=== PATIENT | male | born 1970 | race Hispanic/Latino ===

== ENCOUNTER 2017-05-13 13:06 | Emergency (ER) | payer MEDICARE, OTHER ==
[~2017-05-13] VITALS: Ht 165.1 cm; Wt 68.9 kg
[~2017-05-13 13:06] MED LIST: CLONIDINE HCL0.1 MG PO; LASIX40 MG PO; MINOXIDIL2.5 MG PO; PREDNISONE10 MG PO; PROCARDIA XL30 MG PO; SODIUM BICARBO650 MG PO
--- OUTSIDE RECORDS SUMMARY | 2017-05-13 13:08 | XMS REPORT | Clinical Summary ---
Author Author [employer] [facility] [employer] Address Unknown Phone Unavailable Care Team Providers Care Associate Scientist Name Role Phone Kana Kat MD PCP Allergies Active Allergy Reactions Severity Noted Date Comments Codeine 06/30/2016 Heparin Hives, Itching 06/29/2016 Hydralazine GI Intolerance High 06/30/2016 Morphine Hives, Itching, GI 06/29/2016 Causes N/V Intolerance Current Medications Prescription Sig. Disp. Refills Start End Date Status Date clonIDINE HCl (CATAPRES) Take 0.2 mg by mouth 3 06/27/19 Active 0.2 MG tablet (three) times a day. 17 mycophenolate (CELLCEPT) Take 1,000 mg by mouth 2 06/14/19 Active 500 mg tablet (two) times a day. 17 tacrolimus (PROGRAF) 0.5 Take 5 capsules (2.5 mg 300 capsule 0 08/05/19 Active MG capsule total) by mouth 2 (two) 17 21 times a day. NIFEdipine XL (PROCARDIA Take 1 tablet (90 mg 30 tablet 5 07/06/19 Active XL) 90 MG 24 hr tablet total) by mouth daily. 17 minoxidil (LONITEN) 2.5 Take 2 tablets (5 mg 60 tablet 5 07/06/19 Active MG tablet total) by mouth daily. 17 predniSONE (DELTASONE) 10 Take 1 tablet (10 mg 30 tablet 0 07/06/19 08/05/19 Active mg tablet total) by mouth daily. 17 21 diltiazem CD (CardIZEM Take 240 mg by mouth Active CD) 240 MG 24 hr capsule every morning. PANTOPRAZOLE SODIUM Take 40 mg by mouth as Active (PANTOPRAZOLE ORAL) needed. diltiazem CD (CardIZEM Take 240 mg by mouth 06/27/19 07/06/19 Discontin CD) 240 MG 24 hr capsule daily. 17 17 ued predniSONE (DELTASONE) 10 Take 10 mg by mouth 3 06/27/19 07/06/19 Discontin mg tablet (three) times a day. 17 17 ued tacrolimus (PROGRAF) 1 MG Take 2 mg by mouth 2 06/25/19 07/06/19 Discontin capsule (two) times daily. 17 17 ued minoxidil (LONITEN) 2.5 Take 2 tablets (5 mg 60 tablet 5 07/06/19 Discontin MG tablet total) by mouth daily. 17 17 ued NIFEdipine XL (PROCARDIA Take 1 tablet (90 mg 30 tablet 07/06/19 07/06/19 Discontin XL) 90 MG 24 hr tablet total) by mouth daily. 17 17 ued doxazosin (CARDURA) 4 MG Take 1 tablet (4 mg 30 tablet 5 07/06/19 Discontin tablet total) by mouth daily. 17 17 ued doxazosin (CARDURA) 4 MG Take 1 tablet (4 mg 30 tablet 5 07/06/19 Discontin tablet total) by mouth daily. 17 17 ued NIFEdipine XL (PROCARDIA Take 1 tablet (90 mg 30 tablet 07/06/19 07/06/19 Discontin XL) 90 MG 24 hr tablet total) by mouth daily. 17 17 ued minoxidil (LONITEN) 2.5 Take 2 tablets (5 mg 60 tablet 5 07/06/19 Discontin MG tablet total) by mouth daily. 17 17 ued doxazosin (CARDURA) 4 MG Take 1 tablet (4 mg 30 tablet 5 07/06/19 Discontin tablet total) by mouth daily. 17 17 ued sodium bicarbonate 325 MG Take 4 tablets (1,300 mg 240 tablet 0 08/05/19 tablet total) by mouth 2 (two) 17 17 times a day for 30 days. traMADol (ULTRAM) 50 mg Take 1 tablet (50 mg 30 tablet 0 01/26/20 tablet total) by mouth every 6 17 17 (six) hours as needed for moderate pain for up to 10 days. Active Problems Problem Noted Date HTN (hypertension) 06/30/2016 Kidney transplant rejection 06/30/2016 Gastroesophageal reflux disease without esophagitis 06/30/2016 Anemia 06/30/2016 Encounters Date Type Specialty Care Team Description 01/25/2017 [facility] General Surgery Lawson Caldwell MD Pseudoaneurysm of Encounter brachial artery (Primary Dx) 01/25/2017 Procedure Pass General Surgery 01/25/2017 Surgery General Surgery Lawson Caldwell MD LEFT UPPER EXTREMITY PSEUDOANEURYSM REPAIR and AV Graft Revision 01/21/2017 Pre-Admit Pre-Admission Testing Lawson Caldwell MD Preop testing (Primary Testing Dx) Appointment 01/21/2017 Office Visit General Surgery Lawson Caldwell MD Pseudoaneurysm of brachial artery (Primary Dx) 01/21/2017 Anesthesia General Surgery Lenore Mansfield NP 01/09/2017 Documentation Transplant Silvestre Shen MD Kidney Follow- up (TIEDI GF form ) 09/19/2016 Telephone Transplant Patricia Baez LCSW 09/14/2016 Telephone Transplant Natasha White MA Speak to Financial 09/14/2016 Telephone Transplant Natasha White MA Speak to Coordiantor 09/13/2016 Telephone Transplant Yolis Baker MA Insurance Option 09/10/2016 Telephone Transplant Carleen Lewis Referral - Kidney Txp RN 06/29/2016 Hospital Transplant Magalys Kat Sr., Essential hypertension - Encounter MD (Primary Dx); 07/05/2016 Kidney transplant rejection; Gastroesophageal reflux disease without esophagitis; Iron deficiency anemia due to chronic blood loss 06/29/2016 Emergency Emergency Medicine after 05/12/2016 Family History Medical History Relation Name Comments Hypertension Paternal Grandmother Stroke Paternal Grandmother Relation Name Status Comments Paternal Grandmother Social History Tobacco Use Types Packs/Day Years Used Date Former Smoker Cigarettes 0.25 1 Quit: 1989 Smokeless Tobacco: Never Used Comments: One pack would last a month, only smoked for one year in early Alcohol Use Drinks/Week oz/Week Comments No Sex Assigned at Date Recorded Not on file Last Filed Vital Signs Vital Sign Reading Time Taken Blood Pressure 168/110 01/25/2017 3:54 PM [facility] Pulse 54 01/25/2017 3:54 PM [facility] Temperature 36.2 C (97.1 F) 01/25/2017 3:54 PM [facility] Respiratory Rate 16 01/25/2017 3:54 PM [facility] Oxygen Saturation 100% 01/25/2017 3:54 PM [facility] Inhaled Oxygen - - Concentration Weight 59.1 kg (130 lb 3 oz) 01/21/2017 11:23 AM [facility] Height 165.1 cm (5' 5") 01/25/2017 11:25 AM [facility] Body Mass Index 21.66 01/21/2017 11:23 AM [facility] Plan of Treatment Health Maintenance Due Date Last Done Comments INFLUENZA VACCINE 10/09/2016 Implants Implanted Type Area Photographer'S Model Device Expiration Model / Identifier Date Serial / Lot Particle Hmstc Absrbl Allison 5gm Surgical N/A: N/A MEDAFOR [id number] [facility] Mph - [id number] Implants; / Implanted: Qty: 1 on 01/25/2017 by Expanders; / Lawson Caldwell MD Extenders; Surgical Wires Graft Vasclr [place]-Alireza Stdwl 10cm Vascular N/A: N/A W L GORE 2021 [id number] / 6mm - [id number] - [id number] Graft [id number] / Implanted: Qty: 1 on 01/25/2017 by [id number] Lawson Caldwell MD Procedures Procedure Name Priority Date/Time Associated Diagnosis Comments RI AN ELECTIVE Routine 01/25/2017 SUPRAGLOTTIC AIRWAY 1:25 PM [facility] Procedure Note - Nell Alarcon MD - 01/25/2017 1:24 PM [facility] Airway Date/Time: 01/25/2017 1:17 PM Performed by: NELL ALARCON Authorized by: NELL ALARCON Location: OR Urgency: Elective Performed by: anesthesio logist Preoxygena yenifer with 100% O2: Yes Mask Ventilatio n: Easy mask Final Airway Type: Supraglott ic airway Final LMA: Classic LMA Size: 4 Number of Attempts at Approach: 1 LEFT UPPER EXTREMITY 01/25/2017 Pseudoaneurysm of femoral PSEUDOANEURYSM REPAIR and 11:25 AM [facility] artery AV Graft Revision Case Notes NAME ALERT Special Needs NAME ALERT after 05/12/2016 Results * Potassium, syringe (01/25/2017 11:10 AM) Component Value Ref Range Potassium, syringe 3.7 3.5 - 5.0 mEq/L Specimen Performing Laboratory Blood [facility] DEPARTMENT OF PATHOLOGY AND GENOMIC MEDICINE [address] [place] [phone] * Hemoglobin, syringe (01/25/2017 11:10 AM) Component Value Ref Range Hemoglobin, syringe 11.3 (L) 14.0 - 18.0 g/dL Specimen Performing Laboratory Blood [facility] DEPARTMENT OF PATHOLOGY AND GENOMIC MEDICINE [address] [place] [address] * Glucose level, syringe (01/25/2017 11:10 AM) Component Value Ref Range Glucose, syringe 96 65 - 99 mg/dL Specimen Performing Laboratory Blood [facility] DEPARTMENT OF PATHOLOGY AND GENOMIC MEDICINE [address] [place] [address] * ECG Pre/Post Op (01/21/2017 12:41 PM) Component Value Ref Range Ventricular rate 60 Atrial rate 60 RI interval 168 QRSD interval 96 QT interval 484 QTC interval 484 P axis 1 73 QRS axis 1 6 T wave axis 73 EKG impression Normal sinus rhythm-Possible Left atrial enlargement-Prolonged QT-Abnormal ECG- Specimen Performing Laboratory [facility] MUSE [address] [place] [address] * Estimated GFR (01/21/2017 11:37 AM) Only the most recent of 7 results within the time period is included. Component Value Ref Range GFR Non Af Amer 9 (A) mL/min/1.73 m2 GFR Af Amer 11 (A) mL/min/1.73 m2 Comment: Chronic kidney disease: <60 mL/min/1.73m2 Kidney failure: <15 mL/min/1.73m2 The estimated GFR is calculated from the IDMS-traceable Modification of Diet in Renal Disease Equation. The accuracy of the calculation is poor when the creatinine is normal. Calculated values >90 mL/min/1.73m2 are not reported. This equation has not been validated in children (<18 years), women, the elderly (>70 years), or ethnic groups other than Caucasians and Americans. Specimen Performing Laboratory Plasma specimen [facility] DEPARTMENT OF PATHOLOGY AND GENOMIC MEDICINE [address] [place] [address] * CBC with platelet and differential (01/21/2017 11:37 AM) Only the most recent of 7 results within the time period is included. Component Value Ref Range WBC 7.37 4.50 - 11.00 k/uL RBC 3.76 (L) 4.40 - 6.00 m/uL HGB 10.7 (L) 14.0 - 18.0 g/dL HCT 33.2 (L) 41.0 - 51.0 % MCV 88.3 82.0 - 100.0 fL MCH 28.5 27.0 - 34.0 pg MCHC 32.2 31.0 - 37.0 g/dL RDW - SD 44.4 37.0 - 55.0 fL MPV 10.5 8.8 - 13.2 fL Platelet count 164 150 - 400 k/uL Nucleated RBC 0.00 /100 WBC Neutrophils 80.7 (H) 39.0 - 69.0 % Lymphocytes 14.4 (L) 25.0 - 45.0 % Monocytes 3.3 0.0 - 10.0 % Eosinophils 0.4 0.0 - 5.0 % Basophils 0.7 0.0 - 1.0 % Immature granulocytes 0.5Comment: "Immature granulocytes" 0.0 - 1.0 % (promyelocytes, myelocytes, metamyelocytes) Specimen Performing Laboratory Blood [facility] DEPARTMENT OF PATHOLOGY AND GENOMIC MEDICINE [address] [place] [address] * Comprehensive metabolic panel (01/21/2017 11:37 AM) Component Value Ref Range Sodium 137 135 - 148 mEq/L Potassium 3.5 3.5 - 5.0 mEq/L Chloride 97 (L) 98 - 112 mEq/L CO2 26 24 - 31 mEq/L Anion gap 14 7 - 15 mEq/L Comment: Starting from June , anion gap calculation no longer incorporates potassium. Please note the change. BUN 58 (H) 6 - 20 mg/dL Creatinine 6.6 (H) 0.7 - 1.2 mg/dL Glucose 98 65 - 99 mg/dL Calcium 8.7 8.3 - 10.2 mg/dL Protein 6.8 6.3 - 8.3 g/dL Comment: 4.6-7.0 g/dL 1 week 4.4-7.6 g/dL 7 months-1year 5.1-7.3 g/dL 1-2 years 5.6-7.5 g/dL >3 years 6.0-8.0 g/dL 18-150 6.3-8.3 g/dL Albumin 3.1 (L) 3.5 - 5.0 g/dL A/G ratio 0.8 0.7 - 3.8 Alkaline phosphatase 89 40 - 129 U/L AST 16 10 - 50 U/L ALT 9 5 - 50 U/L Total bilirubin 0.3 0.0 - 1.2 mg/dL Specimen Performing Laboratory Plasma specimen [facility] DEPARTMENT [place] [address] * Cryo, globulin and fibrinogen (07/05/2016 4:53 PM) Component Value Ref Range Cryoglobulin Negative Negative Cryocrit globulin 0.0 Negative % Cryofibrinogen Negative Negative Cryocrit fibrinogen 0.0 Negative % Specimen Performing Laboratory Blood [facility] [place] [address] * Rheumatoid factor (07/05/2016 4:53 PM) Component Value Ref Range Rheumatoid factor <10 0 - 13 IU/mL Specimen Performing Laboratory Plasma specimen [facility] [place]MENT [place] [address] * C3 complement component (07/05/2016 4:53 PM) Only the most recent of 2 results within the time period is included. Component Value Ref Range C3 complement 92 90 - 180 mg/dL Specimen Performing Laboratory Plasma specimen [facility] DEPARTMENT OF PATHOLOGY AND [place] [id number] * C4 complement component (07/05/2016 4:53 PM) Only the most recent of 2 results within the time period is included. Component Value Ref Range C4 complement 25 10 - 40 mg/dL Specimen Performing Laboratory Plasma specimen [facility] [place] [address] * FK506 level (07/05/2016 5:40 AM) Only the most recent of 6 results within the time period is included. Component Value Ref Range FK506 level 3.5 ng/mL Comment: Therapeutic range 5-20 ng/mL for 12 hour trough. The range varies depending on the organ transplanted, time after transplantation and co-administered immunosuppressant therapies. Please use clinical judgment to interpret test result. Test performed using [employer] Switch Foreman chemiluminescent microparticle immunoassay for Tacrolimus on the [employer] i System. Specimen Performing Laboratory [facility] [place] [address] * Phosphorus level (07/05/2016 5:40 AM) Only the most recent of 3 results within the time period is included. Component Value Ref Range Phosphorus 2.6 2.4 - 4.5 mg/dL Specimen Performing Laboratory Plasma specimen [facility] [place] [address] * Magnesium level (07/05/2016 5:40 AM) Only the most recent of 4 results within the time period is included. Component Value Ref Range Magnesium 2.2 1.6 - 2.6 mg/dL Specimen Performing Laboratory Plasma specimen [facility] [place] [address] * Basic metabolic panel (07/05/2016 5:40 AM) Only the most recent of 6 results within the time period is included. Component Value Ref Range Sodium 140 135 - 148 mEq/L Potassium 4.2 3.5 - 5.0 mEq/L Chloride 106 98 - 112 mEq/L CO2 24 24 - 31 mEq/L Anion gap 10 7 - 15 mEq/L Comment: Starting from June , anion gap calculation no longer incorporates potassium. Please note the change. BUN 56 (H) 6 - 20 mg/dL Creatinine 2.5 (H) 0.7 - 1.2 mg/dL Glucose 97 65 - 99 mg/dL Calcium 9.2 8.3 - 10.2 mg/dL Specimen Performing Laboratory Plasma specimen [facility] [place] [address] * PV duplex venous upper extremity bilat (07/04/2016 1:50 PM) Specimen Performing Laboratory [facility] [address] [place] [address] Narrative Vascular Ultrasound Laboratory Upper Extremity Venous Report [address] [place] [address] Pat.Name:ROGERIO GILLIAM Pat.ID:[id number] .Date: 07/04/2016 Refer.MD:MAGALYS KAT MD Exam Time: 1:26:00 PMStudy Type:UE Venous Height:65inWeight:136lb BSA: 1.68 m2 DOBAge:1969,46Y Sex: MALESonogrphr: Yunier Sullivan RVT, [facility] Pat. Stat.:Inpatient Room:[address] TapeVol: CLARE, CPT - 4: 30955 Echo Event ID:[id number] Order ID:[id number] Reason for Study:RUE swelling. PMH of acute kidney transplant rejection, HTN, anemia, headache. Race:C SUMMARY: DUPLEX SCAN OBSERVATIONS Right Left IJNormal SubclavianChronic Normal AxillaryNormal BrachialNormal BasilicNormal CephalicObstructed RIGHT:The internal jugular vein is partiallycompressible with bright echogenic material noted within the lumen of the visualized vein. Colorflow and Doppler signals are present.Thecephalic vein is non-compressible, and dilated with echogenic material noted within the lumen of the visualized vein. Colorflow and Doppler signals are absent. LEFT: PRELIMINARY FINDINGS 1. 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 2. Total superficial thrombosis seen in the right cephalic vein. *Report given to MECHE Cummings @ 1400hrs on 07/04/16. PHYSICIAN INTERPRETATION Venous examination of the right upper extremity and neck demonstrated a chronic venous thrombosis of the right internal jugular vein and a superficial thrombosis seen in the right cephalic vein. Signed 07/04/2016 05:15 PM Primitivo Muniz MD, RPVI Procedure Note Interface, Radiology Results In - 07/04/2016 5:15 PM CDT Vascular Ultrasound Laboratory Upper Extremity Venous Report [id number]Name: ROGERIO GILLIAM Pat.ID: [id number] .Date: 07/04/2016 Refer.MD: MAGALYS KAT MD Exam Time: 1:26:00 PM Study Type:UE Venous Height: 65in Weight: 136lb BSA: 1.68 m2 Age: 12 1970,46Y Sex: MALE Sonogrphr: Yunier Sullivan RVT, [facility] Pat. Stat.:Inpatient Room: H6522-Y Tape Vol: MK, CPT - 4: 55937 Echo Event ID:[id number] Order ID: [id number] Reason for Study:RUE swelling. PMH of acute kidney transplant rejection, HTN, anemia, headache. Race: C SUMMARY: DUPLEX SCAN OBSERVATIONS Right Left IJ Normal Subclavian Chronic Normal Axillary Normal Brachial Normal Basilic Normal Cephalic Obstructed RIGHT:The internal jugular vein is partiallycompressible with bright echogenic material noted within the lumen of the visualized vein. Colorflow and Doppler signals are present. Thecephalic vein is non-compressible, and dilated with echogenic material noted within the lumen of the visualized vein. Colorflow and Doppler signals are absent. LEFT: PRELIMINARY FINDINGS 1. 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 2. Total superficial thrombosis seen in the right cephalic vein. *Report given to MECHE Cummings @ 1400hrs on 07/04/16. PHYSICIAN INTERPRETATION Venous examination of the right upper extremity and neck demonstrated a chronic venous thrombosis of the right internal jugular vein and a superficial thrombosis seen in the right cephalic vein. Signed 07/04/2016 05:15 PM Primitivo Muniz MD, RPVI * Hepatitis C virus quantitative by PCR (07/04/2016 12:00 PM) Component Value Ref Range Hepatitis C quantitative, Not-Detected Not-Detected IU/mL PCR Hepatitis C quantitative, See link below for PDF Lab ReportComment: Case PCR Number: [id number] Specimen Performing Laboratory Blood [facility] DEPARTMENT OF PATHOLOGY AND GENOMIC MEDICINE [address] [place] [address] * Anti-neutrophilic cytoplasmic Abs panel (07/04/2016 12:00 PM) Component Value Ref Range ANCA screen Negative Negative Specimen Performing Laboratory Blood [facility] DEPARTMENT OF PATHOLOGY AND GENOMIC MEDICINE [address] [place] [address] * Total iron binding capacity (07/04/2016 10:29 AM) Component Value Ref Range Iron level 147 59 - 158 ug/dL Iron binding capacity 248 200 - 400 ug/dL % Saturation 59.3 (H) 20.0 - 40.0 % Specimen Performing Laboratory Plasma specimen [facility] DEPARTMENT OF PATHOLOGY AND GENOMIC MEDICINE [address] [place] [address] * Ferritin level (07/04/2016 10:29 AM) Component Value Ref Range Ferritin level 591 (H) 30 - 400 ng/mL Specimen Performing Laboratory Plasma specimen [facility] DEPARTMENT PATHOLOGY AND [facility] MEDICINE [address] [place] [address] * HCV qualitative by PCR (07/04/2016 9:54 AM) Component Value Ref Range HCV PCR result Not-Detected Not-Detected HCV RNA qualitative See link below for PDF Lab ReportComment: Specimen Performing Laboratory [facility] [place] [address] * Hepatitis C antibody (07/04/2016 9:54 AM) Component Value Ref Range Hepatitis C Ab Reactive (A) Non-reactive Comment: HCV antibody testing initially Reactive. Confirmation by HCV RNA PCR will be performed and reported separately when completed. Repeat HCV RNA PCR will not be performed if done within 30 days. Specimen Performing Laboratory Blood [facility] [place] [address] * Potassium level (07/02/2016 5:36 PM) Component Value Ref Range Potassium 4.7 3.5 - 5.0 mEq/L Specimen Performing Laboratory Plasma specimen [facility] [place] [address] * Surgical pathology request (07/02/2016 1:09 PM) Component Value Ref Range Surgical pathology report See link below for PDF Lab Report Specimen Performing Laboratory [facility] [place] [address] * Image Guidance Biopsy (07/02/2016 12:12 PM) Specimen Performing Laboratory [facility] [address] [place] [address] Narrative EXAMINATION:US NEEDLE BIOPSY CLINICAL HISTORY: Renal transplant TECHNIQUE: The risks, benefits, and alternatives were discussed with the patient and written informed consent was obtained. Left lower quadrant renal transplant was localized with ultrasound. A site for needle entry was selected and the skin was prepped and draped in the usual sterile fashion. After local administration of 1% buffered lidocaine, with ultrasound guidance introducer needle was advanced to the margin of the renal transplant and subsequently 3 18-gauge core samples were obtained. The specimens were reviewed with pathology and were deemed adequate. The patient was discharged to the radiology recovery area for monitoring prior to discharge. Conscious sedation: Under physician supervision 1 mg of IV Versed and 50 mcg of IV fentanyl was administered for moderate sedation. Vitals were continuously monitored by the nurse. The Physician spent 21 minutes of [id number] sedation time with the patient. EBL: None. Complications: None. Assistants: None. IMPRESSION: Technically successful ultrasound-guided left renal transplant biopsy as detailed above. [facility]-[id number] Procedure Note [facility], Radiology Results Incoming - 07/02/2016 5:14 PM CDT EXAMINATION: US NEEDLE BIOPSY CLINICAL HISTORY: Renal transplant TECHNIQUE: The risks, benefits, and alternatives were discussed with the patient and written informed consent was obtained. Left lower quadrant renal transplant was localized with ultrasound. A site for needle entry was selected and the skin was prepped and draped in the usual sterile fashion. After local administration of 1% buffered lidocaine, with ultrasound guidance introducer needle was advanced to the margin of the renal transplant and subsequently 3 18-gauge core samples were obtained. The specimens were reviewed with pathology and were deemed adequate. The patient was discharged to the radiology recovery area for monitoring prior to discharge. Conscious sedation: Under physician supervision 1 mg of IV Versed and 50 mcg of IV fentanyl was administered for moderate sedation. Vitals were continuously monitored by the nurse. The Physician spent 21 minutes of [id number] sedation time with the patient. EBL: None. Complications: None. Assistants: None. IMPRESSION: Technically successful ultrasound-guided left renal transplant biopsy as detailed above. [facility]-[id number] * Partial thromboplastin time, activated (07/02/2016 8:42 AM) Component Value Ref Range PTT 27.0 23.0 - 36.0 sec Comment: PTT therapeutic range for unfractionated heparin is 61.0-112.0 seconds which corresponds to Anti-Xa 0.3-0.7 U/ml. Specimen Performing Laboratory Blood [facility] DEPARTMENT OF PATHOLOGY AND GENOMIC MEDICINE [address] [place] [address] * Prothrombin time with INR (07/02/2016 8:42 AM) Component Value Ref Range Prothrombin time 13.0 12.0 - 15.0 sec INR 1.0 Comment: The International Normalized Ratio (INR) is a therapeutic monitoring tool for patients who are stable on oral anticoagulant therapy. An INR of 2.0-3.0 is suggested for deep vein thrombosis/pulmonary embolism. Specimen Performing Laboratory Blood [facility] DEPARTMENT OF PATHOLOGY AND GENOMIC MEDICINE [address] [place] [address] * BK virus by PCR (07/02/2016 5:48 AM) Only the most recent of 2 results within the time period is included. Component Value Ref Range BK virus PCR Not-Detected Not-Detected copies/mL BK virus PCR See link below for PDF Lab ReportComment: Specimen Performing Laboratory [facility] DEPARTMENT OF PATHOLOGY AND GENOMIC MEDICINE [address] [place] [address] * Urinalysis screen and microscopy, with reflex to culture (06/30/2016 5:34 PM) Component Value Ref Range Specimen site Clean catch Color, UA Straw Appearance, UA Clear Specific gravity, UA 1.017 1.001 - 1.035 pH, UA 6.0 5.0 - 8.5 Protein, UA 3+ (A) Negative Glucose, UA 1+ (A) Negative Ketones, UA Negative Negative Bilirubin, UA Negative Negative Blood, UA Negative Negative Nitrite, UA Negative Negative Urobilinogen, UA <2.0 <2.0 Leukocyte esterase, UA Negative Negative WBC, UA 4 (H) 0 - 1 /HPF RBC, UA 6 (H) 0 - 1 /HPF Bacteria, UA Few None seen Yeast, UA None seen Yeast with pseudohyphae, None seen UA Hyaline casts, UA 4 /LPF Specimen Performing Laboratory Urine [facility] DEPARTMENT OF PATHOLOGY AND GENOMIC MEDICINE [address] [place] [address] * Urine culture (06/30/2016 5:34 PM) Component Value Ref Range Urine culture SEE COMMENTComment: Bacteriuria screen negative. Specimen Performing Laboratory Urine [facility] DEPARTMENT OF PATHOLOGY AND GENOMIC MEDICINE [address] [place] [address] * US Renal Transplant Doppler (06/30/2016 9:15 AM) Specimen Performing Laboratory [facility] [address] [place] [address] Narrative EXAMINATION:US RENAL TRANSPLANT DOPPLER CLINICAL HISTORY:Abnormal labs clinical exam TECHNIQUE: Sonographic images of the renal transplant were obtained as well as grayscale, color Doppler, and waveform analysis of the renal transplant vessels. COMPARISON:04/01/2015 renal ultrasound FINDINGS: The left iliac fossa renal transplant is normal in size and echogenicity. There is no evidence of renal mass, calculi, or hydronephrosis. There are no perinephric fluid collections. The transplant renal artery and vein are patent with normal flow direction and waveform. The urinary bladder is unremarkable. IMPRESSION: Normal renal ultrasound examination. [id number] Procedure Note Hm Interface, Radiology Results Incoming - 06/30/2016 10:08 AM CDT EXAMINATION: US RENAL TRANSPLANT DOPPLER CLINICAL HISTORY: Abnormal labs clinical exam TECHNIQUE: Sonographic images of the renal transplant were obtained as well as grayscale, color Doppler, and waveform analysis of the renal transplant vessels. COMPARISON: 04/01/2015 renal ultrasound FINDINGS: The left iliac fossa renal transplant is normal in size and echogenicity. There is no evidence of renal mass, calculi, or hydronephrosis. There are no perinephric fluid collections. The transplant renal artery and vein are patent with normal flow direction and waveform. The urinary bladder is unremarkable. IMPRESSION: Normal renal ultrasound examination. [id number] * Thyroid stimulating hormone (06/30/2016 4:40 AM) Component Value Ref Range TSH 2.87 0.27 - 4.20 uIU/mL Specimen Performing Laboratory Plasma specimen [facility] DEPARTMENT OF PATHOLOGY AND GENOMIC MEDICINE [address] [place] [id number] * T4, free (06/30/2016 4:40 AM) Component Value Ref Range T4, free 0.9 0.9 - 1.7 ng/dL Specimen Performing Laboratory Plasma specimen [facility] DEPARTMENT OF PATHOLOGY AND GENOMIC MEDICINE [address] [place] [id number] * Lipid panel (06/30/2016 4:40 AM) Component Value Ref Range Cholesterol 219 (H) <200 mg/dL Triglycerides 117 <150 mg/dL HDL cholesterol 93 >40 mg/dL LDL cholesterol 108 (H)Comment: Result obtained by direct LDL <100 mg/dL measurement Lipid panel SeeBelow interpretation Comment: Total Cholesterol (mg/dL) <200 Desirable 200-239 Borderline-high >=240 High Triglycerides (mg/dL) <150 Normal 150-199 Borderline-high 200-499 High >=500 Very high HDL Cholesterol (mg/dL) <40 Low (male) <40 Low (female) LDL Cholesterol (mg/dL) <100 Optimal 100-129 Near or above optimal 130-159 Borderline-high 160-189 High >=190 Very high Risk Catergories that modify LDL goals. Risk Catergories LDL goal (mg/dL) CHD and CHD risk equivalent <100 (10-year risk >20%) Multiple (2+) risk factors <130 (10-year risk=<20%) 0-1 risk factors <160 (<10-year risk) Defining levels of lipids in metabolic syndrome Triglycerides >=150 mg/dL HDL Cholesterol Men <40 mg/dL Women <40 mg/dL Non-HDL cholesterol is a second target for therapy in persons with high triglycerides (>=200 mg/dL) Specimen Performing Laboratory Plasma specimen [facility] DEPARTMENT OF PATHOLOGY AND GENOMIC MEDICINE [address] [place] [address] after 05/12/2016 Insurance Payer Benefit Subscriber ID Type Phone Address Plan / Group MEDICAID MEDICAID xxxxxxxxx Medicaid MEDICARE MEDICARE xxxxxxxxxx Medicare [place], [place] PART A AND B
--- OUTSIDE RECORDS SUMMARY | 2017-05-13 13:08 | XMS REPORT | Clinical Summary ---
Author Author [facility] Address Unknown Phone Unavailable Care Team Providers Care Oracle R12 Developer Name Role Phone PCP Unavailable Allergies Not on File Current Medications Not on file Active Problems Not on file Social History Tobacco Use Types Packs/Day Years Used Date Never Assessed Sex Assigned at Date Recorded Not on file Last Filed Vital Signs Not on file Plan of Treatment Not on file Results Not on fileafter 05/12/2016
[2017-05-13] MEDS ORDERED: ONDANSETRON HCL INJ 2 MG/ML VIAL IV STA (13:27)
[2017-05-13] MEDS ORDERED: HYDRALAZINE HCL 20 MG/ML VIAL IV STA (13:30)
[2017-05-13 14:12] LABS: BASOPHILS % 0.6 % (0.0-1.0); EOSINOPHILS # (AUTO) 0.4 (0.0-0.4); EOSINOPHILS % 5.2 % (0.0-6.0); HEMOGLOBIN 11.7 g/dL (14.0-18.0); LYMPHOCYTES # (AUTO) 1.9 (1.0-3.2); LYMPHOCYTES % 26.2 % (18.0-39.1); MEAN CORPUSCULAR HEMOGLOBIN 29.2 pg (28-32); MEAN CORPUSCULAR HGB CONC 33.4 g/dL (31-35); MEAN CORPUSCULAR VOLUME 87.3 fL (81-99); MONOCYTES # (AUTO) 0.7 (0.2-0.8); MONOCYTES % 9.8 % (4.4-11.3); NEUTROPHILS # (AUTO) 4.2 (2.1-6.9); NEUTROPHILS % 57.9 % (38.7-80.0); PLATELET COUNT 99 x10e3/uL (140-360); RED BLOOD COUNT 4.01 x10e6/uL (4.3-5.7); RED CELL DISTRIBUTION WIDTH 15.6 % (11.7-14.4)
[2017-05-13 14:13] LABS: BILIRUBIN,URINE NEGATIVE (NEGATIVE); CLARITY,URINE SL CLOUDY (CLEAR); COLOR,URINE YELLOW (YELLOW); KETONES,URINE NEGATIVE (NEGATIVE); LEUKOCYTE ESTERASE ,URINE NEGATIVE (NEGATIVE); NITRITE,URINE NEGATIVE (NEGATIVE); PROTEIN,URINE DIPSTICK 2+ (NEGATIVE); URINE UROBILINOGEN 0.2 mg/dL (0.2 - 1)
[2017-05-13 14:27] LABS: ALBUMIN/GLOBULIN RATIO 0.8 (0.8-2.0); ANION GAP 15.2 mmol/L (8-16); CALCIUM 7.9 mg/dL (8.4-10.2); CREATININE, SERUM 7.8 mg/dL (0.72-1.25); POTASSIUM 3.2 mmol/L (3.5-5.1)
[2017-05-13 14:30] LABS: BACTERIA,URINE FEW /HPF; RBC,URINE 21-50 /HPF (0-5); WBC,URINE (MAN) 0-5 /HPF (0-5)
[2017-05-13 15:10] LABS: BODY FLUID APPEARANCE CLEAR; BODY FLUID COLOR COLORLESS; BODY FLUID TYPE PERITONEAL
[2017-05-13] MEDS ORDERED: VANCOMYCIN 1GM/NS 250 ML 250 ML IV STA (15:13)
[2017-05-13 15:44] LABS: RBC,BODY FLUID 3 cells/uL; WBC,BODY FLUID 2 cells/uL
[2017-05-13] MEDS ORDERED: GENTAMICIN SULFATE 100 MG in SODIUM CHLORIDE 0.9% 100 ML 100 ML IV SCH (16:00)
== END 2017-05-13 19:49 | disposition home or self-care (01) ==
LOC: ER 13:06
DX: R10.84 Generalized abdominal pain (principal); R11.2 Nausea with vomiting, unspecified; I12.0 Hypertensive chronic kidney disease with stage 5 chronic kidney disease or end stage renal disease; N18.6 End stage renal disease; Z99.2 Dependence on renal dialysis; B19.20 Unspecified viral hepatitis C without hepatic coma; Z94.0 Kidney transplant status
CPT/HCPCS: 36415; 80053; 81001; 85025; 87040; 87070; 87205; 89051; 93005; 99284; J3370; J0360; J2405

== ENCOUNTER 2017-10-03 06:35 | Inpatient (IN) | payer MEDICARE, OTHER ==
[~2017-10-03] VITALS: Ht 165.1 cm; Wt 53.5 kg
[2017-10-03] MEDS ORDERED: ASPIRIN 81 MG CHEW TAB PO ONE ×2 (07:00→13:00)
[2017-10-03 07:13] LABS: BASOPHILS # (AUTO) 0.1 (0.0-0.1); BASOPHILS % 0.4 % (0.0-1.0); EOSINOPHILS # (AUTO) 0.1 (0.0-0.4); EOSINOPHILS % 0.3 % (0.0-6.0); HEMOGLOBIN 13.5 g/dL (14.0-18.0); LYMPHOCYTES # (AUTO) 1.8 (1.0-3.2); LYMPHOCYTES % 9.8 % (18.0-39.1); MEAN CORPUSCULAR HEMOGLOBIN 28.3 pg (28-32); MEAN CORPUSCULAR HGB CONC 34.6 g/dL (31-35); MEAN CORPUSCULAR VOLUME 81.8 fL (81-99); MONOCYTES # (AUTO) 1.9 (0.2-0.8); MONOCYTES % 10.7 % (4.4-11.3); NEUTROPHILS # (AUTO) 14.1 (2.1-6.9); NEUTROPHILS % 78.4 % (38.7-80.0); PLATELET COUNT 159 x10e3/uL (140-360); RED BLOOD COUNT 4.77 x10e6/uL (4.3-5.7); RED CELL DISTRIBUTION WIDTH 13.9 % (11.7-14.4)
[2017-10-03] MEDS ORDERED: ONDANSETRON HCL INJ 2 MG/ML VIAL IV STA (07:19)
[2017-10-03] MEDS ORDERED: DOXERCALCIFEROL PO (07:23)
[2017-10-03] MEDS ORDERED: SENSIPAR30 MG PO (07:23)
[2017-10-03] MEDS ORDERED: NIFEDIPINE ER30 M1 PO (07:23)
[2017-10-03] MEDS ORDERED: CLONIDINE HCL0.2 MG PO (07:23)
[2017-10-03] MEDS ORDERED: PREDNISONE5 MG PO (07:23)
[2017-10-03] MEDS ORDERED: MYCOPHENOLATE250 MG PO (07:23)
[2017-10-03] MEDS ORDERED: PANTOPRAZOLE SO40 MG PO (07:23)
[2017-10-03] MEDS ORDERED: DILTIAZEM 24HR180 MG PO (07:23)
[2017-10-03] MEDS ORDERED: TACROLIMUS1 MG PO (07:23)
[2017-10-03 07:30] LABS: ALBUMIN 3.9 g/dL (3.5-5.0); ALBUMIN/GLOBULIN RATIO 1.2 (0.8-2.0); ANION GAP 22.6 mmol/L (8-16); CALCIUM 8.5 mg/dL (8.4-10.2); CREATININE, SERUM 10.29 mg/dL (0.72-1.25)
[2017-10-03] MEDS ORDERED: DICYCLOMINE HCL 20 MG/2 ML VIAL IM ONE (07:30)
[2017-10-03] MEDS ORDERED: FENTANYL CITRATE/PF 100MCG/2 ML INJ IV ONE (07:30)
[2017-10-03] MEDS ORDERED: SODIUM CHLORIDE 0.9% 1000ML 1,000 ML IV ONE (07:30)
[2017-10-03] MEDS ORDERED: DIATRIZOATE MEGL/DIATRIZOA SOD 30 ML BTL PO ONE (07:31)
[2017-10-03 07:32] LABS: POTASSIUM 2.6 mmol/L (3.5-5.1)
[2017-10-03 07:39] LABS: CREATINE KINASE MB 2.4 ng/mL (0-5.0)
[2017-10-03] MEDS ORDERED: POTASSIUM CHLORIDE 20MEQ/100ML 100 ML IV ONE (07:45)
[2017-10-03] MEDS ORDERED: LABETALOL HCL 5 MG/ML 20ML VIAL IV STA (08:00)
[2017-10-03] MEDS ORDERED: FAMOTIDINE 20 MG/2 ML VIAL IV STA (08:19)
[2017-10-03] MEDS ORDERED: METOCLOPRAMIDE HCL 10 MG/2ML VIAL IV ONE (08:30)
--- NOTE | 2017-10-03 09:24 | Diagnostic Imaging Report ---
PROCEDURE: CT ABDOMEN AND PELVIS WITHOUT CONTRAST TECHNIQUE: The abdomen and pelvis were scanned utilizing a multidetector helical scanner from the diaphragm to the lesser trochanter. No oral or intravenous contrast was administered per referring physician request. Coronal and sagittal multiplanar reformations were obtained. COMPARISON: None. INDICATIONS: ABDOMINAL PAIN, NAUSEA, VOMITING FINDINGS: ABSENCE OF INTRAVENOUS CONTRAST DECREASES SENSITIVITY FOR DETECTION OF FOCAL LESIONS AND VASCULAR PATHOLOGY. LOWER THORAX: Normal. HEPATOBILIARY: No focal hepatic lesions. No biliary ductal dilatation. SPLEEN: No splenomegaly. PANCREAS: No focal masses or ductal dilatation. ADRENALS: No adrenal nodules. KIDNEYS/URETERS: Kidneys are atrophic with extensive atherosclerotic vascular as well as cortical-parenchymal calcifications. No gross mass lesion. Left lower quadrant pelvic transplant kidney is of normal morphology. No hydronephrosis. PELVIC ORGANS/BLADDER: The urinary bladder is incompletely distended but otherwise unremarkable. Coarse prostatic calcifications.. PERITONEUM / RETROPERITONEUM: Peritoneal dialysis catheter coiled along the right inferior liver margin. Small volume ascites average attenuation 5-10 Hounsfield units. No pneumoperitoneum. LYMPH NODES: No pelvic sidewall, retroperitoneal, or mesenteric lymphadenopathy. VESSELS: Extensive atherosclerotic calcification of the abdominal aorta and major branch vessels without aneurysmal dilatation. Evaluation is otherwise limited in the absence of intravenous contrast. GI TRACT: The large bowel shows no evidence of distention or wall thickening, though the majority of the colon is collapsed and poorly evaluated. Normal appendix. Concentric wall thickening of a jejunal loop in the left upper quadrant (series 2 image 37). BONES AND SOFT TISSUES: A scattered foci of intramuscular gas along the right gluteus chanel is likely related to subcutaneous medication administration. Otherwise no focal soft tissue abnormalities. No osseous destructive lesions. Bone island in the right sacral ala. Bilateral L5 spondylolyses without spondylolisthesis. IMPRESSION: Concentric wall thickening of a jejunal loop in the left upper quadrant is nonspecific but is suggestive of regional enteritis in the appropriate clinical context. No evidence of bowel obstruction. Atrophic [place] kidneys, with postsurgical changes of left lower quadrant renal transplant and peritoneal dialysis catheter placement, with associated small volume ascites. Dictated by: Binh Rucker M.D. on 10/03/2017 at 9:29 Electronically approved by: Binh Rucker M.D. on 10/03/2017 at 9:29
[2017-10-03] MEDS ORDERED: LABETALOL HCL 5 MG/ML 20ML VIAL IV PRN ×2 (10:30→11:15)
[2017-10-03] MEDS ORDERED: SODIUM CHLORIDE 0.9% 1000ML 1,000 ML IV SCH (11:05)
[2017-10-03] MEDS ORDERED: HYOSCYAMINE 0.125 MG TAB PO PRN (11:15)
[2017-10-03] MEDS ORDERED: ONDANSETRON HCL INJ 2 MG/ML VIAL IV PRN (11:15)
[2017-10-03] MEDS ORDERED: HYDRALAZINE HCL 20 MG/ML VIAL IV PRN (12:15)
[2017-10-03] MEDS ORDERED: CEFTRIAXONE SOD 1 GM VIAL IV SCH (12:15)
[2017-10-03] MEDS ORDERED: ACETAMINOPHEN 325 MG TAB PO PRN (12:15)
--- NOTE | 2017-10-03 13:23 | History and Physical ---
ADDENDUM: FINAL IMPRESSION: 1. Sepsis. 1. Hypertensive emergency with hypertensive nephropathy. 2. End-stage renal disease on dialysis. 3. Jejunitis. 4. Vomiting. 5. Anemia of chronic disease secondary to chronic renal failure. 6. Severe abdominal pain. 7. Atypical chest pain. We are going to also put her on aspirin 81 mg daily, metoprolol 50 mg p.o. twice a day. We are going to get a cardiology consult also with Dr. Gómez also because of the evaluation of chest pain, and we are going to do an echocardiogram and he is going to be on telemetry. Also we are going to do troponin q.8 hours x3. Job#: [id number] EV
[2017-10-03] MEDS: LABETALOL HCL 5 MG/ML 20ML VIAL IV PRN (13:34)
--- NOTE | 2017-10-03 13:42 | History and Physical ---
HISTORY OF PRESENT ILLNESS: A 47-year-old male, past medical history positive for end-stage renal disease status post renal transplant on peritoneal dialysis for a month already, history of hypertension also. Came to the hospital complaining of vomiting, abdominal pain. He was found to have extremely high blood pressure, leukocytosis. He has been admitted because of uncontrolled hypertension and possible sepsis. REVIEW OF SYSTEMS CARDIOVASCULAR: He had an episode of chest pain but it resolved. RESPIRATORY: No shortness of breath. No cough. GASTROINTESTINAL: He had nausea and vomiting, no diarrhea. He has severe abdominal pain. GENITOURINARY: No frequency, no dysuria. ALLERGIES: HEPARIN, CODEINE, HYDRALAZINE AND MORPHINE. PAST MEDICAL HISTORY: Positive for end stage renal disease on dialysis status post renal transplant, history of hypertension. PHYSICAL EXAMINATION VITAL SIGNS: Blood pressure is 150/110, temperature degrees, heart rate 85 per minute, respiratory rate is 18 per minute. Oxygen saturation 100%. HEART: Shows regular rhythm. Normal S1, S2 sounds. LUNGS: Clear bilaterally. ABDOMEN: Soft. Peritoneal dialysis in place. EXTREMITIES: Show no evidence of cyanosis, no trauma. Blood culture, UA, urine culture has been ordered. A chest x-ray is going to be ordered. Patient has been started on Zosyn 2.25 grams IV piggyback q.8 hours. Consults are ready for infectious diseases for the possibility of sepsis, Dr. Manolo Gaona for nephrology. We are going to continue with the rest of the medications which include--we are going to resume the home medications, he is going to be on labetalol 20 mg IV q.4 hours as needed for hypertension, Tylenol 325 mg q.4 hours as needed, hyoscyamine 0.1.25 mg q.6 hours as needed. We are going to discontinue hydralazine because the patient is allergic to that. Continue Zofran 4 mg IV q.4 hours as needed, Cardizem 240 mg total daily, prednisone 5 mg daily, Cinacalcet 60 mg daily, tacrolimus 2 mg p.o. twice a day, Protonix 40 mg p.o. twice a day, Actually, nifedipine is going to be continued at 90 mg twice a day. We are going to discontinue the Cardizem because of duplicate he was taking at home. He is on Pepcid 20 mg IV twice a day. He is on CellCept 1600 mg 3 times a day, clonidine 0.2 mg 3 times a day. Patient is going to be admitted to the [facility]. Diet is going to be a renal diet. Job#: [id number] GENE
[2017-10-03] MEDS: PIPERACILLIN/TAZO 2.25 GM 50 ML IV SCH ×2 (13:50→22:05)
[2017-10-03 14:00] LABS: BILIRUBIN,URINE NEGATIVE (NEGATIVE); CLARITY,URINE CLEAR (CLEAR); COLOR,URINE YELLOW (YELLOW); KETONES,URINE NEGATIVE (NEGATIVE); LEUKOCYTE ESTERASE ,URINE NEGATIVE (NEGATIVE); NITRITE,URINE NEGATIVE (NEGATIVE); PROTEIN,URINE DIPSTICK 3+ (NEGATIVE); URINE UROBILINOGEN 0.2 mg/dL (0.2 - 1)
[2017-10-03 14:16] LABS: BACTERIA,URINE MODERATE /HPF
[2017-10-03 14:17] LABS: EPITHELIAL CELLS,URINE RARE /LPF
[2017-10-03] MEDS ORDERED: CLONIDINE HCL 0.2 MG TAB PO SCH (15:00)
[2017-10-03] MEDS: NIFEDIPINE CR 30 MG TAB PO SCH (16:45)
[2017-10-03] MEDS: MYCOPHENOLATE MOFETIL 250 MG CAP PO SCH ×2 (16:45→22:05)
[2017-10-03] MEDS: TACROLIMUS 1 MG CAP PO SCH (16:45)
[2017-10-03] MEDS: PANTOPRAZOLE SOD 40 MG TABEC PO SCH (16:45)
[2017-10-03] MEDS: FAMOTIDINE 20 MG/2 ML VIAL IV SCH (16:48)
[2017-10-03] MEDS ORDERED: NIFEDIPINE CR 30 MG TAB PO SCH (17:00)
--- NOTE | 2017-10-03 17:58 | Consultation ---
DATE OF CONSULTATION: October 03, 2017 ATTENDING PHYSICIAN: Eric Alcala MD REASON FOR CONSULTATION: End stage renal disease on peritoneal dialysis. HISTORY OF PRESENT ILLNESS: Patient is a 47-year-old male with past medical history of hypertension, hepatitis C carrier, ESRD status post cadaveric kidney transplant in 2007 and then got started on peritoneal dialysis because of failure. Was admitted with abdominal pain, nausea, vomiting. Patient denies having any diarrhea or fever. It has been going on for two weeks but that got progressively worse. He vomited the whole night yesterday so he decided to come to the hospital. Patient and was not able to keep any of his medications down because of the vomiting and patient also has very resistant hypertension. Currently the patient is lying in bed. Denies having any cloudy peritoneal fluid. PAST MEDICAL HISTORY: As above. PAST SURGICAL HISTORY: Cadaveric kidney transplant, peritoneal dialysis catheter placement. ALLERGIES: HEPARIN, CODEINE, HYDRALAZINE, MORPHINE. REVIEW OF SYSTEMS: Pertinent positives as per HPI. MEDICATIONS: As per the MAR. PHYSICAL EXAMINATION VITAL SIGNS: Blood pressure 147/108, pulse of 89, respirations 18, temperature is 99.1. One hundred percent room air. GENERAL: Awake, alert, oriented times 3. Not in apparent distress. HEENT: PERRLA. Extraocular muscles are intact. NECK: No JVD. HEART: S1, S2. LUNGS: Clear to auscultation bilaterally. ABDOMEN: Soft, nontender, nondistended. No rebound, no guarding. Peritoneal dialysis catheter on the left lower quadrant. EXTREMITIES: No edema. NEUROLOGIC: There are no focal deficits. SKIN: No new rash. LAB: White count 18.01, hemoglobin 13.5, platelet count is 159. Sodium 139, potassium 2.6, chloride 100, CO2 19, BUN 71, creatinine 10.2, glucose is 141, calcium is 8.5. AST 12, ALT 11. CK is 318. Troponin times two negative. Amylase is 257, lipase is 52. UA 3+ protein, 2+ blood, 11 to 20 RBCs. No leukocyte esterase. Moderate bacteria. White cell count negative. Blood culture pending. Urine culture pending. CT of abdomen and pelvis showed concentric wall thickening of jejunal loop in the left upper quadrant, nonspecific but is suggestive of enteritis [place] kidney, postsurgical changes in the left lower quadrant. Renal transplant patient on dialysis catheter placement . ASSESSMENT AND PLAN 1. End stage renal disease. Continue with the peritoneal dialysis. 2. Hypertension. Restart home medication and adjust the medicine as needed. 3. Abdominal pain, nausea, vomiting. Possible enteritis with leukocytosis, low grade fever. Will check peritoneal fluid for gram stain, cell count and culture. ID has been consulted. 4. Anemia of chronic kidney disease hemoglobin is more then I would hold on any MELQUIADES. 5. Hypokalemia replaced with IV. Discussed with the at bedside. I want to thank Dr. Alcala for the consult. Job#: [id number] GENE
[2017-10-03 20:00] VITALS: BP 141/98
--- NOTE | 2017-10-03 20:19 | Consultation ---
DATE OF CONSULTATION: October 03, 2017 INFECTIOUS DISEASE CONSULTATION REASON FOR CONSULTATION: Elevated white count. HISTORY OF PRESENT ILLNESS: This is a patient who is a 47-year-old male with history of end-stage renal disease. The patient is on peritoneal dialysis. He was doing well until about 2 days ago started to have nausea, vomiting, not feeling well. The patient felt feverish. There is no diarrhea. He did have some diffuse abdominal discomfort. The patient came to the emergency room. He was evaluated. His white count was elevated; so, he is being admitted. He is started on Zosyn. The patient is currently lying in bed. He said he is feeling a little bit better since he came here. PAST MEDICAL HISTORY: End-stage renal disease on hemodialysis. History of renal transplant on peritoneal dialysis for a month. History of hypertension. Hepatitis C carrier. PAST SURGICAL HISTORY: Renal transplant 2007, cadaver kidney. He is also on peritoneal dialysis with peritoneal catheter. Of interest, the peritoneal fluid is clear. ALLERGIES: NKA. SOCIAL HISTORY: There is no smoking, drug abuse, alcohol abuse. FAMILY HISTORY: Hypertension. REVIEW OF SYSTEMS: HEENT: There is no headache, visual changes, hearing changes. GI: There is nausea. There is vomiting. There is no diarrhea at the present time. Has mid abdominal pain. JOINTS: There is no erythema or edema. ALL OTHER SYMPTOMS: Within normal limits otherwise. LABORATORY DATA: Reviewed. His white count is 18.01, hemoglobin 13. Sodium 139, potassium 2.6, and creatinine 10.9. Blood cultures, urine cultures still pending. DIAGNOSTICS: He had CT of the abdomen and pelvis which was concentric wall thickening in the left upper quadrant, nonspecific, may be enteritis. PHYSICAL EXAMINATION: GENERAL: He is currently alert, oriented, does not seem to be in acute distress. VITALS: Stable currently. Afebrile, temperature 99.1. HEENT: Normocephalic. NECK: Supple. CHEST: Clear. HEART: S1/S2. No S3, no S4. No murmur. ABDOMEN: Soft. Bowel sounds are present. Diffuse discomfort, apparently in the epigastric area. EXTREMITIES: No edema. SKIN: No rash. IMPRESSION: 1. Gastroenteritis. Agree with Zosyn for now. Will see how he is going to do over the next 24 to 48 hours depending on the cultures. If his cultures, are negative, leukocytosis resolved, can discontinue IV antibiotic. 2. End-stage renal disease. Will follow. Job#: [id number] EV
[2017-10-03 20:30] VITALS: BP 141/98
[2017-10-03 21:00] VITALS: BP 141/98
[2017-10-03 21:26] LABS: BODY FLUID APPEARANCE CLEAR; BODY FLUID COLOR YELLOW; BODY FLUID TYPE PERITONEAL
[2017-10-03 21:27] LABS: RBC,BODY FLUID 172 cells/uL; WBC,BODY FLUID 42 cells/uL
[2017-10-03 22:04] LABS: LYMPHOCYTES,BODY FLUID 37 %; MONO/MACROPHG,BODY FLUID 53 %; NEUTROPHILS,BODY FLUID 10 %
[2017-10-03] MEDS ORDERED: SODIUM CHLORIDE 0.9% 250ML 250 ML ONE (22:04)
[2017-10-03] MEDS: CLONIDINE HCL 0.2 MG TAB PO SCH (22:05)
[2017-10-04] VITALS: BP 125/87
--- NOTE | 2017-10-04 00:43 | Consultation ---
DATE OF CONSULTATION: October 03, 2017 CARDIAC CONSULTATION REASON FOR THE CONSULTATION: Chest pain. HISTORY: This is an unfortunate 47-year-old gentleman who is known with longstanding history of end-stage renal disease. In fact, patient had kidney transplant in 2007. He was doing extremely well. His other health problems include hypertension, hepatitis C carrier. He does have a history of severe hypertension. He came to this institution complaining of nausea, vomiting, or abdominal pain. His blood pressure was extremely high. He does have leukocytosis and is having fever. Admitted for further management. As I mentioned, patient is status post cadaveric kidney transplant in 2007. He had rejection and he started on peritoneal dialysis a few months back. He is still on antirejection medications; so, he is immunocompromised. In addition to his nausea and vomiting, he complained of easy fatigability, shortness of breath on exertion. He does have atypical left shoulder and pain over the left breast. It is not pleuritic. It is not pericarditic. It is not even anginal. It is very vague and it comes and goes. With the nausea and vomiting today, he had the chest pain. Cardiac consultation is obtained. His cardiac enzymes, the first set is normal. His BUN is at 71 and creatinine 10.3. He has got leukocytosis with white blood cell count of 18,000. REVIEW OF SYSTEMS CARDIAC: As per above. PULMONARY: No cough. No hemoptysis. GI: Nausea, vomiting, abdominal discomfort. No hematemesis. No melena. : He does not make any urine or very scant urine. No hematuria. MUSCULAR: Aches and pain all over with his acute febrile illness. HEMATOLOGICAL: No easy bruising or bleeding. OTHERS: No recent intervention or dental workup. His only intervention is him doing his peritoneal dialysis. SOCIAL HISTORY: He lives with his girlfriend. He is a nonsmoker. He is not an alcohol drinker. HOME MEDICATIONS: Include all the following 1. Clonidine 0.2 mg t.i.d. 2. Nifedipine 90 mg every 12 hours. 3. Protonix 40 mg a day. 4. Prednisone 5 mg a day. 5. Tacrolimus 2 mg twice a day. 6. Metoprolol 50 mg twice a day. 7. Mycophenolate Mofetil 1500 mg t.i.d. ALLERGIES: HEPARIN, HYDRALAZINE, MORPHINE, AND MORE PAIN CODEINE. PAST MEDICAL HISTORY 1. End-stage renal disease. 2. Cadaveric kidney transplant in 2007. 3. Rejection and resume of peritoneal dialysis. 4. Left arm AV fistula. 5. Recent insertion of peritoneal dialysis catheter. 6. Hypertension. 7. Hepatitis C carrier. PHYSICAL EXAMINATION VITALS: Height of 5 feet 5 inches; weight of 162 pounds; blood pressure 150/100, blood pressure was as high as 200/130; temperature of 99.1 Fahrenheit; respiratory rate of 20. HEENT: No stigmata of any conjunctival or any mucosal bleeding or petechia. NECK: No elevation of jugular venous pulsation. CHEST: Decreased air entry in bases with crackles. HEART: 5th left intercostal space. Normal 1st and 2nd heart sounds with ejection systolic murmur. ABDOMEN: PD catheter in place, mildly distended. 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 NEUROLOGIC: Awake, alert, and oriented. Neck supple. No motor or sensory deficits. LABORATORY DATA: Sodium 139, potassium 2.6, BUN of 71, and creatinine of 10.3. Glucose of 141. White blood cell count of 15,000, hemoglobin 13.5, hematocrit 39%, and platelet count of 159,000. First set of cardiac enzymes normal. Abdomen and pelvic CT scan showed PD in place, calcified arterial vessels. IMPRESSIONS 1. Fevers, chills, nausea, and vomiting in patient on peritoneal dialysis, will increase the probability of possible infection and possible peritonitis. 2. End-stage renal disease, on peritoneal dialysis. 3. Failure of cadaveric kidney transplant. Patient is immunocompromised, on immune therapy which will decrease his susceptibility to infection. 4. Severe malignant hypertension. 5. Atypical chest pain. 6. Electrolyte imbalance. 7. Probability of coronary artery disease is high in this patient. PLAN: Cardiac-lima, my recommendation is to treat the acute febrile illness and the acute presentation. I would concur with serial blood cultures. Will do serial cardiac enzymes. Will check an echocardiogram to evaluate left ventricular function and to rule out presence of any abnormality on his valves because he is febrile. Care discussed with the patient, explained. Will follow patient's progression with you. Job#: [id number]
[2017-10-04 04:00] VITALS: BP 137/93
[2017-10-04 04:58] LABS: BASOPHILS # (AUTO) 0.1 (0.0-0.1); BASOPHILS % 0.8 % (0.0-1.0); EOSINOPHILS # (AUTO) 0.2 (0.0-0.4); EOSINOPHILS % 2.7 % (0.0-6.0); HEMATOCRIT 36.4 % (38.2-49.6); HEMOGLOBIN 12.3 g/dL (14.0-18.0); LYMPHOCYTES # (AUTO) 2.6 (1.0-3.2); MEAN CORPUSCULAR HEMOGLOBIN 28.1 pg (28-32); MEAN CORPUSCULAR HGB CONC 33.8 g/dL (31-35); MEAN CORPUSCULAR VOLUME 83.1 fL (81-99); MONOCYTES # (AUTO) 0.8 (0.2-0.8); MONOCYTES % 10.3 % (4.4-11.3); NEUTROPHILS # (AUTO) 4.2 (2.1-6.9); NEUTROPHILS % 52.9 % (38.7-80.0); PLATELET COUNT 120 x10e3/uL (140-360); RED BLOOD COUNT 4.38 x10e6/uL (4.3-5.7); RED CELL DISTRIBUTION WIDTH 14.2 % (11.7-14.4)
[2017-10-04 05:23] LABS: ALBUMIN 3.3 g/dL (3.5-5.0); CALCIUM 8.1 mg/dL (8.4-10.2); CREATININE, SERUM 9.1 mg/dL (0.72-1.25); MAGNESIUM 2.9 MG/DL (1.3-2.1); PHOSPHORUS 6.3 MG/DL (2.3-4.7)
[2017-10-04] MEDS: CLONIDINE HCL 0.2 MG TAB PO SCH ×3 (05:50→21:34)
[2017-10-04] MEDS: PIPERACILLIN/TAZO 2.25 GM 50 ML IV SCH ×3 (06:05→21:34)
[2017-10-04 07:55] VITALS: BP 117/79
[2017-10-04] MEDS ORDERED: POTASSIUM CHLORIDE 20 MEQ TAB CR PO NR (08:00)
[2017-10-04] MEDS: NIFEDIPINE CR 30 MG TAB PO SCH ×2 (08:13→21:00)
[2017-10-04] MEDS ORDERED: DILTIAZEM HCL 120 MG CAP CD PO SCH (09:00)
[2017-10-04] MEDS ORDERED: DILTIAZEM HCL 180 MG CAP CD PO SCH (09:00)
[2017-10-04] MEDS: MYCOPHENOLATE MOFETIL 250 MG CAP PO SCH ×3 (09:09→20:59)
[2017-10-04] MEDS: PREDNISONE 5 MG TAB PO SCH (09:09)
[2017-10-04] MEDS: PANTOPRAZOLE SOD 40 MG TABEC PO SCH ×2 (09:09→17:23)
[2017-10-04] MEDS: TACROLIMUS 1 MG CAP PO SCH ×2 (09:09→17:23)
[2017-10-04] MEDS: CINACALCET 30 MG TAB PO SCH (09:09)
[2017-10-04] MEDS: FAMOTIDINE 20 MG/2 ML VIAL IV SCH ×2 (09:10→17:23)
[2017-10-04 12:00] VITALS: BP 132/84
[2017-10-04 16:00] VITALS: BP 159/97
[2017-10-04] MEDS: DOXERCALCIFEROL 1 MCG PO SCH ×2 (17:00→20:59)
[2017-10-04] MEDS ORDERED: POTASSIUM CHLORIDE 20 MEQ TAB CR PO ONE (17:00)
--- NOTE | 2017-10-04 17:31 | Progress Note ---
DATE: October 04, 2017 INTERNAL MEDICINE PROGRESS NOTE SUBJECTIVE: The patient is doing better now. PHYSICAL EXAM VITAL SIGNS: Blood pressure 132/84, temperature 97.5, heart rate 70 per minute, respiratory rate 19 per minute. Oxygen saturation 98%. HEART: Regular rhythm. Normal S1, S2 sounds. LUNGS: Clear bilateral. ABDOMEN: Soft. He had a peritoneal dialysis catheter in place. EXTREMITIES: Show no evidence of cyanosis, edema or trauma. BMP showed sodium 141, potassium 3.0, chloride 103, CO2 22, BUN 62, creatinine 9.10. On the CBC--white blood count 7.83, hemoglobin 12.3, hematocrit 36.4, platelet count 120,000, AST 13, ALT 9, total bilirubin 0.9, alkaline phosphatase of 83. FINAL IMPRESSION 1. Sepsis. 2. Uncontrolled hypertension with end-stage renal disease. 3. End-stage renal disease on peritoneal dialysis. 4. Jejunitis. 5. Vomiting. 6. Anemia of chronic disease secondary to chronic renal failure. 7. Atypical chest pain. 8. Abdominal pain. PLAN OF TREATMENT: Continue Zosyn 2.25 grams IV piggyback q.8 hours, Pepcid 20 mg twice a day, hyoscyamine 0.125 mg q.6 hours, Zofran 4 mg IV q.4 hours as needed, Protonix 40 mg twice a day, clonidine 0.2 mg q.8 hours, Tylenol 325 mg q.4 hours as needed, prednisone 5 mg daily, nifedipine 90 mg twice a day, Cinacalcet 60 mg daily, tacrolimus 2 mg twice a day, Myfortic 1500 mg 3 times a day for antirejection medication and labetalol 20 mg IV q.[address] Painter has been consulted for infectious disease point of view. Blood culture, urine culture has been sent. Dr. Manolo Gaona has been consulted from the neurology point of view, Dr. Gómez from the cardiology point of view. Diet is going to be of course renal diet. Dr. Reeves will be covering for me from today until Saturday at 7 p.m. Job#: [id number]
[2017-10-04 19:04] LABS: MAGNESIUM 2.7 MG/DL (1.3-2.1); POTASSIUM 3.9 mmol/L (3.5-5.1)
[2017-10-04] MEDS: LABETALOL HCL 5 MG/ML 20ML VIAL IV PRN (19:33)
[2017-10-04 20:40] VITALS: BP 191/123
[2017-10-05 00:39] VITALS: BP 173/114
[2017-10-05] MEDS: DOXERCALCIFEROL 1 MCG PO SCH ×4 (04:52→16:20)
[2017-10-05 05:08] LABS: ANION GAP 17.3 mmol/L (8-16); CALCIUM 7.5 mg/dL (8.4-10.2); CREATININE, SERUM 8.9 mg/dL (0.72-1.25); POTASSIUM 3.3 mmol/L (3.5-5.1)
[2017-10-05 05:53] VITALS: BP 144/93
[2017-10-05] MEDS: PIPERACILLIN/TAZO 2.25 GM 50 ML IV SCH ×2 (06:20→14:00)
[2017-10-05] MEDS: CLONIDINE HCL 0.2 MG TAB PO SCH ×2 (06:21→14:00)
[2017-10-05 08:00] VITALS: BP 144/93
[2017-10-05 09:00] VITALS: BP 139/90
[2017-10-05] MEDS: NIFEDIPINE CR 30 MG TAB PO SCH (09:00)
[2017-10-05] MEDS: CINACALCET 30 MG TAB PO SCH (09:00)
[2017-10-05] MEDS: MYCOPHENOLATE MOFETIL 250 MG CAP PO SCH ×2 (09:00→15:00)
[2017-10-05] MEDS: PREDNISONE 5 MG TAB PO SCH (09:00)
[2017-10-05] MEDS: PANTOPRAZOLE SOD 40 MG TABEC PO SCH ×2 (09:00→16:20)
[2017-10-05] MEDS: TACROLIMUS 1 MG CAP PO SCH ×2 (09:00→16:20)
[2017-10-05] MEDS: FAMOTIDINE 20 MG/2 ML VIAL IV SCH ×2 (09:00→16:20)
[2017-10-05] MEDS ORDERED: POTASSIUM CHLORIDE 20 MEQ TAB CR PO NR (09:35)
[2017-10-05] MEDS ORDERED: POTASSIUM CHLORIDE 20 MEQ TAB CR PO ONE (11:45)
[2017-10-05 12:00] VITALS: BP 143/98
[2017-10-05] MEDS ORDERED: CIPRO500 MG PO (16:00)
--- NOTE | 2017-10-05 16:58 | Discharge Summary ---
ADMIT DIAGNOSES 1. Enteritis. 2. End-stage renal disease. 3. Sepsis secondary to enteritis. 4. Possible peritonitis. 5. Hypertensive heart disease. 6. History of renal transplantation. DISCHARGE DIAGNOSES 1. Sepsis secondary to enteritis, resolved. 2. Enteritis, resolving. 3. Peritonitis, ruled out. 4. End-stage renal disease. 5. Hypertensive heart disease. HOSPITAL COURSE: This is a 47-year-old man who has known history of end-stage renal disease. This gentleman undergoes peritoneal dialysis every evening. The patient was admitted with diagnosis of sepsis secondary to gastroenteritis. An issue was felt that the patient perhaps had sepsis secondary to peritonitis since he does undergo peritoneal dialysis. During this hospitalization, the patient had peritoneal fluid checked, and the gram stain and the subsequent culture did not reveal any evidence of peritonitis. The patient improved clinically with intravenous antibiotics, namely Zosyn. The patient's hospitalization was unremarkable. The patient did undergo a CT of the abdomen and pelvis on admission that revealed concentric wall thickening of a jejunal loop in the left upper quadrant suggestive of regional enteritis. The patient's condition on discharge was stable. DISCHARGE MEDICATIONS: 1. Ciprofloxacin 250 mg b.i.d. for 3 more days. 2. Clonidine 0.2 mg t.i.d. 3. Nifedipine 90 mg b.i.d. 4. Prograf 1 mg mg b.i.d. 5. Prednisone 5 mg daily. 6. Pantoprazole 40 mg daily. 7. CellCept 1500 mg daily. 8. Sensipar 60 mg daily. 9. Hycosamine 0.25 mg p.o. q.i.d. p.r.n. abdominal cramping. FOLLOWUP INSTRUCTIONS: The patient is instructed to follow up with Dr. Sexton, his new primary care physician, within the next 10-14 days. MONICA CHAVEZ MD Job#: [id number] cc: MAVERICK IRIZARRY MD cc: LYNNETTE SEXTON MD [facility]
== END 2017-10-05 16:29 | disposition home or self-care (01) | DRG 871 ==
LOC: ER 06:35 → ERHOLD 11:05 → MED/SURG2 19:56
PROVIDERS: ADMIT Internal Medicine; ATTEND Internal Medicine
PROC: 3E1M39Z Irrigation of Peritoneal Cavity using Dialysate, Percutaneous Approach (ICD-10-PCS; principal; 2017-10-03)
PROC: 3E1M39Z Irrigation of Peritoneal Cavity using Dialysate, Percutaneous Approach (ICD-10-PCS; 2017-10-04)
DX: A41.9 Sepsis, unspecified organism (principal); N18.6 End stage renal disease; A08.39 Other viral enteritis; I12.0 Hypertensive chronic kidney disease with stage 5 chronic kidney disease or end stage renal disease; Z94.0 Kidney transplant status; T86.12 Kidney transplant failure; R65.20 Severe sepsis without septic shock; E87.6 Hypokalemia; Z99.2 Dependence on renal dialysis; E87.8 Other disorders of electrolyte and fluid balance, not elsewhere classified; E86.0 Dehydration; Z79.899 Other long term (current) drug therapy
CPT/HCPCS: 36415; 74176; 80048; 80053; 80061; 81001; 82150; 82550; 82553; 83690; 83735; 84100; 84132; 84484; 85025; 85651; 86140; 86256; 86671; 86704; 86706; 87040; 87070; 87086; 87205; 87340; 89051; 93005; 93306; 99284; J0500; J2405; J2543; J2765; J3480; J7030; J7050; J7507; J7512

== ENCOUNTER 2018-01-25 06:55 | Inpatient (IN) | payer MEDICARE, OTHER ==
[2018-01-25] VITALS (7 sets, daily range): BP systolic 122–191; BP diastolic 84–130
[~2018-01-25] VITALS: Ht 165.1 cm; Wt 63.7 kg
[~2018-01-25 06:55] MED LIST changes: +CIPRO500 MG PO; +CLONIDINE HCL0.2 MG PO; +DILTIAZEM 24HR180 MG PO; +DOXERCALCIFEROL PO; +MYCOPHENOLATE250 MG PO; +NIFEDIPINE ER30 M1 PO; +PANTOPRAZOLE SO40 MG PO; +PREDNISONE5 MG PO; +SENSIPAR30 MG PO; +TACROLIMUS1 MG PO
--- OUTSIDE RECORDS SUMMARY | 2018-01-25 06:58 | XMS REPORT | Clinical Summary ---
Author Author [facility] Organization [facility] Address Unknown Phone Unavailable Care Team Providers Care Rotor Pilot Name Role Phone Sourav Harmon MD PCP Allergies Comments Active Allergy Reactions Severity Noted Date Codeine Itching 06/30/2016 Heparin Hives, 06/29/2016 Itching Hydralazine GI High 06/30/2016 Intolerance Causes N/V Morphine Hives, 06/29/2016 Itching, GI Intolerance Medications End Date Status Medication Sig Dispensed Refills Start Date Active clonIDINE HCl (CATAPRES) Take 0.2 mg 0 0.2 MG tablet by mouth 3 7 (three) times a day. Active mycophenolate (CELLCEPT) Take 500 mg 0 500 mg tablet by mouth 7 daily. 08/04/2020 Active tacrolimus (PROGRAF) 0.5 Take 5 300 capsule 0 MG capsule capsules (2.5 7 mg total) by mouth 2 (two) times a day. Active NIFEdipine XL (PROCARDIA Take 1 tablet 30 tablet 5 XL) 90 MG 24 hr tablet (90 mg total) 7 by mouth daily. Active minoxidil (LONITEN) 2.5 Take 2 60 tablet 5 MG tablet tablets (5 mg 7 total) by mouth daily. 08/04/2020 Active predniSONE (DELTASONE) 10 Take 1 tablet 30 tablet 0 mg tablet (10 mg total) 7 by mouth daily. Active diltiazem CD (CardIZEM Take 240 mg 0 CD) 240 MG 24 hr capsule by mouth every morning. Active PANTOPRAZOLE SODIUM Take 40 mg by 0 (PANTOPRAZOLE ORAL) mouth as needed. 01/25/2017 Discontinued doxazosin (CARDURA) 4 MG Take 1 tablet 30 tablet 5 tablet (4 mg total) 7 by mouth daily. 02/04/2017 traMADol (ULTRAM) 50 mg Take 1 tablet 30 tablet 0 tablet (50 mg total) 7 by mouth every 6 (six) hours as needed for moderate pain for up to 10 days. Active Problems Problem Noted Date HTN (hypertension) 06/30/2016 Kidney transplant rejection 06/30/2016 Gastroesophageal reflux disease without esophagitis 06/30/2016 Anemia 06/30/2016 Encounters Care Team Description Date Type Specialty Guy Man MD No Show 10/30/2017 Hospital Transplant Encounter Hu Craven MD No Show 10/30/2017 Hospital Transplant Encounter Guy Man MD No Show 10/30/2017 Hospital Transplant Encounter Hu Craven MD Guerrero, Alex No Show 10/30/2017 Hospital Transplant Encounter Guy Man MD ESRD (end stage renal disease) 09/25/2017 Hospital Transplant Encounter Asked, No Pcp Guy Man MD ESRD (end stage renal disease) (Primary Dx) 09/25/2017 Hospital Transplant Encounter Asked, No Pcp Guy Man MD 09/25/2017 Hospital Transplant Encounter Miroslava Padilla Consent Forms (Scanned Consent For Kidney Transplant Evaluation, Pre Txp Education & BEVERLEY forms in Media. 09-25-2017) 09/25/2017 Documentation Transplant Martine Townsend Pre-kidney full eval day 1 09/25/2017 Telephone Transplant Asked, No Pcp Guy Man MD Canceled (Patient) 08/21/2017 Hospital Transplant Encounter Abraham Solano MA Reschedule Appointment (RS 1) 08/19/2017 Telephone Transplant Ben Hernandez TXP - [facility] ABD & [facility] COMM PLAN [place] - RENAL EVAL APPRVL 08/16/2017 Documentation Transplant Natasha White MA Referral - Kidney Txp 07/22/2017 Telephone Transplant Lenore Mansfield NP 01/25/2017 Anesthesia General Surgery Event Lawson Caldwell MD LEFT UPPER EXTREMITY PSEUDOANEURYSM REPAIR and AV Graft Revision 01/25/2017 Surgery General Surgery Lawson Caldwell MD Pseudoaneurysm of brachial artery (Primary Dx) 01/25/2017 Hospital General Surgery Encounter after 01/24/2017 Family History Medical History Relation Name Comments Hypertension Paternal Grandmother Stroke Paternal Grandmother Relation Name Status Comments Paternal Grandmother Social History Date Tobacco Use Types Packs/Day Years Used Quit: 1989 Former Smoker Cigarettes 0.25 1 Smokeless Tobacco: Never Used Comments: One pack would last a month, only smoked for one year in early Alcohol Use Drinks/Week oz/Week Comments No Sex Assigned at Date Recorded Not on file Industry Job Start Date Occupation Not on file Not on file Not on file Travel End Travel History Travel Start No recent travel history available. Last Filed Vital Signs Time Taken Vital Sign Reading 09/25/2017 7:33 AM CDT Blood Pressure 179/110 09/25/2017 7:33 AM CDT Pulse 49 09/25/2017 7:32 AM CDT Temperature 35.7 C (96.3 F) 09/25/2017 7:33 AM CDT Respiratory Rate 16 09/25/2017 7:33 AM CDT Oxygen Saturation 99% - Inhaled Oxygen - Concentration 09/25/2017 7:32 AM CDT Weight 58.8 kg (129 lb 9.6 oz) 09/25/2017 7:32 AM CDT Height 165.1 cm (5' 5") 09/25/2017 7:32 AM CDT Body Mass Index 21.57 Plan of Treatment Health Maintenance Due Date Last Done Comments MMR VACCINES (1 of - 1971 Standard series) VARICELLA VACCINES (1 of 1983 2 - 2-dose adolescent series) INFLUENZA VACCINE 10/09/2017 HEPATITIS B VACCINES Aged Out No longer eligible based on patient's age to complete this topic IPV VACCINES Aged Out No longer eligible based on patient's age to complete this topic MENINGOCOCCAL VACCINE Aged Out No longer eligible based on patient's age to complete this topic Implants Device Identifier Shelf Expiration Date Model / Serial / Lot Implanted Type Area Manufactur er [id number] [place] / / Particle Hmstc Absrbl Allison 5gm Surgical N/A: N/A MEDAFOR Mph - [id number] Implants; Implanted: Qty: 1 on 01/25/2017 by Expanders; Lawson Caldwell MD Extenders; Surgical Wires 09/25/2021 [id number] / [id number] / [id number] Graft Vasclr [place]-Alireza Stdwl 10cm Vascular N/A: N/A W L GORE 6mm - [id number] - [id number] Graft Implanted: Qty: 1 on 01/25/2017 by Lawson Caldwell MD Procedures Comments Procedure Name Priority Date/Time Associated Diagnosis MO AN ELECTIVE Routine 01/25/2017 SUPRAGLOTTIC AIRWAY 1:25 PM CHIP WASHER Procedure Note - Nell Brannon MD - 01/25/2017 1:24 PM CHIP WASHER Airway Date/Time: 01/25/2017 1:17 PM Performed by: NELL BRANNON Authorized by: NELL BRANNON Location: OR Urgency: Elective Performed by: anesthesio logist Preoxygena yenifer with 100% O2: Yes Mask Ventilatio n: Easy mask Final Airway Type: Supraglott ic airway Final LMA: Classic LMA Size: 4 Number of Attempts at Approach: 1 REVISION, ARTERIOVENOUS 01/25/2017 Pseudoaneurysm of femoral GRAFT, WITH ANGIOGRAPHY 11:25 AM CHIP WASHER artery Case Notes NAME ALERT Special Needs NAME ALERT HEMOGLOBIN, SYRINGE STAT 01/25/2017 11:10 AM CHIP WASHER GLUCOSE LEVEL, SYRINGE STAT 01/25/2017 11:10 AM CHIP WASHER POTASSIUM, SYRINGE STAT 01/25/2017 11:10 AM CHIP WASHER after 01/24/2017 Results * Potassium, syringe (01/25/2017 11:10 AM CHIP WASHER) Potassium, syringe 3.5 - 5.0 mEq/L [facility] DEPARTMENT OF PATHOLOGY AND GENOMIC MEDICINE Specimen Blood Performing Organization Address [facility] [place] [address] PATHOLOGY AND [employer] MEDICINE * Hemoglobin, syringe (01/25/2017 11:10 AM CHIP WASHER) Hemoglobin, syringe (L) 14.0 - 18.0 g/dL [facility] DEPARTMENT OF PATHOLOGY AND GENOMIC MEDICINE Specimen Blood Performing Organization Address [facility] [place] [address] PATHOLOGY AND [employer] MEDICINE * Glucose level, syringe (01/25/2017 11:10 AM CHIP WASHER) Glucose, syringe 65 - 99 mg/dL [facility] DEPARTMENT OF PATHOLOGY AND GENOMIC MEDICINE Specimen Blood Performing Organization Address [facility] Phone Number [facility] DEPARTMENT OF [address] [place] [address] PATHOLOGY AND GENOMIC MEDICINE after 01/24/2017 Insurance Payer Benefit Subscriber ID Type Phone Address Plan / Group MEDICARE MEDICARE xxxxxxxxxx Medicare [place], [place] PART A AND B [facility] MEDICAID [facility] xxxxxxxxx HMO COMM STAR+ ARLEEN Advance Directives Patient has advance care planning documents, and code status on file. For more i nformation, please contact: Gary Harrison [address] [place] [address] Date Inactivated Comments Code Status Date Activated 07/05/2016 8:47 PM Full Code 06/30/2016 7:16 AM Code Status decision reached by: Patient
--- OUTSIDE RECORDS SUMMARY | 2018-01-25 06:58 | XMS REPORT | Clinical Summary ---
Author Author AL [facility] Organization [facility] Address Unknown Phone Unavailable Care Team Providers Care Central Office Worker Name Role Phone PCP Unavailable Allergies Not on File Medications Not on file Active Problems Not on file Social History Date Tobacco Use Types Packs/Day Years Used Never Assessed Sex Assigned at Date Recorded Not on file Industry Job Start Date Occupation Not on file Not on file Not on file Travel End Travel History Travel Start No recent travel history available. Last Filed Vital Signs Not on file Plan of Treatment Not on file Results Not on fileafter 01/24/2017 Insurance Payer Benefit Subscriber ID Type Phone Address Plan / Group [employer] xxxxxxxxxx [employer] EXCHANGE
[2018-01-25] MEDS ORDERED: PANTOPRAZOLE 40 MG 10ML VIAL IV STA (07:29)
[2018-01-25] MEDS ORDERED: HYDROMORPHONE 1MG/1ML INJ IV STA (07:29)
[2018-01-25] MEDS ORDERED: ONDANSETRON HCL INJ 2 MG/ML VIAL IV STA (07:29)
[2018-01-25 07:57] LABS: BASOPHILS # (AUTO) 0.1 (0.0-0.1); BASOPHILS % 0.7 % (0.0-1.0); EOSINOPHILS % 0.5 % (0.0-6.0); HEMATOCRIT 35.3 % (38.2-49.6); HEMOGLOBIN 11.7 g/dL (14.0-18.0); LYMPHOCYTES # (AUTO) 1.2 (1.0-3.2); LYMPHOCYTES % 13.9 % (18.0-39.1); MEAN CORPUSCULAR HEMOGLOBIN 29.3 pg (28-32); MEAN CORPUSCULAR HGB CONC 33.1 g/dL (31-35); MEAN CORPUSCULAR VOLUME 88.3 fL (81-99); MONOCYTES # (AUTO) 0.5 (0.2-0.8); MONOCYTES % 5.7 % (4.4-11.3); NEUTROPHILS # (AUTO) 6.9 (2.1-6.9); NEUTROPHILS % 78.5 % (38.7-80.0); PLATELET COUNT 186 x10e3/uL (140-360); RED CELL DISTRIBUTION WIDTH 13.6 % (11.7-14.4)
[2018-01-25] MEDS ORDERED: HYDROMORPHONE 2MG/ML 2 MG/ML ML IV ONE (08:00)
[2018-01-25 08:10] LABS: INR 0.87; PROTHROMBIN TIME 12.7 seconds (11.9-14.5)
[2018-01-25] MEDS ORDERED: NIFEDIPINE 10 MG CAP PO NR (08:14)
[2018-01-25] MEDS ORDERED: GENTAMICIN 120MG/NS 100ML 100 ML IV ONE (08:15)
[2018-01-25] MEDS ORDERED: VANCOMYCIN 1GM/NS 250 ML 250 ML IV ONE (08:15)
[2018-01-25 08:21] LABS: ALBUMIN 3.1 g/dL (3.5-5.0); ALBUMIN/GLOBULIN RATIO 0.8 (0.8-2.0); ANION GAP 26.6 mmol/L (8-16); CALCIUM 7.7 mg/dL (8.4-10.2); CREATININE, SERUM 16.35 mg/dL (0.72-1.25); MAGNESIUM 2.8 MG/DL (1.3-2.1); POTASSIUM 3.6 mmol/L (3.5-5.1)
[2018-01-25 08:27] LABS: CREATINE KINASE MB 2.1 ng/mL (0-5.0)
--- NOTE | 2018-01-25 08:31 | Diagnostic Imaging Report ---
Examination: Single AP view of the chest. COMPARISON: None. INDICATION: Nausea and vomiting DISCUSSION: Lines/tubes: None. Lungs: The lungs are well inflated and clear. Central pulmonary venous congestion. No edema or pneumonia. Pleura: No pleural effusion or pneumothorax. Heart and mediastinum: Enlarged heart. Bones and soft tissues: No acute bony abnormalities. IMPRESSION: Central pulmonary venous congestion Signed by: Dr. Janes Schmitt M.D. on 01/25/2018 8:28 AM
[2018-01-25] MEDS ORDERED: ULTRAM50 MG PO (08:58)
[2018-01-25] MEDS ORDERED: PROMETHAZINE HC25 M1 PO (08:58)
[2018-01-25 09:00] LABS: AMYLASE 339 U/L (25-125); LIPASE 50 U/L (8-78)
[2018-01-25] MEDS ORDERED: MINOXIDIL2.5 MG PO (09:00)
--- NOTE | 2018-01-25 09:24 | Diagnostic Imaging Report ---
EXAMINATION: CT of the abdomen and pelvis with contrast. TECHNIQUE: Helical CT images of the abdomen and pelvis were performed from the lung bases to the lesser trochanters after the intravenous administration of 100 cc of Isovue 300 and the oral administration of none. Coronal and sagittal reformatted images were obtained. Dose modulation, iterative reconstruction, and/or weight based adjustment of the mA/kV was utilized to reduce the radiation dose to as low as reasonably achievable. COMPARISON: None. CLINICAL HISTORY:abdominal pain DISCUSSION: ABDOMEN/PELVIS: LOWER THORAX:Unremarkable. HEPATOBILIARY: No focal hepatic lesions. No intra-or extrahepatic biliary ductal dilation. The gallbladder is normal. SPLEEN: No splenomegaly. PANCREAS: No focal masses or ductal dilatation. ADRENALS: No adrenal nodules. KIDNEYS/URETERS: Atrophic [place] kidneys. Left lower quadrant renal transplant. PELVIC ORGANS/BLADDER: The bladder is normal. PERITONEUM/RETROPERITONEUM: Pelvic ascites. Peritoneal dialysis catheter. LYMPH NODES: No intra-abdominal, retroperitoneal, pelvic or inguinal lymphadenopathy. VESSELS: Vascular calcifications. GI TRACT: No distention or wall thickening. Appendix normal. BONES AND SOFT TISSUE: No bony destructive lesions. No soft tissue abnormalities. IMPRESSION: No acute CT finding. Abdominal ascites with peritoneal dialysis catheter. Signed by: Dr. Janes Schmitt M.D. on 01/25/2018 9:21 AM
[2018-01-25] MEDS ORDERED: NICARDIPINE 20MG/200ML PREMIX 200 ML IV PRN (09:30)
[2018-01-25] MEDS ORDERED: SODIUM CHLORIDE 0.9% 1000ML 1,000 ML IV ONE (09:45)
[2018-01-25] MEDS ORDERED: HYDROMORPHONE 1MG/1ML INJ IV PRN (09:45)
--- OUTSIDE RECORDS SUMMARY | 2018-01-25 09:48 | XMS REPORT | Clinical Summary ---
Author Author AL [facility] Organization [facility] Address Unknown Phone Unavailable Care Team Providers Care Electric Meter Technician Name Role Phone PCP Unavailable Allergies Not [...] ID Type Phone Address Plan / Group Repair Report xxxxxxxxxx [email or web address] EXCHANGE
--- OUTSIDE RECORDS SUMMARY | 2018-01-25 09:48 | XMS REPORT | Clinical Summary ---
Author Author [facility] Organization [facility] Address Unknown Phone Unavailable Care Team Providers Care Casino Cage Supervisor Name Role Phone Sourav Harmon MD PCP [...] 08/19/2017 Telephone Transplant Ben Hernandez TXP - [facility] ABD & [facility] COMM PLAN [place] - RENAL EVAL [...] / Lot Implanted Type Area Manufactur er [id number] [place] / / Particle Hmstc Absrbl Allison 5gm Surgical N/A: N/A MEDAFOR Mph - [id number] Implants; Implanted: Qty: 1 on 01/25/2017 by [employer]; Lawson Caldwell MD Extenders; Surgical Wires 09/25/2021 [id number] / [id number] / [id number] Graft Vasclr [place]-Alireza Stdwl 10cm Vascular N/A: N/A W L GORE 6mm - [id number] - [id number] Graft Implanted: Qty: 1 on 01/25/2017 by Lawson Caldwell MD Procedures Comments Procedure Name Priority Date/Time Associated Diagnosis ID AN ELECTIVE Routine 01/25/2017 SUPRAGLOTTIC AIRWAY 1:25 PM CONTRACT TECHNICAL WRITER Procedure Note - Nell Brannon MD - 01/25/2017 1:24 PM CONTRACT TECHNICAL WRITER Airway Date/Time: 01/25/2017 1:17 PM Performed by: NELL BRANNON Authorized by: NELL BRANNON Location: OR Urgency: Elective Performed by: anesthesio logist Preoxygena yenifer with 100% O2: Yes Mask Ventilatio n: Easy mask Final Airway Type: Supraglott ic airway Final LMA: Classic LMA Size: 4 Number of Attempts at Approach: 1 REVISION, ARTERIOVENOUS 01/25/2017 Pseudoaneurysm of femoral GRAFT, WITH ANGIOGRAPHY 11:25 AM CONTRACT TECHNICAL WRITER artery Case Notes NAME ALERT Special Needs NAME ALERT HEMOGLOBIN, SYRINGE STAT 01/25/2017 11:10 AM CONTRACT TECHNICAL WRITER GLUCOSE LEVEL, SYRINGE STAT 01/25/2017 11:10 AM CONTRACT TECHNICAL WRITER POTASSIUM, SYRINGE STAT 01/25/2017 11:10 AM CONTRACT TECHNICAL WRITER after 01/24/2017 Results * Potassium, syringe (01/25/2017 11:10 AM CONTRACT TECHNICAL WRITER) Potassium, syringe 3.5 - 5.0 mEq/L [facility] DEPARTMENT OF PATHOLOGY AND GENOMIC MEDICINE Specimen Blood Performing Organization Address [facility] [place] [address] PATHOLOGY AND [employer] MEDICINE * Hemoglobin, syringe (01/25/2017 11:10 AM CONTRACT TECHNICAL WRITER) Hemoglobin, syringe (L) 14.0 - 18.0 g/dL [facility] DEPARTMENT OF PATHOLOGY AND GENOMIC MEDICINE Specimen Blood Performing Organization Address [facility] [place] [address] PATHOLOGY AND [employer] MEDICINE * Glucose level, syringe (01/25/2017 11:10 AM CONTRACT TECHNICAL WRITER) Glucose, syringe 65 - 99 mg/dL [facility] DEPARTMENT OF PATHOLOGY AND GENOMIC MEDICINE Specimen Blood Performing Organization Address [facility] Phone Number [facility] DEPARTMENT OF [address] [place] [address] PATHOLOGY AND GENOMIC MEDICINE after 01/24/2017 Insurance Payer Benefit Subscriber ID Type Phone Address Plan / Group MEDICARE MEDICARE xxxxxxxxxx Medicare [place], [place] PART A AND B [facility] MEDICAID [facility] xxxxxxxxx HMO COMM STAR+ ARLEEN Advance Directives Patient has advance care planning documents, and code status on file. For more i nformation, please contact: Gary Harrison [address] [place] [address] Date Inactivated Comments Code Status Date Activated 07/05/2016 8:47 PM Full Code 06/30/2016 7:16 AM Code Status decision reached by: Patient
[2018-01-25] MEDS ORDERED: NIFEDIPINE 10 MG CAP PO PRN (10:30)
[2018-01-25] MEDS ORDERED: MINOXIDIL 2.5 MG TAB PO ONE (10:30)
[2018-01-25] MEDS: ONDANSETRON HCL INJ 2 MG/ML VIAL IV PRN (11:18)
[2018-01-25] MEDS ORDERED: SODIUM CHLORIDE 0.9% 50ML 50 ML ONE ×2 (11:47→14:14)
[2018-01-25] MEDS: PROMETHAZINE HCL (IM) 25 MG/ML VIAL IV PRN ×2 (11:50→13:17)
[2018-01-25 12:16] LABS: BODY FLUID APPEARANCE CLEAR; BODY FLUID COLOR YELLOW; BODY FLUID TYPE PERITONEAL
[2018-01-25 12:28] LABS: RBC,BODY FLUID 185 cells/uL; WBC,BODY FLUID 58 cells/uL
[2018-01-25] MEDS: HYDROMORPHONE 2MG/ML 2 MG/ML ML IV PRN (13:18)
[2018-01-25] MEDS ORDERED: IOPAMIDOL 370 MG/ML 200 ML INFUS..BTL INJ ONE (14:14)
[2018-01-25] MEDS ORDERED: CEFTRIAXONE SOD 1 GM VIAL IV SCH (15:00)
[2018-01-25] MEDS: CLONIDINE HCL 0.2 MG TAB PO SCH ×2 (15:08→21:00)
[2018-01-25 15:23] LABS: EOSINOPHILS,BODY FLUID 1 %; LYMPHOCYTES,BODY FLUID 31 %; MONO/MACROPHG,BODY FLUID 60 %; OTHER CELLS,BODY FLUID 8 %
[2018-01-25] MEDS ORDERED: RENVELA0.8 GM PO (15:37)
[2018-01-25] MEDS: MINOXIDIL 2.5 MG TAB PO SCH (16:40)
[2018-01-25] MEDS: PANTOPRAZOLE 40 MG 10ML VIAL IV SCH (16:40)
[2018-01-25] MEDS: NIFEDIPINE CR 30 MG TAB PO SCH (16:40)
[2018-01-25 16:49] LABS: CREATINE KINASE MB 1.9 ng/mL (0-5.0)
[2018-01-25] MEDS: LOSARTAN POTASSIUM 100 MG TAB PO SCH (16:55)
[2018-01-25] MEDS: LABETALOL HCL 5 MG/ML 20ML VIAL IV PRN (16:55)
--- NOTE | 2018-01-25 17:56 | Consultation ---
DATE OF CONSULTATION: HISTORY OF PRESENT ILLNESS: This patient is known to me from before. He is a very pleasant 47-year-old male with history of end-stage renal disease, on hemodialysis. The patient comes in to the emergency room with abdominal pain for the last few days. This patient for the last year or so has been on peritoneal dialysis. He was here recently, I think, with peritonitis, was discharged home. He was doing well until a couple of days ago when have abdominal pain. He said the pain is diffuse, feeling feverish. There is no actual fever that he documented. The patient has history of end-stage renal disease, on hemodialysis, kidney transplant in 2010, one peritoneal dialysis in November 25. Fluid according to him was clean, looked clear. There was no pus. Patient came in to the emergency room where he was evaluated and admitted. He was here in September with chest pain. SOCIAL HISTORY: There is no smoking, drug abuse, or alcohol use. FAMILY HISTORY: Hypertension. REVIEW OF SYSTEMS: At present time; HEENT: Negative. PULMONARY: Negative. CARDIAC: Negative. : Negative. GI: Negative. SKIN: There is no other rash. JOINTS: No new complaints. MEDICATION AT HOME: He is on clonidine, nifedipine, Protonix, prednisone, tacrolimus, metoprolol, and mycophenolate. PAST MEDICAL HISTORY: End-stage renal disease, cadaver kidney transplant in 2007, rejection, allergy, one peritoneal dialysis, left arm fistula, recent insertion of peritoneal dialysis catheter, history of hepatitis C carrier, hypertension. His cultures are still pending. He is telling me there was sputum culture sent as well as urine cultures sent and blood culture. In January 25, he had a peritoneal fluid gram-stain showed no organism. LABS: White count 8.87, hemoglobin 11.7. Sodium 142, potassium 3.6, creatinine 16.35, lactic acid 21.4. Cultures still pending. PHYSICAL EXAMINATION GENERAL: He is currently alert, oriented, does not seem to be in acute distress. VITALS: Afebrile. HEENT: Normocephalic, not appear icteric. NECK: Supple. No JVD. No carotid bruit. No thyromegaly. CHEST: Clear bilateral. HEART: S1, S2. No S3, S4, murmur. ABDOMEN: Soft. Bowel sounds present. No tenderness. EXTREMITIES: No edema. SKIN: There is no rash. Had a CAT scan of the abdomen and pelvis done showed there is no acute abnormality. site as noted. IMPRESSION: Abdominal pain, elevated lactic acid, concerned about peritonitis. We will give him Rocephin 1 gram a day while waiting for the cultures. Will give 1 gram of vancomycin. He received 1 dose of gentamicin. He received one dose of vancomycin. Await fluid cultures. We will check peritoneal fluid for cell count and diff, protein, glucose, and we will follow with you. Job#: [id number] ELIUD
--- NOTE | 2018-01-25 18:55 | History and Physical ---
HISTORY OF PRESENT ILLNESS: Patient is a 47-year-old male with past medical history positive for end-stage renal disease, on peritoneal dialysis, history of renal transplant, hypertension with renal insufficiency, came to the hospital complaining of abdominal pain. Blood pressure was extremely high. He was started on antihypertensive regimen. Patient was also started on IV antibiotic empirically until we get the fluid culture and dialysis for cultures. REVIEW OF SYSTEMS CARDIOVASCULAR: No chest pain. No palpitation. RESPIRATORY: No shortness of breath. No cough. GASTROINTESTINAL: He had nausea, abdominal pain, vomiting, and diarrhea. GENITOURINARY: No frequency or dysuria. ALLERGIES: ALLERGIC TO HEPARIN, HYDRALAZINE, AND MORPHINE. SOCIAL HISTORY: He does not smoke. He does not drink. PHYSICAL EXAMINATION VITAL SIGNS: Blood pressure 169/111, temperature 97.2, heart rate 76 per minute, respiratory rate 14 per minute, oxygen saturation 96%. LABORATORY DATA: On the blood work; BMP showed sodium 142, potassium 3.6, chloride 98, CO2 of 21, BUN 79, creatinine 16.35, glucose 112. On the CBC; white blood count 8.73, hemoglobin 11.7, hematocrit 35.3, platelet count 196,000. PT 12.7, INR 0.87, PTT 38.0. AST 16, ALT 17, total bilirubin 0.4, alkaline phosphatase 79. On the CT of the abdomen showed no acute CT finding, abdominal ascites with peritoneal dialysis catheter. We have also a chest x-ray done, which showed central pulmonary venous congestion. We have blood cultures which is pending. Fluid culture from ascites still pending. Patient will continue with Zofran 4 mg IV q.4 hour as needed, Protonix 40 mg twice a day. He is taking nifedipine 90 mg twice a day. He is taking promethazine 25 mg IV q.4 hours as needed, clonidine 0.2 mg 3 times a day, Dilaudid 1 mg IV q.3 hours, minoxidil 2.5 mg twice a day. We can put him on losartan 100 mg daily and we can give labetalol 20 mg IV every 4 hours as needed for severe pain. Job#: [id number] NADEGE
[2018-01-26] VITALS (8 sets, daily range): BP systolic 116–150; BP diastolic 76–106
[2018-01-26] MEDS: CEFTRIAXONE SOD 1 GM VIAL IV SCH ×2 (02:56→14:25)
--- NOTE | 2018-01-26 04:15 | Consultation ---
DATE OF CONSULTATION: January 25, 2018 REASON FOR CONSULT: ESRD, on peritoneal dialysis. HISTORY OF PRESENT ILLNESS: This is a 47-year-old male who was admitted with abdominal pain, nausea, vomiting, and diarrhea for the last 2 days. PAST MEDICAL HISTORY 1. ESRD. 2. Hypertension. 3. Hepatitis C carrier. 4. Status post cadaveric kidney transplant in 2007 and then kidney transplant failure. The patient was placed on peritoneal dialysis afterwards. PAST SURGICAL HISTORY 1. Cadaveric kidney transplant. 2. AV fistula. 3. PD catheter placement. ALLERGIES: HEPARIN, CODEINE, HYDRALAZINE, AND MORPHINE. REVIEW OF SYSTEMS: Positive for nausea and positive for vomiting. Positive for abdominal pain. . No sensory loss, no motor loss. No blood in stool, no blood in the urine. . Basically otherwise negative. PHYSICAL EXAMINATION GENERAL: Alert, following commands. HEENT: Pupils equal, reactive to light and accommodation. NECK: No JVD, no bruit. LUNGS: No rhonchi, no rales. HEART: Regular rate and rhythm. No S3, no S4. ABDOMEN: Nontender and nondistended. No hepatomegaly, no splenomegaly. EXTREMITIES: No clubbing, no cyanosis, no edema. VITAL SIGNS: Blood pressure currently started improving with a blood pressure of 142/90. Upon admission, it was 180/118. LABS: White count 8.7, hemoglobin 11.7, and hematocrit 35. Sodium 142, potassium 3.6, chloride 98, creatinine 1.6. Troponin I 0.026, albumin 3.1. ASSESSMENT AND PLAN 1. End-stage renal disease, on peritoneal dialysis. We will schedule the patient for peritoneal dialysis today. 2. Anemia of chronic disease, currently stable. 3. Hypertension: We will restart all his medications and currently improved after all was restarted. 4. Abdominal pain, nausea, and vomiting, mostly likely gastritis, currently improving. Job#: [id number] VAS
[2018-01-26 04:52] LABS: BASOPHILS # (AUTO) 0.1 (0.0-0.1); BASOPHILS % 0.9 % (0.0-1.0); EOSINOPHILS # (AUTO) 0.4 (0.0-0.4); EOSINOPHILS % 5.8 % (0.0-6.0); HEMATOCRIT 34.6 % (38.2-49.6); HEMOGLOBIN 11.5 g/dL (14.0-18.0); LYMPHOCYTES # (AUTO) 1.8 (1.0-3.2); LYMPHOCYTES % 23.5 % (18.0-39.1); MEAN CORPUSCULAR HGB CONC 33.2 g/dL (31-35); MEAN CORPUSCULAR VOLUME 87.4 fL (81-99); MONOCYTES # (AUTO) 0.7 (0.2-0.8); MONOCYTES % 9.4 % (4.4-11.3); NEUTROPHILS # (AUTO) 4.5 (2.1-6.9); NEUTROPHILS % 59.9 % (38.7-80.0); PLATELET COUNT 165 x10e3/uL (140-360); RED BLOOD COUNT 3.96 x10e6/uL (4.3-5.7); RED CELL DISTRIBUTION WIDTH 13.8 % (11.7-14.4)
[2018-01-26 05:12] LABS: ALBUMIN 2.6 g/dL (3.5-5.0); ALBUMIN/GLOBULIN RATIO 0.6 (0.8-2.0); ANION GAP 21.1 mmol/L (8-16); CALCIUM 7.3 mg/dL (8.4-10.2); CREATININE, SERUM 15.74 mg/dL (0.72-1.25); POTASSIUM 3.1 mmol/L (3.5-5.1)
[2018-01-26 06:28] LABS: CREATINE KINASE MB 1.2 ng/mL (0-5.0)
[2018-01-26] MEDS: ACETAMINOPHEN 325 MG TAB PO PRN (07:55)
[2018-01-26] MEDS: PANTOPRAZOLE 40 MG 10ML VIAL IV SCH ×2 (08:08→16:45)
[2018-01-26] MEDS: CLONIDINE HCL 0.2 MG TAB PO SCH ×3 (08:08→21:09)
[2018-01-26] MEDS: LOSARTAN POTASSIUM 100 MG TAB PO SCH (08:08)
[2018-01-26] MEDS: MINOXIDIL 2.5 MG TAB PO SCH ×2 (08:09→16:45)
[2018-01-26] MEDS: NIFEDIPINE CR 30 MG TAB PO SCH ×2 (08:09→16:45)
[2018-01-26] MEDS ORDERED: POTASSIUM CHLORIDE 20 MEQ TAB CR PO NR (13:23)
--- NOTE | 2018-01-26 14:11 | Progress Note ---
DATE: INTERNAL MEDICINE PROGRESS NOTE SUBJECTIVE: The patient came yesterday with abdominal pain, very uncontrolled hypertension. He is a patient is on peritoneal dialysis. PHYSICAL EXAM VITAL SIGNS: Blood pressure 150/106, temperature 98.2, heart rate 78 per minute, respiratory rate is 20 per minute, and ox saturation 97%. HEART: Regular rhythm. Normal S1, S2 sounds. LUNGS: Clear bilaterally. ABDOMEN: Soft. No tension, retention, or visceromegaly. He had a peritoneal dialysis tube in place. EXTREMITIES: Show no evidence of cyanosis, edema or trauma. LABORATORY DATA: On the BMP, sodium 142, potassium 3.1, chloride 100, CO2 24, BUN 66, creatinine 15.74, and glucose 108. On the CBC, white blood count 7.54, hemoglobin 11.5, hematocrit 34.6, and platelet count of 165,000. PT 12.7, PTT 38.0, INR 0.87, AST 12, ALT 13, total bilirubin 0.3, and alkaline phosphatase 67. FINAL IMPRESSION 1. Abdominal pain rule out spontaneous bacterial peritonitis. 2. Hypertension with end-stage renal disease. 3. End-stage renal disease, on dialysis. 4. Anemia of chronic disease secondary to end-stage renal disease. PLAN OF TREATMENT: Currently continue Zofran 4 mg IV q.4 hours as needed. Protonix 40 mg twice a day. Promethazine 12.5 mg q.6 hours as needed. Nifedipine 90 mg twice a day. Tylenol 325 mg q.4 hours as needed for pain and fever. He is taking clonidine 0.2 mg 3 times a day. Dilaudid 1 mg IV q.3 hours as needed. Ceftriaxone 1 gram IV twice a day empiric until we have a report on the peritoneal dialysis culture. Continue also minoxidil 2.5 mg twice a day. Labetalol 20 mg IV q.4 hours as needed for hypertension and losartan 100 mg daily. Blood pressure is a little better. Patient is feeling better so far. White blood count is normal and temperature is fine. Job#: [id number] RYDER
[2018-01-26] MEDS ORDERED: HYDRALAZINE HCL 25 MG TAB PO SCH (15:00)
[2018-01-26] MEDS ORDERED: POTASSIUM CHLORIDE 20 MEQ TAB CR PO STA (23:02)
[2018-01-27] VITALS (8 sets, daily range): BP systolic 103–162; BP diastolic 74–103
[2018-01-27] MEDS: CEFTRIAXONE SOD 1 GM VIAL IV SCH ×2 (03:36→14:48)
[2018-01-27] MEDS: HYDROMORPHONE 2MG/ML 2 MG/ML ML IV PRN ×2 (03:47→12:23)
[2018-01-27] MEDS: ONDANSETRON HCL INJ 2 MG/ML VIAL IV PRN (03:50)
[2018-01-27 04:59] LABS: ANION GAP 21.1 mmol/L (8-16); CALCIUM 7.8 mg/dL (8.4-10.2); CREATININE, SERUM 15.16 mg/dL (0.72-1.25); POTASSIUM 3.1 mmol/L (3.5-5.1)
[2018-01-27] MEDS: ACETAMINOPHEN 325 MG TAB PO PRN (09:44)
[2018-01-27] MEDS: PANTOPRAZOLE 40 MG 10ML VIAL IV SCH ×2 (09:44→17:00)
[2018-01-27] MEDS: CLONIDINE HCL 0.2 MG TAB PO SCH (09:46)
[2018-01-27] MEDS: LOSARTAN POTASSIUM 100 MG TAB PO SCH (09:47)
[2018-01-27] MEDS: NIFEDIPINE CR 30 MG TAB PO SCH ×2 (09:47→17:00)
[2018-01-27] MEDS: MINOXIDIL 2.5 MG TAB PO SCH ×2 (09:47→17:00)
[2018-01-27] MEDS: LABETALOL HCL 5 MG/ML 20ML VIAL IV PRN (12:23)
[2018-01-27] MEDS ORDERED: HYDROCODONE/APAP 5MG-325MG TAB PO PRN (14:30)
--- NOTE | 2018-01-27 14:44 | Progress Note ---
DATE: January 27, 2018 Mr. Benoit is a 47-year-old man with history of end-stage renal disease on peritoneal dialysis, history of renal transplant, hypertension, anemia. He came to the emergency room because his blood pressure was very high, and he was having abdominal pain. He was empirically started on IV antibiotics. Infectious disease and nephrology are following the patient with us. PHYSICAL EXAMINATION GENERAL: Today, he is awake and alert. He is complaining of headache. VITALS: Temperature is 96.5, blood pressure 162/101. HEART: Regular rate. LUNGS: Clear to auscultation. ABDOMEN: Distended and soft. LABS: On the blood work, white count is 7.54, hemoglobin 11.5. Potassium 3.1, creatinine 15.16. Peritoneal fluid shows 58 white blood cells. Cultures are pending. Chest x-ray shows central pulmonary venous congestion. Abdominal and pelvic CT: No acute CT findings. ASSESSMENT AND PLAN: 1. Abdominal pain, rule out spontaneous bacterial peritonitis. 2. Uncontrolled hypertension and end-stage renal disease. 3. End-stage renal disease on peritoneal dialysis. 4. Anemia secondary to chronic kidney disease. 5. Hypertension, probably secondary to high blood pressure. The plan at the present time is to continue IV antibiotics. Monitor cultures. [place] 5 mg for pain. Promethazine for nausea and vomiting. Labetalol IV p.r.n. for elevated blood pressure. All this was discussed with the patient, and all questions were answered to satisfaction. Job#: [id number]
[2018-01-27] MEDS: CLONIDINE HCL 0.3 MG TAB PO SCH ×2 (14:49→21:00)
[2018-01-27 14:50] LABS: OCCULT BLOOD STOOL POSITIVE (NEGATIVE)
[2018-01-28 00:59] VITALS: BP 140/8
[2018-01-28] MEDS: CEFTRIAXONE SOD 1 GM VIAL IV SCH ×2 (03:15→17:10)
[2018-01-28] MEDS: ACETAMINOPHEN 325 MG TAB PO PRN (05:48)
[2018-01-28 06:31] VITALS: BP 106/87
[2018-01-28 08:41] VITALS: BP 127/94
[2018-01-28] MEDS: PANTOPRAZOLE 40 MG 10ML VIAL IV SCH ×2 (09:00→17:10)
[2018-01-28] MEDS: NIFEDIPINE CR 30 MG TAB PO SCH ×2 (09:00→17:12)
[2018-01-28] MEDS: CLONIDINE HCL 0.3 MG TAB PO SCH ×2 (09:00→17:11)
[2018-01-28] MEDS ORDERED: LOSARTAN POTASSIUM 100 MG TAB PO SCH (09:00)
[2018-01-28] MEDS: MINOXIDIL 2.5 MG TAB PO SCH ×2 (09:00→17:11)
--- NOTE | 2018-01-28 12:05 | Discharge Summary ---
Mr. Benoit is a 47-year-old man with end-stage renal disease on peritoneal dialysis, history of renal transport, hypertension, anemia, came to the emergency room with elevated blood pressure and abdominal pain. He was started on IV antibiotics. Infectious disease and nephrology were consulted. Cultures had been negative. Patient is on p.o. Levaquin. PHYSICAL EXAM GENERAL: He is awake and alert. VITAL SIGNS: Temperature is 97.3, blood pressure 127/94. HEART: Regular rate. LUNGS: Clear to auscultation. ABDOMEN: Soft. BLOOD WORK: Potassium 3.1, creatinine 15.16, glucose 106. White count 7.54, hemoglobin 11.5, hematocrit 34.6. Hemoccult came back positive. DISCHARGE DIAGNOSES 1. Abdominal pain, resolved. 2. Uncontrolled hypertension. 3. End-stage renal disease, on peritoneal dialysis. 4. Anemia secondary to chronic kidney disease. 5. Hypokalemia. The plan at present time is to discharge the patient home on p.o. Levaquin for 2 more weeks. If its okay with Dr. Shen have him follow up with his PCP in 1 week as an outpatient. He is also going to need a GI consult since the stool guaiac came back positive, but patient hemoglobin has been unstable, so he is going to need an outpatient GI consult for further workup of the positive Hemoccult. Ender see home medication reconciliation list. All this was discussed with patient and questions were answered to satisfaction. Job#: [id number] SUSANA
[2018-01-28 13:37] VITALS: BP 136/98
[2018-01-28 14:16] LABS: C DIFFICILE TOXIN A&B AMP PROB NEGATIVE (NEGATIVE)
[2018-01-28 16:43] VITALS: BP 102/83
[2018-01-28] MEDS ORDERED: LOSARTAN POTAS100 MG PO (17:16)
[2018-01-28] MEDS ORDERED: CLONIDINE HCL0.3 MG PO (17:17)
== END 2018-01-28 18:00 | disposition home or self-care (01) | DRG 391 ==
LOC: ER 06:55 → ERHOLD 09:45 → MED/SURG2 11:02
PROVIDERS: ADMIT Internal Medicine; ATTEND Internal Medicine
PROC: 3E1M39Z Irrigation of Peritoneal Cavity using Dialysate, Percutaneous Approach (ICD-10-PCS; principal; 2018-01-27)
DX: R10.9 Unspecified abdominal pain (principal); N18.6 End stage renal disease; I16.9 Hypertensive crisis, unspecified; I12.0 Hypertensive chronic kidney disease with stage 5 chronic kidney disease or end stage renal disease; T86.11 Kidney transplant rejection; R18.8 Other ascites; Z99.2 Dependence on renal dialysis; D63.1 Anemia in chronic kidney disease; E87.6 Hypokalemia; B18.2 Chronic viral hepatitis C; K21.9 Gastro-esophageal reflux disease without esophagitis; R53.81 Other malaise; Z79.899 Other long term (current) drug therapy; Z88.5 Allergy status to narcotic agent; Z88.8 Allergy status to other drugs, medicaments and biological substances
CPT/HCPCS: 36415; 71045; 74177; 80048; 80053; 82150; 82270; 82550; 82553; 83605; 83690; 83735; 84484; 85025; 85610; 85730; 86704; 86706; 87040; 87070; 87205; 87340; 87493; 89051; 90945; 93005; 96361; 99284; J0696; J1580; J2405; J2550; J3370; J7030; Q9967

== ENCOUNTER 2018-02-12 10:04 | Emergency (ER) | payer MEDICARE, OTHER ==
[~2018-02-12] VITALS: Ht 165.1 cm; Wt 63.5 kg
[~2018-02-12 10:04] MED LIST changes: +CLONIDINE HCL0.3 MG PO; +LOSARTAN POTAS100 MG PO; +PROMETHAZINE HC25 M1 PO; +RENVELA0.8 GM PO; +ULTRAM50 MG PO
--- OUTSIDE RECORDS SUMMARY | 2018-02-12 10:07 | XMS REPORT | Clinical Summary ---
Author Author [facility] Organization [facility] Address Unknown Phone Unavailable Care Team Providers Care Auto Painter Name Role Phone Sourav Harmon MD PCP [...] by 0 (PANTOPRAZOLE ORAL) mouth as needed. Active Problems Problem Noted Date HTN (hypertension) [...] forms in Media. 09-25-2017) 09/25/2017 Documentation Transplant Kristian Martine Pre-kidney full eval day 1 09/25/2017 Telephone Transplant Asked, No Pcp Guy Man MD Canceled (Patient) 08/21/2017 Hospital Transplant Encounter Abraham Solano MA Reschedule Appointment (RS 1) 08/19/2017 Telephone Transplant Ben Hernandez TXP - [facility] COMM PLAN [place] - RENAL EVAL APPRVL 08/16/2017 Documentation Transplant Natasha White MA Referral - Kidney Txp 07/22/2017 Telephone Transplant after 02/11/2017 Family History Medical History Relation Name Comments [...] Due Date Last Done Comments INFLUENZA VACCINE 10/09/2017 HEPATITIS B VACCINES Aged [...] / Lot Implanted Type Area Manufactur er [id number] / / Particle Hmstc Absrbl Allison 5gm Surgical N/A: N/A [employer] [facility] - [id number] Implants; Implanted: Qty: 1 on 01/25/2017 by [employer]; Lawson Caldwell MD Extenders; Surgical Wires 09/25/2021 [id number] / [id number] / [id number] Graft Vasclr [place] Stdwl 10cm Vascular N/A: N/A W L GORE 6mm - [id number] - [id number] Graft Implanted: Qty: 1 on 01/25/2017 by Lawson Caldwell MD Results Not on fileafter 02/11/2017 Insurance Payer Benefit Subscriber ID Type Phone Address Plan / Group MEDICARE MEDICARE xxxxxxxxxx Medicare [place], [place] PART A AND B [facility] MEDICAID [facility] xxxxxxxxx HMO COMM STAR+ ARLEEN Rogerio Benoit III Transplant Self [address] ([address]) [id number] [facility] [place] [address] Advance Directives Patient has advance care planning documents, and code status on file. For more i nformation, please contact: Gary Harrison [address] [place] [address] Date Inactivated Comments Code Status Date Activated 07/05/2016 8:47 PM Full Code 06/30/2016 7:16 AM Code Status decision reached by: Patient
--- OUTSIDE RECORDS SUMMARY | 2018-02-12 10:07 | XMS REPORT | Clinical Summary ---
Author Author [place] [facility] Organization [facility] Address Unknown Phone Unavailable Care Team Providers Care Doughnut Icer Name Role Phone PCP Unavailable Allergies Not [...] Not on file Results Not on fileafter 02/11/2017 Insurance Payer Benefit Subscriber ID Type Phone Address Plan / Group dotSyntax xxxxxxxxxx [employer] EXCHANGE
[2018-02-12] MEDS ORDERED: ONDANSETRON HCL INJ 2 MG/ML VIAL IV STA (10:29)
[2018-02-12] MEDS ORDERED: SODIUM CHLORIDE 0.9% 1000ML 1,000 ML IV STA (10:29)
[2018-02-12] MEDS ORDERED: CEFTRIAXONE SOD 1 GM VIAL IV SCH (10:30)
[2018-02-12] MEDS ORDERED: HYDRALAZINE HCL 20 MG/ML VIAL IV STA (10:33)
[2018-02-12] MEDS ORDERED: MORPHINE SULFATE 2 MG/ML SYR IV STA (11:03)
[2018-02-12] MEDS ORDERED: MORPHINE SULFATE INJ 4 MG/ML INJ IV STA (11:03)
[2018-02-12 11:08] LABS: BASOPHILS # (AUTO) 0.1 (0.0-0.1); EOSINOPHILS # (AUTO) 0.3 (0.0-0.4); HEMATOCRIT 38.4 % (38.2-49.6); HEMOGLOBIN 12.4 g/dL (14.0-18.0); LYMPHOCYTES # (AUTO) 2.2 (1.0-3.2); MEAN CORPUSCULAR HEMOGLOBIN 28.4 pg (28-32); MEAN CORPUSCULAR HGB CONC 32.3 g/dL (31-35); MEAN CORPUSCULAR VOLUME 88.1 fL (81-99); MONOCYTES # (AUTO) 0.8 (0.2-0.8); MONOCYTES % 7.7 % (4.4-11.3); NEUTROPHILS # (AUTO) 6.5 (2.1-6.9); NEUTROPHILS % 65.8 % (38.7-80.0); PLATELET COUNT 172 x10e3/uL (140-360); RED BLOOD COUNT 4.36 x10e6/uL (4.3-5.7); RED CELL DISTRIBUTION WIDTH 13.4 % (11.7-14.4)
[2018-02-12] MEDS ORDERED: FENTANYL CITRATE/PF 100MCG/2 ML INJ ONE (11:11)
[2018-02-12] MEDS ORDERED: FENTANYL CITRATE/PF 100MCG/2 ML INJ IV ONE ×2 (11:15→12:15)
[2018-02-12] MEDS ORDERED: MORPHINE SULFATE INJ 4 MG/ML INJ IV ONE (11:15)
[2018-02-12 11:25] LABS: ALBUMIN 2.9 g/dL (3.5-5.0); ALBUMIN/GLOBULIN RATIO 0.6 (0.8-2.0); ANION GAP 30.4 mmol/L (8-16); CALCIUM 9.2 mg/dL (8.4-10.2); CREATININE, SERUM 21.47 mg/dL (0.72-1.25); POTASSIUM 4.4 mmol/L (3.5-5.1)
[2018-02-12] MEDS ORDERED: METOPROLOL TARTRATE INJ 1 MG/ML VIAL IV ONE (13:30)
--- NOTE | 2018-02-12 13:31 | Diagnostic Imaging Report ---
EXAM: CT Abdomen and Pelvis WITH contrast INDICATION: Nausea vomiting COMPARISON: 01/25/2018, no report available TECHNIQUE: Abdomen and Pelvis was scanned utilizing a multidetector helical scanner after administration of IV contrast. Coronal and sagittal reformations were obtained. IV CONTRAST: 100 mL Isovue-370 COMPLICATIONS: None RADIATION DOSE: Total DLP:485 mGy*cm Estimated effective dose: (DLP x 0.015 x size factor) mSv CTDIvol has been reviewed. It is below the limits set by the Radiation Protocol Committee (RPC). Appropriate CT dose reduction techniques were utilized. FINDINGS: Abdomen: Lung Bases: No acute findings. Solid Organs: Atrophic kidneys with numerous bilateral cysts. Liver, adrenals, spleen, and pancreas unremarkable. Upper GI Tract: Small to moderate hiatal hernia. Decompressed stomach limits adequate evaluation. Wall thickening of small bowel statistically due to free fluid. Vascularity: Mild to moderate aortic vascular calcifications with no aneurysm. Lymph Nodes: Limited evaluation due to mesenteric edema/free fluid. Other: Moderate to large amount of abdominal free fluid presumed due to peritoneal dialysis. Pelvis: Bladder: Unremarkable. Other: Transplant kidney left pelvis with questionable related enhancement and perinephric stranding. Colon: Limited evaluation. Appendix not dilated. Bones: No acute findings. IMPRESSION: 1. Questionable delayed enhancement and perinephric stranding of transplant kidney left pelvis. Clinical/laboratory correlation for infection. Doppler evaluation could be obtained if indicated. 2. Moderate to large amount of free fluid presumed secondary to peritoneal dialysis. Superimposed peritonitis would be difficult to exclude. 3. Thickening of bowel presumed secondary to free fluid. Signed by: Dr. Umberto Mejía MD on 02/12/2018 1:28 PM
[2018-02-12] MEDS ORDERED: HYDROMORPHONE 2MG/ML 2 MG/ML ML IV ONE (13:55)
[2018-02-12] MEDS ORDERED: IOPAMIDOL 370 MG/ML 200 ML INFUS..BTL INJ ONE (18:42)
[2018-02-12] MEDS ORDERED: SODIUM CHLORIDE 0.9% 50ML 50 ML ONE (18:42)
== END 2018-02-12 15:46 | disposition other institution (70) ==
LOC: ER 10:04
DX: R11.2 Nausea with vomiting, unspecified (principal); K65.0 Generalized (acute) peritonitis; I12.0 Hypertensive chronic kidney disease with stage 5 chronic kidney disease or end stage renal disease; N18.6 End stage renal disease; Z99.2 Dependence on renal dialysis; Z94.0 Kidney transplant status
CPT/HCPCS: 36415; 74177; 80053; 80162; 83605; 85025; 93005; 99284; J0360; J0696; J1170; J2405; J7030; Q9967

== ENCOUNTER 2018-05-04 16:20 | Observation (INO) | payer MEDICARE, OTHER ==
[~2018-05-04] VITALS: Ht 165.1 cm; Wt 56.4 kg
--- OUTSIDE RECORDS SUMMARY | 2018-05-04 16:23 | XMS REPORT | Clinical Summary ---
Author Author [facility] Organization [facility] Address Unknown Phone Unavailable Care Team Providers Care Slag Worker Name Role Phone Sourav Harmon MD PCP [...] 08/19/2017 Telephone Transplant Ben Hernandez TXP - [facility] COMM PLAN [place] - RENAL EVAL APPRVL 08/16/2017 Documentation Transplant Natasha White MA Referral - Kidney Txp 07/22/2017 Telephone Transplant after 05/03/2017 Family History Medical History Relation Name Comments [...] Date Last Done Comments INFLUENZA VACCINE 10/09/2017 Implants Device Identifier Shelf Expiration Date Model / Serial / Lot Implanted Type Area Manufactur er [id number] / / Particle Hm[employer]c Absrbl Allison 5gm Surgical N/A: N/A [employer] [facility] - [id number] Implants; Implanted: Qty: 1 on 01/25/2017 by [employer]; Lawson Caldwell MD Extenders; Surgical Wires 09/25/2021 [id number] / [id number] / [id number] Graft Vasclr [place]-Alireza Stdwl 10cm Vascular N/A: N/A W L GORE 6mm - [id number] - [id number] Graft Implanted: Qty: 1 on 01/25/2017 by Lawson Caldwell MD Results Not on fileafter 05/03/2017 Insurance Payer Benefit Subscriber ID Type Phone Address Plan / Group MEDICARE MEDICARE xxxxxxxxxx Medicare [place], [place] PART A AND B [facility] MEDICAID [facility] xxxxxxxxx HMO COMM STAR+ ARLEEN Advance Directives Patient has advance care planning documents, and code status on file. For more i nformation, please contact: Gary Harrison [address] [place] [address] Date Inactivated Comments Code Status Date Activated 07/05/2016 8:47 PM Full Code 06/30/2016 7:16 AM Code Status decision reached by: Patient
--- OUTSIDE RECORDS SUMMARY | 2018-05-04 16:23 | XMS REPORT | Clinical Summary ---
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 Active pantoprazole (PROTONIX) Take 40 mg by 0 40 MG tablet mouth daily. Active cinacalcet (SENSIPAR) 60 Take 60 mg by 0 MG tablet mouth daily. Active promethazine (PHENERGAN) Take 25 mg by 0 25 MG tablet mouth every 6 (six) hours as needed for Nausea. Active sevelamer (RENVELA) 800 Take 800 mg 0 mg tablet by mouth 3 (three) times daily with meals. Active losartan (COZAAR) 100 MG Take 100 mg 0 tablet by mouth daily. Active dilTIAZem (CARDIZEM CD) Take 240 mg 0 240 MG 24 hr capsule by mouth daily. Active MINOXIDIL ORAL Take 1 tablet 0 by mouth 2 (two) times daily. Active aspirin 81 MG EC tablet Take 81 mg by 0 mouth daily. 03/28/2019 Active traMADol (ULTRAM) 50 mg Take 1 tablet 20 tablet 0 tablet (50 mg total) 9 by mouth every 6 (six) hours as needed for Pain. Max Daily Amount: 200 mg 02/20/2018 Discontinued cloNIDine HCl (CATAPRES) Take 0.2 mg 0 0.2 MG tablet by mouth 2 (two) times daily. 02/20/2018 Discontinued diltiazem (TIAZAC) 240 MG Take 240 mg 0 24 hr capsule by mouth daily. 02/20/2018 Discontinued minoxidil (LONITEN) 2.5 Take 2.5 mg 0 MG tablet by mouth 2 (two) times daily. 04/23/2018 cloNIDine (CATAPRES-TTS) Place 1 patch 4 patch 1 0.2 mg/24 hr patch onto the skin 8 once a week for 56 days. 02/26/2018 cephalexin (KEFLEX) 250 Take 1 5 capsule 0 MG capsule capsule (250 8 mg total) by mouth daily for 5 days. 04/22/2018 cholecalciferol 2,000 Take 2.5 75 tablet 1 unit Tab tablets 8 (5,000 Units total) by mouth daily for 60 days. 03/02/2018 HYDROcodone-acetaminophen Take 1 tablet 20 tablet 0 (NORCO 5-325) 5-325 mg by mouth 8 per tablet every 6 (six) hours as needed for Pain for up to 10 days. Max Daily Amount: 4 tablets Active Problems Problem Noted Date S/p nephrectomy 03/17/2018 Last Assessment & Plan: He is s/p nephrectomy on 02/14/2018. He is doing well and has no evidence of recurrent disease. Dre were removed in clinic today. HTN (hypertension) 03/17/2018 Last Assessment & Plan: Blood pressure management per nephrology. Hypertensive crisis 02/17/2018 Anemia of chronic disease 02/17/2018 Last Assessment & Plan: Continue follow up with nephrology for anemia treatment. Peritonitis 02/12/2018 ESRD (end stage renal disease) 02/12/2018 Last Assessment & Plan: Kidney disease secondary to HTN. Continue dialysis schedule on /Sat. ESRD on hemodialysis Overview: New AV Fistula: right upper extremity brachiobasilic AV F, with vein transposition, performed today. Resolved Problems Problem Noted Date Resolved Date ESRD (end stage renal disease) on dialysis 03/28/2018 03/28/2018 Encounters Care Team Description Date Type Specialty Orestes Muhammad MD CREATION,A-V FISTULA 03/28/2018 Surgery Lucy Pelaez MD 03/28/2018 Anesthesia Event Orestes Muhammad MD ESRD (end stage renal disease) on dialysis (HCC) (Primary Dx) 03/28/2018 Hospital Encounter Radha Pérez, RN 03/27/2018 Orders Only Cardiology Resource, Oqmt Preadmit Phone 03/20/2018 Hospital Pre-Admission Testing Encounter Ayaan Phillips MD Lands, Sarah Elizabeth, NP ESRD (end stage renal disease) ([facility]); S/p nephrectomy; Anemia of chronic disease 03/17/2018 Follow-Up Transplant Hepatology Radha Pérez, MECHE 03/06/2018 Orders Only Cardiology Joanne Alvarez Y Appointment 03/06/2018 Telephone Transplant Haresh Rai MD Clotted vascular catheter, initial encounter ([facility]) (Primary Dx); ESRD (end stage renal disease) ([facility]); Essential hypertension; Anemia due to chronic kidney disease, on chronic dialysis (HCC) 03/01/2018 Emergency Emergency Medicine Melinda Quiros MD Dialysis catheter not working 03/01/2018 Telephone Internal Medicine Radha Pérez, MECHE 02/26/2018 Orders Only Cardiology Joanne Alvarez Y Appointment 02/20/2018 Telephone Transplant Rell Solorzano MD 02/14/2018 Anesthesia Event [facility] Farrah Meza MD NEPHRECTOMY 02/14/2018 Surgery Jarrod Blackman III, MD Athreya, Khannan K., MD Agrawal, Neeraj, MD ESRD (end stage renal disease) ([facility]) (Primary Dx); Peritoneal dialysis status ([facility]); Hypertensive crisis; Failed kidney transplant; Uremia syndrome; Peritonitis (HCC); Anemia of chronic disease; Encounter regarding vascular access for dialysis for end-stage renal disease ([facility]) 02/12/2018 [facility] General Internal Medicine - Encounter 02/20/2018 02/12/2018 Travel after 05/03/2017 Social History Date Tobacco Use Types Packs/Day Years Used Never Smoker Smokeless Tobacco: Never Used Alcohol Use Drinks/Week oz/Week Comments No Alcohol Habits Answer Date Recorded How often do you have a drink containing alcohol? Never 02/12/2018 How many drinks containing alcohol do you have on Not asked a typical day when you are drinking? How often do you have six or more drinks on one Not asked occasion? Sex Assigned at Date Recorded Not on file Industry Job Start Date Occupation Not on file Not on file Not on file Travel End Travel History Travel Start No recent travel history available. Last Filed Vital Signs Time Taken Vital Sign Reading 03/28/2018 6:30 PM ASSISTANT MANAGER TRAINEE Blood Pressure 155/87 03/28/2018 6:30 PM ASSISTANT MANAGER TRAINEE Pulse 82 03/28/2018 6:30 PM ASSISTANT MANAGER TRAINEE Temperature 36.3 C (97.4 F) 03/28/2018 6:30 PM ASSISTANT MANAGER TRAINEE Respiratory Rate 13 03/28/2018 6:30 PM ASSISTANT MANAGER TRAINEE Oxygen Saturation 99% - Inhaled Oxygen - Concentration 03/20/2018 5:25 PM ASSISTANT MANAGER TRAINEE Weight 59 kg (130 lb) 03/20/2018 5:25 PM ASSISTANT MANAGER TRAINEE Height 165.1 cm (5' 5") 03/20/2018 5:25 PM ASSISTANT MANAGER TRAINEE Body Mass Index 21.63 Plan of Treatment Not on file Goals Goal Patient Associated Recent Progress Patient-Stat Author Goal Type Problems ed? Contact counselor available General ESRD on Yes Moises Tatum through your work hemodialysis MD Vlad Note: Depression intervention and follow up Implants Device Identifier Shelf Expiration Date Model / Serial / Lot Implanted Type Area Manufactur er 06/08/2020 [id number] / N/A / [id number] Cath Kt Hd Dl Str [id number] Catheter Left: Neck ANGIODYNAM [id number] - Sn/A Dialysis ICS Implanted: Qty: 1 on 02/14/2018 by Care Home Micki Jayeron Meza MD Procedures Comments Procedure Name Priority Date/Time Associated Diagnosis RHYTHM STRIP - SCAN 04/15/2018 8:30 AM ASSISTANT MANAGER TRAINEE TRANSFUSION SERVICE 03/29/2018 REPORT - SCAN 5:53 PM ASSISTANT MANAGER TRAINEE CREATION,A-V FISTULA 03/28/2018 End stage renal disease 3:15 PM ASSISTANT MANAGER TRAINEE (HCC) TYPE AND SCREEN, Routine 03/28/2018 AUTOMATED 11:57 AM ASSISTANT MANAGER TRAINEE PROTHROMBIN TIME/INR STAT 03/28/2018 11:57 AM ASSISTANT MANAGER TRAINEE HGB/HCT (H&H) - STAT LAB Routine 03/28/2018 11:57 AM ASSISTANT MANAGER TRAINEE GLUCOSE-STAT LAB STAT 03/28/2018 11:57 AM ASSISTANT MANAGER TRAINEE POTASSIUM-STAT LAB STAT 03/28/2018 11:57 AM ASSISTANT MANAGER TRAINEE CBC W/PLT COUNT & AUTO STAT 03/01/2018 DIFFERENTIAL 6:03 PM ASSISTANT MANAGER TRAINEE PT/APTT STAT 03/01/2018 6:03 PM ASSISTANT MANAGER TRAINEE BASIC METABOLIC PANEL (7) STAT 03/01/2018 6:03 PM ASSISTANT MANAGER TRAINEE CBC W/PLT COUNT & AUTO STAT 03/01/2018 DIFFERENTIAL 6:03 PM ASSISTANT MANAGER TRAINEE RHYTHM STRIP - SCAN 02/27/2018 8:40 AM ASSISTANT MANAGER TRAINEE CBC W/PLT COUNT & AUTO STAT 02/20/2018 DIFFERENTIAL 12:26 PM ASSISTANT MANAGER TRAINEE CBC W/PLT COUNT & AUTO STAT 02/20/2018 DIFFERENTIAL 12:26 PM ASSISTANT MANAGER TRAINEE BASIC METABOLIC PANEL (7) STAT 02/20/2018 12:26 PM ASSISTANT MANAGER TRAINEE IR VENOGRAM - EXTREMITY Routine 02/20/2018 BILATERAL 8:45 AM ASSISTANT MANAGER TRAINEE PREALBUMIN Routine 02/20/2018 4:57 AM ASSISTANT MANAGER TRAINEE HEMODIALYSIS INPATIENT Routine 02/19/2018 12:57 PM ASSISTANT MANAGER TRAINEE CBC W/PLT COUNT & AUTO STAT 02/19/2018 DIFFERENTIAL 8:08 AM ASSISTANT MANAGER TRAINEE BASIC METABOLIC PANEL (7) STAT 02/19/2018 8:08 AM ASSISTANT MANAGER TRAINEE CBC W/PLT COUNT & AUTO STAT 02/19/2018 DIFFERENTIAL 8:08 AM ASSISTANT MANAGER TRAINEE VANCOMYCIN LEVEL, RANDOM Routine 02/19/2018 4:10 AM ASSISTANT MANAGER TRAINEE VANCOMYCIN LEVEL, RANDOM Routine 02/18/2018 4:11 AM ASSISTANT MANAGER TRAINEE PHOSPHORUS Routine 02/18/2018 4:11 AM ASSISTANT MANAGER TRAINEE CBC (HEMOGRAM ONLY) Routine 02/18/2018 4:11 AM ASSISTANT MANAGER TRAINEE BASIC METABOLIC PANEL (7) Routine 02/18/2018 4:11 AM ASSISTANT MANAGER TRAINEE HEMODIALYSIS INPATIENT Routine 02/17/2018 7:36 [address] [address] ABDOMEN/PELVIS WITH IV Routine 02/17/2018 CONTRAST 3:53 PM ASSISTANT MANAGER TRAINEE PREALBUMIN Routine 02/17/2018 4:17 AM ASSISTANT MANAGER TRAINEE VANCOMYCIN LEVEL, TROUGH Timed 02/17/2018 4:17 AM ASSISTANT MANAGER TRAINEE PHOSPHORUS Routine 02/17/2018 4:17 AM ASSISTANT MANAGER TRAINEE CBC (HEMOGRAM ONLY) Routine 02/17/2018 4:17 AM ASSISTANT MANAGER TRAINEE BASIC METABOLIC PANEL (7) Routine 02/17/2018 4:17 AM ASSISTANT MANAGER TRAINEE XR ABDOMEN 1 VIEW Routine 02/16/2018 6:46 PM ASSISTANT MANAGER TRAINEE PHOSPHORUS Routine 02/16/2018 5:32 AM ASSISTANT MANAGER TRAINEE CBC (HEMOGRAM ONLY) Routine 02/16/2018 5:32 AM ASSISTANT MANAGER TRAINEE BASIC METABOLIC PANEL (7) Routine 02/16/2018 5:32 AM ASSISTANT MANAGER TRAINEE TRANSFUSION SERVICE 02/15/2018 REPORT - SCAN 6:00 PM ASSISTANT MANAGER TRAINEE PHOSPHORUS Routine 02/15/2018 6:11 AM ASSISTANT MANAGER TRAINEE CBC (HEMOGRAM ONLY) Routine 02/15/2018 6:11 AM ASSISTANT MANAGER TRAINEE BASIC METABOLIC PANEL (7) Routine 02/15/2018 6:11 AM ASSISTANT MANAGER TRAINEE WOUND CULTURE + GRAM Routine 02/14/2018 STAIN 10:00 PM ASSISTANT MANAGER TRAINEE HEPATITIS C ANTIBODY Routine 02/14/2018 6:34 PM ASSISTANT MANAGER TRAINEE HEPATITIS B CORE Routine 02/14/2018 ANTIBODY, TOTAL 6:34 PM ASSISTANT MANAGER TRAINEE HEPATITIS B CORE Routine 02/14/2018 ANTIBODY, IGM 6:34 PM ASSISTANT MANAGER TRAINEE HEPATITIS B SURFACE Routine 02/14/2018 ANTIGEN 6:34 PM ASSISTANT MANAGER TRAINEE VANCOMYCIN LEVEL, RANDOM Routine 02/14/2018 6:34 PM ASSISTANT MANAGER TRAINEE HEMODIALYSIS INPATIENT Routine 02/14/2018 6:24 PM ASSISTANT MANAGER TRAINEE TRANSFUSION SERVICE 02/14/2018 REPORT - SCAN 6:01 PM ASSISTANT MANAGER TRAINEE PREPARE RBC Routine 02/14/2018 5:10 PM ASSISTANT MANAGER TRAINEE FL PRODUCTION LINE IN OR 30 Routine 02/14/2018 MINUTE INCREMENTS 4:35 PM ASSISTANT MANAGER TRAINEE SURGICALLY OBTAINED GUILLERMINA 02/14/2018 CULTURE + GRAM STAIN 4:19 PM ASSISTANT MANAGER TRAINEE FUNGUS CULTURE + SMEAR GUILLERMINA 02/14/2018 4:19 PM ASSISTANT MANAGER TRAINEE ANAEROBIC CULTURE GUILLERMINA 02/14/2018 4:19 PM ASSISTANT MANAGER TRAINEE AFB CULTURE + SMEAR GUILLERMINA 02/14/2018 4:19 PM ASSISTANT MANAGER TRAINEE FUNGUS CULTURE + SMEAR GUILLERMINA 02/14/2018 3:57 PM ASSISTANT MANAGER TRAINEE ANAEROBIC CULTURE GUILLERMINA 02/14/2018 3:57 PM ASSISTANT MANAGER TRAINEE AFB CULTURE + SMEAR GUILLERMINA 02/14/2018 3:57 PM ASSISTANT MANAGER TRAINEE SPIN/CONCENTRATION CHARGE Routine 02/14/2018 3:57 PM ASSISTANT MANAGER TRAINEE TISSUE EXAM AP Routine 02/14/2018 3:37 PM ASSISTANT MANAGER TRAINEE HGB/HCT (H&H) - STAT LAB STAT 02/14/2018 3:19 PM ASSISTANT MANAGER TRAINEE GLUCOSE-STAT LAB STAT 02/14/2018 3:19 PM ASSISTANT MANAGER TRAINEE POTASSIUM-STAT LAB STAT 02/14/2018 3:19 PM ASSISTANT MANAGER TRAINEE SODIUM NA-STAT LAB STAT 02/14/2018 3:19 PM ASSISTANT MANAGER TRAINEE BLOOD GAS, ARTERIAL STAT 02/14/2018 3:19 PM ASSISTANT MANAGER TRAINEE CALCIUM, IONIZED STAT 02/14/2018 3:19 PM ASSISTANT MANAGER TRAINEE RRL CRITICAL LABS STAT 02/14/2018 (ABG,NA,K,H&H,GLUCOSE) 3:19 PM ASSISTANT MANAGER TRAINEE INSERTION,DIALYSIS 02/14/2018 Renal infection CATHETER PERITONEAL 11:22 AM ASSISTANT MANAGER TRAINEE REMOVAL,CATHETER 02/14/2018 Renal infection PERITONEAL 11:22 AM ASSISTANT MANAGER TRAINEE NEPHRECTOMY 02/14/2018 Renal infection 11:22 AM ASSISTANT MANAGER TRAINEE ECG 12-LEAD STAT 02/14/2018 8:55 AM ASSISTANT MANAGER TRAINEE PHOSPHORUS Routine 02/14/2018 6:32 AM ASSISTANT MANAGER TRAINEE CBC (HEMOGRAM ONLY) Routine 02/14/2018 6:32 AM ASSISTANT MANAGER TRAINEE BASIC METABOLIC PANEL (7) Routine 02/14/2018 6:32 AM ASSISTANT MANAGER TRAINEE LACTIC ACID, VENOUS, Routine 02/14/2018 WHOLE BLOOD 6:32 AM ASSISTANT MANAGER TRAINEE TYPE AND SCREEN, Routine 02/13/2018 AUTOMATED 8:41 PM ASSISTANT MANAGER TRAINEE BASIC METABOLIC PANEL (7) Routine 02/13/2018 12:10 PM ASSISTANT MANAGER TRAINEE LACTIC ACID, VENOUS, Routine 02/13/2018 WHOLE BLOOD 5:05 AM ASSISTANT MANAGER TRAINEE BODY FLUID CELL COUNT Routine 02/13/2018 WITH DIFFERENTIAL 12:00 AM ASSISTANT MANAGER TRAINEE BODY FLUID CULTURE + GRAM Routine 02/12/2018 STAIN 11:38 PM ASSISTANT MANAGER TRAINEE APTT Routine 02/12/2018 8:54 PM ASSISTANT MANAGER TRAINEE PROTHROMBIN TIME/INR Routine 02/12/2018 8:54 PM ASSISTANT MANAGER TRAINEE LIPASE Routine 02/12/2018 8:54 PM ASSISTANT MANAGER TRAINEE HEPATIC FUNCTION PANEL Routine 02/12/2018 8:54 PM ASSISTANT MANAGER TRAINEE LACTIC ACID, VENOUS, STAT 02/12/2018 WHOLE BLOOD 8:54 PM ASSISTANT MANAGER TRAINEE XR CHEST 1 VIEW Routine 02/12/2018 PORTABLE/BEDSIDE 8:31 PM ASSISTANT MANAGER TRAINEE CBC W/PLT COUNT & AUTO Routine 02/12/2018 DIFFERENTIAL 6:40 PM ASSISTANT MANAGER TRAINEE CBC W/PLT COUNT & AUTO Routine 02/12/2018 DIFFERENTIAL 6:40 PM ASSISTANT MANAGER TRAINEE PROCALCITONIN STAT 02/12/2018 6:35 PM ASSISTANT MANAGER TRAINEE BASIC METABOLIC PANEL (7) Routine 02/12/2018 6:35 PM ASSISTANT MANAGER TRAINEE BLOOD CULTURE STAT 02/12/2018 6:33 PM ASSISTANT MANAGER TRAINEE BLOOD CULTURE STAT 02/12/2018 6:32 PM ASSISTANT MANAGER TRAINEE POCT-LACTIC ACID, VENOUS Routine 02/12/2018 6:18 PM ASSISTANT MANAGER TRAINEE after 05/03/2017 Results * RHYTHM STRIP - SCAN (04/15/2018 8:30 AM ASSISTANT MANAGER TRAINEE) Only the most recent of 2 results within the time period is included. Narrative Performed At * TRANSFUSION SERVICE REPORT - SCAN (03/29/2018 5:53 PM ASSISTANT MANAGER TRAINEE) Only the most recent of 3 results within the time period is included. Narrative Performed At * Potassium-Stat Lab (03/28/2018 11:57 AM ASSISTANT MANAGER TRAINEE) Only the most recent of 2 results within the time period is included. Potassium 4.7 3.6 - 5.5 meq/L [facility] Specimen Blood, Arterial Performing Organization Address City/[facility]/[place] [address] [phone] [address] * Glucose-Stat Lab (03/28/2018 11:57 AM ASSISTANT MANAGER TRAINEE) Only the most recent of 2 results within the time period is included. Glucose 74 70 - 110 mg/dL [facility] Specimen Blood, Arterial Performing Organization Address City/[facility]/[place] [address] [phone] [address] * Type and screen, automated (03/28/2018 11:57 AM ASSISTANT MANAGER TRAINEE) Only the most recent of 2 results within the time period is included. ABO/RH AUTOMATED (BEAKER) O POSITIVE [facility] Ab Scrn NEGATIVE [facility] Specimen Blood Performing Organization Address [facility] Phone Number [address] [address] [facility] * HGB/HCT (H&H)-Stat Lab (03/28/2018 11:57 AM ASSISTANT MANAGER TRAINEE) Only the most recent of 2 results within the time period is included. Hemoglobin 10.3 (L) 13.0 - 16.8 g/dL [facility] Hematocrit 30.0 (L) 40.0 - 50.0 % [facility] Specimen Blood, Arterial Performing Organization Address [facility] Phone Number [address] [address] [facility] * Prothrombin time/INR (03/28/2018 11:57 AM ASSISTANT MANAGER TRAINEE) Only the most recent of 2 results within the time period is included. Protime 14.0 11.7 - 14.7 seconds [facility] INR 1.1 <=5.9 [facility] Specimen Blood Narrative Performed At RECOMMENDED COUMADIN/WARFARIN INR THERAPY RANGES [facility] STANDARD DOSE: 2.0 - 3.0 Includes: PROPHYLAXIS for venous thrombosis, [facility] systemic embolization; TREATMENT for venous thrombosis and/or pulmonary embolus. HIGH RISK: Target INR is 2.5-3.5 for patients with mechanical heart valves. Performing Organization Address [facility] Phone Number [address] [address] [facility] * PT/aPTT (03/01/2018 6:03 PM ASSISTANT MANAGER TRAINEE) Protime 14.0 11.7 - 14.7 seconds [facility] INR 1.1 <=5.9 [facility] PTT 36.2 (H) 22.5 - 36.0 seconds [facility] Specimen Blood Narrative Performed At RECOMMENDED COUMADIN/WARFARIN INR THERAPY RANGES [facility] STANDARD DOSE: 2.0 - 3.0 Includes: PROPHYLAXIS for venous thrombosis, [facility] systemic embolization; TREATMENT for venous thrombosis and/or pulmonary embolus. HIGH RISK: Target INR is 2.5-3.5 for patients with mechanical heart valves. Performing Organization Address City/State/Zipcode Phone Number [facility] [address] [place] [address] [facility] * CBC with platelet count + automated diff (03/01/2018 6:03 PM ASSISTANT MANAGER TRAINEE) Only the most recent of 4 results within the time period is included. WBC 8.2 3.5 - 10.5 K/L [facility] RBC 3.31 (L) 4.63 - 6.08 M/L [facility] Hemoglobin 9.3 (L) 13.7 - 17.5 GM/DL [facility] Hematocrit 30.6 (L) 40.1 - 51.0 % [facility] MCV 92.4 (H) 79.0 - 92.2 fL [facility] MCH 28.1 25.7 - 32.2 pg [facility] MCHC 30.4 (L) 32.3 - 36.5 GM/DL [facility] RDW 14.4 11.6 - 14.4 % [facility] Platelets 221 150 - 450 K/CU MM [facility] MPV 10.1 9.4 - 12.4 fL [facility] nRBC 0 0 - 0 /100 WBC [facility] % Neutros 60 % [facility] % Lymphs 18 % [facility] % Monos 12 % [facility] % Eos 8 % [facility] % Baso 1 % [facility] # Neutros 4.90 1.78 - 5.38 K/L [facility] # Lymphs 1.48 1.32 - 3.57 K/L [facility] # Monos 0.96 (H) 0.30 - 0.82 K/L [facility] # Eos 0.69 (H) 0.04 - 0.54 K/L [facility] # Baso 0.10 (H) 0.01 - 0.08 K/L [facility] Immature 1 0 - 1 % [facility] Granulocytes-Relative [facility] Specimen Blood Performing Organization Address City/State/Zipcode Phone Number [address] [address] [facility] * Basic Metabolic Panel (03/01/2018 6:03 PM ASSISTANT MANAGER TRAINEE) Only the most recent of 10 results within the time period is included. Sodium 142 136 - 145 meq/L [facility] Potassium 3.5 3.5 - 5.1 meq/L [facility] Chloride 98 98 - 107 meq/L [facility] CO2 30 (H) 22 - 29 meq/L [facility] BUN 34 (H) 7 - 21 mg/dL [facility] Creatinine 14.79 (H) 0.57 - 1.25 mg/dL [facility] Glucose 121 (H) 70 - 105 mg/dL [facility] Calcium 8.8 8.4 - 10.2 mg/dL [facility] EGFR Comment: INSUFFICIENT CLINICAL mL/min/1.73 sq m [facility] DATA TO CALCULATE ESTIMATED [facility] GFR. Specimen Blood Performing Organization Address City/[facility]/Zipcode Phone Number [facility] [address] [place] [address] [facility] * IR Venogram - Extremity Bilateral (02/20/2018 8:45 AM ASSISTANT MANAGER TRAINEE) Narrative Performed At FINAL REPORT [facility] Bilateral upper extremity venogram, 02/20/2018. History: Renal failure, evaluation for AV shunt. Modality: Fluoroscopy. Specimen: None. Fluoroscopy Time: 1.1 min.Dose (Ka,r): 87.8 mGy. Technique:Contrast was injected via bilateral upper extremity IVs. Sequential digital images of the bilateral upper extremity were obtained from the wrist through the shoulder. DSA run of the central vasculature was performed. The patient tolerated the procedure well and left the department in the same condition. FINDINGS: Right: Injection was performed at the elbow, therefore the radial and ulnar veins were not evaluated. Antecubital vein is not visualized. A stent is present within the upper arm. Single patent vein is present within the medial aspect of the upper arm, possibly the basilic vein. Cephalic vein is not visualized. The right axillary, subclavian, and brachiocephalic veins are patent. The SVC is patent. Left: Calcified fistula and graft are noted within the forearm. The radial vein is not visualized. The ulnar and interosseous veins are small and tortuous. The antecubital vein is patent. Dilated partially calcified shunt is noted in the upper arm. 2 patent veins are present within the medial aspect of the upper arm, presumably representing a brachial and basilic vein. The left axillary vein, subclavian vein, and left brachiocephalic vein are patent. A left IJ tunneled dialysis catheter is present terminating in the proximal SVC. Impression: Bilateral upper extremity venogram performed without complication. Signed: Stu Carpenter MD Report Verified Date/Time:02/20/2018 16:41:39 Reading Location: [facility] [id number] Angio Body Reading Room Procedure Note Interface, External Ris In - 02/20/2018 4:43 PM ASSISTANT MANAGER TRAINEE FINAL REPORT Bilateral upper extremity venogram, 02/20/2018. History: Renal failure, evaluation for AV shunt. Modality: Fluoroscopy. Specimen: None. Fluoroscopy Time: 1.1 min. Dose (Ka,r): 87.8 mGy. Technique: Contrast was injected via bilateral upper extremity IVs. Sequential digital images of the bilateral upper extremity were obtained from the wrist through the shoulder. DSA run of the central vasculature was performed. The patient tolerated the procedure well and left the department in the same condition. FINDINGS: Right: Injection was performed at the elbow, therefore the radial and ulnar veins were not evaluated. Antecubital vein is not visualized. A stent is present within the upper arm. Single patent vein is present within the medial aspect of the upper arm, possibly the basilic vein. Cephalic vein is not visualized. The right axillary, subclavian, and brachiocephalic veins are patent. The SVC is patent. Left: Calcified fistula and graft are noted within the forearm. The radial vein is not visualized. The ulnar and interosseous veins are small and tortuous. The antecubital vein is patent. Dilated partially calcified shunt is noted in the upper arm. 2 patent veins are present within the medial aspect of the upper arm, presumably representing a brachial and basilic vein. The left axillary vein, subclavian vein, and left brachiocephalic vein are patent. A left IJ tunneled dialysis catheter is present terminating in the proximal SVC. Impression: Bilateral upper extremity venogram performed without complication. Signed: Stu Carpenter MD Report Verified Date/Time: 02/20/2018 16:41:39 Reading Location: [place] [address] Angio Body Reading Room Performing Organization Address [facility] Phone Number [facility] * Prealbumin (02/20/2018 4:57 AM ASSISTANT MANAGER TRAINEE) Only the most recent of 2 results within the time period is included. Prealbumin 23 14 - 45 mg/dL [facility] Specimen Blood - Arm, Right Performing Organization Address City/State/Zipcode Phone Number [facility] [address] [place] [address] MED[facility]ENTER * HEMODIALYSIS INPATIENT (02/19/2018 12:57 PM ASSISTANT MANAGER TRAINEE) Narrative Performed At Guillermina Abraham RN 02/19/2018 12:57 PM HDX4 hours completed,UF-2L, patient tolerated well. * Vancomycin level, random (02/19/2018 4:10 AM ASSISTANT MANAGER TRAINEE) Only the most recent of 3 results within the time period is included. Vancomycin Rm 16.2 ug/mL [facility] Specimen Blood Narrative Performed At Reference Range: No Normals [facility] Performing Organization Address City/[facility]/Zipcode Phone Number [facility] [address] [place] [address] [facility] * CBC (Hemogram only) (02/18/2018 4:11 AM ASSISTANT MANAGER TRAINEE) Only the most recent of 5 results within the time period is included. WBC 11.0 (H) 3.5 - 10.5 K/L [facility] RBC 3.27 (L) 4.63 - 6.08 M/L [facility] Hemoglobin 9.1 (L) 13.7 - 17.5 GM/DL [facility] Hematocrit 29.7 (L) 40.1 - 51.0 % [facility] MCV 90.8 79.0 - 92.2 fL [facility] MCH 27.8 25.7 - 32.2 pg [facility] MCHC 30.6 (L) 32.3 - 36.5 GM/DL [facility] RDW 13.6 11.6 - 14.4 % [facility] Platelets 149 (L) 150 - 450 K/CU MM [facility] MPV 9.8 9.4 - 12.4 fL [facility] nRBC 0 0 - 0 /100 WBC [facility] Specimen Blood Performing Organization Address City/[facility]/Zipcode Phone Number [facility] [address] [place] [address] [facility] * Phosphorus (02/18/2018 4:11 AM ASSISTANT MANAGER TRAINEE) Only the most recent of 5 results within the time period is included. Phosphorus 5.1 (H) 2.3 - 4.7 mg/dL [facility] Specimen Blood Performing Organization Address City/State/Zipcode Phone Number [facility] [address] [place] [address] MEDICAL CENTER * HEMODIALYSIS INPATIENT (02/17/2018 7:36 PM ASSISTANT MANAGER TRAINEE) Narrative Performed At Chandler Staley RN 02/17/20187:38 PM Received pt on NPO post ct scan. Pt awake alert. Explained hd tx plan today pt agreed verbalized understanding. Lab Results Component Value Date WBC 9.7 02/17/2018 HGB 9.9 (L) 02/17/2018 HCT 31.5 (L) 02/17/2018 MCV 91.0 02/17/2018 PLT 146 (L) 02/17/2018 Chemistry Component Value Date/Time NA 134 (L) 02/17/2018 0417 K 4.3 02/17/2018 0417 CL 99 02/17/20187 CO2 20 (L) 02/17/2018 0417 BUN 44 (H) 02/17/2018 0417 CREATININE 15.26 (H) 02/17/2018 0417 Component Value Date/Time CALCIUM 7.1 (L) 02/17/2018 0417 ALKPHOS 66 02/12/20182053 AST 18 02/12/20182053 ALT 13 02/12/20182053 BILITOT 0.3 02/12/20182053 Results for ROGERIO GILLIAM ( ) as of 02/17/2018 19:37 Ref. Range 02/14/2018 18:34 Hepatitis B Surface Ag Latest Ref Range: NonreactiveNonreactive To monitor pt. * CT abdomen/pelvis with IV contrast (02/17/2018 3:53 PM ASSISTANT MANAGER TRAINEE) Narrative Performed At FINAL REPORT [place] INDICATION: 47-year-old male with abdominal pain. Evaluate for bowel obstruction. COMPARISON: Abdomen radiograph February 16, 2018 76 over the abdomen and pelvis CT February 12, 2018 TECHNIQUE: CT of the Abdomen and Pelvis WITH intravenous contrast. Enteric contrast was used. The exam was performed according to our department dose-optimization protocol, which includes automated exposure control, adjustments of mA and kV according to patient size. Iterative reconstructions are also sometimes employed. FINDINGS: Since outside facility CT February 12 there has been left lower quadrant incision and the renal transplant artery has been ligated. Renal transplant is now nonperfused and atrophied. The left epigastric artery also appears ligated and a left rectus hematoma is noted. Peritoneal dialysis catheter also removed. There is no bowel obstruction. Small amount of low-density peritoneal fluid is present in the pelvis and around the liver and spleen. Liver, pancreas, spleen, adrenal glands are unremarkable. Gallbladder is distended with transverse diameter of 5.0 cm. There is vicarious excretion of contrast in the gallbladder. No biliary ductal dilatation. Atrophic [place] kidneys are noted. There is scattered moderate calcified plaque of the abdominal aorta and visceral arteries. Osseous structures unremarkable. IMPRESSION: Interval ligation of renal transplant artery and left epigastric artery with small left rectus hematoma. No bowel obstruction. Signed: Narciso Mccauley MD Report Verified Date/Time:02/17/2018 17:50:40 Reading Location: [facility] C013W Consult Reading Room Procedure Note Interface, External Ris In - 02/17/2018 5:52 PM ASSISTANT MANAGER TRAINEE FINAL REPORT INDICATION: 47-year-old male with abdominal pain. Evaluate for bowel obstruction. COMPARISON: Abdomen radiograph February 16, 2018 76 over the abdomen and pelvis CT February 12, 2018 TECHNIQUE: CT of the Abdomen and Pelvis WITH intravenous contrast. Enteric contrast was used. The exam was performed according to our department dose-optimization protocol, which includes automated exposure control, adjustments of mA and kV according to patient size. Iterative reconstructions are also sometimes employed. FINDINGS: Since outside facility CT February 12 there has been left lower quadrant incision and the renal transplant artery has been ligated. Renal transplant is now nonperfused and atrophied. The left epigastric artery also appears ligated and a left rectus hematoma is noted. Peritoneal dialysis catheter also removed. There is no bowel obstruction. Small amount of low-density peritoneal fluid is present in the pelvis and around the liver and spleen. Liver, pancreas, spleen, adrenal glands are unremarkable. Gallbladder is distended with transverse diameter of 5.0 cm. There is vicarious excretion of contrast in the gallbladder. No biliary ductal dilatation. Atrophic [place] kidneys are noted. There is scattered moderate calcified plaque of the abdominal aorta and visceral arteries. Osseous structures unremarkable. IMPRESSION: Interval ligation of renal transplant artery and left epigastric artery with small left rectus hematoma. No bowel obstruction. Signed: Narciso Mccauley MD Report Verified Date/Time: 02/17/2018 17:50:40 Reading Location: [facility] C013W Consult Reading Room Performing Organization Address City/State/Zipcode Phone Number RIS * Vancomycin level, trough (02/17/2018 4:17 AM ASSISTANT MANAGER TRAINEE) Vancomycin Tr 25.3 (H) 10.0 - 20.0 ug/mL [facility] Specimen Blood - Arm, Right Performing Organization Address City/[facility]/Zipcode Phone Number [facility] [address] [place] [address] [facility] * XR abdomen / KUB 1 view (02/16/2018 6:46 PM ASSISTANT MANAGER TRAINEE) Narrative Performed At FINAL REPORT [facility] RAD, ABDOMEN/KUB, 1 VIEW AP CLINICAL INDICATION:post op distention COMPARISON: None TECHNIQUE: Single, frontal radiograph of the abdomen. FINDINGS: The bowel gas pattern nonspecific with multiple air filled loops. No fluid fluid levels are noted, however, this is not an upright view. Surgical dre are noted across the pelvis and midline abdomen. Atherosclerotic calcification of the iliac and femoral vasculature. No abnormal mass or ascites is detected. No significant calcifications are present. The regional skeleton is intact. IMPRESSION: Multiple air-filled mildly distended small bowel loops throughout the abdomen, nonspecific. No air-fluid levels are noted, however, this is not an upright radiograph. Signed: Mayra España MD Report Verified Date/Time:02/16/2018 19:13:54 Reading Location: [facility] C013T Transitional Reading Room Procedure Note Interface, External Ris In - 02/16/2018 7:16 PM ASSISTANT MANAGER TRAINEE FINAL REPORT RAD, ABDOMEN/KUB, 1 VIEW AP CLINICAL INDICATION: post op distention COMPARISON: None TECHNIQUE: Single, frontal radiograph of the abdomen. FINDINGS: The bowel gas pattern nonspecific with multiple air filled loops. No fluid fluid levels are noted, however, this is not an upright view. Surgical dre are noted across the pelvis and midline abdomen. Atherosclerotic calcification of the iliac and femoral vasculature. No abnormal mass or ascites is detected. No significant calcifications are present. The regional skeleton is intact. IMPRESSION: Multiple air-filled mildly distended small bowel loops throughout the abdomen, nonspecific. No air-fluid levels are noted, however, this is not an upright radiograph. Signed: Mayra España MD Report Verified Date/Time: 02/16/2018 19:13:54 Reading Location: [address] Transitional Reading Room Performing Organization Address [facility] Phone Number [facility] * Wound culture + gram stain (02/14/2018 10:00 PM ASSISTANT MANAGER TRAINEE) Result No growth [facility] Specimen Wound - Abdomen Performing Organization Address [facility] Phone Number [address] * Hepatitis C antibody (02/14/2018 6:34 PM ASSISTANT MANAGER TRAINEE) Hepatitis C Ab NON-REACTIVE Nonreactive [facility] Specimen Blood Performing Organization Address [facility] Phone Number [address] * Hepatitis B core antibody, IgM (02/14/2018 6:34 PM ASSISTANT MANAGER TRAINEE) Hep B C IgM NON-REACTIVE [facility]active [facility] Specimen Blood Performing Organization Address [facility] Phone Number [address] * Hepatitis B core antibody, total (02/14/2018 6:34 PM ASSISTANT MANAGER TRAINEE) Hep B Core Total Ab NON-REACTIVE Nonreactive [facility] Specimen Blood Performing Organization Address [facility] Phone Number [address] * Hepatitis B surface antigen (02/14/2018 6:34 PM ASSISTANT MANAGER TRAINEE) hepatitis B Surface Ag NON-REACTIVE Nonreactive [facility] Specimen Blood Performing Organization Address [facility] Phone Number [facility] [address] [place] [address] [facility] * Prepare RBC (02/14/2018 5:10 PM ASSISTANT MANAGER TRAINEE) CROSSMATCH COMPATIBLE SAFETRACE TX Unit ABO O Pos SAFETRACE TX UNIT NUMBER [id number] SAFETRACE TX Status RETURNED FROM ISSUE SAFETRACE TX Blood Bank Product RED BLOOD CELLS SAFETRACE TX PRODUCT CODE [id number] SAFETRACE TX CROSSMATCH COMPATIBLE SAFETRACE TX Unit ABO O Pos SAFETRACE TX UNIT NUMBER [id number] SAFETRACE TX Status RETURNED FROM ISSUE SAFETRACE TX Blood Bank Product RED BLOOD CELLS SAFETRACE TX PRODUCT CODE [id number] SAFETRACE TX CROSSMATCH COMPATIBLE SAFETRACE TX Unit ABO O Pos SAFETRACE TX UNIT NUMBER [id number] SAFETRACE TX Status READY SAFETRACE TX Blood Bank Product RED BLOOD CELLS SAFETRACE TX PRODUCT CODE [id number] SAFETRACE TX CROSSMATCH COMPATIBLE SAFETRACE TX Unit ABO O Pos SAFETRACE TX UNIT NUMBER [id number] SAFETRACE TX Status READY SAFETRACE TX Blood Bank Product RED BLOOD CELLS SAFETRACE TX PRODUCT CODE [id number] SAFETRACE TX Performing Organization Address [facility] Phone Number SAFETRACE TX * [place] radio talk show host in or 30 minute increments (02/14/2018 4:35 PM ASSISTANT MANAGER TRAINEE) Narrative Performed At FINAL REPORT [facility] Fluoroscopy one view intraoperative 02/14/2018 5:31 PM CLINICAL HISTORY: Instrument localization COMPARISON: None available IMPRESSION: Please correlate imaging report findings with the procedure note prepared by Dr. Meza, as an intra-procedure imaging consultation was not requested. Reported cumulative dose: 0.260 mGy. Signed: Jarad Olivares MD Report Verified Date/Time:02/17/2018 10:51:13 Reading Location: [facility] Radiology Reading Room Procedure Note Interface, External Ris In - 02/17/2018 10:53 AM ASSISTANT MANAGER TRAINEE FINAL REPORT Fluoroscopy one view intraoperative 02/14/2018 5:31 PM CLINICAL HISTORY: Instrument localization COMPARISON: None available IMPRESSION: Please correlate imaging report findings with the procedure note prepared by Dr. Meza, as an intra-procedure imaging consultation was not requested. Reported cumulative dose: 0.260 mGy. Signed: Jarad Olivares MD Report Verified Date/Time: 02/17/2018 10:51:13 Reading Location: [facility] Radiology Reading Room Performing Organization Address [facility] Phone Number GE R[facility] * AFB culture + smear (02/14/2018 4:19 PM ASSISTANT MANAGER TRAINEE) Only the most recent of 2 results within the time period is included. Result No acid-fast bacilli isolated [facility] in 42 days [facility] AFB Smear No acid fast bacilli seen [facility] Specimen Tissue - Kidney Performing Organization Address [facility] Phone Number [address] [address] [facility] * Anaerobic culture (02/14/2018 4:19 PM ASSISTANT MANAGER TRAINEE) Only the most recent of 2 results within the time period is included. Result No anaerobes isolated [facility] Specimen Tissue - Kidney Performing Organization Address [facility] Phone Number [address] [address] [facility] * Surgically obtained culture + gram stain (02/14/2018 4:19 PM ASSISTANT MANAGER TRAINEE) Result No growth [facility] Gram Stain Result <1+ White blood cells seen [facility] Gram Stain Result No organisms seen [facility] Specimen Tissue - Kidney Performing Organization Address [facility] Phone Number [address] [address] [facility] * Fungus culture + smear (02/14/2018 4:19 PM ASSISTANT MANAGER TRAINEE) Only the most recent of 2 results within the time period is included. Result No fungus isolated in 28 days [facility] Fungus Smear No fungi seen [facility] Specimen Tissue - Kidney Performing Organization Address City/State/Zipcode Phone Number [facility] [address] [place] [id number] [facility] * SPIN/CONCENTRATION CHARGE (02/14/2018 3:57 PM ASSISTANT MANAGER TRAINEE) Concentration charged Done [facility] Specimen Other - Abdomen Performing Organization Address City/[facility]/Zipcode Phone Number [address] [address] [facility] * Tissue Exam (02/14/2018 3:37 PM ASSISTANT MANAGER TRAINEE) Case Report Surgical Pathology [facility] Report [facility] Case: [id number] Authorizing Provider:Jaye Sweet, Collected: 02/14/2018 Irma PABON Ordering Location: [facility] Received: 02/17/2018 0838 PERIOPERATIVE SERVICES Pathologist: Williams Taveras MD Specimen:Kidney, Transplanted Kidney DIAGNOSIS KIDNEY, ALLOGRAFT, TRANSPLANT [facility] NEPHRECTOMY [facility] - BOTH ANTIBODY- AND CELL-MEDIATED REJECTION, SEVERE, ACUTE AND CHRONIC Signing Pathologist Direct Phone Line: [phone] CPT Code(s) 78199, 69433 x3, 51371, [address]36 [facility] x5, [address] [facility] CLINICAL HISTORY Renal infection [facility] SPECIMEN SOURCE Transplanted kidney [facility] GROSS DESCRIPTION The specimen is received in a [facility] formalin-filled container [facility] labeled with the patient's information and labeled "transplanted kidney" and consists of a fragmented transplanted nephrectomy weighing 165 gm collectively and measuring approximately 9.5 x 5 x 5 cm. 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 Grossly no masses are identified. Junior Business Analyst sections are submitted in [id number]. CG/ew MICROSCOPIC DESCRIPTION LIGHT MICROSCOPY [facility] Sections from the cortex of [facility] the transplant nephrectomy show diffuse global glomerulosclerosis. The viable glomeruli show focal glomerulitis, and diffuse and global double contours of the glomerular basement membranes (Gusman and PAS stain). The tubular are predominantly atrophied. There is moderate to severe tubulitis involving atrophied tubules. There is diffuse chronic interstitial inflammation with predominantly T- lymphocytes (CD3 positive) admixed with few B lymphocytes(CD20 positive). The interstitium shows occasional lymphoid aggregates of B lymphocytes (CD20 positive). Marked peritubular capillaritis is present. Small to medium sized vessels show transmural arteritis and fibrocellular intimal expansion composed of foam cell and fibroblasts. No thrombosis is seen. Urothelium shows marked intraepithelial lymphocytosis, apoptosis and reactive changes. There is interstitial hemorrhage and chronic inflammation with tubulitis and peritubular capillaritis involving the medulla. There is also chronic inflammation around the pelvicalyceal system. Special stains: trichrome, Gusman and PAS Immunostain were performed on block A1 with appropriate controls. The results are as follows: C4d immunostain shows diffuse staining along the glomerular and along the peritubular capillaries. CD3 immunostain shows infiltration of T lymphocytes (CD3 positive) in all renal compartments. CD4 and CD8 immunostains show infiltration of both CD4 positive and CD8 positive lymphocytes in all renal compartments. CD20 immunostain shows few scattered interstitial clusters of B-lymphocytes and few scattered singly lying B-lymphocytes in the interstitium. CD68 immunostain shows foamy histiocytes in the vessels. Many CD68 cells are seen in the glomerular capillaries. Diagnostic Electron Microscopy: (performed on paraffin embedded section) Ultrastructure: Examination of the glomerular ultrastructure reveals that the glomerular basement membrane shows wrinkling and diffuse global double contours with mesangial interpositioning and subendothelial rarefaction. There is loss of endothelial cell fenestrations. Focal glomerulitis is present. There is multilayering of the glomerular basement membranes. The mesangial matrix is not expanded. No mesangial/paramesangial, subendothelial or subepithelial immune complex type electron dense deposits are seen. Podocyte foot processes are segmentally effaced. The peritubular capillaries show increased lamellations. SPECIAL STUDIES The interpretation of this [facility] case included the use of [facility] immunohistochemistry or special stains. Immunohistochemistry technical testing was performed at [facility], Pathology Laboratory where it was developed and its performance characteristics were determined. It has not been cleared or approved by the U.S. Food and Drug Administration. The FDA has determined that such clearance or approval is not necessary. The test is used for clinical purposes. It should not be regarded as investigational or for research. This laboratory is certified under the Clinical Laboratory Improvement Amendments of 1988 (CLIA-88) as qualified to perform high complexity clinical laboratory testing. Specimen Tissue - Kidney Performing Organization Address City/[facility]/Zipcode Phone Number [address] * Sodium Na-Stat Lab (02/14/2018 3:19 PM ASSISTANT MANAGER TRAINEE) Sodium 134 (L) 135 - 148 meq/L [facility] Specimen Blood, Arterial Performing Organization Address [facility] Phone Number [address] * Calcium, Ionized (02/14/2018 3:19 PM ASSISTANT MANAGER TRAINEE) Calcium, Ion 0.89 (L) 1.12 - 1.27 mmol/L [facility] pH, Blood 7.43 [facility] Specimen Blood Performing Organization Address [facility] Phone Number [address] * Blood gas, arterial (02/14/2018 3:19 PM ASSISTANT MANAGER TRAINEE) pH, Arterial 7.43 7.35 - 7.45 [facility] pCO2, Arterial 36 35 - 45 mmHg [facility] pO2, Arterial 121 (H) 80 - 90 mmHg [facility] O2 Sat, Arterial 98.6 (H) 96.0 - 97.0 % [facility] HCO3, Arterial 23 21 - 29 mmol/L [facility] Base Excess, Arterial -1.0 -2.0 - 3.0 mmol/L [facility] Patient Temperature 35.4 C [facility] FIO2 56.0 % [facility] Specimen Blood, Arterial Performing Organization Address [facility] Phone Number [facility] [address] [place] [address] [facility] * ECG 12 lead (02/14/2018 8:55 AM ASSISTANT MANAGER TRAINEE) Narrative Performed At Ventricular Rate 59 BPM GE MUSE Atrial Rate 59 BPM P-R Interval 162 ms QRS Duration 106 ms Q-T Interval 546 ms QTC Calculation(Bazett) 540 ms P [place] 46 degrees R [place] -5 degrees T [place] 44 degrees Sinus bradycardia Prolonged QT Abnormal ECG When compared with ECG of 17-JAN-1998 10:27, Vent. rate has decreased BY36 BPM Nonspecific T wave abnormality no longer evident in Inferior leads T wave inversion now evident in Anterior leads QT has lengthened Confirmed by MD TAMMY, IHAB ([id number]) on 02/14/2018 12:35:09 PM Procedure Note Interface, External Ris In - 02/14/2018 12:35 PM ASSISTANT MANAGER TRAINEE Ventricular Rate 59 BPM Atrial Rate 59 BPM P-R Interval 162 ms QRS Duration 106 ms Q-T Interval 546 ms QTC Calculation(Bazett) 540 ms P [place] 46 degrees R [place] -5 degrees T [place] 44 degrees Sinus bradycardia Prolonged QT Abnormal ECG When compared with ECG of 17-JAN-1998 10:27, Vent. rate has decreased BY 36 BPM Nonspecific T wave abnormality no longer evident in Inferior leads T wave inversion now evident in Anterior leads QT has lengthened Confirmed by MD TAMMY, IHAB ([id number]) on 02/14/2018 12:35:09 PM Performing Organization Address [facility] Phone Number [email or web address] MUSE * Lactic acid, venous, whole blood Daily (02/14/2018 6:32 AM ASSISTANT MANAGER TRAINEE) Only the most recent of 3 results within the time period is included. Lactate, Venous 0.5 0.5 - 2.2 mmol/L [facility] Specimen Blood - Arm, Right Performing Organization Address [facility] Phone Number [facility] [address] [place] [address] [facility] * Body fluid cell count with differential (02/13/2018 12:00 AM ASSISTANT MANAGER TRAINEE) Appearance Clear Clear [facility] Color Colorless Colorless, Straw [facility] RBCs 570 (H) <=1 /cu mm [facility] Adjusted WBC Count 163 (H) <=5 /cu mm [facility] Lining Cells 0 <=1 /cu mm [facility] % Segs 3 % [facility] % Lymphs 41 % [facility] % Monos 55 % [facility] % Eos 1 % [facility] % Baso 0 % [facility] Container Body Fluid EDTA Tube [facility] Specimen Body Fluid - Ascites Performing Organization Address [facility] Phone Number [address] * Body fluid culture + gram stain (02/12/2018 11:38 PM ASSISTANT MANAGER TRAINEE) Result No growth [facility] Gram Stain Result <1+ White blood cells seen [facility] Gram Stain Result No organisms seen [facility] Specimen Body Fluid - Peritoneal Dialysis Fluid Performing Organization Address [facility] Phone Number [address] * aPTT (02/12/2018 8:54 PM ASSISTANT MANAGER TRAINEE) PTT 39.4 (H) 22.5 - 36.0 seconds [facility] Specimen Blood - Arm, Right Performing Organization Address City/[facility]/Zipcode Phone Number [address] * Lipase (02/12/2018 8:54 PM ASSISTANT MANAGER TRAINEE) Lipase 20 8 - 78 U/L [facility] Specimen Blood - Arm, Right Performing Organization Address [facility]/Zipcode Phone Number [facility] [id number] [place] [address] * Hepatic function panel (02/12/2018 8:54 PM ASSISTANT MANAGER TRAINEE) Protein, Total 6.8Comment: Specimen slightly 6.0 - 8.3 gm/dL [facility] Albumin 3.1 (L)Comment: Specimen 3.5 - 5.0 g/dL [facility] Total Bilirubin 0.3Comment: Specimen slightly 0.2 - 1.2 mg/dL [facility] Bilirubin, Direct 0.2Comment: Specimen slightly 0.1 - 0.5 mg/dL [facility] Alkaline Phosphatase 66 40 - 150 U/L [facility] AST 18Comment: Specimen slightly 5 - 34 U/L [facility] ALT 13Comment: Specimen slightly 6 - 55 U/L [facility] Specimen Blood - Arm, Right Performing Organization Address City/State/Zipcode Phone Number [address] * XR chest 1 view portable / bedside (02/12/2018 8:31 PM ASSISTANT MANAGER TRAINEE) Narrative Performed At FINAL REPORT RIS Exam: Chest radiograph Clinical History: Leukocytosis, vomiting Findings: The cardiomediastinal silhouette and lungs are normal. The regional skeleton and soft tissue are unremarkable.There is no evidence of pleural effusion or pneumothorax. Impression: No radiographic evidence of acute cardiopulmonary disease. Signed: Masoud Zuluaga MD Report Verified Date/Time:02/12/2018 23:46:46 Reading Location: [address] Consult Reading Room Procedure Note Interface, External Ris In - 02/12/2018 11:49 PM ASSISTANT MANAGER TRAINEE FINAL REPORT Exam: Chest radiograph Clinical History: Leukocytosis, vomiting Findings: The cardiomediastinal silhouette and lungs are normal. The regional skeleton and soft tissue are unremarkable. There is no evidence of pleural effusion or pneumothorax. Impression: No radiographic evidence of acute cardiopulmonary disease. Signed: Masoud Zuluaga MD Report Verified Date/Time: 02/12/2018 23:46:46 Reading Location: [id number] Consult Reading Room Performing Organization Address [facility] Phone Number GE RIS * Procalcitonin (02/12/2018 6:35 PM ASSISTANT MANAGER TRAINEE) Procalcitonin 0.75 (H) <0.05 ng/mL [facility] Specimen Blood - Line, Arterial Narrative Performed At SEPSIS RISK (ng/mL) [facility] Low:0.05-0.50 [facility] Intermediate: 0.51-2.00 High: >=2.01 Performing Organization Address [facility] Phone Number [address] [address] [phone] * Blood culture #2 (02/12/2018 6:33 PM ASSISTANT MANAGER TRAINEE) Only the most recent of 2 results within the time period is included. Result No growth in 5 days [facility] Specimen Blood - Arm, Right Performing Organization Address [facility] Phone Number [address] [address] [facility] * POC-Lactic Acid, Venous (02/12/2018 6:18 PM ASSISTANT MANAGER TRAINEE) POC-Lactic Acid, Venous 2.1 (H)Comment: TESTED AT 0.9 - 1.7 mmol/L [address] [address] Specimen Blood Performing Organization Address [facility] Phone Number [address] [address] [facility] after 05/03/2017 Insurance Payer Benefit Subscriber ID Type Phone Address Plan / Group MEDICARE MEDICARE A xxxxxxxxxxx Medicare B [facility] xxxxxxxxx MEDICARE MGD CARE MEDICARE HMO MEDICAID - MEDICAID MGD ARLEEN xxxxxxxxx Medicaid CARE COMM STAR Contracted PLAN Advance Directives For more information, please contact: [address] [address] Date Inactivated Comments Code Status Date Activated Full Code 03/28/2018 11:36 AM This code status was determined by: Patient 03/01/2018 5:12 PM Full Code 02/12/2018 6:00 PM This code status was determined by: Patient
[2018-05-04] MEDS ORDERED: HYDRALAZINE HCL 20 MG/ML VIAL IV STA (16:59)
[2018-05-04] MEDS ORDERED: NIFEDIPINE 10 MG CAP PO NR (17:30)
--- NOTE | 2018-05-04 17:32 | Diagnostic Imaging Report ---
Examination: Single AP view of the chest. COMPARISON: Chest radiograph 01/25/2018. INDICATION: Shortness of breath. DISCUSSION: Lines/tubes: Interval placement of a left-sided tunneled central venous catheter with terminates in the upper SVC. Lungs: The lungs are well inflated and clear. No evidence of pneumonia or pulmonary edema. Pleura: No pleural effusion or pneumothorax. Heart and mediastinum: Unremarkable cardiomediastinal silhouette. Bones and soft tissues: No acute osseous abnormality. Partially seen vascular calcifications involving the bilateral arms. Surgical clips project over the right upper arm. IMPRESSION: No acute radiographic abnormality. Signed by: Dr. Ashish Johnson MD on 05/04/2018 5:29 PM
[2018-05-04 18:47] LABS: BASOPHILS # (AUTO) 0.1 (0.0-0.1); BASOPHILS % 1.3 % (0.0-1.0); EOSINOPHILS # (AUTO) 0.6 (0.0-0.4); EOSINOPHILS % 8.1 % (0.0-6.0); HEMATOCRIT 35.1 % (38.2-49.6); LYMPHOCYTES # (AUTO) 2.4 (1.0-3.2); LYMPHOCYTES % 31.7 % (18.0-39.1); MEAN CORPUSCULAR HEMOGLOBIN 28.9 pg (28-32); MEAN CORPUSCULAR HGB CONC 31.3 g/dL (31-35); MEAN CORPUSCULAR VOLUME 92.4 fL (81-99); MONOCYTES # (AUTO) 0.9 (0.2-0.8); MONOCYTES % 12.2 % (4.4-11.3); NEUTROPHILS # (AUTO) 3.5 (2.1-6.9); NEUTROPHILS % 46.4 % (38.7-80.0); PLATELET COUNT 122 x10e3/uL (140-360); RED CELL DISTRIBUTION WIDTH 17.6 % (11.7-14.4)
--- NOTE | 2018-05-04 18:50 | NUR ---
VERBAL REPORT GIVEN TO MICHELLE SOSA.
[2018-05-04 19:00] LABS: INR 0.95; PROTHROMBIN TIME 13.6 seconds (11.9-14.5)
[2018-05-04] MEDS ORDERED: HYDRALAZINE HCL 20 MG/ML VIAL IV ONE (19:00)
[2018-05-04 19:01] LABS: PARTIAL THROMBOPLASTIN TIME 41.5 seconds (23.8-35.5)
[2018-05-04 19:07] LABS: ALBUMIN 4.1 g/dL (3.5-5.0); ALBUMIN/GLOBULIN RATIO 1.1 (0.8-2.0); CALCIUM 10.3 mg/dL (8.4-10.2); CREATININE, SERUM 10.25 mg/dL (0.72-1.25)
[2018-05-04 19:21] LABS: CREATINE KINASE MB 0.7 ng/mL (0-5.0); THYROID STIMULATING HORMONE 0.357 uIU/mL (0.350-4.940)
[2018-05-04] MEDS ORDERED: ONDANSETRON HCL INJ 2MG/ML 2ML 2 MG/ML VIAL IV PRN (21:00)
--- OUTSIDE RECORDS SUMMARY | 2018-05-04 21:31 | XMS REPORT | Clinical Summary ---
Author Author [facility] Address Unknown Phone Unavailable Care Team Providers Care Medical Parasitologist Name Role Phone Sourav Harmon MD PCP [...] 08/19/2017 Telephone Transplant Ben Hernandez [place]P - [facility] COMM PLAN [place] - RENAL EVAL [...] / Lot Implanted Type Area Manufactur er [id number] / / Particle [facility] Absrbl Allison 5gm Surgical N/A: N/A [employer] [facility] - [id number] Implants; Implanted: Qty: 1 on 01/25/2017 by [employer]; Lawson Caldwell MD Extenders; Surgical Wires 09/25/2021 [id number] / [id number] / [id number] Graft Vasclr Fackler-Alireza Stdwl 10cm Vascular N/A: N/A W L GORE 6mm - [id number] - [id number] Graft Implanted: Qty: 1 on 01/25/2017 by Lawson Caldwell MD Results Not on fileafter 05/03/2017 Insurance Payer Benefit Subscriber ID Type Phone Address Plan / Group MEDICARE MEDICARE xxxxxxxxxx Medicare [place] PART A AND B [facility] MEDICAID [facility] xxxxxxxxx HMO COMM STAR+ ARLEEN Advance Directives Patient has advance care planning documents, and code status on file. For more i nformation, please contact: Gary Harrison [address] [place] [address] Date Inactivated Comments Code Status Date Activated 07/05/2016 8:47 PM Full Code 06/30/2016 7:16 AM Code Status decision reached by: Patient
--- OUTSIDE RECORDS SUMMARY | 2018-05-04 21:31 | XMS REPORT | Clinical Summary ---
Author Author [facility] Organization [facility] Address Unknown Phone Unavailable Care Team Providers Care Steel Finisher Name Role Phone Eric Alcala PCP Allergies [...] Elizabeth, NP ESRD (end stage renal disease) ([facility]); S/p nephrectomy; Anemia of chronic disease 03/17/2018 Follow-Up Transplant Hepatology Radha Pérez, MECHE 03/06/2018 Orders Only Cardiology Joanne Alvarez Y Appointment 03/06/2018 Telephone Transplant Haresh Rai MD Clotted vascular catheter, initial encounter ([facility]) (Primary Dx); ESRD (end stage renal disease) ([facility]); Essential hypertension; Anemia due to chronic kidney disease, on chronic dialysis (HCC) 03/01/2018 Emergency Emergency Medicine Melinda Quiros MD Dialysis catheter not working 03/01/2018 Telephone Internal Medicine Radha Pérez, MECHE 02/26/2018 Orders Only Cardiology Joanne Alvarez Y Appointment 02/20/2018 Telephone Transplant Rell Solorzano MD 02/14/2018 Anesthesia Event [facility] Farrah Meza MD NEPHRECTOMY 02/14/2018 Surgery Jarrod Blackman III, MD Athreya, Khannan K., MD Agrawal, Neeraj, MD ESRD (end stage renal disease) ([facility]) (Primary Dx); Peritoneal dialysis status ([facility]); Hypertensive crisis; Failed kidney transplant; Uremia syndrome; Peritonitis (HCC); Anemia of chronic disease; Encounter regarding vascular access for dialysis for end-stage renal disease ([facility]) 02/12/2018 [facility] General Internal Medicine - Encounter 02/20/2018 02/12/2018 [...] Taken Vital Sign Reading 03/28/2018 6:30 PM AREA PLANT MANAGER Blood Pressure 155/87 03/28/2018 6:30 PM AREA PLANT MANAGER Pulse 82 03/28/2018 6:30 PM AREA PLANT MANAGER Temperature 36.3 C (97.4 F) 03/28/2018 6:30 PM AREA PLANT MANAGER Respiratory Rate 13 03/28/2018 6:30 PM AREA PLANT MANAGER Oxygen Saturation 99% - Inhaled Oxygen - Concentration 03/20/2018 5:25 PM AREA PLANT MANAGER Weight 59 kg (130 lb) 03/20/2018 5:25 PM AREA PLANT MANAGER Height 165.1 cm (5' 5") 03/20/2018 5:25 PM AREA PLANT MANAGER Body Mass Index 21.63 Plan of Treatment Not on file Goals Goal Patient Associated Recent Progress Patient-Stat Author Goal Type Problems ed? Contact counselor available General ESRD on Yes Moises Tatum through your work hemodialysis MD Vlad Note: Depression intervention and follow up Implants Device Identifier Shelf Expiration Date Model / Serial / Lot Implanted Type Area Manufactur er 06/08/2020 [id number] / N/A / [id number] Cath Kt Hd Dl Str [id number] Catheter Left: Neck ANGIODYNAM [id number] - Sn/A Dialysis ICS Implanted: Qty: 1 on 02/14/2018 by Assisted Micki Jayeron Meza MD Procedures Comments Procedure Name Priority Date/Time Associated Diagnosis RHYTHM STRIP - SCAN 04/15/2018 8:30 AM AREA PLANT MANAGER TRANSFUSION SERVICE 03/29/2018 REPORT - SCAN 5:53 PM AREA PLANT MANAGER CREATION,A-V FISTULA 03/28/2018 End stage renal disease 3:15 PM AREA PLANT MANAGER (HCC) TYPE AND SCREEN, Routine 03/28/2018 AUTOMATED 11:57 AM AREA PLANT MANAGER PROTHROMBIN TIME/INR STAT 03/28/2018 11:57 AM AREA PLANT MANAGER HGB/HCT (H&H) - STAT LAB Routine 03/28/2018 11:57 AM AREA PLANT MANAGER GLUCOSE-STAT LAB STAT 03/28/2018 11:57 AM AREA PLANT MANAGER POTASSIUM-STAT LAB STAT 03/28/2018 11:57 AM AREA PLANT MANAGER CBC W/PLT COUNT & AUTO STAT 03/01/2018 DIFFERENTIAL 6:03 PM AREA PLANT MANAGER PT/APTT STAT 03/01/2018 6:03 PM AREA PLANT MANAGER BASIC METABOLIC PANEL (7) STAT 03/01/2018 6:03 PM AREA PLANT MANAGER CBC W/PLT COUNT & AUTO STAT 03/01/2018 DIFFERENTIAL 6:03 PM AREA PLANT MANAGER RHYTHM STRIP - SCAN 02/27/2018 8:40 AM AREA PLANT MANAGER CBC W/PLT COUNT & AUTO STAT 02/20/2018 DIFFERENTIAL 12:26 PM AREA PLANT MANAGER CBC W/PLT COUNT & AUTO STAT 02/20/2018 DIFFERENTIAL 12:26 PM AREA PLANT MANAGER BASIC METABOLIC PANEL (7) STAT 02/20/2018 12:26 PM AREA PLANT MANAGER IR VENOGRAM - EXTREMITY Routine 02/20/2018 BILATERAL 8:45 AM AREA PLANT MANAGER PREALBUMIN Routine 02/20/2018 4:57 AM AREA PLANT MANAGER HEMODIALYSIS INPATIENT Routine 02/19/2018 12:57 PM AREA PLANT MANAGER CBC W/PLT COUNT & AUTO STAT 02/19/2018 DIFFERENTIAL 8:08 AM AREA PLANT MANAGER BASIC METABOLIC PANEL (7) STAT 02/19/2018 8:08 AM AREA PLANT MANAGER CBC W/PLT COUNT & AUTO STAT 02/19/2018 DIFFERENTIAL 8:08 AM AREA PLANT MANAGER VANCOMYCIN LEVEL, RANDOM Routine 02/19/2018 4:10 AM AREA PLANT MANAGER VANCOMYCIN LEVEL, RANDOM Routine 02/18/2018 4:11 AM AREA PLANT MANAGER PHOSPHORUS Routine 02/18/2018 4:11 AM AREA PLANT MANAGER CBC (HEMOGRAM ONLY) Routine 02/18/2018 4:11 AM AREA PLANT MANAGER BASIC METABOLIC PANEL (7) Routine 02/18/2018 4:11 AM AREA PLANT MANAGER HEMODIALYSIS INPATIENT Routine 02/17/2018 7:[address] ABDOMEN/PELVIS WITH IV Routine 02/17/2018 CONTRAST 3:53 PM AREA PLANT MANAGER PREALBUMIN Routine 02/17/2018 4:17 AM AREA PLANT MANAGER VANCOMYCIN LEVEL, TROUGH Timed 02/17/2018 4:17 AM AREA PLANT MANAGER PHOSPHORUS Routine 02/17/2018 4:17 AM AREA PLANT MANAGER CBC (HEMOGRAM ONLY) Routine 02/17/2018 4:17 AM AREA PLANT MANAGER BASIC METABOLIC PANEL (7) Routine 02/17/2018 4:17 AM AREA PLANT MANAGER XR ABDOMEN 1 VIEW Routine 02/16/2018 6:46 PM AREA PLANT MANAGER PHOSPHORUS Routine 02/16/2018 5:32 AM AREA PLANT MANAGER CBC (HEMOGRAM ONLY) Routine 02/16/2018 5:32 AM AREA PLANT MANAGER BASIC METABOLIC PANEL (7) Routine 02/16/2018 5:32 AM AREA PLANT MANAGER TRANSFUSION SERVICE 02/15/2018 REPORT - SCAN 6:00 PM AREA PLANT MANAGER PHOSPHORUS Routine 02/15/2018 6:11 AM AREA PLANT MANAGER CBC (HEMOGRAM ONLY) Routine 02/15/2018 6:11 AM AREA PLANT MANAGER BASIC METABOLIC PANEL (7) Routine 02/15/2018 6:11 AM AREA PLANT MANAGER WOUND CULTURE + GRAM Routine 02/14/2018 STAIN 10:00 PM AREA PLANT MANAGER HEPATITIS C ANTIBODY Routine 02/14/2018 6:34 PM AREA PLANT MANAGER HEPATITIS B CORE Routine 02/14/2018 ANTIBODY, TOTAL 6:34 PM AREA PLANT MANAGER HEPATITIS B CORE Routine 02/14/2018 ANTIBODY, IGM 6:34 PM AREA PLANT MANAGER HEPATITIS B SURFACE Routine 02/14/2018 ANTIGEN 6:34 PM AREA PLANT MANAGER VANCOMYCIN LEVEL, RANDOM Routine 02/14/2018 6:34 PM AREA PLANT MANAGER HEMODIALYSIS INPATIENT Routine 02/14/2018 6:24 PM AREA PLANT MANAGER TRANSFUSION SERVICE 02/14/2018 REPORT - SCAN 6:01 PM AREA PLANT MANAGER PREPARE RBC Routine 02/14/2018 5:10 PM AREA PLANT MANAGER FL WET MACHINE OPERATOR IN OR 30 Routine 02/14/2018 MINUTE INCREMENTS 4:35 PM AREA PLANT MANAGER SURGICALLY OBTAINED GUILLERMINA 02/14/2018 CULTURE + GRAM STAIN 4:19 PM AREA PLANT MANAGER FUNGUS CULTURE + SMEAR GUILLERMINA 02/14/2018 4:19 PM AREA PLANT MANAGER ANAEROBIC CULTURE GUILLERMINA 02/14/2018 4:19 PM AREA PLANT MANAGER AFB CULTURE + SMEAR GUILLERMINA 02/14/2018 4:19 PM AREA PLANT MANAGER FUNGUS CULTURE + SMEAR GUILLERMINA 02/14/2018 3:57 PM AREA PLANT MANAGER ANAEROBIC CULTURE GUILLERMINA 02/14/2018 3:57 PM AREA PLANT MANAGER AFB CULTURE + SMEAR GUILLERMINA 02/14/2018 3:57 PM AREA PLANT MANAGER SPIN/CONCENTRATION CHARGE Routine 02/14/2018 3:57 PM AREA PLANT MANAGER TISSUE EXAM AP Routine 02/14/2018 3:37 PM AREA PLANT MANAGER HGB/HCT (H&H) - STAT LAB STAT 02/14/2018 3:19 PM AREA PLANT MANAGER GLUCOSE-STAT LAB STAT 02/14/2018 3:19 PM AREA PLANT MANAGER POTASSIUM-STAT LAB STAT 02/14/2018 3:19 PM AREA PLANT MANAGER SODIUM NA-STAT LAB STAT 02/14/2018 3:19 PM AREA PLANT MANAGER BLOOD GAS, ARTERIAL STAT 02/14/2018 3:19 PM AREA PLANT MANAGER CALCIUM, IONIZED STAT 02/14/2018 3:19 PM AREA PLANT MANAGER RRL CRITICAL LABS STAT 02/14/2018 (ABG,NA,K,H&H,GLUCOSE) 3:19 PM AREA PLANT MANAGER INSERTION,DIALYSIS 02/14/2018 Renal infection CATHETER PERITONEAL 11:22 AM AREA PLANT MANAGER REMOVAL,CATHETER 02/14/2018 Renal infection PERITONEAL 11:22 AM AREA PLANT MANAGER NEPHRECTOMY 02/14/2018 Renal infection 11:22 AM AREA PLANT MANAGER ECG 12-LEAD STAT 02/14/2018 8:55 AM AREA PLANT MANAGER PHOSPHORUS Routine 02/14/2018 6:32 AM AREA PLANT MANAGER CBC (HEMOGRAM ONLY) Routine 02/14/2018 6:32 AM AREA PLANT MANAGER BASIC METABOLIC PANEL (7) Routine 02/14/2018 6:32 AM AREA PLANT MANAGER LACTIC ACID, VENOUS, Routine 02/14/2018 WHOLE BLOOD 6:32 AM AREA PLANT MANAGER TYPE AND SCREEN, Routine 02/13/2018 AUTOMATED 8:41 PM AREA PLANT MANAGER BASIC METABOLIC PANEL (7) Routine 02/13/2018 12:10 PM AREA PLANT MANAGER LACTIC ACID, VENOUS, Routine 02/13/2018 WHOLE BLOOD 5:05 AM AREA PLANT MANAGER BODY FLUID CELL COUNT Routine 02/13/2018 WITH DIFFERENTIAL 12:00 AM AREA PLANT MANAGER BODY FLUID CULTURE + GRAM Routine 02/12/2018 STAIN 11:38 PM AREA PLANT MANAGER APTT Routine 02/12/2018 8:54 PM AREA PLANT MANAGER PROTHROMBIN TIME/INR Routine 02/12/2018 8:54 PM AREA PLANT MANAGER LIPASE Routine 02/12/2018 8:54 PM AREA PLANT MANAGER HEPATIC FUNCTION PANEL Routine 02/12/2018 8:54 PM AREA PLANT MANAGER LACTIC ACID, VENOUS, STAT 02/12/2018 WHOLE BLOOD 8:54 PM AREA PLANT MANAGER XR CHEST 1 VIEW Routine 02/12/2018 PORTABLE/BEDSIDE 8:31 PM AREA PLANT MANAGER CBC W/PLT COUNT & AUTO Routine 02/12/2018 DIFFERENTIAL 6:40 PM AREA PLANT MANAGER CBC W/PLT COUNT & AUTO Routine 02/12/2018 DIFFERENTIAL 6:40 PM AREA PLANT MANAGER PROCALCITONIN STAT 02/12/2018 6:35 PM AREA PLANT MANAGER BASIC METABOLIC PANEL (7) Routine 02/12/2018 6:35 PM AREA PLANT MANAGER BLOOD CULTURE STAT 02/12/2018 6:33 PM AREA PLANT MANAGER BLOOD CULTURE STAT 02/12/2018 6:32 PM AREA PLANT MANAGER POCT-LACTIC ACID, VENOUS Routine 02/12/2018 6:18 PM AREA PLANT MANAGER after 05/03/2017 Results * RHYTHM STRIP - SCAN (04/15/2018 8:30 AM AREA PLANT MANAGER) Only the most recent of 2 results within the time period is included. Narrative Performed At * TRANSFUSION SERVICE REPORT - SCAN (03/29/2018 5:53 PM AREA PLANT MANAGER) Only the most recent of 3 results within the time period is included. Narrative Performed At * Potassium-Stat Lab (03/28/2018 11:57 AM AREA PLANT MANAGER) Only the most recent of 2 results within the time period is included. Potassium 4.7 3.6 - 5.5 meq/L [facility] Specimen Blood, Arterial Performing Organization Address City/[facility]/[place] [address] [phone] * Glucose-Stat Lab (03/28/2018 11:57 AM AREA PLANT MANAGER) Only the most recent of 2 results within the time period is included. Glucose 74 70 - 110 mg/dL [facility] Specimen Blood, Arterial Performing Organization Address City/[facility]/[place] [address] [phone] [address] * Type and screen, automated (03/28/2018 11:57 AM AREA PLANT MANAGER) Only the most recent of 2 results within the time period is included. ABO/RH AUTOMATED (BEAKER) O POSITIVE [facility] Ab Scrn NEGATIVE [facility] Specimen Blood Performing Organization Address City/[facility] Phone Number [address] [address] [facility] * HGB/HCT (H&H)-Stat Lab (03/28/2018 11:57 AM AREA PLANT MANAGER) Only the most recent of 2 results within the time period is included. Hemoglobin 10.3 (L) 13.0 - 16.8 g/dL [facility] Hematocrit 30.0 (L) 40.0 - 50.0 % [facility] Specimen Blood, Arterial Performing Organization Address [facility] Phone Number [address] [address] [facility] * Prothrombin time/INR (03/28/2018 11:57 AM AREA PLANT MANAGER) Only the most recent of 2 results within the time period is included. Protime 14.0 11.7 - 14.[address] [facility] INR 1.1 <=5.9 [facility] Specimen Blood Narrative Performed At RECOMMENDED COUMADIN/WARFARIN INR THERAPY RANGES [facility] STANDARD DOSE: 2.0 - 3.0 Includes: PROPHYLAXIS for venous thrombosis, [facility] systemic embolization; TREATMENT for venous thrombosis and/or pulmonary embolus. HIGH RISK: Target INR is 2.5-3.5 for patients with mechanical heart valves. Performing Organization Address City/[facility] [place] [facility] Cent[facility]ode Phone Number [address] [address] [facility] * PT/aPTT (03/01/2018 6:03 PM AREA PLANT MANAGER) Protime 14.0 11.7 - 14.[address] [facility] INR 1.1 <=5.9 [facility] PTT 36.2 (H) 22.5 - 36.[address] [facility] Specimen Blood Narrative Performed At RECOMMENDED COUMADIN/WARFARIN INR THERAPY RANGES [facility] STANDARD DOSE: 2.0 - 3.0 Includes: PROPHYLAXIS for venous thrombosis, [facility] systemic embolization; TREATMENT for venous thrombosis and/or pulmonary embolus. HIGH RISK: Target INR is 2.5-3.5 for patients with mechanical heart valves. Performing Organization Address City/State/Zipcode Phone Number [facility] [address] [place] [address] [facility] * CBC with platelet count + automated diff (03/01/2018 6:03 PM AREA PLANT MANAGER) Only the most recent of 4 results within the time period is included. WBC 8.2 3.5 - 10.5 K/L [facility] RBC 3.31 (L) 4.63 - 6.08 M/L [facility] Hemoglobin 9.3 (L) 13.7 - 17.5 GM/DL [facility] Hematocrit 30.6 (L) 40.1 - 51.0 % [facility] MCV 92.4 (H) 79.0 - 92.[address] [facility] MCH 28.1 25.7 - 32.[address] [facility] MCHC 30.4 (L) 32.3 - 36.5 GM/DL [facility] RDW 14.4 11.6 - 14.4 % [facility] Platelets 221 150 - 450 K/CU MM [facility] MPV 10.1 9.4 - 12.[address] [facility] nRBC 0 0 - 0 /[address] [facility] % Neutros 60 % [facility] % Lymphs 18 % [facility] % Monos 12 % [facility] % Eos 8 % [facility] % Baso 1 % [facility] # Neutros 4.90 1.78 - 5.38 K/L [facility] # Lymphs 1.48 1.32 - 3.57 K/L [facility] # Monos 0.96 (H) 0.30 - 0.82 K/L [facility] # Eos 0.69 (H) 0.04 - 0.54 K/L [facility] # Baso 0.10 (H) 0.01 - 0.08 K/L [facility] Immature 1 0 - 1 % [facility] Granulocytes-Relative [facility] Specimen Blood Performing Organization Address City/State/Zipcode Phone Number [address] [address] [facility] * Basic Metabolic Panel (03/01/2018 6:03 PM AREA PLANT MANAGER) Only the most recent of 10 results within the time period is included. Sodium 142 136 - 145 meq/L [facility] Potassium 3.5 3.5 - 5.1 meq/L [facility] Chloride 98 98 - 107 meq/L [facility] CO2 30 (H) 22 - 29 meq/L [facility] BUN 34 (H) 7 - 21 mg/dL [facility] Creatinine 14.79 (H) 0.57 - 1.25 mg/dL [facility] Glucose 121 (H) 70 - 105 mg/dL [facility] Calcium 8.8 8.4 - 10.2 mg/dL [facility] EGFR Comment: INSUFFICIENT CLINICAL mL/min/1.73 sq m [facility] DATA TO CALCULATE ESTIMATED [facility] GFR. Specimen Blood Performing Organization Address City/[facility]/Zipcode Phone Number [facility] [address] [place] [address] [facility] * IR Venogram - Extremity Bilateral (02/20/2018 8:45 AM AREA PLANT MANAGER) Narrative Performed At FINAL REPORT [facility] Bilateral upper extremity venogram, 02/20/2018. History: Renal [...] MD Report Verified Date/Time:02/20/2018 16:41:39 Reading Location: [facility] [id number] Angio Body Reading Room Procedure Note Interface, External Ris In - 02/20/2018 4:43 PM AREA PLANT MANAGER FINAL REPORT Bilateral upper extremity venogram, 02/20/2018. [...] Report Verified Date/Time: 02/20/2018 16:41:39 Reading Location: [place] [address] Angio Body Reading Room Performing Organization Address City/[facility]/[place] [facility] Cent[facility]ode Phone Number GE [facility]IS * Prealbumin (02/20/2018 4:57 AM AREA PLANT MANAGER) Only the most recent of 2 results within the time period is included. Prealbumin 23 14 - 45 mg/dL [facility] Specimen Blood - Arm, Right Performing Organization Address City/State/Zipcode Phone Number [facility] [address] [place] [address] [facility] * HEMODIALYSIS INPATIENT (02/19/2018 12:57 PM AREA PLANT MANAGER) Narrative Performed At Guillermina Abraham RN 02/19/2018 12:57 PM HDX4 hours completed,UF-2L, patient tolerated well. * Vancomycin level, random (02/19/2018 4:10 AM AREA PLANT MANAGER) Only the most recent of 3 results within the time period is included. Vancomycin Rm 16.2 ug/mL [facility] Specimen Blood Narrative Performed At Reference Range: No Normals [facility] Performing Organization Address City/[facility]/Zipcode Phone Number [facility] [address] [place] [address] [facility] * CBC (Hemogram only) (02/18/2018 4:11 AM AREA PLANT MANAGER) Only the most recent of 5 results within the time period is included. WBC 11.0 (H) 3.5 - 10.5 K/L [facility] RBC 3.27 (L) 4.63 - 6.08 M/L [facility] Hemoglobin 9.1 (L) 13.7 - 17.5 GM/DL [facility] Hematocrit 29.7 (L) 40.1 - 51.0 % [facility] MCV 90.8 79.0 - 92.[address] [facility] MCH 27.8 25.7 - 32.[address] [facility] MCHC 30.6 (L) 32.3 - 36.5 GM/DL [facility] RDW 13.6 11.6 - 14.4 % [facility] Platelets 149 (L) 150 - 450 K/CU MM [facility] MPV 9.8 9.4 - 12.[address] [facility] nRBC 0 0 - 0 /[address] [facility] Specimen Blood Performing Organization Address City/[facility]/Zipcode Phone Number [facility] [address] [place] [address] [facility] * Phosphorus (02/18/2018 4:11 AM AREA PLANT MANAGER) Only the most recent of 5 results within the time period is included. Phosphorus 5.1 (H) 2.3 - 4.7 mg/dL [facility] Specimen Blood Performing Organization Address City/State/Zipcode Phone Number [facility] [address] [place] [address] [facility] * HEMODIALYSIS INPATIENT (02/17/2018 7:36 PM AREA PLANT MANAGER) Narrative Performed At Chandler Staley RN 02/17/20187:38 [...] abdomen/pelvis with IV contrast (02/17/2018 3:53 PM AREA PLANT MANAGER) Narrative Performed At FINAL REPORT CamStent INDICATION: 47-year-old male with abdominal pain. Evaluate [...] the gallbladder. No biliary ductal dilatation. Atrophic [place] kidneys are noted. There is scattered moderate calcified plaque of the abdominal aorta and visceral arteries. Osseous structures unremarkable. IMPRESSION: Interval ligation of renal transplant artery and left epigastric artery with small left rectus hematoma. No bowel obstruction. Signed: Narciso Mccauley MD Report Verified Date/Time:02/17/2018 17:50:40 Reading Location: [facility] [id number] Consult Reading Room Procedure Note Interface, External Ris In - 02/17/2018 5:52 PM AREA PLANT MANAGER FINAL REPORT INDICATION: 47-year-old male with abdominal [...] the gallbladder. No biliary ductal dilatation. Atrophic [place] kidneys are noted. There is scattered moderate calcified plaque of the abdominal aorta and visceral arteries. Osseous structures unremarkable. IMPRESSION: Interval ligation of renal transplant artery and left epigastric artery with small left rectus hematoma. No bowel obstruction. Signed: Narciso Mccauley MD Report Verified Date/Time: 02/17/2018 17:50:40 Reading Location: [facility] [id number] Consult Reading Room Performing Organization Address City/State/Zipcode Phone Number RIS * Vancomycin level, trough (02/17/2018 4:17 AM AREA PLANT MANAGER) Vancomycin Tr 25.3 (H) 10.0 - 20.0 ug/mL [facility] Specimen Blood - Arm, Right Performing Organization Address City/[facility]/Zipcode Phone Number [facility] [address] [place] [address] [facility] * XR abdomen / KUB 1 view (02/16/2018 6:46 PM AREA PLANT MANAGER) Narrative Performed At FINAL REPORT GE RIS [...] MD Report Verified Date/Time:02/16/2018 19:13:54 Reading Location: [facility] [id number] Transitional Reading Room Procedure Note Interface, External Ris In - 02/16/2018 7:16 PM AREA PLANT MANAGER FINAL REPORT RAD, ABDOMEN/KUB, 1 VIEW AP [...] Report Verified Date/Time: 02/16/2018 19:13:54 Reading Location: [address] Transitional Reading Room Performing Organization Address City/[facility]/[place] [facility] Cent[facility]ode Phone Number [facility] * Wound culture + gram stain (02/14/2018 10:00 PM AREA PLANT MANAGER) Result No growth [facility] Specimen Wound - Abdomen Performing Organization Address [facility] Phone Number [address] * Hepatitis C antibody (02/14/2018 6:34 PM AREA PLANT MANAGER) Hepatitis C Ab NON-REACTIVE Nonreactive [facility] Specimen Blood Performing Organization Address [facility] Phone Number [address] * Hepatitis B core antibody, IgM (02/14/2018 6:34 PM AREA PLANT MANAGER) Hep B C IgM NON-REACTIVE [facility] Specimen Blood Performing Organization Address [facility]/[place] [facility] Cent[facility]ode Phone Number [address] * Hepatitis B core antibody, total (02/14/2018 6:34 PM AREA PLANT MANAGER) Hep B Core Total Ab NON-REACTIVE Nonreactive [facility] Specimen Blood Performing Organization Address [facility] Phone Number [address] * Hepatitis B surface antigen (02/14/2018 6:34 PM AREA [employer]) hepatitis B Surface Ag NON-REACTIVE Nonreactive [facility] Specimen Blood Performing Organization Address [facility] Cent[facility]ode Phone Number [facility] [address] [place] [address] [facility] * Prepare RBC (02/14/2018 5:10 PM [employer]) CROSSMATCH COMPATIBLE SAFETRACE TX Unit ABO O Pos SAFETRACE TX UNIT NUMBER [id number] SAFETRACE [place] Status RETURNED FROM ISSUE SAFETRACE TX Blood Bank Product RED BLOOD CELLS SAFETRACE TX PRODUCT CODE [id number] SAFETRACE TX CROSSMATCH COMPATIBLE SAFETRACE TX Unit ABO O Pos SAFETRACE TX UNIT NUMBER [id number] SAFETRACE TX Status RETURNED FROM ISSUE SAFETRACE TX Blood Bank Product RED BLOOD CELLS SAFETRACE TX PRODUCT CODE [id number] SAFETRACE TX CROSSMATCH COMPATIBLE SAFETRACE TX Unit ABO O Pos SAFETRACE TX UNIT NUMBER [id number] SAFETRACE TX Status READY SAFETRACE TX Blood Bank Product RED BLOOD CELLS SAFETRACE TX PRODUCT CODE [id number] SAFETRACE TX CROSSMATCH COMPATIBLE SAFETRACE TX Unit ABO O Pos SAFETRACE TX UNIT NUMBER [id number] SAFETRACE TX Status READY SAFETRACE TX Blood Bank Product RED BLOOD CELLS SAFETRACE TX PRODUCT CODE [id number] SAFETRACE TX Performing Organization Address [facility] [place] Phone Number SAFETRACE TX * FL paradichlorobenzene machine operator in or 30 minute increments (02/14/2018 4:35 PM AREA PLANT MANAGER) Narrative Performed At FINAL REPORT GE RIS Fluoroscopy one view intraoperative 02/14/2018 5:31 PM CLINICAL HISTORY: Instrument localization COMPARISON: None available IMPRESSION: Please correlate imaging report findings with the procedure note prepared by Dr. Meza, as an intra-procedure imaging consultation was not requested. Reported cumulative dose: 0.260 mGy. Signed: Jarad Olivares MD Report Verified Date/Time:02/17/2018 10:51:13 Reading Location: [facility] [address] Radiology Reading Room Procedure Note Interface, External Ris In - 02/17/2018 10:53 AM AREA PLANT MANAGER FINAL REPORT Fluoroscopy one view intraoperative 02/14/2018 5:31 PM CLINICAL HISTORY: Instrument localization COMPARISON: None available IMPRESSION: Please correlate imaging report findings with the procedure note prepared by Dr. Meza, as an intra-procedure imaging consultation was not requested. Reported cumulative dose: 0.260 mGy. Signed: Jarad Olivares MD Report Verified Date/Time: 02/17/2018 10:51:13 Reading Location: [facility] [address] Radiology Reading Room Performing Organization Address [facility] [place] Phone Number GE RIS * AFB culture + smear (02/14/2018 4:19 PM AREA PLANT MANAGER) Only the most recent of 2 results within the time period is included. Result No acid-fast bacilli isolated [facility] in 42 days [facility] AFB Smear No acid fast bacilli seen [facility] Specimen Tissue - Kidney Performing Organization Address [facility] [place] Phone Number [address] [address] [facility] * Anaerobic culture (02/14/2018 4:19 PM AREA PLANT MANAGER) Only the most recent of 2 results within the time period is included. Result No anaerobes isolated [facility] Specimen Tissue - Kidney Performing Organization Address [facility] [place] Phone Number [address] [address] [facility] * Surgically obtained culture + gram stain (02/14/2018 4:19 PM AREA PLANT MANAGER) Result No growth [facility] Gram Stain Result <1+ White blood cells seen [facility] Gram Stain Result No organisms seen [facility] Specimen Tissue - Kidney Performing Organization Address [facility] [place] Phone Number [address] [address] [facility] * Fungus culture + smear (02/14/2018 4:19 PM AREA PLANT MANAGER) Only the most recent of 2 results within the time period is included. Result No fungus isolated in [address] [facility] Fungus Smear No fungi seen [facility] Specimen Tissue - Kidney Performing Organization Address City/State/Zipcode Phone Number [facility] [address] [place] [address] [id number] [facility] * SPIN/CONCENTRATION CHARGE (02/14/2018 3:57 PM AREA PLANT MANAGER) Concentration charged Done [facility] Specimen Other - Abdomen Performing Organization Address City/[facility]/Zipcode Phone Number [address] [address] [facility] * Tissue Exam (02/14/2018 3:37 PM AREA PLANT MANAGER) Case Report Surgical Pathology [facility] Report [facility] Case: [id number] Authorizing Provider:Jaye Sweet, Collected: 02/14/2018 Irma PABON Ordering Location: [facility] Received: 02/17/2018 0838 PERIOPERATIVE SERVICES Pathologist: Williams Taveras MD Specimen:Kidney, Transplanted Kidney DIAGNOSIS KIDNEY, ALLOGRAFT, TRANSPLANT [facility] NEPHRECTOMY [facility] - BOTH ANTIBODY- AND CELL-MEDIATED REJECTION, SEVERE, ACUTE AND CHRONIC Signing Pathologist Direct Phone Line: [phone] CPT Code(s) 58392, 10520 x3, 11666, 56251 [facility] x5, 40305 [facility] CLINICAL HISTORY Renal infection [facility] SPECIMEN SOURCE Transplanted kidney [facility] GROSS DESCRIPTION The specimen is received in a [facility] formalin-filled container [facility] labeled with the patient's information and labeled "transplanted kidney" and consists of a fragmented transplanted nephrectomy weighing 165 gm collectively and measuring approximately 9.5 x 5 x 5 cm. 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 Grossly no masses are identified. Centrifuge Separator Tender sections are submitted in A1-A6. 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 [...] lamellations. SPECIAL STUDIES The interpretation of this [facility] case included the use of [facility] immunohistochemistry or special stains. Immunohistochemistry technical testing was performed at [facility], Pathology Laboratory where it was developed [...] Specimen Tissue - Kidney Performing Organization Address City/[facility]/Zipcode Phone Number [address] * Sodium Na-Stat Lab (02/14/2018 3:19 PM AREA PLANT MANAGER) Sodium 134 (L) 135 - 148 meq/L [facility] Specimen Blood, Arterial Performing Organization Address [facility] Phone Number [address] * Calcium, Ionized (02/14/2018 3:19 PM AREA PLANT MANAGER) Calcium, Ion 0.89 (L) 1.12 - 1.27 mmol/L [facility] pH, Blood 7.43 [facility] Specimen Blood Performing Organization Address [facility] Phone Number [address] * Blood gas, arterial (02/14/2018 3:19 PM AREA PLANT MANAGER) pH, Arterial 7.43 7.35 - 7.45 [facility] pCO2, Arterial 36 35 - [address] [facility] pO2, Arterial 121 (H) 80 - [address] [facility] O2 Sat, Arterial 98.6 (H) 96.0 - 97.0 % [facility] HCO3, Arterial 23 21 - 29 mmol/L [facility] Base Excess, Arterial -1.0 -2.0 - 3.0 mmol/L [facility] Patient Temperature 35.[address] [facility] FIO2 56.0 % [facility] Specimen Blood, Arterial Performing Organization Address [facility] Phone Number [facility] [address] [place] [address] [facility] * ECG 12 lead (02/14/2018 8:55 AM AREA PLANT MANAGER) Narrative Performed At Ventricular Rate 59 BPM GE MUSE Atrial Rate 59 BPM P-R Interval 162 ms QRS Duration 106 ms Q-T Interval 546 ms QTC Calculation(Bazett) 540 ms P Kelly[place] 46 degrees R [place] -5 degrees T [place] 44 degrees Sinus bradycardia Prolonged QT Abnormal ECG When compared with ECG of 17-JAN-1998 10:27, Vent. rate has decreased BY36 BPM Nonspecific T wave abnormality no longer evident in Inferior leads T wave inversion now evident in Anterior leads QT has lengthened Confirmed by MD TAMMY, IHAB ([id number]) on 02/14/2018 12:35:09 PM Procedure Note Interface, External Ris In - 02/14/2018 12:35 PM AREA PLANT MANAGER Ventricular Rate 59 BPM Atrial Rate 59 BPM P-R Interval 162 ms QRS Duration 106 ms Q-T Interval 546 ms QTC Calculation(Bazett) 540 ms P [place] 46 degrees R [place] -5 degrees T [place] 44 degrees Sinus bradycardia Prolonged QT Abnormal ECG When compared with ECG of 17-JAN-1998 10:27, Vent. rate has decreased BY 36 BPM Nonspecific T wave abnormality no longer evident in Inferior leads T wave inversion now evident in Anterior leads QT has lengthened Confirmed by MD TAMMY, IHAB ([id number]) on 02/14/2018 12:35:09 PM Performing Organization Address [facility] Phone Number [facility] * Lactic acid, venous, whole blood Daily (02/14/2018 6:32 AM AREA PLANT MANAGER) Only the most recent of 3 results within the time period is included. Lactate, Venous 0.5 0.5 - 2.2 mmol/L [facility] Specimen Blood - Arm, Right Performing Organization Address [facility] Phone Number [facility] [address] [place] [address] [facility] * Body fluid cell count with differential (02/13/2018 12:00 AM AREA PLANT MANAGER) Appearance Clear Clear [facility] Color Colorless Colorless, Straw [facility] RBCs 570 (H) <=1 /cu mm [facility] Adjusted WBC Count 163 (H) <=5 /cu mm [facility] Lining Cells 0 <=1 /cu mm [facility] % Segs 3 % [facility] % Lymphs 41 % [facility] % Monos 55 % [facility] % Eos 1 % [facility] % Baso 0 % [facility] Container Body Fluid EDTA Tube [facility] Specimen Body Fluid - Ascites Performing Organization Address City/[facility] Phone Number [address] * Body fluid culture + gram stain (02/12/2018 11:38 PM AREA PLANT MANAGER) Result No growth [facility] Gram Stain Result <1+ White blood cells seen [facility] Gram Stain Result No organisms seen [facility] Specimen Body Fluid - Peritoneal Dialysis Fluid Performing Organization Address City/[facility] Phone Number [address] * aPTT (02/12/2018 8:54 PM AREA PLANT MANAGER) PTT 39.4 (H) 22.5 - 36.[address] [facility] Specimen Blood - Arm, Right Performing Organization Address City/[facility]/Zipcode Phone Number [address] * Lipase (02/12/2018 8:54 PM AREA PLANT MANAGER) Lipase 20 8 - 78 U/L [facility] Specimen Blood - Arm, Right Performing Organization Address City/[facility]/Zipcode Phone Number [id number] [place] [address] * Hepatic function panel (02/12/2018 8:54 PM AREA PLANT MANAGER) Protein, Total 6.8Comment: Specimen slightly 6.0 - 8.3 gm/dL [facility] Albumin 3.1 (L)Comment: Specimen 3.5 - 5.0 g/dL [facility] Total Bilirubin 0.3Comment: Specimen slightly 0.2 - 1.2 mg/dL [facility] Bilirubin, Direct 0.2Comment: Specimen slightly 0.1 - 0.5 mg/dL [facility] Alkaline Phosphatase 66 40 - 150 U/L [facility] AST 18Comment: Specimen slightly 5 - 34 U/L [facility] ALT 13Comment: Specimen slightly 6 - 55 U/L [facility] Specimen Blood - Arm, Right Performing Organization Address City/State/Zipcode Phone Number [address] * XR chest 1 view portable / bedside (02/12/2018 8:31 PM AREA PLANT MANAGER) Narrative Performed At FINAL REPORT RIS Exam: Chest radiograph Clinical History: Leukocytosis, vomiting Findings: The cardiomediastinal silhouette and lungs are normal. The regional skeleton and soft tissue are unremarkable.There is no evidence of pleural effusion or pneumothorax. Impression: No radiographic evidence of acute cardiopulmonary disease. Signed: Masoud Zuluaga MD Report Verified Date/Time:02/12/2018 23:46:46 Reading Location: [address] Consult Reading Room Procedure Note Interface, External Ris In - 02/12/2018 11:49 PM AREA PLANT MANAGER FINAL REPORT Exam: Chest radiograph Clinical History: Leukocytosis, vomiting Findings: The cardiomediastinal silhouette and lungs are normal. The regional skeleton and soft tissue are unremarkable. There is no evidence of pleural effusion or pneumothorax. Impression: No radiographic evidence of acute cardiopulmonary disease. Signed: Masoud Zuluaga MD Report Verified Date/Time: 02/12/2018 23:46:46 Reading Location: [id number] Consult Reading Room Performing Organization Address City/[facility] Phone Number GE RIS * Procalcitonin (02/12/2018 6:35 PM AREA PLANT MANAGER) Procalcitonin 0.75 (H) <0.05 ng/mL [facility] Specimen Blood - Line, Arterial Narrative Performed At SEPSIS RISK (ng/mL) [facility] Low:0.05-0.50 [facility] Intermediate: 0.51-2.00 High: >=2.01 Performing Organization Address [facility] Phone Number [address] [address] [phone] * Blood culture #2 (02/12/2018 6:33 PM AREA PLANT MANAGER) Only the most recent of 2 results within the time period is included. Result No growth in [address] [facility] Specimen Blood - Arm, Right Performing Organization Address [facility] Phone Number [address] [address] [facility] * POC-Lactic Acid, Venous (02/12/2018 6:18 PM AREA PLANT MANAGER) POC-Lactic Acid, Venous 2.1 (H)Comment: TESTED AT 0.9 - 1.7 mmol/L [address] [address] Specimen Blood Performing Organization Address [facility] Phone Number [address] [address] [facility] after 05/03/2017 Insurance Payer Benefit Subscriber ID Type Phone Address Plan / Group MEDICARE MEDICARE A xxxxxxxxxxx Medicare B [facility] xxxxxxxxx MEDICARE MGD CARE MEDICARE HMO MEDICAID - MEDICAID MGD ARLEEN xxxxxxxxx Medicaid CARE COMM STAR Contracted PLAN Advance Directives For more information, please contact: [address] [address] Date Inactivated Comments Code Status Date Activated Full Code 03/28/2018 11:36 AM This code status was determined by: Patient 03/01/2018 5:12 PM Full Code 02/12/2018 6:00 PM This code status was determined by: Patient
--- NOTE | 2018-05-04 21:58 | NUR ---
PT PLACED ON TELE BOX #2
[2018-05-04 22:00] VITALS: BP 184/93
[2018-05-04 23:01] VITALS: BP 158/99
[2018-05-04 23:03] VITALS: BP 158/99
[2018-05-05] VITALS (7 sets, daily range): BP systolic 147–231; BP diastolic 80–110
--- NOTE | 2018-05-05 02:00 | NUR ---
Call placed Dr. Alcala answering service for callback concerning patient's elevated blood pressure. Waiting for response.
[2018-05-05 03:26] LABS: CREATINE KINASE MB 0.8 ng/mL (0-5.0)
[2018-05-05] MEDS ORDERED: LABETALOL HCL 5 MG/ML 20ML VIAL IV STA (04:22)
[2018-05-05] MEDS ORDERED: LABETALOL HCL 5 MG/ML 20ML VIAL IV PRN (04:30)
[2018-05-05] MEDS ORDERED: LABETALOL HCL 20 ML ONE (04:40)
[2018-05-05 05:58] LABS: BASOPHILS # (AUTO) 0.1 (0.0-0.1); BASOPHILS % 1.5 % (0.0-1.0); EOSINOPHILS # (AUTO) 0.7 (0.0-0.4); HEMATOCRIT 35.9 % (38.2-49.6); HEMOGLOBIN 11.5 g/dL (14.0-18.0); LYMPHOCYTES # (AUTO) 2.5 (1.0-3.2); MEAN CORPUSCULAR HEMOGLOBIN 29.6 pg (28-32); MEAN CORPUSCULAR VOLUME 92.3 fL (81-99); MONOCYTES # (AUTO) 0.9 (0.2-0.8); MONOCYTES % 12.8 % (4.4-11.3); NEUTROPHILS # (AUTO) 2.9 (2.1-6.9); NEUTROPHILS % 40.6 % (38.7-80.0); PLATELET COUNT 114 x10e3/uL (140-360); RED BLOOD COUNT 3.89 x10e6/uL (4.3-5.7); RED CELL DISTRIBUTION WIDTH 17.2 % (11.7-14.4)
[2018-05-05 06:29] LABS: CREATINE KINASE MB 0.8 ng/mL (0-5.0)
[2018-05-05 06:53] LABS: ALBUMIN 3.8 g/dL (3.5-5.0); ALBUMIN/GLOBULIN RATIO 1.1 (0.8-2.0); ANION GAP 19.6 mmol/L (8-16); CALCIUM 9.9 mg/dL (8.4-10.2); CREATININE, SERUM 11.33 mg/dL (0.72-1.25); POTASSIUM 4.6 mmol/L (3.5-5.1)
[2018-05-05] MEDS: ASPIRIN 81 MG ENTERIC COATED PO SCH (10:14)
--- NOTE | 2018-05-05 10:45 | NUR ---
SOCIAL WORK INITIAL ASSESSMENT Manager Of Organizational Development to bedside to discuss plan of care with patient/family. CM/SW role and care transitions discussed. Anticipated discharge plan discussed along with duration of care. CM/SW discussed patients right to make decisions in care. CM/SW work hours given. Patient lives: IN UPSTAIRS APARTMENT WITH SON Admit/Transfer: VIA ED POA/Emergency contact: DANNY GOODMAN [phone] Current/Previous Home Health: NONE PCP/Follow-up Care: DARHSAN Current/Previous DME: NONE Other Services: LEFT AV FISTULA Employment Status: DISABLED Areas of Concerns: NONE Referral Needs: NONE Education Needs: NONE IMM/GUSTAFSON given and signed (if applicable): UPON ADMISSION Goal for discharge: RETURN HOME CM/SW left business card at the bedside with contact information. Name and number was also written on the patients whiteboard. Patient verbalized understanding of discussion. CM will follow-up with ongoing discharge and transition of care needs.
[2018-05-05] MEDS ORDERED: DILTIAZEM HCL 180 MG CAP ER PO STA (11:55)
[2018-05-05] MEDS ORDERED: HYDRALAZINE HCL 20 MG/ML VIAL IV STA (11:55)
[2018-05-05] MEDS ORDERED: NIFEDIPINE CR 30 MG TAB PO STA (11:55)
[2018-05-05] MEDS ORDERED: MINOXIDIL 2.5 MG TAB PO STA (11:55)
[2018-05-05] MEDS ORDERED: LOSARTAN POTASSIUM 100 MG TAB PO STA (11:55)
[2018-05-05] MEDS ORDERED: CLONIDINE HCL 0.2 MG TAB PO STA (11:55)
[2018-05-05] MEDS ORDERED: CLONIDINE HCL 0.2 MG TAB PO SCH (12:14)
[2018-05-05] MEDS ORDERED: MINOXIDIL 2.5 MG TAB PO SCH (12:16)
[2018-05-05] MEDS: NIFEDIPINE CR 30 MG TAB PO SCH ×2 (12:29→18:12)
[2018-05-05] MEDS: DILTIAZEM HCL ER 120 MG CAPCR PO SCH (12:32)
[2018-05-05] MEDS: LOSARTAN POTASSIUM 100 MG TAB PO SCH (12:44)
[2018-05-05 14:08] LABS: CREATINE KINASE MB 0.9 ng/mL (0-5.0)
--- NOTE | 2018-05-05 15:19 | History and Physical ---
HISTORY: A 48 years old male with past medical history positive for end-stage renal disease, on dialysis; hypertension, came here with shortness of breath. He was found to have congestive heart failure and admitted to the hospital. REVIEW OF SYSTEMS: CARDIOVASCULAR: No chest pain or palpitation. RESPIRATORY: Shortness of breath not anymore. No cough. GASTROINTESTINAL: No nausea. No vomiting. No diarrhea. GENITOURINARY: No urinary frequency or hematuria. ALLERGIES: HE IS ALLERGIC TO HEPARIN, HYDRALAZINE AND MORPHINE. SOCIAL HISTORY: He does not smoke. He does not drink. PAST MEDICAL HISTORY: End-stage renal disease on dialysis and hypertension. PHYSICAL EXAMINATION: HEART: Showed regular rhythm. No murmur or added sound. LUNGS: Clear bilaterally. ABDOMEN: Soft. EXTREMITIES: Show no evidence of cyanosis or hematoma. LABORATORY DATA: On the BMP, sodium 146, potassium 4.6, chloride 90, CO2 23, BUN 55, creatinine 11.33, glucose 80. On CBC, white count 7.18, hemoglobin 11.5, hematocrit 35.9, platelet count of 114,000. PT 13.6, INR 0.95, PTT 41.5, AST 16, ALT 6, today bilirubin 0.6, alkaline phosphatase 76. Chest x-ray shows bilateral pulmonary edema. FINAL IMPRESSION: 1. Pjytu-[id number] diastolic congestive heart failure. 2. End-stage renal disease, on dialysis. 3. Uncontrolled hypertension with end-stage renal disease and hypertensive emergency due to history of high blood pressure. 4. coronary artery disease secondary to coronary heart failure. PLAN OF TREATMENT: 1. Continue nifedipine 90 mg twice a day. 2. Minoxidil 2.5 mg twice a day. 3. Losartan 100 mg daily. 4. Cardizem 240 mg daily. 5. Clonidine 0.2 mg three times a day as needed. 6. Continue dialysis. We are going to start him on labetalol 10 mg IV push every 4 hours as needed for hypertension. having consulted from Nephrology point of view. We are concerned about possible noncompliance with home medications due to extremely high blood pressure. 7. I am going to order an echocardiogram also to evaluate his ejection fraction. Fabien Cari, MD LAS/ARNIE /[id number]
[2018-05-05] MEDS: CLONIDINE HCL 0.2 MG TAB PO SCH (18:10)
[2018-05-05] MEDS: MINOXIDIL 2.5 MG TAB PO SCH (18:11)
--- NOTE | 2018-05-05 19:00 | NUR ---
Report received and rounds completed. In bed resting, no complaints or concerns at this time.
--- NOTE | 2018-05-05 19:42 | NUR ---
Dr Varela on unit: order for HD in am and to call to schedule with [facility].
--- NOTE | 2018-05-05 19:52 | NUR ---
Spoke with Ilda at [facility] to schedule HD for AM
--- NOTE | 2018-05-05 22:00 | NUR ---
Resting in bed eyes closed, resp even and unlabored. No distress or discomfort noted. Call light within reach. Will continue to monitor.
[2018-05-06] VITALS (7 sets, daily range): BP systolic 122–158; BP diastolic 72–97
--- NOTE | 2018-05-06 00:02 | NUR ---
patient complaining of pain 10/[address] Alcala: No medication for pain and requesting tylenol for pain. New order for Tylenol 650 mg po Q 4 hrs PRN pain
[2018-05-06] MEDS: ACETAMINOPHEN 325 MG TAB PO PRN ×2 (00:27→09:35)
--- NOTE | 2018-05-06 02:00 | NUR ---
Resting in bed, eyes closed, resp even and unlabored. Call light within reach. Will continue to monitor.
[2018-05-06] MEDS ORDERED: SODIUM CHLORIDE 0.9% 1000ML 2,000 ML ONE (05:43)
--- NOTE | 2018-05-06 05:52 | Consultation ---
DATE OF CONSULTATION: 05/05/2018 Renal Consultation REASON FOR CONSULTATION: End-stage renal disease. HISTORY OF PRESENT ILLNESS: A 48-year-old male with end-stage renal disease, on hemodialysis Saturday, , and Saturday, presented to [facility] with shortness of breath. The patient denies having any chest pain. He was admitted. Cardiology and Nephrology consultations were called. The patient at this time is chest pain free and without shortness of breath. REVIEW OF SYSTEMS: As above. All other systems negative. PAST MEDICAL HISTORY: 1. End-stage renal disease, on hemodialysis, Saturday, , and Saturday. 2. Hypertension. 3. History of bleeding ulcer. 4. Anemia, secondary to chronic kidney disease. 5. Secondary hyperparathyroidism. PAST SURGICAL HISTORY: 1. Multiple AV fistulas. 2. Kidney transplant in 2007. 3. Tunneled dialysis catheter. SOCIAL HISTORY: No tobacco. No alcohol. No IV drugs. FAMILY HISTORY: No family history of kidney disease. ALLERGIES: HEPARIN, HYDRALAZINE, AND MORPHINE. CURRENT MEDICATIONS: See list. PHYSICAL EXAMINATION: VITAL SIGNS: Blood pressure 200/92, pulse 66, respiratory rate 20, and temperature 96.4. GENERAL: In no apparent distress. HEENT: Oropharynx clear. No scleral icterus. No peripheral edema. NECK: Supple. Elevated jugular venous pressure. CHEST: Clear to auscultation anteriorly bilaterally. CARDIOVASCULAR: Regular rhythm. ABDOMEN: Soft. Positive bowel sounds. No tenderness. No rebound. EXTREMITIES: No edema. LABORATORY DATA: White count 7.1, hemoglobin 11.5, hematocrit 35.9, and platelets 114. Sodium 136, potassium 4.6, chloride 98, CO2 of 23, BUN 55, and creatinine 11.33. Chest x-ray is clear. ASSESSMENT AND PLAN: 1. End-stage renal disease. We will plan for hemodialysis in the morning. 2. Anemia, secondary to chronic kidney disease. We will resume Epogen if hemoglobin drops below 11 and the patient remains in the hospital. 3. Hypertension. Resume home meds. 4. Shortness of breath, resolved. We will follow after hemodialysis tomorrow. MD LYLE Root/ARNIE /[id number]
--- NOTE | 2018-05-06 06:13 | NUR ---
Resting in bed watching TV. HD nurse at bedside. Call light within reach. Will continue to monitor.
[2018-05-06] MEDS ORDERED: HEPARIN SOD (PORCINE) 1000 UNIT/ML SDV IV PRN (09:30)
[2018-05-06] MEDS: ASPIRIN 81 MG ENTERIC COATED PO SCH (11:30)
[2018-05-06] MEDS: DILTIAZEM HCL ER 120 MG CAPCR PO SCH (11:31)
[2018-05-06] MEDS: CLONIDINE HCL 0.2 MG TAB PO SCH ×2 (11:32→17:12)
[2018-05-06] MEDS: LOSARTAN POTASSIUM 100 MG TAB PO SCH (11:32)
[2018-05-06] MEDS: NIFEDIPINE CR 30 MG TAB PO SCH ×2 (11:33→17:12)
[2018-05-06] MEDS: MINOXIDIL 2.5 MG TAB PO SCH ×2 (11:37→17:12)
--- NOTE | 2018-05-06 15:53 | NUR ---
PATIENT COMPLAINING OF SHORTNESS OF BREATH, 1600 VITAL SIGNS:T:98.8, P:60, BP:150/88, R21, SPO2:100%, DISCUSSED PATIENT'S LIVING SITUATION AND TRYING HAVE A POSITIVE VIEW POINT, ASKED PATIENT IF HE WOULD LIKE TO SPEAK TO THE OWNER ORAL SURGEON, PATIENT REPLIED, "YES, I WOULD."
[2018-05-06] MEDS ORDERED: ALBUTEROL SULF 0.083% NEB SOLN 3 ML NEB NEB PRN (16:00)
--- NOTE | 2018-05-06 19:00 | NUR ---
Report and rounds completed. Patient siting on side of bed looking at phone. Requesting for something to help rest tonight. Reports when lying in bed, feels sob and anxious. Will call MD to request medication. 02 sat 98% RA. Call light within reach.Will continue to monitor.
--- NOTE | 2018-05-06 19:51 | NUR ---
Spoke with Dr Alcala via phone: patient complaining of SOB and anxiety. Klonopin 1 mg po Q 8 hrs PRN anxiety. Notified of preliminary report from VQ scan : low probability of PE, obstructive lung disease.
--- NOTE | 2018-05-06 19:59 | Progress Note ---
DATE: Internal Medicine Progress Note SUBJECTIVE: The patient complains of shortness of breath. He is to have dialysis today. PHYSICAL EXAMINATION: VITAL SIGNS: Blood pressure is 150/88, temperature 98.3, heart rate 80 per minute, respiratory rate 21 per minute, oxygen saturation 100%. HEART: Showed regular rhythm. No murmur or added sound. LUNGS: Completely clear bilaterally. There is no rhonchi, no wheezing, and no other adventitious sounds. EXTREMITIES: Show no evidence of cyanosis or hematoma. LABORATORY DATA: Chest x-ray showed no evidence of any infiltrates or effusion or fluid. On the BMP, sodium 136, potassium 4.6, chloride 98, CO2 of 23, BUN 55, creatinine 11.33, glucose 80. On the CBC, white blood count 7.18, hemoglobin 8.5, hematocrit 35.9, platelet count 114,000. PT 13.6, INR 0.95, PTT 41.5. AST 15, ALT 6, total bilirubin 0.6, alkaline phosphatase 76. IMPRESSION: 1. Acute on chronic systolic and diastolic congestive heart failure. 2. Uncontrolled hypertension, renal insufficiency with hypertensive emergency. 3. End-stage renal disease, on dialysis. 4. Anemia of chronic disease secondary to end-stage renal disease. 5. Episode of shortness of breath. PLAN OF TREATMENT: We are going to order CT of the chest. We contacted and it was okay with cone chocolate dipper. As I said, the oxygen saturation is 100%. The patient's last chest x-ray was negative. We are going to rule out PE, so we are going to do a CT of the chest with contrast. The patient is a dialysis patient, he is permanently on dialysis, so we will do the CT of the chest to rule out any pulmonary embolism. MD NUBIA Mena/ARNIE /[id number]
[2018-05-06] MEDS ORDERED: CLONAZEPAM 1 MG TAB PO PRN (20:00)
--- NOTE | 2018-05-06 20:57 | Diagnostic Imaging Report ---
Ventilation/perfusion lung scan Clinical Information: 48 M with ESRD, dyspnea and SOB Comparison: Chest radiograph 05/04/2018 Discussion: Xenon-133 gas 10.5 mCi was administered via inhalation. Dynamic images of the lungs in the posterior projection were obtained through single breath, equilibrium, and washout phases. Distribution of tracer activity is minimally irregular throughout the lungs. There are no segmental ventilatory defects. Washout of tracer is diffusely delayed with no air trapping. Perfusion images of the lungs were obtained in multiple projections following intravenous administration of approximately 5.5 mCi of Tc-99m MAA. Distribution of tracer is mildly irregular throughout the lungs. The contours of the lungs are well demarcated. There are no segmental perfusion defects of any size. The cardiomediastinal silhouette is unremarkable. Impression: Scan findings represent a VERY LOW probability for acute pulmonary embolic disease based on the PIOPED II criteria. Scan evidence of obstructive lung disease. Signed by: Dr. Elena Ugarte M.D. on 05/06/2018 8:54 PM
--- NOTE | 2018-05-06 22:00 | NUR ---
Ambulating in [place]. Reports feeling better and less anxious. Instructed to call for assistance if needed. Verbalized understanding. Will continue to monitor.
--- NOTE | 2018-05-06 23:45 | Consultation ---
DATE OF CONSULTATION: 05/06/2018 Cardiology Consult Note. REASON FOR CONSULTATION: Hypertension, shortness of breath. CHIEF COMPLAINT: Shortness of breath, see HPI. HISTORY OF PRESENT ILLNESS: The patient is a 48-year-old man with history of end-stage renal disease, on dialysis, who presents with several days of worsening shortness of breath. Denies any chest pain or heart failure symptoms. No lower extremity edema. The patient has a history of prior failed renal transplant. No prior cardiovascular problems. REVIEW OF SYSTEMS: As above, otherwise, negative PAST MEDICAL HISTORY: 1. End-stage renal disease, on hemodialysis. 2. Hypertension. 3. History of bleeding ulcer. 4. Anemia. 5. Hyperparathyroidism. PAST SURGICAL HISTORY: 1. Multiple AV fistulas. 2. Renal transplant in 2007. 3. Tunneled dialysis catheters. SOCIAL HISTORY: Does not smoke, drink, or abuse drugs. FAMILY HISTORY: No family history of early CAD or sudden cardiac . OUTPATIENT MEDICATIONS: Reviewed. ALLERGIES: ALLERGIC TO HEPARIN, HYDRALAZINE, AND MORPHINE. OBJECTIVE: VITAL SIGNS: Temperature 98.3, pulse 80, respiratory rate 21, blood pressure 150/88, saturating 100% on room air. GENERAL: Well-developed, well-nourished, in no acute distress. CARDIOVASCULAR: Regular rate and rhythm. No murmur or S3 gallop. Palpable radial pulses, palpable carotid pulses. LUNGS: Clear to auscultation. ABDOMEN: Soft, nontender, nondistended. NEURO AND PSYCH: Alert and oriented to person, place, and time. Normal affect. INPATIENT MEDICATIONS: Reviewed. LABORATORY DATA: Reviewed. IMAGING DATA: Reviewed. ASSESSMENT: 1. Uncontrolled hypertension. 2. Shortness of breath. 3. End-stage renal disease. 4. Anemia. PLAN: Blood pressure is improved since starting home cardiovascular medications. Continue current anti-hypertensive regimen. Feeling better after getting dialyzed. We will continue to monitor. Thank your for this consult. MD ALEXSANDRA Weiner/JOVANL /[id number]
[2018-05-07] VITALS: BP 139/70
--- NOTE | 2018-05-07 02:00 | NUR ---
Resting in bed, eyes closed, resp even and unlabored. Call light within reach. Will continue to monitor.
[2018-05-07 04:00] VITALS: BP 111/56
[2018-05-07 08:20] LABS: BASOPHILS # (AUTO) 0.1 (0.0-0.1); BASOPHILS % 1.6 % (0.0-1.0); EOSINOPHILS # (AUTO) 0.8 (0.0-0.4); EOSINOPHILS % 9.3 % (0.0-6.0); HEMATOCRIT 41.5 % (38.2-49.6); HEMOGLOBIN 13.3 g/dL (14.0-18.0); MEAN CORPUSCULAR HEMOGLOBIN 29.1 pg (28-32); MEAN CORPUSCULAR VOLUME 90.8 fL (81-99); MONOCYTES # (AUTO) 1.1 (0.2-0.8); MONOCYTES % 13.8 % (4.4-11.3); NEUTROPHILS # (AUTO) 3.1 (2.1-6.9); NEUTROPHILS % 38.1 % (38.7-80.0); PLATELET COUNT 140 x10e3/uL (140-360); RED BLOOD COUNT 4.57 x10e6/uL (4.3-5.7); RED CELL DISTRIBUTION WIDTH 17.7 % (11.7-14.4)
[2018-05-07 08:25] VITALS: BP 125/72
[2018-05-07 09:09] LABS: ANION GAP 21.3 mmol/L (8-16); CALCIUM 10.6 mg/dL (8.4-10.2); CREATININE, SERUM 9.76 mg/dL (0.72-1.25); MAGNESIUM 3.1 MG/DL (1.3-2.1); PHOSPHORUS 6.5 MG/DL (2.3-4.7); POTASSIUM 4.3 mmol/L (3.5-5.1)
[2018-05-07] MEDS: ASPIRIN 81 MG ENTERIC COATED PO SCH (09:40)
[2018-05-07] MEDS: DILTIAZEM HCL ER 120 MG CAPCR PO SCH (09:40)
[2018-05-07] MEDS: NIFEDIPINE CR 30 MG TAB PO SCH (09:41)
[2018-05-07] MEDS: MINOXIDIL 2.5 MG TAB PO SCH (09:41)
[2018-05-07] MEDS: CLONIDINE HCL 0.2 MG TAB PO SCH (09:41)
[2018-05-07] MEDS: LOSARTAN POTASSIUM 100 MG TAB PO SCH (09:41)
--- NOTE | 2018-05-07 09:42 | NUR ---
discussed with patient the large amount of BP meds that he takes and he stated that he takes the large amount at home also and BP will elevated if he doesnt take them all. gave all scheduled BP meds as ordered due to patients insistence
--- NOTE | 2018-05-07 09:45 | NUR ---
ASSESSMENT: Spiritual Distress [employer] visit requested by pt. Pt is afraid of dying. Pt states his 18y/o son (Anderson) is graduating high school and enlisting in the . Pt states "he's all I've got" and has anxiety about being alone. Pt states he is worried about his health and only sleeps 2 hours a night. Pt states he wants to return to orthodoxy after release from hospital. Intervention: Provided calming pastoral presence and unhurried empathic listening. Facilitated identification of emotions. Provided prayer. Informed pt of availability of automatic data processing planner and encouraged visit to chapel for quiet prayer/reflection. Outcome: Pt expressed appreciation for support. Will follow as able. JOSEPH VASQUES [employer] Spiritual Care Department O: [phone] Pager: [phone] ([phone] number calling from)
[2018-05-07 09:55] VITALS: BP 125/72
[2018-05-07] MEDS ORDERED: LABETALOL HCL 200 MG TAB PO SCH (17:00)
--- NOTE | 2018-05-08 08:01 | Discharge Summary ---
ADDENDUM TO DISCHARGE SUMMARY: We are going to discontinue the Cardizem because the patient is already on nifedipine and instead I want to use labetalol 200 mg twice a day. MD NUBIA Mena/ARNIE /[id number]
--- NOTE | 2018-05-08 08:16 | Discharge Summary ---
HOSPITAL COURSE: This is a 48-year-old male, who has a past medical history positive for end-stage renal disease, on dialysis; hypertension, came here with shortness of breath. He was found to have congestive heart failure and admitted to the hospital. He thought the dialysis symptoms went away. He was having a lot of anxiety. He was given lorazepam. He had a V/Q scan, which showed low probability for pulmonary embolism. Symptoms have resolved. His blood pressure was extremely high when he came here with a systolic of 210. We optimized the antihypertensive regimen. We are suspecting that people who will not take any blood pressure medications the blood pressure medication regimen , his blood pressure improved. Troponins were negative. Cardiology, Dr. Marte was consulted on the case. The echocardiogram showed ejection fraction of 55% to 60%. EKG showed normal sinus rhythm, left atrial enlargement, . No evidence of any ST-segment elevation or depression. The patient is going home today. PHYSICAL EXAMINATION: VITAL SIGNS: Blood pressure 125/72, temperature , heart rate 79 per minute, respiratory rate 16 per minute, oxygen saturations 100%. HEART: Showed regular rate. Normal heart sounds. LUNGS: Clear bilaterally. LABORATORY WORKUP: On the blood work, we have BMP; sodium 138, potassium 4.3, chloride 99, CO2 of 32, BUN 38, creatinine 9.76, glucose 93. CBC: White blood count 8.10, hemoglobin 13.3, hematocrit 41.5, platelet count 140,000. PT 13.6, INR 0.95, PTT 41.5, AST 16, ALT 6, total bilirubin 0.6, alkaline phosphatase 76. FINAL IMPRESSION: 1. Hypertensive emergency with end-stage renal disease. 2. End-stage renal disease, on dialysis. 3. Anxiety. 4. Episode of shortness of breath. 5. Mild congestive heart failure secondary to uncontrolled hypertension. The patient is going to be discharged home on the following medications. Continue aspirin 81 mg daily, minoxidil 5 mg twice a day, continue nifedipine 90 mg twice a day, clonidine 0.2 mg twice a day, losartan 100 mg daily, Cardizem will be discontinued because he is taking nifedipine. The patient by the international travel consultant, which included . Follow with the primary care physician. MD NUBIA Mena/ARNIE /[id number]
== END 2018-05-07 11:42 | disposition home or self-care (01) ==
LOC: ER 16:20 → ERHOLD 21:28 → IMCU 22:00
PROVIDERS: ADMIT Internal Medicine; ATTEND Internal Medicine
DX: I13.2 Hypertensive heart and chronic kidney disease with heart failure and with stage 5 chronic kidney disease, or end stage renal disease (principal); I50.43 Acute on chronic combined systolic (congestive) and diastolic (congestive) heart failure; N18.6 End stage renal disease; Z99.2 Dependence on renal dialysis; Z94.0 Kidney transplant status; I16.1 Hypertensive emergency; I25.10 Atherosclerotic heart disease of native coronary artery without angina pectoris; E21.3 Hyperparathyroidism, unspecified; D63.1 Anemia in chronic kidney disease; F41.9 Anxiety disorder, unspecified
CPT/HCPCS: 36415 ×2; 71046; 78582; 80048; 80053 ×2; 82550 ×2; 82553 ×2; 83735; 83880; 84100; 84443; 84484 ×2; 85025 ×3; 85610; 85730; 86704; 86706; 87340; 90935; 93005; 93306; 94640; 96376; 99284; A9540; A9558; G0378 ×4; J0360; J1644; J3490; J7030; 96374

== ENCOUNTER 2018-05-20 06:47 | Inpatient (IN) | payer MEDICARE, OTHER ==
[2018-05-20] VITALS (8 sets, daily range): BP systolic 146–182; BP diastolic 67–114
[~2018-05-20] VITALS: Ht 165.1 cm; Wt 57.3 kg
--- OUTSIDE RECORDS SUMMARY | 2018-05-20 06:50 | XMS REPORT | Clinical Summary ---
Author Author AL [facility] Organization [facility] Address Unknown Phone Unavailable Care Team Providers Care Resume Specialist Name Role Phone Eric Alcala PCP Allergies [...] Elizabeth, NP ESRD (end stage renal disease) (FORMERLY [facility]); S/p nephrectomy; Anemia of chronic disease 03/17/2018 Follow-Up Transplant Hepatology Radha Pérez, MECHE 03/06/2018 Orders Only Cardiology Joanne Alvarez Y Appointment 03/06/2018 Telephone Transplant Haresh Rai MD Clotted vascular catheter, initial encounter (FORMERLY [facility]) (Primary Dx); ESRD (end stage renal disease) (FORMERLY [facility]); Essential hypertension; Anemia due to chronic kidney disease, on chronic dialysis (HCC) 03/01/2018 Emergency Emergency Medicine Melinda Quiros MD Dialysis catheter not working 03/01/2018 Telephone Internal Medicine Radha Pérez, MECHE 02/26/2018 Orders Only Cardiology Joanne Alvarez Y Appointment 02/20/2018 Telephone Transplant Rell Solorzano MD 02/14/2018 Anesthesia Event [facility] Farrah Meza MD NEPHRECTOMY 02/14/2018 Surgery Jarrod Blackman III, MD Athreya, Khannan K., MD Agrawal, Neeraj, MD ESRD (end stage renal disease) (FORMERLY [facility]) (Primary Dx); Peritoneal dialysis status (FORMERLY [facility]); Hypertensive crisis; Failed kidney transplant; Uremia syndrome; Peritonitis (HCC); Anemia of chronic disease; Encounter regarding vascular access for dialysis for end-stage renal disease (FORMERLY [facility]) 02/12/2018 [facility] General Internal Medicine - Encounter 02/20/2018 02/12/2018 Travel after 05/19/2017 Social History Date Tobacco Use Types Packs/Day [...] Taken Vital Sign Reading 03/28/2018 6:30 PM [facility] Blood Pressure 155/87 03/28/2018 6:30 PM [facility] Pulse 82 03/28/2018 6:30 PM [facility] Temperature 36.3 C (97.4 F) 03/28/2018 6:30 PM [facility] Respiratory Rate 13 03/28/2018 6:30 PM [facility] Oxygen Saturation 99% - Inhaled Oxygen - Concentration 03/20/2018 5:25 PM [facility] Weight 59 kg (130 lb) 03/20/2018 5:25 PM [facility] Height 165.1 cm (5' 5") 03/20/2018 5:25 PM [facility] Body Mass Index 21.63 Plan of Treatment Not on file Goals Goal Patient Associated Recent Progress Patient-Stat Author Goal Type Problems ed? Contact counselor available General ESRD on Yes Moises Tatum through your work hemodialysis MD Vlad Note: Depression intervention and follow up Implants Device Identifier Shelf Expiration Date Model / Serial / Lot Implanted Type Area Manufactur er 06/08/2020 [id number] / N/A / [id number] Cath Kt Hd Dl Str [id number] Catheter Left: Neck ANGIODYNAM [id number] - Sn/A Dialysis ICS Implanted: Qty: 1 on 02/14/2018 by [facility] Micki Jayeron Meza MD Procedures Comments Procedure Name Priority Date/Time Associated Diagnosis RHYTHM STRIP - SCAN 04/15/2018 8:30 AM [facility] TRANSFUSION SERVICE 03/29/2018 REPORT - SCAN 5:53 PM [facility] CREATION,A-V FISTULA 03/28/2018 End stage renal disease 3:15 PM [facility] (HCC) TYPE AND SCREEN, Routine 03/28/2018 AUTOMATED 11:57 AM [facility] PROTHROMBIN TIME/INR STAT 03/28/2018 11:57 AM [facility] HGB/HCT (H&H) - STAT LAB Routine 03/28/2018 11:57 AM [facility] GLUCOSE-STAT LAB STAT 03/28/2018 11:57 AM [facility] POTASSIUM-STAT LAB STAT 03/28/2018 11:57 AM [facility] CBC W/PLT COUNT & AUTO STAT 03/01/2018 DIFFERENTIAL 6:03 PM [facility] PT/APTT STAT 03/01/2018 6:03 PM [facility] BASIC METABOLIC PANEL (7) STAT 03/01/2018 6:03 PM [facility] CBC W/PLT COUNT & AUTO STAT 03/01/2018 DIFFERENTIAL 6:03 PM [facility] RHYTHM STRIP - SCAN 02/27/2018 8:40 AM [facility] CBC W/PLT COUNT & AUTO STAT 02/20/2018 DIFFERENTIAL 12:26 PM [facility] CBC W/PLT COUNT & AUTO STAT 02/20/2018 DIFFERENTIAL 12:26 PM [facility] BASIC METABOLIC PANEL (7) STAT 02/20/2018 12:26 PM [facility] IR VENOGRAM - EXTREMITY Routine 02/20/2018 BILATERAL 8:45 AM [facility] PREALBUMIN Routine 02/20/2018 4:57 AM [facility] HEMODIALYSIS INPATIENT Routine 02/19/2018 12:57 PM [facility] CBC W/PLT COUNT & AUTO STAT 02/19/2018 DIFFERENTIAL 8:08 AM [facility] BASIC METABOLIC PANEL (7) STAT 02/19/2018 8:08 AM [facility] CBC W/PLT COUNT & AUTO STAT 02/19/2018 DIFFERENTIAL 8:08 AM [facility] VANCOMYCIN LEVEL, RANDOM Routine 02/19/2018 4:10 AM [facility] VANCOMYCIN LEVEL, RANDOM Routine 02/18/2018 4:11 AM [facility] PHOSPHORUS Routine 02/18/2018 4:11 AM [facility] CBC (HEMOGRAM ONLY) Routine 02/18/2018 4:11 AM [facility] BASIC METABOLIC PANEL (7) Routine 02/18/2018 4:11 AM [facility] HEMODIALYSIS INPATIENT Routine 02/17/2018 7:[address] ABDOMEN/PELVIS WITH IV Routine 02/17/2018 CONTRAST 3:53 PM [facility] PREALBUMIN Routine 02/17/2018 4:17 AM [facility] VANCOMYCIN LEVEL, TROUGH Timed 02/17/2018 4:17 AM [facility] PHOSPHORUS Routine 02/17/2018 4:17 AM [facility] CBC (HEMOGRAM ONLY) Routine 02/17/2018 4:17 AM [facility] BASIC METABOLIC PANEL (7) Routine 02/17/2018 4:17 AM [facility] XR ABDOMEN 1 VIEW Routine 02/16/2018 6:46 PM [facility] PHOSPHORUS Routine 02/16/2018 5:32 AM [facility] CBC (HEMOGRAM ONLY) Routine 02/16/2018 5:32 AM [facility] BASIC METABOLIC PANEL (7) Routine 02/16/2018 5:32 AM [facility] TRANSFUSION SERVICE 02/15/2018 REPORT - SCAN 6:00 PM [facility] PHOSPHORUS Routine 02/15/2018 6:11 AM [facility] CBC (HEMOGRAM ONLY) Routine 02/15/2018 6:11 AM [facility] BASIC METABOLIC PANEL (7) Routine 02/15/2018 6:11 AM [facility] WOUND CULTURE + GRAM Routine 02/14/2018 STAIN 10:00 PM [facility] HEPATITIS C ANTIBODY Routine 02/14/2018 6:34 PM [facility] HEPATITIS B CORE Routine 02/14/2018 ANTIBODY, TOTAL 6:34 PM [facility] HEPATITIS B CORE Routine 02/14/2018 ANTIBODY, IGM 6:34 PM [facility] HEPATITIS B SURFACE Routine 02/14/2018 ANTIGEN 6:34 PM [facility] VANCOMYCIN LEVEL, RANDOM Routine 02/14/2018 6:34 PM [facility] HEMODIALYSIS INPATIENT Routine 02/14/2018 6:24 PM [facility] TRANSFUSION SERVICE 02/14/2018 REPORT - SCAN 6:01 PM [facility] PREPARE RBC Routine 02/14/2018 5:10 PM [facility] FL INTEGRATION LEAD IN OR 30 Routine 02/14/2018 MINUTE INCREMENTS 4:35 PM [facility] SURGICALLY OBTAINED GUILLERMINA 02/14/2018 CULTURE + GRAM STAIN 4:19 PM [facility] FUNGUS CULTURE + SMEAR GUILLERMINA 02/14/2018 4:19 PM [facility] ANAEROBIC CULTURE GUILLERMINA 02/14/2018 4:19 PM [facility] AFB CULTURE + SMEAR GUILLERMINA 02/14/2018 4:19 PM [facility] FUNGUS CULTURE + SMEAR GUILLERMINA 02/14/2018 3:57 PM [facility] ANAEROBIC CULTURE GUILLERMINA 02/14/2018 3:57 PM [facility] AFB CULTURE + SMEAR GUILLERMINA 02/14/2018 3:57 PM [facility] SPIN/CONCENTRATION CHARGE Routine 02/14/2018 3:57 PM [facility] TISSUE EXAM AP Routine 02/14/2018 3:37 PM [facility] HGB/HCT (H&H) - STAT LAB STAT 02/14/2018 3:19 PM [facility] GLUCOSE-STAT LAB STAT 02/14/2018 3:19 PM [facility] POTASSIUM-STAT LAB STAT 02/14/2018 3:19 PM [facility] SODIUM NA-STAT LAB STAT 02/14/2018 3:19 PM [facility] BLOOD GAS, ARTERIAL STAT 02/14/2018 3:19 PM [facility] CALCIUM, IONIZED STAT 02/14/2018 3:19 PM [facility] RRL CRITICAL LABS STAT 02/14/2018 (ABG,NA,K,H&H,GLUCOSE) 3:19 PM [facility] INSERTION,DIALYSIS 02/14/2018 Renal infection CATHETER PERITONEAL 11:22 AM [facility] REMOVAL,CATHETER 02/14/2018 Renal infection PERITONEAL 11:22 AM [facility] NEPHRECTOMY 02/14/2018 Renal infection 11:22 AM [facility] ECG 12-LEAD STAT 02/14/2018 8:55 AM [facility] PHOSPHORUS Routine 02/14/2018 6:32 AM [facility] CBC (HEMOGRAM ONLY) Routine 02/14/2018 6:32 AM [facility] BASIC METABOLIC PANEL (7) Routine 02/14/2018 6:32 AM [facility] LACTIC ACID, VENOUS Routine 02/14/2018 6:32 AM [facility] TYPE AND SCREEN, Routine 02/13/2018 AUTOMATED 8:41 PM [facility] BASIC METABOLIC PANEL (7) Routine 02/13/2018 12:10 PM [facility] LACTIC ACID, VENOUS Routine 02/13/2018 5:05 AM [facility] BODY FLUID CELL COUNT Routine 02/13/2018 WITH DIFFERENTIAL 12:00 AM [facility] BODY FLUID CULTURE + GRAM Routine 02/12/2018 STAIN 11:38 PM [facility] APTT Routine 02/12/2018 8:54 PM [facility] PROTHROMBIN TIME/INR Routine 02/12/2018 8:54 PM [facility] LIPASE Routine 02/12/2018 8:54 PM [facility] HEPATIC FUNCTION PANEL Routine 02/12/2018 8:54 PM [facility] LACTIC ACID, VENOUS STAT 02/12/2018 8:54 PM [facility] XR CHEST 1 VIEW Routine 02/12/2018 PORTABLE/BEDSIDE 8:31 PM [facility] CBC W/PLT COUNT & AUTO Routine 02/12/2018 DIFFERENTIAL 6:40 PM [facility] CBC W/PLT COUNT & AUTO Routine 02/12/2018 DIFFERENTIAL 6:40 PM [facility] PROCALCITONIN STAT 02/12/2018 6:35 PM [facility] BASIC METABOLIC PANEL (7) Routine 02/12/2018 6:35 PM [facility] BLOOD CULTURE STAT 02/12/2018 6:33 PM [facility] BLOOD CULTURE STAT 02/12/2018 6:32 PM [facility] POCT-LACTIC ACID, VENOUS Routine 02/12/2018 6:18 PM [facility] after 05/19/2017 Results * RHYTHM STRIP - SCAN (04/15/2018 8:30 AM [facility]) Only the most recent of 2 results within the time period is included. Narrative Performed At * TRANSFUSION SERVICE REPORT - SCAN (03/29/2018 5:53 PM [facility]) Only the most recent of 3 results within the time period is included. Narrative Performed At * Potassium-Stat Lab (03/28/2018 11:57 AM [facility]) Only the most recent of 2 results within the time period is included. Potassium 4.7 3.6 - 5.5 meq/L [facility] Specimen Blood, Arterial Performing Organization Address City/[facility]/[place] [address] [phone] * Glucose-Stat Lab (03/28/2018 11:57 AM [facility]) Only the most recent of 2 results within the time period is included. Glucose 74 70 - 110 mg/dL [facility] Specimen Blood, Arterial Performing Organization Address City/[facility]/[place] [address] [phone] [address] * Type and screen, automated (03/28/2018 11:57 AM [facility]) Only the most recent of 2 results within the time period is included. ABO/RH AUTOMATED (BEAKER) O POSITIVE [facility] Ab Scrn NEGATIVE [facility] Specimen Blood Performing Organization Address City/[facility] Phone Number [address] [address] [facility] * HGB/HCT (H&H)-Stat Lab (03/28/2018 11:57 AM [facility]) Only the most recent of 2 results within the time period is included. Hemoglobin 10.3 (L) 13.0 - 16.8 g/dL [facility] Hematocrit 30.0 (L) 40.0 - 50.0 % [facility] Specimen Blood, Arterial Performing Organization Address [facility] Phone Number [address] [address] [facility] * Prothrombin time/INR (03/28/2018 11:57 AM [facility]) Only the most recent of 2 results within the time period is included. Protime 14.0 11.7 - 14.7 seconds [facility] INR 1.1 <=5.9 [facility] Specimen Blood Narrative Performed At RECOMMENDED COUMADIN/WARFARIN INR THERAPY RANGES [facility] STANDARD DOSE: 2.0 - 3.0 Includes: PROPHYLAXIS for venous thrombosis, [facility] systemic embolization; TREATMENT for venous thrombosis and/or pulmonary embolus. HIGH RISK: Target INR is 2.5-3.5 for patients with mechanical heart valves. Performing Organization Address City/[facility] Phone Number [address] [address] [facility] * PT/aPTT (03/01/2018 6:03 PM [facility]) Protime 14.0 11.7 - 14.7 seconds [facility] INR 1.1 <=5.9 [facility] PTT 36.2 (H) 22.5 - 36.0 seconds [facility] Specimen Blood Narrative Performed At RECOMMENDED COUMADIN/WARFARIN INR THERAPY RANGES [facility] STANDARD DOSE: 2.0 - 3.0 Includes: PROPHYLAXIS for venous thrombosis, [facility] systemic embolization; TREATMENT for venous thrombosis and/or pulmonary embolus. HIGH RISK: Target INR is 2.5-3.5 for patients with mechanical heart valves. Performing Organization Address City/State/Zipcode Phone Number [facility] [address] [place] [address] [facility] * CBC with platelet count + automated diff (03/01/2018 6:03 PM [facility]) Only the most recent of 4 results within the time period is included. WBC 8.2 3.5 - 10.5 K/L [facility] RBC 3.31 (L) 4.63 - 6.08 M/L [facility] Hemoglobin 9.3 (L) 13.7 - 17.5 GM/DL [facility] Hematocrit 30.6 (L) 40.1 - 51.0 % [facility] MCV 92.4 (H) 79.0 - 92.2 fL [facility] MCH 28.1 25.7 - 32.2 pg [facility] MCHC 30.4 (L) 32.3 - 36.5 GM/DL [facility] RDW 14.4 11.6 - 14.4 % [facility] Platelets 221 150 - 450 K/CU MM [facility] MPV 10.1 9.4 - 12.4 fL [facility] nRBC 0 0 - 0 /100 WBC [facility] % Neutros 60 % [facility] % Lymphs 18 % [facility] % Monos 12 % [facility] % Eos 8 % [facility] % Baso 1 % [facility] # Neutros 4.90 1.78 - 5.38 K/L [facility] # Lymphs 1.48 1.32 - 3.57 K/L [facility] # Monos 0.96 (H) 0.30 - 0.82 K/L [facility] # Eos 0.69 (H) 0.04 - 0.54 K/L [facility] # Baso 0.10 (H) 0.01 - 0.08 K/L [facility] Immature 1 0 - 1 % [facility] Granulocytes-Relative [facility] Specimen Blood Performing Organization Address City/State/Zipcode Phone Number [address] [address] [facility] * Basic Metabolic Panel (03/01/2018 6:03 PM [facility]) Only the most recent of 10 results within the time period is included. Sodium 142 136 - 145 meq/L [facility] Potassium 3.5 3.5 - 5.1 meq/L [facility] Chloride 98 98 - 107 meq/L [facility] CO2 30 (H) 22 - 29 meq/L [facility] BUN 34 (H) 7 - 21 mg/dL [facility] Creatinine 14.79 (H) 0.57 - 1.25 mg/dL [facility] Glucose 121 (H) 70 - 105 mg/dL [facility] Calcium 8.8 8.4 - 10.2 mg/dL [facility] EGFR Comment: INSUFFICIENT CLINICAL mL/min/1.73 sq m [facility] DATA TO CALCULATE ESTIMATED [facility] GFR. Specimen Blood Performing Organization Address City/State/Zipcode Phone Number [facility] [address] [place] [address] [facility] * IR Venogram - Extremity Bilateral (02/20/2018 8:45 AM [facility]) Narrative Performed At FINAL REPORT [facility] Bilateral upper extremity venogram, 02/20/2018. History: Renal [...] MD Report Verified Date/Time:02/20/2018 16:41:39 Reading Location: [place] [address] Angio Body Reading Room Procedure Note Interface, External Ris In - 02/20/2018 4:43 PM [facility] FINAL REPORT Bilateral upper extremity venogram, 02/20/2018. [...] Report Verified Date/Time: 02/20/2018 16:41:39 Reading Location: [place] [address] Angio Body Reading Room Performing Organization Address City/State/Zipcode Phone Number [facility] * Prealbumin (02/20/2018 4:57 AM [facility]) Only the most recent of 2 results within the time period is included. Prealbumin 23 14 - 45 mg/dL [facility] Specimen Blood - Arm, Right Performing Organization Address City/State/Zipcode Phone Number [facility] [address] [place] [address] [facility] * HEMODIALYSIS INPATIENT (02/19/2018 12:57 PM [facility]) Narrative Performed At Guillermina Abraham RN 02/19/2018 12:57 PM HDX4 hours completed,UF-2L, patient tolerated well. * Vancomycin level, random (02/19/2018 4:10 AM [facility]) Only the most recent of 3 results within the time period is included. Vancomycin Rm 16.2 ug/mL [facility] Specimen Blood Narrative Performed At Reference Range: No Normals [facility] Performing Organization Address City/[facility]/Zipcode Phone Number [facility] [address] [place] [address] [facility] * CBC (Hemogram only) (02/18/2018 4:11 AM [facility]) Only the most recent of 5 results within the time period is included. WBC 11.0 (H) 3.5 - 10.5 K/L [facility] RBC 3.27 (L) 4.63 - 6.08 M/L [facility] Hemoglobin 9.1 (L) 13.7 - 17.5 GM/DL [facility] Hematocrit 29.7 (L) 40.1 - 51.0 % [facility] MCV 90.8 79.0 - 92.2 fL [facility] MCH 27.8 25.7 - 32.2 pg [facility] MCHC 30.6 (L) 32.3 - 36.5 GM/DL [facility] RDW 13.6 11.6 - 14.4 % [facility] Platelets 149 (L) 150 - 450 K/CU MM [facility] MPV 9.8 9.4 - 12.4 fL [facility] nRBC 0 0 - 0 /100 WBC [facility] Specimen Blood Performing Organization Address City/[facility]/Zipcode Phone Number [facility] [address] [place] [address] [facility] * Phosphorus (02/18/2018 4:11 AM [facility]) Only the most recent of 5 results within the time period is included. Phosphorus 5.1 (H) 2.3 - 4.7 mg/dL [facility] Specimen Blood Performing Organization Address City/State/Zipcode Phone Number [facility] [address] [place] [address] [facility] * HEMODIALYSIS INPATIENT (02/17/2018 7:36 PM [facility]) Narrative Performed At Chandler Staley RN 02/17/20187:38 PM Received pt on NPO post ct scan. Pt awake alert. Explained hd tx plan today pt agreed verbalized understanding. Lab Results Component Value Date WBC 9.7 02/17/2018 HGB 9.9 (L) 02/17/2018 HCT 31.5 (L) 02/17/2018 MCV 91.0 02/17/2018 PLT 146 (L) 02/17/2018 Chemistry Component Value Date/Time NA 134 (L) 02/17/2018 0417 K 4.3 02/17/2018416 CL 99 02/17/2018416 CO2 20 (L) 02/17/2018 041 BUN 44 (H) 02/17/2018416 CREATININE 15.26 (H) 02/17/2018 0417 Component Value Date/Time CALCIUM 7.1 (L) 02/17/2018 0417 ALKPHOS 66 02/12/20182053 AST 18 02/12/20182053 ALT 13 02/12/20182053 BILITOT 0.3 02/12/20182053 Results for ROGERIO GILLIAM ( ) as of 02/17/2018 19:37 Ref. Range 02/14/2018 18:34 Hepatitis B Surface Ag Latest Ref Range: NonreactiveNonreactive To monitor pt. * CT abdomen/pelvis with IV contrast (02/17/2018 3:53 PM [facility]) Narrative Performed At FINAL REPORT [facility] INDICATION: 47-year-old male with abdominal pain. Evaluate [...] the gallbladder. No biliary ductal dilatation. Atrophic paimiut kidneys are noted. There is scattered moderate calcified plaque of the abdominal aorta and visceral arteries. Osseous structures unremarkable. IMPRESSION: Interval ligation of renal transplant artery and left epigastric artery with small left rectus hematoma. No bowel obstruction. Signed: Narciso Mccauley MD Report Verified Date/Time:02/17/2018 17:50:40 Reading Location: [address] Consult Reading Room Procedure Note Interface, External Ris In - 02/17/2018 5:52 PM [facility] FINAL REPORT INDICATION: 47-year-old male with abdominal [...] the gallbladder. No biliary ductal dilatation. Atrophic paimiut kidneys are noted. There is scattered moderate calcified plaque of the abdominal aorta and visceral arteries. Osseous structures unremarkable. IMPRESSION: Interval ligation of renal transplant artery and left epigastric artery with small left rectus hematoma. No bowel obstruction. Signed: Narciso Mccauley MD Report Verified Date/Time: 02/17/2018 17:50:40 Reading Location: [facility] B1 [id number] Consult Reading Room Performing Organization Address City/State/Zipcode Phone Number RIS * Vancomycin level, trough (02/17/2018 4:17 AM [facility]) Vancomycin Tr 25.3 (H) 10.0 - 20.0 ug/mL [facility] Specimen Blood - Arm, Right Performing Organization Address City/[facility]/Zipcode Phone Number [facility] [address] [place] [address] [facility] * XR abdomen / KUB 1 view (02/16/2018 6:46 PM [facility]) Narrative Performed At FINAL REPORT [facility] [...] MD Report Verified Date/Time:02/16/2018 19:13:54 Reading Location: [facility] [id number] Transitional Reading Room Procedure Note Interface, External Ris In - 02/16/2018 7:16 PM [facility] FINAL REPORT RAD, ABDOMEN/KUB, 1 VIEW AP [...] Report Verified Date/Time: 02/16/2018 19:13:54 Reading Location: [address] Transitional Reading Room Performing Organization Address [facility] Phone Number [facility] * Wound culture + gram stain (02/14/2018 10:00 PM [facility]) Result No growth [facility] Specimen Wound - Abdomen Performing Organization Address [facility] Phone Number [address] * Hepatitis C antibody (02/14/2018 6:34 PM [facility]) Hepatitis C Ab NON-REACTIVE Nonreactive [facility] Specimen Blood Performing Organization Address [facility] Phone Number [address] * Hepatitis B core antibody, IgM (02/14/2018 6:34 PM [facility]) Hep B C IgM NON-REACTIVE Nonreactive [facility] Specimen Blood Performing Organization Address [facility] Phone Number [address] * Hepatitis B core antibody, total (02/14/2018 6:34 PM [facility]) Hep B Core Total Ab NON-REACTIVE Nonreactive [facility] Specimen Blood Performing Organization Address [facility] Phone Number [address] * Hepatitis B surface antigen (02/14/2018 6:34 PM [facility]) hepatitis B Surface Ag NON-REACTIVE Nonreactive [facility] Specimen Blood Performing Organization Address City/[facility]/Zipcode Phone Number [facility] [address] [place] [address] [facility] * Prepare RBC (02/14/2018 5:10 PM [facility]) CROSSMATCH COMPATIBLE SAFETRACE TX Unit ABO O Pos SAFETRACE TX UNIT NUMBER [id number] SAFETRACE TX Status RETURNED FROM ISSUE SAFETRACE TX Blood Bank Product RED BLOOD CELLS SAFETRACE TX PRODUCT CODE [id number] SAFETRACE TX CROSSMATCH COMPATIBLE SAFETRACE TX Unit ABO O Pos SAFETRACE TX UNIT NUMBER [id number] SAFETRACE TX Status RETURNED FROM ISSUE SAFETRACE TX Blood Bank Product RED BLOOD CELLS SAFETRACE TX PRODUCT CODE [id number] SAFETRACE TX CROSSMATCH COMPATIBLE SAFETRACE TX Unit ABO O Pos SAFETRACE TX UNIT NUMBER [id number] SAFETRACE TX Status READY SAFETRACE TX Blood Bank Product RED BLOOD CELLS SAFETRACE TX PRODUCT CODE [id number] SAFETRACE TX CROSSMATCH COMPATIBLE SAFETRACE TX Unit ABO O Pos SAFETRACE TX UNIT NUMBER [id number] SAFETRACE TX Status READY SAFETRACE TX Blood Bank Product RED BLOOD CELLS SAFETRACE TX PRODUCT CODE [id number] SAFETRACE TX Performing Organization Address [facility] Phone Number SAFETRACE [place] * [place] radio division lieutenant in or 30 minute increments (02/14/2018 4:35 PM [facility]) Narrative Performed At FINAL REPORT [facility] Fluoroscopy one view intraoperative 02/14/2018 5:31 PM CLINICAL HISTORY: Instrument localization COMPARISON: None available IMPRESSION: Please correlate imaging report findings with the procedure note prepared by Dr. Meza, as an intra-procedure imaging consultation was not requested. Reported cumulative dose: 0.260 mGy. Signed: Jarad Olivares MD Report Verified Date/Time:02/17/2018 10:51:13 Reading Location: [facility] Radiology Reading Room Procedure Note Interface, External Ris In - 02/17/2018 10:53 AM [facility] FINAL REPORT Fluoroscopy one view intraoperative 02/14/2018 5:31 PM CLINICAL HISTORY: Instrument localization COMPARISON: None available IMPRESSION: Please correlate imaging report findings with the procedure note prepared by Dr. Meza, as an intra-procedure imaging consultation was not requested. Reported cumulative dose: 0.260 mGy. Signed: Jarad Olivares MD Report Verified Date/Time: 02/17/2018 10:51:13 Reading Location: [facility] Radiology Reading Room Performing Organization Address City/[facility] Phone Number GE RIS * AFB culture + smear (02/14/2018 4:19 PM [facility]) Only the most recent of 2 results within the time period is included. Result No acid-fast bacilli isolated [facility] in 42 days [facility] AFB Smear No acid fast bacilli seen [facility] Specimen Tissue - Kidney Performing Organization Address [facility] [place] [address] [phone] [place] [address] * Anaerobic culture (02/14/2018 4:19 PM [facility]) Only the most recent of 2 results within the time period is included. Result No anaerobes isolated [facility] Specimen Tissue - Kidney Performing Organization Address [facility] Phone Number [address] [address] [facility] * Surgically obtained culture + gram stain (02/14/2018 4:19 PM [facility]) Result No growth [facility] Gram Stain Result <1+ White blood cells seen [facility] Gram Stain Result No organisms seen [facility] Specimen Tissue - Kidney Performing Organization Address [facility] Phone Number [address] [address] [facility] * Fungus culture + smear (02/14/2018 4:19 PM [facility]) Only the most recent of 2 results within the time period is included. Result No fungus isolated in 28 days [facility] Fungus Smear No fungi seen [facility] Specimen Tissue - Kidney Performing Organization Address City/[facility]/Zipcode Phone Number [facility] [address] [place] [address] [facility] * SPIN/CONCENTRATION CHARGE (02/14/2018 3:57 PM [facility]) Concentration charged Done [facility] Specimen Other - Abdomen Performing Organization Address City/[facility]/Zipcode Phone Number [facility] [address] [place] [address] [facility] * Tissue Exam (02/14/2018 3:37 PM [facility]) Case Report Surgical Pathology [facility] Report [facility] Case: [id number] Authorizing Provider:Jaye Sweet, Collected: 02/14/2018 Rosa7 Ordering Location: [facility] Received: 02/17/2018 0838 PERIOPERATIVE SERVICES Pathologist: Williams Taveras MD Specimen:Kidney, Transplanted Kidney DIAGNOSIS KIDNEY, ALLOGRAFT, TRANSPLANT [facility] NEPHRECTOMY [facility] - BOTH ANTIBODY- AND CELL-MEDIATED REJECTION, SEVERE, ACUTE AND CHRONIC Signing Pathologist Direct Phone Line: [phone] CPT Code(s) 84162, 43976 x3, 36263, [address]40 [facility] x5, [address] [facility] CLINICAL HISTORY Renal infection [facility] SPECIMEN SOURCE Transplanted kidney [facility] GROSS DESCRIPTION The specimen is received in a [facility] formalin-filled container [facility] labeled with the patient's information and labeled "transplanted kidney" and consists of a fragmented transplanted nephrectomy weighing 165 gm collectively and measuring approximately 9.5 x 5 x 5 cm. 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 Grossly no masses are identified. Jet Mechanic sections are submitted in A1-A6. 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 [...] lamellations. SPECIAL STUDIES The interpretation of this [facility] case included the use of [facility] immunohistochemistry or special stains. Immunohistochemistry technical testing was performed at [facility], Pathology Laboratory where it was developed [...] Kidney Performing Organization Address City/State/Zipcode Phone Number [phone] [place] [address] * Sodium Na-Stat Lab (02/14/2018 3:19 PM [facility]) Sodium 134 (L) 135 - 148 meq/L [facility] Specimen Blood, Arterial Performing Organization Address City/State/Zipcode Phone Number [address] * Calcium, Ionized (02/14/2018 3:19 PM [facility]) Calcium, Ion 0.89 (L) 1.12 - 1.27 mmol/L [facility] pH, Blood 7.43 [facility] Specimen Blood Performing Organization Address City/[facility]/Zipcode Phone Number [address] * Blood gas, arterial (02/14/2018 3:19 PM [facility]) pH, Arterial 7.43 7.35 - 7.45 [facility] pCO2, Arterial 36 35 - 45 mmHg [facility] pO2, Arterial 121 (H) 80 - 90 mmHg [facility] O2 Sat, Arterial 98.6 (H) 96.0 - 97.0 % [facility] HCO3, Arterial 23 21 - 29 mmol/L [facility] Base Excess, Arterial -1.0 -2.0 - 3.0 mmol/L [facility] Patient Temperature 35.4 C [facility] FIO2 56.0 % [facility] Specimen Blood, Arterial Performing Organization Address [facility] Phone Number [facility] [address] [place] [address] [facility] * ECG 12 lead (02/14/2018 8:55 AM [facility]) Narrative Performed At Ventricular Rate 59 BPM GE MUSE Atrial Rate 59 BPM P-R Interval 162 ms QRS Duration 106 ms Q-T Interval 546 ms QTC Calculation(Bazett) 540 ms P [place] 46 degrees R [place] -5 degrees T [place] 44 degrees Sinus bradycardia Prolonged QT Abnormal ECG When compared with ECG of 17-JAN-1998 10:27, Vent. rate has decreased BY36 BPM Nonspecific T wave abnormality no longer evident in Inferior leads T wave inversion now evident in Anterior leads QT has lengthened Confirmed by MD TAMMY, IHAB ([id number]) on 02/14/2018 12:35:09 PM Procedure Note Interface, External Ris In - 02/14/2018 12:35 PM [facility] Ventricular Rate 59 BPM Atrial Rate 59 BPM P-R Interval 162 ms QRS Duration 106 ms Q-T Interval 546 ms QTC Calculation(Bazett) 540 ms P [place] 46 degrees R [place] -5 degrees T [place] 44 degrees Sinus bradycardia Prolonged QT Abnormal ECG When compared with ECG of 17-JAN-1998 10:27, Vent. rate has decreased BY 36 BPM Nonspecific T wave abnormality no longer evident in Inferior leads T wave inversion now evident in Anterior leads QT has lengthened Confirmed by MD TAMMY, IHAB ([id number]) on 02/14/2018 12:35:09 PM Performing Organization Address [facility] Phone Number GE MUSE * Lactic acid, venous, whole blood Daily (02/14/2018 6:32 AM [facility]) Only the most recent of 3 results within the time period is included. Lactate, Venous 0.5 0.5 - 2.2 mmol/L [facility] Specimen Blood - Arm, Right Performing Organization Address [facility]/Zipcode Phone Number [facility] [address] [place] [address] [facility] * Body fluid cell count with differential (02/13/2018 12:00 AM [facility]) Appearance Clear Clear [facility] Color Colorless Colorless, Straw [facility] RBCs 570 (H) <=1 /cu mm [facility] Adjusted WBC Count 163 (H) <=5 /cu mm [facility] Lining Cells 0 <=1 /cu mm [facility] % Segs 3 % [facility] % Lymphs 41 % [facility] % Monos 55 % [facility] % Eos 1 % [facility] % Baso 0 % [facility] Container Body Fluid EDTA Tube [facility] Specimen Body Fluid - Ascites Performing Organization Address City/[facility] Phone Number [address] * Body fluid culture + gram stain (02/12/2018 11:38 PM [facility]) Result No growth [facility] Gram Stain Result <1+ White blood cells seen [facility] Gram Stain Result No organisms seen [facility] Specimen Body Fluid - Peritoneal Dialysis Fluid Performing Organization Address City/[facility] Phone Number [place] [phone] * aPTT (02/12/2018 8:54 PM [facility]) PTT 39.4 (H) 22.5 - 36.0 seconds [facility] Specimen Blood - Arm, Right Performing Organization Address City/[facility]/Zipcode Phone Number [address] * Lipase (02/12/2018 8:54 PM [facility]) Lipase 20 8 - 78 U/L [facility] Specimen Blood - Arm, Right Performing Organization Address City/[facility]/Zipcode Phone Number [facility] [address] [place] [phone] [place] [address] * Hepatic function panel (02/12/2018 8:54 PM [facility]) Protein, Total 6.8Comment: Specimen slightly 6.0 - 8.3 gm/dL [facility] Albumin 3.1 (L)Comment: Specimen 3.5 - 5.0 g/dL [facility] Total Bilirubin 0.3Comment: Specimen slightly 0.2 - 1.2 mg/dL [facility] Bilirubin, Direct 0.2Comment: Specimen slightly 0.1 - 0.5 mg/dL [facility] Alkaline Phosphatase 66 40 - 150 U/L [facility] AST 18Comment: Specimen slightly 5 - 34 U/L [facility] ALT 13Comment: Specimen slightly 6 - 55 U/L [facility] Specimen Blood - Arm, Right Performing Organization Address City/State/Zipcode Phone Number [facility] [address] [place], [place] [phone] [place] [address] * XR chest 1 view portable / bedside (02/12/2018 8:31 PM [facility]) Narrative Performed At FINAL REPORT RIS Exam: Chest radiograph Clinical History: Leukocytosis, vomiting Findings: The cardiomediastinal silhouette and lungs are normal. The regional skeleton and soft tissue are unremarkable.There is no evidence of pleural effusion or pneumothorax. Impression: No radiographic evidence of acute cardiopulmonary disease. Signed: Masoud Zuluaga MD Report Verified Date/Time:02/12/2018 23:46:46 Reading Location: [address] Consult Reading Room Procedure Note Interface, External Ris In - 02/12/2018 11:49 PM [facility] FINAL REPORT Exam: Chest radiograph Clinical History: Leukocytosis, vomiting Findings: The cardiomediastinal silhouette and lungs are normal. The regional skeleton and soft tissue are unremarkable. There is no evidence of pleural effusion or pneumothorax. Impression: No radiographic evidence of acute cardiopulmonary disease. Signed: Masoud Zuluaga MD Report Verified Date/Time: 02/12/2018 23:46:46 Reading Location: [facility] [id number] Consult Reading Room Performing Organization Address City/[facility] Phone Number GE RIS * Procalcitonin (02/12/2018 6:35 PM [facility]) Procalcitonin 0.75 (H) <0.05 ng/mL [facility] Specimen Blood - Line, Arterial Narrative Performed At SEPSIS RISK (ng/mL) [facility] Low:0.05-0.50 [facility] Intermediate: 0.51-2.00 High: >=2.01 Performing Organization Address [facility] Phone Number [address] * Blood culture #2 (02/12/2018 6:33 PM [facility]) Only the most recent of 2 results within the time period is included. Result No growth in 5 days [facility] Specimen Blood - Arm, Right Performing Organization Address [facility] Phone Number [phone] [place] [address] * POC-Lactic Acid, Venous (02/12/2018 6:18 PM [facility]) POC-Lactic Acid, Venous 2.1 (H)Comment: TESTED AT 0.9 - 1.7 mmol/L [address] [address] Specimen Blood Performing Organization Address [facility] [place] [place] [address] [phone] after 05/19/2017 Insurance Payer Benefit Subscriber ID Type Phone Address Plan / Group MEDICARE MEDICARE A xxxxxxxxxxx Medicare B [facility] xxxxxxxxx MEDICARE MGD CARE MEDICARE HMO MEDICAID - MEDICAID MGD ARLEEN xxxxxxxxx Medicaid CARE COMM STAR Contracted PLAN Advance Directives For more information, please contact: [address] [address] Date Inactivated Comments Code Status Date Activated Full Code 03/28/2018 11:36 AM This code status was determined by: Patient 03/01/2018 5:12 PM Full Code 02/12/2018 6:00 PM This code status was determined by: Patient
--- OUTSIDE RECORDS SUMMARY | 2018-05-20 06:50 | XMS REPORT | Clinical Summary ---
Author Author [facility] Organization [facility] Address Unknown Phone Unavailable Care Team Providers Care Alteration Tailor Name Role Phone Sourav Harmon MD PCP [...] 08/19/2017 Telephone Transplant Ben Hernandez TXP - [facility] COMM PLAN [place] - RENAL EVAL APPRVL 08/16/2017 Documentation Transplant Natasha White MA Referral - Kidney Txp 07/22/2017 Telephone Transplant after 05/19/2017 Family History Medical History Relation Name Comments [...] / Lot Implanted Type Area Manufactur er [id number] / / Particle Hmstc Absrbl Allison 5gm Surgical N/A: N/A MEDAFOR [facility] - [id number] Implants; Implanted: Qty: 1 on 01/25/2017 by [employer]; Lawson Caldwell MD Extenders; Surgical Wires 09/25/2021 [id number] / [id number] / [id number] Graft Vasclr [place] 10cm Vascular N/A: N/A W L GORE 6mm - [id number] - [id number] Graft Implanted: Qty: 1 on 01/25/2017 by Lawson Caldwell MD Results Not on fileafter 05/19/2017 Insurance Payer Benefit Subscriber ID Type Phone Address Plan / Group MEDICARE MEDICARE xxxxxxxxxx Medicare [place], [place] PART A AND B [facility] MEDICAID [facility] xxxxxxxxx HMO COMM STAR+ ARLEEN Advance Directives Patient has advance care planning documents, and code status on file. For more i nformation, please contact: Gary Harrison [address] [place] [address] Date Inactivated Comments Code Status Date Activated 07/05/2016 8:47 PM Full Code 06/30/2016 7:16 AM Code Status decision reached by: Patient
--- NOTE | 2018-05-20 07:28 | NUR ---
DR. SIMEON IN TO KRISTIEAL PT.
[2018-05-20] MEDS ORDERED: LABETALOL HCL200 MG PO (07:31)
[2018-05-20] MEDS ORDERED: BUSPIRONE HCL5 MG PO (07:31)
[2018-05-20] MEDS ORDERED: CLONIDINE1 EAC1 (07:33)
[2018-05-20] MEDS ORDERED: PROMETHAZINE HCL 25 MG SUPP ONE (07:43)
[2018-05-20] MEDS ORDERED: HYDRALAZINE HCL 20 MG/ML VIAL ONE (08:00)
[2018-05-20] MEDS ORDERED: PROMETHAZINE HCL 25 MG SUPP PR ONE (08:00)
[2018-05-20] MEDS ORDERED: ASPIRIN 81 MG CHEW TAB PO ONE (08:00)
[2018-05-20] MEDS ORDERED: SODIUM BICARBONATE 8.4% SYRING 50 ML ONE (08:01)
[2018-05-20] MEDS ORDERED: ONDANSETRON HCL INJ 2MG/ML 2ML 2 MG/ML VIAL IV ONE (08:15)
[2018-05-20] MEDS ORDERED: SODIUM CHLORIDE 0.9% 1000ML 1,000 ML IV STA (08:19)
[2018-05-20] MEDS ORDERED: SODIUM BICARBONATE 8.4% INJ 50 ML SYR IV ONE (08:30)
[2018-05-20] MEDS ORDERED: LABETALOL HCL 20 MG/4 ML SYRINGE IV ONE ×2 (08:30→10:00)
[2018-05-20] MEDS ORDERED: HYDROMORPHONE 2MG/ML 2 MG/ML ML IV ONE ×3 (08:30→11:15)
[2018-05-20 08:40] LABS: BASOPHILS # (AUTO) 0.1 (0.0-0.1); BASOPHILS % 0.9 % (0.0-1.0); EOSINOPHILS # (AUTO) 0.4 (0.0-0.4); EOSINOPHILS % 4.5 % (0.0-6.0); HEMATOCRIT 35.7 % (38.2-49.6); HEMOGLOBIN 11.3 g/dL (14.0-18.0); LYMPHOCYTES # (AUTO) 1.9 (1.0-3.2); LYMPHOCYTES % 19.6 % (18.0-39.1); MEAN CORPUSCULAR HEMOGLOBIN 29.3 pg (28-32); MEAN CORPUSCULAR HGB CONC 31.7 g/dL (31-35); MEAN CORPUSCULAR VOLUME 92.5 fL (81-99); MONOCYTES # (AUTO) 0.9 (0.2-0.8); MONOCYTES % 9.2 % (4.4-11.3); NEUTROPHILS # (AUTO) 6.3 (2.1-6.9); NEUTROPHILS % 65.5 % (38.7-80.0); RED BLOOD COUNT 3.86 x10e6/uL (4.3-5.7); RED CELL DISTRIBUTION WIDTH 16.3 % (11.7-14.4)
[2018-05-20 08:41] LABS: PLATELET COUNT 107 x10e3/uL (140-360)
[2018-05-20 08:49] LABS: ALBUMIN 4.3 g/dL (3.5-5.0); ALBUMIN/GLOBULIN RATIO 1.2 (0.8-2.0); ANION GAP 23.2 mmol/L (8-16); CALCIUM 9.6 mg/dL (8.4-10.2); CREATININE, SERUM 15.32 mg/dL (0.72-1.25)
[2018-05-20 08:54] LABS: POTASSIUM 5.2 mmol/L (3.5-5.1)
[2018-05-20 08:55] LABS: CREATINE KINASE MB 1.1 ng/mL (0-5.0)
--- NOTE | 2018-05-20 08:59 | Diagnostic Imaging Report ---
Examination: Single AP view of the chest. COMPARISON: Chest radiograph 05/04/2018 INDICATION: Cough. DISCUSSION: Lines/tubes: A left-sided tunneled central venous catheter which terminates in the upper SVC. Lungs: Moderate inflation of the lungs. There is central vascular congestion. There are mild interstitial opacities. No evidence of lobar consolidation. Pleura: No pleural effusion or pneumothorax. Heart and mediastinum: Mildly enlarged cardiomediastinal silhouette. Bones and soft tissues: No acute osseous abnormality. Partially seen vascular calcifications involving the bilateral arms. Surgical clips project over the right upper arm. IMPRESSION: Mild cardiomegaly with mild interstitial edema. No evidence of lobar pneumonia. Signed by: Dr. Ashish Johnson MD on 05/20/2018 8:56 AM
--- NOTE | 2018-05-20 09:31 | Diagnostic Imaging Report ---
EXAM: CTA Abdomen and Pelvis with contrast INDICATION: Diffuse abdominal pain, uncontrolled hypertension. COMPARISON: CT abdomen/pelvis 02/12/2018. TECHNIQUE: Abdomen and pelvis were scanned utilizing a multidetector helical scanner from the lung base to the pubic symphysis before and after administration of IV contrast. Coronal and sagittal reformations were obtained. CT Angiogram protocol was performed. Scan was performed when during arterial phase. 3D reformats were performed and reviewed. IV CONTRAST: 100 cc of Isovue 370. ORAL CONTRAST: Water COMPLICATIONS: None RADIATION DOSE: Total DLP: 451.2 mGy*cm Dose modulation, iterative reconstruction, and/or weight based adjustment of the mA/kV was utilized to reduce the radiation dose to as low as reasonably achievable. FINDINGS: VASCULAR FINDINGS: Abdominal aorta and proximal branches: No evidence of abdominal aortic aneurysm or dissection. The abdominal aorta at the diaphragmatic hiatus measures up to 2.8 cm, at the renal arteries measures up to 2.5 cm, infrarenally measures 2.1 cm, and at the aortic bifurcation 1.8 cm. There are moderate atherosclerotic changes within the abdominal aorta and mesenteric vessels. The celiac artery and SMA appear widely patent. The MAXIM demonstrates calcified aspect changes and is widely patent. The SMA and celiac artery and their branches appear diffusely ectatic. There are single bilateral renal arteries with extensive atherosclerotic changes with likely multifocal moderate severe stenoses on the left. The previously noted left transplant renal artery is visualized at the origin but has likely been resected in the interval beyond this point. Bilateral common, internal, and external iliac arteries appear widely patent. Extensive calcified atherosclerotic changes within the common femoral arteries and proximal superficial and deep femoral arteries bilaterally which appear patent. NON-VASCULAR: Somewhat limited evaluation secondary to motion in the mid abdomen. LINES and TUBES: None. LOWER THORAX: Unremarkable HEPATOBILIARY: Limited evaluation secondary to phase of contrast. No definite mass lesion or biliary ductal dilatation. SPLEEN: No splenomegaly. PANCREAS: No evidence of focal mass. ADRENALS: No adrenal nodules KIDNEYS/URETERS: The kidneys are atrophic bilaterally with numerous hypodensities, likely cysts. GI TRACT: The mid evaluation of the bowel secondary to lack of oral contrast and motion. The colon appears decompressed with mild thick butler in the descending colon, sigmoid colon, and rectum, for example on series 4, image 103. No evidence of bowel obstruction. PELVIC ORGANS/BLADDER: Limited evaluation secondary to motion and streak artifact, however previously noted transplant left pelvic kidney is not visualized, and may have been removed in the interval. LYMPH NODES: No lymphadenopathy. PERITONEUM / RETROPERITONEUM: Interval near resolution of previously seen moderate free fluid. Trace free fluid in the pelvis. No free air. BONES AND SOFT TISSUES: No acute osseous abdomen. No suspicious lytic or blastic regions. CONCLUSION: No evidence of aortic aneurysm or dissection. Patent mesenteric vasculature. Diffusely ectatic iliac artery, SMA, and branch vessels. This may reflect long-standing hypertension, and is similar to prior studies. Limited evaluation of visceral structures secondary to motion artifact and lack of oral contrast. Decompressed colonic loops which appear mildly thick-walled. Suggest clinical correlation for potential colitis. While limited evaluation secondary to motion and streak artifact, the previous left pelvic kidney is no longer visualized, and has likely been removed in the interval. Interval near resolution of previously seen moderate free fluid in this patient who was on peritoneal dialysis in the past. Trace free fluid in the pelvis. Signed by: Dr. Ashish Johnson MD on 05/20/2018 9:27 AM
[2018-05-20 10:28] LABS: OCCULT BLOOD STOOL POSITIVE (NEGATIVE)
[2018-05-20] MEDS ORDERED: NICARDIPINE 20MG/200ML PREMIX 200 ML IV ONE (10:30)
[2018-05-20 10:58] LABS: C DIFFICILE TOXIN A&B AMP PROB NEGATIVE (NEGATIVE)
[2018-05-20] MEDS ORDERED: DIPHENHYDRAMINE HCL INJ 50 MG/ML VIAL IV ONE (11:15)
[2018-05-20] MEDS ORDERED: METOCLOPRAMIDE HCL 10 MG/2ML VIAL IV ONE (11:15)
[2018-05-20] MEDS ORDERED: IOPAMIDOL 370 MG/ML 200 ML INFUS..BTL INJ ONE (11:17)
--- NOTE | 2018-05-20 12:37 | Diagnostic Imaging Report ---
Examination: CT BRAIN WITH CONTRAST History:Confusion Comparison studies:None Technique: Axial images were obtained from the skull base to the vertex. Coronal and sagittal images reconstructed from the axial data. Dose modulation, iterative reconstruction, and/or weight based adjustment of the mA/kV was utilized to reduce the radiation dose to as low as reasonably achievable. Intravenous contrast: 100mL Isovue Findings: Scalp: No abnormalities. Bones: No fractures, blastic or lytic lesions. Brain sulci: Appropriate for age. Ventricles: Normal in size and configuration. No hydrocephalus. Extra-axial space: No abnormalities. Parenchyma: No masses, hemorrhage, or acute or chronic cortical based vascular insults. Enhancement: No abnormal enhancement. Sellar/suprasellar region: No abnormalities. Craniocervical junction: Patent foramen magnum. No Chiari one malformation. Incidental findings: Atherosclerotic calcification of the cavernous and supraclinoid internal carotid arteries. Impression: No intracranial abnormalities. Signed by: Dr. Mary Beth Orozco M.D. on 05/20/2018 12:34 PM
--- NOTE | 2018-05-20 13:30 | NUR ---
CARGOMAN AT BEDSIDE FOR GALLBLADDER ULTRASOUND AT THIS TIME.
[2018-05-20] MEDS ORDERED: SODIUM CHLORIDE FLUSH 10 ML SYR INJ PRN (14:30)
--- NOTE | 2018-05-20 14:37 | Diagnostic Imaging Report ---
EXAM: Right upper quadrant abdominal ultrasound INDICATION: Right upper quadrant pain COMPARISON: CTA abdomen/pelvis 05/20/2018. TECHNIQUE: Transverse and longitudinal images of the right upper quadrant abdomen were obtained FINDINGS: Liver: Size: 16.7 cm in the right midclavicular line Appearance: Normal echogenicity, smooth contour Mass: No focal masses Gallbladder: No distention, pericholecystic fluid, wall thickening, stone, or reported sonographic Rojo's sign. Gallbladder wall measures 0.2 cm. Spleen: 10.5 cm. Unremarkable in appearance. Bile Ducts: Intrahepatic Ducts: No dilatation Extrahepatic Ducts: Common bile duct measures 0.7 cm, no dilatation Pancreas: Visualized portions of the pancreatic head, neck and proximal body are normal. Kidney: The right kidney is atrophic and measures 6.2 cm without evidence of hydronephrosis or stone. There is increased right renal echogenicity. Multiple small right renal cysts. Left kidney is not visualized due to overlying bowel gas. Vessels: Aorta: Visualized portions are normal Inferior Vena Cava: Visualized portions are normal Main Portal Vein: 1.5 cm, normal size with hepatopetal flow. Free Fluid: No evidence of ascites. IMPRESSION: No sonographic evidence of cholelithiasis or cholecystitis. Pancreas is unremarkable in appearance. Hepatomegaly. Atrophic right kidney with increased echogenicity and multiple small cysts, suggestive of chronic kidney disease. Left kidney not visualized due to overlying bowel gas. Signed by: Dr. Ashish Johnson MD on 05/20/2018 2:33 PM
--- OUTSIDE RECORDS SUMMARY | 2018-05-20 14:46 | XMS REPORT | Clinical Summary ---
Author Author [facility] Organization [facility] Address Unknown Phone Unavailable Care Team Providers Care Convention Worker Name Role Phone Sourav Harmon MD [...] 08/19/2017 Telephone Transplant Ben Hernandez TXP - [facility] COMM PLAN [place] - RENAL [...] / Lot Implanted Type Area Manufactur er [id number] / / Particle [facility] Absrbl Allison 5gm Surgical N/A: N/A [employer] [facility] - [id number] Implants; Implanted: Qty: 1 on 01/25/2017 by [employer]; Lawson Caldwell MD Extenders; Surgical Wires 09/25/2021 [id number] / [id number] / [id number] Graft Vasclr [place] 10cm Vascular N/A: N/A W L GORE 6mm - [id number] - [id number] Graft Implanted: Qty: 1 on 01/25/2017 by Lawson Caldwell MD Results Not on fileafter 05/19/2017 Insurance Payer Benefit Subscriber ID Type Phone Address Plan / Group MEDICARE MEDICARE xxxxxxxxxx Medicare [place] PART A AND B [facility] MEDICAID [facility] xxxxxxxxx HMO COMM STAR+ ARLEEN Advance Directives Patient has advance care planning documents, and code status on file. For more i nformation, please contact: Gary Harrison [address] [place] [address] Date Inactivated Comments Code Status Date Activated 07/05/2016 8:47 PM Full Code 06/30/2016 7:16 AM Code Status decision reached by: Patient
--- OUTSIDE RECORDS SUMMARY | 2018-05-20 14:46 | XMS REPORT | Clinical Summary ---
Author Author [facility] Organization [facility] Address Unknown Phone Unavailable Care Team Providers Care Prints And Drawings Curator Name Role Phone Eric Alcala PCP Allergies [...] Elizabeth, NP ESRD (end stage renal disease) ([facility]); S/p nephrectomy; Anemia of chronic disease 03/17/2018 Follow-Up Transplant Hepatology Radha Pérez, MECHE 03/06/2018 Orders Only Cardiology Joanne Alvarez Y Appointment 03/06/2018 Telephone Transplant Haresh Rai MD Clotted vascular catheter, initial encounter ([facility]) (Primary Dx); ESRD (end stage renal disease) ([facility]); Essential hypertension; Anemia due to chronic kidney disease, on chronic dialysis (HCC) 03/01/2018 Emergency Emergency Medicine Melinda Quiros MD Dialysis catheter not working 03/01/2018 Telephone Internal Medicine Radha Pérez, MECHE 02/26/2018 Orders Only Cardiology Joanne Alvarez Y Appointment 02/20/2018 Telephone Transplant Rell Solorzano MD 02/14/2018 Anesthesia Event [facility] Farrah Meza MD NEPHRECTOMY 02/14/2018 Surgery Jarrod Blackman III, MD Athreya, Khannan K., MD Agrawal, Neeraj, MD ESRD (end stage renal disease) ([facility]) (Primary Dx); Peritoneal dialysis status ([facility]); Hypertensive crisis; Failed kidney transplant; Uremia syndrome; Peritonitis (HCC); Anemia of chronic disease; Encounter regarding vascular access for dialysis for end-stage renal disease ([facility]) 02/12/2018 [facility] General [...] Taken Vital Sign Reading 03/28/2018 6:30 PM HOSPITAL ATTENDANT Blood Pressure 155/87 03/28/2018 6:30 PM HOSPITAL ATTENDANT Pulse 82 03/28/2018 6:30 PM HOSPITAL ATTENDANT Temperature 36.3 C (97.4 F) 03/28/2018 6:30 PM HOSPITAL ATTENDANT Respiratory Rate 13 03/28/2018 6:30 PM HOSPITAL ATTENDANT Oxygen Saturation 99% - Inhaled Oxygen - Concentration 03/20/2018 5:25 PM HOSPITAL ATTENDANT Weight 59 kg (130 lb) 03/20/2018 5:25 PM HOSPITAL ATTENDANT Height 165.1 cm (5' 5") 03/20/2018 5:25 PM HOSPITAL ATTENDANT Body Mass Index 21.63 Plan of Treatment Not on file Goals Goal Patient Associated Recent Progress Patient-Stat Author Goal Type Problems ed? Contact counselor available General ESRD on Yes Moises Tatum through your work hemodialysis MD Vlad Note: Depression intervention and follow up Implants Device Identifier Shelf Expiration Date Model / Serial / Lot Implanted Type Area Manufactur er 06/08/2020 [id number] / N/A / [id number] Cath Kt Hd Dl Str [id number] Catheter Left: Neck ANGIODYNAM [id number] - Sn/A Dialysis ICS Implanted: Qty: 1 on 02/14/2018 by [facility] Micki Jayeron Meza MD Procedures Comments Procedure Name Priority Date/Time Associated Diagnosis RHYTHM STRIP - SCAN 04/15/2018 8:30 AM HOSPITAL ATTENDANT TRANSFUSION SERVICE 03/29/2018 REPORT - SCAN 5:53 PM HOSPITAL ATTENDANT CREATION,A-V FISTULA 03/28/2018 End stage renal disease 3:15 PM HOSPITAL ATTENDANT (HCC) TYPE AND SCREEN, Routine 03/28/2018 AUTOMATED 11:57 AM HOSPITAL ATTENDANT PROTHROMBIN TIME/INR STAT 03/28/2018 11:57 AM HOSPITAL ATTENDANT HGB/HCT (H&H) - STAT LAB Routine 03/28/2018 11:57 AM HOSPITAL ATTENDANT GLUCOSE-STAT LAB STAT 03/28/2018 11:57 AM HOSPITAL ATTENDANT POTASSIUM-STAT LAB STAT 03/28/2018 11:57 AM HOSPITAL ATTENDANT CBC W/PLT COUNT & AUTO STAT 03/01/2018 DIFFERENTIAL 6:03 PM HOSPITAL ATTENDANT PT/APTT STAT 03/01/2018 6:03 PM HOSPITAL ATTENDANT BASIC METABOLIC PANEL (7) STAT 03/01/2018 6:03 PM HOSPITAL ATTENDANT CBC W/PLT COUNT & AUTO STAT 03/01/2018 DIFFERENTIAL 6:03 PM HOSPITAL ATTENDANT RHYTHM STRIP - SCAN 02/27/2018 8:40 AM HOSPITAL ATTENDANT CBC W/PLT COUNT & AUTO STAT 02/20/2018 DIFFERENTIAL 12:26 PM HOSPITAL ATTENDANT CBC W/PLT COUNT & AUTO STAT 02/20/2018 DIFFERENTIAL 12:26 PM HOSPITAL ATTENDANT BASIC METABOLIC PANEL (7) STAT 02/20/2018 12:26 PM HOSPITAL ATTENDANT IR VENOGRAM - EXTREMITY Routine 02/20/2018 BILATERAL 8:45 AM HOSPITAL ATTENDANT PREALBUMIN Routine 02/20/2018 4:57 AM HOSPITAL ATTENDANT HEMODIALYSIS INPATIENT Routine 02/19/2018 12:57 PM HOSPITAL ATTENDANT CBC W/PLT COUNT & AUTO STAT 02/19/2018 DIFFERENTIAL 8:08 AM HOSPITAL ATTENDANT BASIC METABOLIC PANEL (7) STAT 02/19/2018 8:08 AM HOSPITAL ATTENDANT CBC W/PLT COUNT & AUTO STAT 02/19/2018 DIFFERENTIAL 8:08 AM HOSPITAL ATTENDANT VANCOMYCIN LEVEL, RANDOM Routine 02/19/2018 4:10 AM HOSPITAL ATTENDANT VANCOMYCIN LEVEL, RANDOM Routine 02/18/2018 4:11 AM HOSPITAL ATTENDANT PHOSPHORUS Routine 02/18/2018 4:11 AM HOSPITAL ATTENDANT CBC (HEMOGRAM ONLY) Routine 02/18/2018 4:11 AM HOSPITAL ATTENDANT BASIC METABOLIC PANEL (7) Routine 02/18/2018 4:11 AM HOSPITAL ATTENDANT HEMODIALYSIS INPATIENT Routine 02/17/2018 7:[address] ABDOMEN/PELVIS WITH IV Routine 02/17/2018 CONTRAST 3:53 PM HOSPITAL ATTENDANT PREALBUMIN Routine 02/17/2018 4:17 AM HOSPITAL ATTENDANT VANCOMYCIN LEVEL, TROUGH Timed 02/17/2018 4:17 AM HOSPITAL ATTENDANT PHOSPHORUS Routine 02/17/2018 4:17 AM HOSPITAL ATTENDANT CBC (HEMOGRAM ONLY) Routine 02/17/2018 4:17 AM HOSPITAL ATTENDANT BASIC METABOLIC PANEL (7) Routine 02/17/2018 4:17 AM HOSPITAL ATTENDANT XR ABDOMEN 1 VIEW Routine 02/16/2018 6:46 PM HOSPITAL ATTENDANT PHOSPHORUS Routine 02/16/2018 5:32 AM HOSPITAL ATTENDANT CBC (HEMOGRAM ONLY) Routine 02/16/2018 5:32 AM HOSPITAL ATTENDANT BASIC METABOLIC PANEL (7) Routine 02/16/2018 5:32 AM HOSPITAL ATTENDANT TRANSFUSION SERVICE 02/15/2018 REPORT - SCAN 6:00 PM HOSPITAL ATTENDANT PHOSPHORUS Routine 02/15/2018 6:11 AM HOSPITAL ATTENDANT CBC (HEMOGRAM ONLY) Routine 02/15/2018 6:11 AM HOSPITAL ATTENDANT BASIC METABOLIC PANEL (7) Routine 02/15/2018 6:11 AM HOSPITAL ATTENDANT WOUND CULTURE + GRAM Routine 02/14/2018 STAIN 10:00 PM HOSPITAL ATTENDANT HEPATITIS C ANTIBODY Routine 02/14/2018 6:34 PM HOSPITAL ATTENDANT HEPATITIS B CORE Routine 02/14/2018 ANTIBODY, TOTAL 6:34 PM HOSPITAL ATTENDANT HEPATITIS B CORE Routine 02/14/2018 ANTIBODY, IGM 6:34 PM HOSPITAL ATTENDANT HEPATITIS B SURFACE Routine 02/14/2018 ANTIGEN 6:34 PM HOSPITAL ATTENDANT VANCOMYCIN LEVEL, RANDOM Routine 02/14/2018 6:34 PM HOSPITAL ATTENDANT HEMODIALYSIS INPATIENT Routine 02/14/2018 6:24 PM HOSPITAL ATTENDANT TRANSFUSION SERVICE 02/14/2018 REPORT - SCAN 6:01 PM HOSPITAL ATTENDANT PREPARE RBC Routine 02/14/2018 5:10 PM HOSPITAL ATTENDANT FL SALES ASSISTANT IN OR 30 Routine 02/14/2018 MINUTE INCREMENTS 4:35 PM HOSPITAL ATTENDANT SURGICALLY OBTAINED GUILLERMINA 02/14/2018 CULTURE + GRAM STAIN 4:19 PM HOSPITAL ATTENDANT FUNGUS CULTURE + SMEAR GUILLERMINA 02/14/2018 4:19 PM HOSPITAL ATTENDANT ANAEROBIC CULTURE GUILLERMINA 02/14/2018 4:19 PM HOSPITAL ATTENDANT AFB CULTURE + SMEAR GUILLERMINA 02/14/2018 4:19 PM HOSPITAL ATTENDANT FUNGUS CULTURE + SMEAR GUILLERMINA 02/14/2018 3:57 PM HOSPITAL ATTENDANT ANAEROBIC CULTURE GUILLERMINA 02/14/2018 3:57 PM HOSPITAL ATTENDANT AFB CULTURE + SMEAR GUILLERMINA 02/14/2018 3:57 PM HOSPITAL ATTENDANT SPIN/CONCENTRATION CHARGE Routine 02/14/2018 3:57 PM HOSPITAL ATTENDANT TISSUE EXAM AP Routine 02/14/2018 3:37 PM HOSPITAL ATTENDANT HGB/HCT (H&H) - STAT LAB STAT 02/14/2018 3:19 PM HOSPITAL ATTENDANT GLUCOSE-STAT LAB STAT 02/14/2018 3:19 PM HOSPITAL ATTENDANT POTASSIUM-STAT LAB STAT 02/14/2018 3:19 PM HOSPITAL ATTENDANT SODIUM NA-STAT LAB STAT 02/14/2018 3:19 PM HOSPITAL ATTENDANT BLOOD GAS, ARTERIAL STAT 02/14/2018 3:19 PM HOSPITAL ATTENDANT CALCIUM, IONIZED STAT 02/14/2018 3:19 PM HOSPITAL ATTENDANT RRL CRITICAL LABS STAT 02/14/2018 (ABG,NA,K,H&H,GLUCOSE) 3:19 PM HOSPITAL ATTENDANT INSERTION,DIALYSIS 02/14/2018 Renal infection CATHETER PERITONEAL 11:22 AM HOSPITAL ATTENDANT REMOVAL,CATHETER 02/14/2018 Renal infection PERITONEAL 11:22 AM HOSPITAL ATTENDANT NEPHRECTOMY 02/14/2018 Renal infection 11:22 AM HOSPITAL ATTENDANT ECG 12-LEAD STAT 02/14/2018 8:55 AM HOSPITAL ATTENDANT PHOSPHORUS Routine 02/14/2018 6:32 AM HOSPITAL ATTENDANT CBC (HEMOGRAM ONLY) Routine 02/14/2018 6:32 AM HOSPITAL ATTENDANT BASIC METABOLIC PANEL (7) Routine 02/14/2018 6:32 AM HOSPITAL ATTENDANT LACTIC ACID, VENOUS Routine 02/14/2018 6:32 AM HOSPITAL ATTENDANT TYPE AND SCREEN, Routine 02/13/2018 AUTOMATED 8:41 PM HOSPITAL ATTENDANT BASIC METABOLIC PANEL (7) Routine 02/13/2018 12:10 PM HOSPITAL ATTENDANT LACTIC ACID, VENOUS Routine 02/13/2018 5:05 AM HOSPITAL ATTENDANT BODY FLUID CELL COUNT Routine 02/13/2018 WITH DIFFERENTIAL 12:00 AM HOSPITAL ATTENDANT BODY FLUID CULTURE + GRAM Routine 02/12/2018 STAIN 11:38 PM HOSPITAL ATTENDANT APTT Routine 02/12/2018 8:54 PM HOSPITAL ATTENDANT PROTHROMBIN TIME/INR Routine 02/12/2018 8:54 PM HOSPITAL ATTENDANT LIPASE Routine 02/12/2018 8:54 PM HOSPITAL ATTENDANT HEPATIC FUNCTION PANEL Routine 02/12/2018 8:54 PM HOSPITAL ATTENDANT LACTIC ACID, VENOUS STAT 02/12/2018 8:54 PM HOSPITAL ATTENDANT XR CHEST 1 VIEW Routine 02/12/2018 PORTABLE/BEDSIDE 8:31 PM HOSPITAL ATTENDANT CBC W/PLT COUNT & AUTO Routine 02/12/2018 DIFFERENTIAL 6:40 PM HOSPITAL ATTENDANT CBC W/PLT COUNT & AUTO Routine 02/12/2018 DIFFERENTIAL 6:40 PM HOSPITAL ATTENDANT PROCALCITONIN STAT 02/12/2018 6:35 PM HOSPITAL ATTENDANT BASIC METABOLIC PANEL (7) Routine 02/12/2018 6:35 PM HOSPITAL ATTENDANT BLOOD CULTURE STAT 02/12/2018 6:33 PM HOSPITAL ATTENDANT BLOOD CULTURE STAT 02/12/2018 6:32 PM HOSPITAL ATTENDANT POCT-LACTIC ACID, VENOUS Routine 02/12/2018 6:18 PM HOSPITAL ATTENDANT after 05/19/2017 Results * RHYTHM STRIP - SCAN (04/15/2018 8:30 AM HOSPITAL ATTENDANT) Only the most recent of 2 results within the time period is included. Narrative Performed At * TRANSFUSION SERVICE REPORT - SCAN (03/29/2018 5:53 PM HOSPITAL ATTENDANT) Only the most recent of 3 results within the time period is included. Narrative Performed At * Potassium-Stat Lab (03/28/2018 11:57 AM HOSPITAL ATTENDANT) Only the most recent of 2 results within the time period is included. Potassium 4.7 3.6 - 5.5 meq/L [facility] Specimen Blood, Arterial Performing Organization Address City/[facility]/[place] [address] [phone] * Glucose-Stat Lab (03/28/2018 11:57 AM HOSPITAL ATTENDANT) Only the most recent of 2 results within the time period is included. Glucose 74 70 - 110 mg/dL [facility] Specimen Blood, Arterial Performing Organization Address City/[facility]/[place] [phone] * Type and screen, automated (03/28/2018 11:57 AM HOSPITAL ATTENDANT) Only the most recent of 2 results within the time period is included. ABO/RH AUTOMATED (BEAKER) O POSITIVE [facility] Ab Scrn NEGATIVE [facility] Specimen Blood Performing Organization Address City/[facility] Phone Number [address] [address] [facility] * HGB/HCT (H&H)-Stat Lab (03/28/2018 11:57 AM HOSPITAL ATTENDANT) Only the most recent of 2 results within the time period is included. Hemoglobin 10.3 (L) 13.0 - 16.8 g/dL [facility] Hematocrit 30.0 (L) 40.0 - 50.0 % [facility] Specimen Blood, Arterial Performing Organization Address [facility] Phone Number [address] [address] [facility] * Prothrombin time/INR (03/28/2018 11:57 AM HOSPITAL ATTENDANT) Only the most recent of 2 results within the time period is included. Protime 14.0 11.7 - 14.7 seconds [facility] INR 1.1 <=5.9 [facility] Specimen Blood Narrative Performed At RECOMMENDED COUMADIN/WARFARIN INR THERAPY RANGES [facility] STANDARD DOSE: 2.0 - 3.0 Includes: PROPHYLAXIS for venous thrombosis, [facility] systemic embolization; TREATMENT for venous thrombosis and/or pulmonary embolus. HIGH RISK: Target INR is 2.5-3.5 for patients with mechanical heart valves. Performing Organization Address City/[facility] Hospital[facility] Phone Number [address] [address] [facility] * PT/aPTT (03/01/2018 6:03 PM HOSPITAL ATTENDANT) Protime 14.0 11.7 - 14.7 seconds [facility] INR 1.1 <=5.9 [facility] PTT 36.2 (H) 22.5 - 36.0 seconds [facility] Specimen Blood Narrative Performed At RECOMMENDED COUMADIN/WARFARIN INR THERAPY RANGES [facility] STANDARD DOSE: 2.0 - 3.0 Includes: PROPHYLAXIS for venous thrombosis, [facility] systemic embolization; TREATMENT for venous thrombosis and/or pulmonary embolus. HIGH RISK: Target INR is 2.5-3.5 for patients with mechanical heart valves. Performing Organization Address City/State/Zipcode Phone Number [facility] [address] [place] [address] MEDICAL [facility]ENTER * CBC with platelet count + automated diff (03/01/2018 6:03 PM HOSPITAL ATTENDANT) Only the most recent of 4 results within the time period is included. WBC 8.2 3.5 - 10.5 K/L [facility] RBC 3.31 (L) 4.63 - 6.08 M/L [facility] Hemoglobin 9.3 (L) 13.7 - 17.5 GM/DL [facility] Hematocrit 30.6 (L) 40.1 - 51.0 % [facility] MCV 92.4 (H) 79.0 - 92.2 fL [facility] MCH 28.1 25.7 - 32.2 pg [facility] MCHC 30.4 (L) 32.3 - 36.5 GM/DL [facility] RDW 14.4 11.6 - 14.4 % [facility] Platelets 221 150 - 450 K/CU MM [facility] MPV 10.1 9.4 - 12.4 fL [facility] nRBC 0 0 - 0 /100 WBC [facility] % Neutros 60 % [facility] % Lymphs 18 % [facility] % Monos 12 % [facility] % Eos 8 % [facility] % Baso 1 % [facility] # Neutros 4.90 1.78 - 5.38 K/L [facility] # Lymphs 1.48 1.32 - 3.57 K/L [facility] # Monos 0.96 (H) 0.30 - 0.82 K/L [facility] # Eos 0.69 (H) 0.04 - 0.54 K/L [facility] # Baso 0.10 (H) 0.01 - 0.08 K/L [facility] Immature 1 0 - 1 % [facility] Granulocytes-Relative [facility] Specimen Blood Performing Organization Address City/State/Zipcode Phone Number [address] [address] [facility] * Basic Metabolic Panel (03/01/2018 6:03 PM HOSPITAL ATTENDANT) Only the most recent of 10 results within the time period is included. Sodium 142 136 - 145 meq/L [facility] Potassium 3.5 3.5 - 5.1 meq/L [facility] Chloride 98 98 - 107 meq/L [facility] CO2 30 (H) 22 - 29 meq/L [facility] BUN 34 (H) 7 - 21 mg/dL [facility] Creatinine 14.79 (H) 0.57 - 1.25 mg/dL [facility] Glucose 121 (H) 70 - 105 mg/dL [facility] Calcium 8.8 8.4 - 10.2 mg/dL [facility] EGFR Comment: INSUFFICIENT CLINICAL mL/min/1.73 sq m [facility] DATA TO CALCULATE ESTIMATED [facility] GFR. Specimen Blood Performing Organization Address City/State/Zipcode Phone Number [facility] [address] [place] [address] [facility] * IR Venogram - Extremity Bilateral (02/20/2018 8:45 AM HOSPITAL ATTENDANT) Narrative Performed At FINAL REPORT [facility] Bilateral upper extremity venogram, 02/20/2018. History: Renal [...] MD Report Verified Date/Time:02/20/2018 16:41:39 Reading Location: [place] [address] Angio Body Reading Room Procedure Note Interface, External Ris In - 02/20/2018 4:43 PM HOSPITAL ATTENDANT FINAL REPORT Bilateral upper extremity venogram, 02/20/2018. [...] Report Verified Date/Time: 02/20/2018 16:41:39 Reading Location: [place] [address] Angio Body Reading Room Performing Organization Address City/State/Zipcode Phone Number [facility] * Prealbumin (02/20/2018 4:57 AM HOSPITAL ATTENDANT) Only the most recent of 2 results within the time period is included. Prealbumin 23 14 - 45 mg/dL [facility] Specimen Blood - Arm, Right Performing Organization Address City/State/Zipcode Phone Number [facility] [address] [place] [address] MEDICAL CENTER * HEMODIALYSIS INPATIENT (02/19/2018 12:57 PM HOSPITAL ATTENDANT) Narrative Performed At Guillermina Abraham RN 02/19/2018 12:57 PM HDX4 hours completed,UF-2L, patient tolerated well. * Vancomycin level, random (02/19/2018 4:10 AM HOSPITAL ATTENDANT) Only the most recent of 3 results within the time period is included. Vancomycin Rm 16.2 ug/mL [facility] Specimen Blood Narrative Performed At Reference Range: No Normals [facility] Performing Organization Address City/[facility]/Zipcode Phone Number [facility] [address] [place] [address] [facility] * CBC (Hemogram only) (02/18/2018 4:11 AM HOSPITAL ATTENDANT) Only the most recent of 5 results within the time period is included. WBC 11.0 (H) 3.5 - 10.5 K/L [facility] RBC 3.27 (L) 4.63 - 6.08 M/L [facility] Hemoglobin 9.1 (L) 13.7 - 17.5 GM/DL [facility] Hematocrit 29.7 (L) 40.1 - 51.0 % [facility] MCV 90.8 79.0 - 92.2 fL [facility] MCH 27.8 25.7 - 32.2 pg [facility] MCHC 30.6 (L) 32.3 - 36.5 GM/DL [facility] RDW 13.6 11.6 - 14.4 % [facility] Platelets 149 (L) 150 - 450 K/CU MM [facility] MPV 9.8 9.4 - 12.4 fL [facility] nRBC 0 0 - 0 /100 WBC [facility] Specimen Blood Performing Organization Address City/[facility]/Zipcode Phone Number [facility] [address] [place] [address] [facility] * Phosphorus (02/18/2018 4:11 AM HOSPITAL ATTENDANT) Only the most recent of 5 results within the time period is included. Phosphorus 5.1 (H) 2.3 - 4.7 mg/dL [facility] Specimen Blood Performing Organization Address City/State/Zipcode Phone Number [facility] [address] [place] [address] [facility] * HEMODIALYSIS INPATIENT (02/17/2018 7:36 PM HOSPITAL ATTENDANT) Narrative Performed At Chandler Staley RN 02/17/20187:38 [...] abdomen/pelvis with IV contrast (02/17/2018 3:53 PM HOSPITAL ATTENDANT) Narrative Performed At FINAL REPORT [employer] INDICATION: 47-year-old male with abdominal pain. Evaluate [...] the gallbladder. No biliary ductal dilatation. Atrophic [place] kidneys are noted. There is scattered moderate calcified plaque of the abdominal aorta and visceral arteries. Osseous structures unremarkable. IMPRESSION: Interval ligation of renal transplant artery and left epigastric artery with small left rectus hematoma. No bowel obstruction. Signed: Narciso Mccauley MD Report Verified Date/Time:02/17/2018 17:50:40 Reading Location: [address] Consult Reading Room Procedure Note Interface, External Ris In - 02/17/2018 5:52 PM HOSPITAL ATTENDANT FINAL REPORT INDICATION: 47-year-old male with abdominal [...] the gallbladder. No biliary ductal dilatation. Atrophic [place] kidneys are noted. There is scattered moderate calcified plaque of the abdominal aorta and visceral arteries. Osseous structures unremarkable. IMPRESSION: Interval ligation of renal transplant artery and left epigastric artery with small left rectus hematoma. No bowel obstruction. Signed: Narciso Mccauley MD Report Verified Date/Time: 02/17/2018 17:50:40 Reading Location: [facility] B[facility] [id number] Consult Reading Room Performing Organization Address City/State/Zipcode Phone Number RIS * Vancomycin level, trough (02/17/2018 4:17 AM HOSPITAL ATTENDANT) Vancomycin Tr 25.3 (H) 10.0 - 20.0 ug/mL [facility] Specimen Blood - Arm, Right Performing Organization Address City/[facility]/Zipcode Phone Number [facility] [address] [place] [address] [facility] * XR abdomen / KUB 1 view (02/16/2018 6:46 PM HOSPITAL ATTENDANT) Narrative Performed At FINAL REPORT [facility] [...] MD Report Verified Date/Time:02/16/2018 19:13:54 Reading Location: [facility] [id number] Transitional Reading Room Procedure Note Interface, External Ris In - 02/16/2018 7:16 PM HOSPITAL ATTENDANT FINAL REPORT RAD, ABDOMEN/KUB, 1 VIEW AP [...] Report Verified Date/Time: 02/16/2018 19:13:54 Reading Location: [address] Transitional Reading Room Performing Organization Address [facility] Phone Number [facility] * Wound culture + gram stain (02/14/2018 10:00 PM HOSPITAL ATTENDANT) Result No growth [facility] Specimen Wound - Abdomen Performing Organization Address [facility] Phone Number [address] * Hepatitis C antibody (02/14/2018 6:34 PM HOSPITAL ATTENDANT) Hepatitis C Ab NON-REACTIVE Nonreactive [facility] Specimen Blood Performing Organization Address [facility] Phone Number [address] * Hepatitis B core antibody, IgM (02/14/2018 6:34 PM HOSPITAL ATTENDANT) Hep B C IgM NON-REACTIVE Nonreactive [facility] Specimen Blood Performing Organization Address [facility] Phone Number [address] * Hepatitis B core antibody, total (02/14/2018 6:34 PM HOSPITAL ATTENDANT) Hep B Core Total Ab NON-REACTIVE Nonreactive [facility] Specimen Blood Performing Organization Address [facility] Phone Number [address] * Hepatitis B surface antigen (02/14/2018 6:34 PM HOSPITAL ATTENDANT) hepatitis B Surface Ag NON-REACTIVE Nonreactive [facility] Specimen Blood Performing Organization Address City/[facility]/Zipcode Phone Number [facility] [address] [place] [address] [facility] * Prepare RBC (02/14/2018 5:10 PM HOSPITAL ATTENDANT) CROSSMATCH COMPATIBLE SAFETRACE TX Unit ABO O Pos SAFETRACE TX UNIT NUMBER [id number] SAFETRACE TX Status RETURNED FROM ISSUE SAFETRACE TX Blood Bank Product RED BLOOD CELLS SAFETRACE TX PRODUCT CODE [id number] SAFETRACE TX CROSSMATCH COMPATIBLE SAFETRACE TX Unit ABO O Pos SAFETRACE TX UNIT NUMBER [id number] SAFETRACE TX Status RETURNED FROM ISSUE SAFETRACE TX Blood Bank Product RED BLOOD CELLS SAFETRACE TX PRODUCT CODE [id number] SAFETRACE TX CROSSMATCH COMPATIBLE SAFETRACE TX Unit ABO O Pos SAFETRACE TX UNIT NUMBER [id number] SAFETRACE TX Status READY SAFETRACE TX Blood Bank Product RED BLOOD CELLS SAFETRACE TX PRODUCT CODE [id number] SAFETRACE TX CROSSMATCH COMPATIBLE SAFETRACE TX Unit ABO O Pos SAFETRACE TX UNIT NUMBER [id number] SAFETRACE TX Status READY SAFETRACE TX Blood Bank Product RED BLOOD CELLS SAFETRACE TX PRODUCT CODE [id number] SAFETRACE TX Performing Organization Address [facility] Phone Number SAFETRACE TX * [place] automobile radio repairer in or 30 minute increments (02/14/2018 4:35 PM HOSPITAL ATTENDANT) Narrative Performed At FINAL REPORT GE RIS Fluoroscopy one view intraoperative 02/14/2018 5:31 PM CLINICAL HISTORY: Instrument localization COMPARISON: None available IMPRESSION: Please correlate imaging report findings with the procedure note prepared by Dr. Meza, as an intra-procedure imaging consultation was not requested. Reported cumulative dose: 0.260 mGy. Signed: Jarad Olivares MD Report Verified Date/Time:02/17/2018 10:51:13 Reading Location: [facility] Radiology Reading Room Procedure Note Interface, External Ris In - 02/17/2018 10:53 AM HOSPITAL ATTENDANT FINAL REPORT Fluoroscopy one view intraoperative 02/14/2018 5:31 PM CLINICAL HISTORY: Instrument localization COMPARISON: None available IMPRESSION: Please correlate imaging report findings with the procedure note prepared by Dr. Meza, as an intra-procedure imaging consultation was not requested. Reported cumulative dose: 0.260 mGy. Signed: Jarad Olivares MD Report Verified Date/Time: 02/17/2018 10:51:13 Reading Location: [facility] Radiology Reading Room Performing Organization Address City/[facility] Phone Number GE RIS * AFB culture + smear (02/14/2018 4:19 PM HOSPITAL ATTENDANT) Only the most recent of 2 results within the time period is included. Result No acid-fast bacilli isolated [facility] in 42 days [facility] AFB Smear No acid fast bacilli seen [facility] Specimen Tissue - Kidney Performing Organization Address [facility] [place] [address] [phone] [place] [address] * Anaerobic culture (02/14/2018 4:19 PM HOSPITAL ATTENDANT) Only the most recent of 2 results within the time period is included. Result No anaerobes isolated [facility] Specimen Tissue - Kidney Performing Organization Address [facility] Phone Number [address] [address] [facility] * Surgically obtained culture + gram stain (02/14/2018 4:19 PM HOSPITAL ATTENDANT) Result No growth [facility] Gram Stain Result <1+ White blood cells seen [facility] Gram Stain Result No organisms seen [facility] Specimen Tissue - Kidney Performing Organization Address [facility] Phone Number [address] [address] [facility] * Fungus culture + smear (02/14/2018 4:19 PM HOSPITAL ATTENDANT) Only the most recent of 2 results within the time period is included. Result No fungus isolated in 28 days [facility] Fungus Smear No fungi seen [facility] Specimen Tissue - Kidney Performing Organization Address City/[facility]/Zipcode Phone Number [facility] [address] [place] [address] [facility] * SPIN/CONCENTRATION CHARGE (02/14/2018 3:57 PM HOSPITAL ATTENDANT) Concentration charged Done [facility] Specimen Other - Abdomen Performing Organization Address City/[facility]/Zipcode Phone Number [facility] [address] [place] [address] [facility] * Tissue Exam (02/14/2018 3:37 PM HOSPITAL ATTENDANT) Case Report Surgical Pathology [facility] Report [facility] Case: [id number] Authorizing Provider:Jaye Sweet, Collected: 02/14/2018 Rosa7 Ordering Location: [facility] Received: 02/17/2018 0838 PERIOPERATIVE SERVICES Pathologist: Williams Taveras MD Specimen:Kidney, Transplanted Kidney DIAGNOSIS KIDNEY, ALLOGRAFT, TRANSPLANT [facility] NEPHRECTOMY [facility] - BOTH ANTIBODY- AND CELL-MEDIATED REJECTION, SEVERE, ACUTE AND CHRONIC Signing Pathologist Direct Phone Line: [phone] CPT Code(s) 94629, 92406 x3, 67011, [address] [facility] x5, 1977[address] [facility] CLINICAL HISTORY Renal infection [facility] SPECIMEN SOURCE Transplanted kidney [facility] GROSS DESCRIPTION The specimen is received in a [facility] formalin-filled container [facility] labeled with the patient's information and labeled "transplanted kidney" and consists of a fragmented transplanted nephrectomy weighing 165 gm collectively and measuring approximately 9.5 x 5 x 5 cm. 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 Grossly no masses are identified. Barrel Assembly Inspector sections are submitted in A1-A6. CG/ew MICROSCOPIC DESCRIPTION LIGHT MICROSCOPY [facility] Sections from the cortex of [facility] the transplant nephrectomy show diffuse [...] SPECIAL STUDIES The interpretation of this [facility] case included the use of [facility] immunohistochemistry or special stains. Immunohistochemistry technical testing was performed at [facility], Pathology Laboratory where it was developed and [...] Kidney Performing Organization Address City/State/Zipcode Phone Number [phone] [place] [address] * Sodium Na-Stat Lab (02/14/2018 3:19 PM HOSPITAL ATTENDANT) Sodium 134 (L) 135 - 148 meq/L [facility] Specimen Blood, Arterial Performing Organization Address City/State/Zipcode Phone Number [address] * Calcium, Ionized (02/14/2018 3:19 PM HOSPITAL ATTENDANT) Calcium, Ion 0.89 (L) 1.12 - 1.27 mmol/L [facility] pH, Blood 7.43 [facility] Specimen Blood Performing Organization Address City/[facility]/Zipcode Phone Number [address] * Blood gas, arterial (02/14/2018 3:19 PM HOSPITAL ATTENDANT) pH, Arterial 7.43 7.35 - 7.45 [facility] pCO2, Arterial 36 35 - 45 mmHg [facility] pO2, Arterial 121 (H) 80 - 90 mmHg [facility] O2 Sat, Arterial 98.6 (H) 96.0 - 97.0 % [facility] HCO3, Arterial 23 21 - 29 mmol/L [facility] Base Excess, Arterial -1.0 -2.0 - 3.0 mmol/L [facility] Patient Temperature 35.4 C [facility] FIO2 56.0 % [facility] Specimen Blood, Arterial Performing Organization Address [facility] Phone Number [facility] [address] [place] [address] [facility] * ECG 12 lead (02/14/2018 8:55 AM HOSPITAL ATTENDANT) Narrative Performed At Ventricular Rate 59 BPM GE MUSE Atrial Rate 59 BPM P-R Interval 162 ms QRS Duration 106 ms Q-T Interval 546 ms QTC Calculation(Bazett) 540 ms P [place] 46 degrees R [place] -5 degrees T [place] 44 degrees Sinus bradycardia Prolonged QT Abnormal ECG When compared with ECG of 17-JAN-1998 10:27, Vent. rate has decreased BY36 BPM Nonspecific T wave abnormality no longer evident in Inferior leads T wave inversion now evident in Anterior leads QT has lengthened Confirmed by MD TAMMY, IHAB ([id number]) on 02/14/2018 12:35:09 PM Procedure Note Interface, External Ris In - 02/14/2018 12:35 PM HOSPITAL ATTENDANT Ventricular Rate 59 BPM Atrial Rate 59 BPM P-R Interval 162 ms QRS Duration 106 ms Q-T Interval 546 ms QTC Calculation(Bazett) 540 ms P [place] 46 degrees R [place] -5 degrees T [place] 44 degrees Sinus bradycardia Prolonged QT Abnormal ECG When compared with ECG of 17-JAN-1998 10:27, Vent. rate has decreased BY 36 BPM Nonspecific T wave abnormality no longer evident in Inferior leads T wave inversion now evident in Anterior leads QT has lengthened Confirmed by MD TAMMY, IHAB ([id number]) on 02/14/2018 12:35:09 PM Performing Organization Address [facility] Phone Number GE MUSE * Lactic acid, venous, whole blood Daily (02/14/2018 6:32 AM HOSPITAL ATTENDANT) Only the most recent of 3 results within the time period is included. Lactate, Venous 0.5 0.5 - 2.2 mmol/L [facility] Specimen Blood - Arm, Right Performing Organization Address [facility]/Zipcode Phone Number [facility] [address] [place] [address] [facility] * Body fluid cell count with differential (02/13/2018 12:00 AM HOSPITAL ATTENDANT) Appearance Clear Clear [facility] Color Colorless Colorless, Straw [facility] RBCs 570 (H) <=1 /cu mm [facility] Adjusted WBC Count 163 (H) <=5 /cu mm [facility] Lining Cells 0 <=1 /cu mm [facility] % Segs 3 % [facility] % Lymphs 41 % [facility] % Monos 55 % [facility] % Eos 1 % [facility] % Baso 0 % [facility] Container Body Fluid EDTA Tube [facility] Specimen Body Fluid - Ascites Performing Organization Address City/[facility] Phone Number [address] * Body fluid culture + gram stain (02/12/2018 11:38 PM HOSPITAL ATTENDANT) Result No growth [facility] Gram Stain Result <1+ White blood cells seen [facility] Gram Stain Result No organisms seen [facility] Specimen Body Fluid - Peritoneal Dialysis Fluid Performing Organization Address City/[facility] Phone Number [place] [phone] * aPTT (02/12/2018 8:54 PM HOSPITAL ATTENDANT) PTT 39.4 (H) 22.5 - 36.0 seconds [facility] Specimen Blood - Arm, Right Performing Organization Address City/[facility]/Zipcode Phone Number [address] * Lipase (02/12/2018 8:54 PM HOSPITAL ATTENDANT) Lipase 20 8 - 78 U/L [facility] Specimen Blood - Arm, Right Performing Organization Address City/[facility]/Zipcode Phone Number [facility] [address] [place] [phone] [place] [address] * Hepatic function panel (02/12/2018 8:54 PM HOSPITAL ATTENDANT) Protein, Total 6.8Comment: Specimen slightly 6.0 - 8.3 gm/dL [facility] Albumin 3.1 (L)Comment: Specimen 3.5 - 5.0 g/dL [facility] Total Bilirubin 0.3Comment: Specimen slightly 0.2 - 1.2 mg/dL [facility] Bilirubin, Direct 0.2Comment: Specimen slightly 0.1 - 0.5 mg/dL [facility] Alkaline Phosphatase 66 40 - 150 U/L [facility] AST 18Comment: Specimen slightly 5 - 34 U/L [facility] ALT 13Comment: Specimen slightly 6 - 55 U/L [facility] Specimen Blood - Arm, Right Performing Organization Address City/State/Zipcode Phone Number [facility] [address] [place], [place] [phone] [place] [address] * XR chest 1 view portable / bedside (02/12/2018 8:31 PM HOSPITAL ATTENDANT) Narrative Performed At FINAL REPORT RIS Exam: Chest radiograph Clinical History: Leukocytosis, vomiting Findings: The cardiomediastinal silhouette and lungs are normal. The regional skeleton and soft tissue are unremarkable.There is no evidence of pleural effusion or pneumothorax. Impression: No radiographic evidence of acute cardiopulmonary disease. Signed: Masoud Zuluaga MD Report Verified Date/Time:02/12/2018 23:46:46 Reading Location: [address] Consult Reading Room Procedure Note Interface, External Ris In - 02/12/2018 11:49 PM HOSPITAL ATTENDANT FINAL REPORT Exam: Chest radiograph Clinical History: Leukocytosis, vomiting Findings: The cardiomediastinal silhouette and lungs are normal. The regional skeleton and soft tissue are unremarkable. There is no evidence of pleural effusion or pneumothorax. Impression: No radiographic evidence of acute cardiopulmonary disease. Signed: Masoud Zuluaga MD Report Verified Date/Time: 02/12/2018 23:46:46 Reading Location: [facility] [id number] Consult Reading Room Performing Organization Address City/[facility] Phone Number GE RIS * Procalcitonin (02/12/2018 6:35 PM HOSPITAL ATTENDANT) Procalcitonin 0.75 (H) <0.05 ng/mL [facility] Specimen Blood - Line, Arterial Narrative Performed At SEPSIS RISK (ng/mL) [facility] Low:0.05-0.50 [facility] Intermediate: 0.51-2.00 High: >=2.01 Performing Organization Address [facility] Phone Number [address] * Blood culture #2 (02/12/2018 6:33 PM HOSPITAL ATTENDANT) Only the most recent of 2 results within the time period is included. Result No growth in 5 days [facility] Specimen Blood - Arm, Right Performing Organization Address [facility] Phone Number [phone] [place] [address] * POC-Lactic Acid, Venous (02/12/2018 6:18 PM HOSPITAL ATTENDANT) POC-Lactic Acid, Venous 2.1 (H)Comment: TESTED AT 0.9 - 1.7 mmol/L [address] [address] Specimen Blood Performing Organization Address [facility] [place] [place] [address] [phone] after 05/19/2017 Insurance Payer Benefit Subscriber ID Type Phone Address Plan / Group MEDICARE MEDICARE A xxxxxxxxxxx Medicare B [facility] xxxxxxxxx MEDICARE MGD CARE MEDICARE HMO MEDICAID - MEDICAID MGD ARLEEN xxxxxxxxx Medicaid CARE COMM STAR Contracted PLAN Advance Directives For more information, please contact: [address] [address] Date Inactivated Comments Code Status Date Activated Full Code 03/28/2018 11:36 AM This code status was determined by: Patient 03/01/2018 5:12 PM Full Code 02/12/2018 6:00 PM This code status was determined by: Patient
[2018-05-20] MEDS ORDERED: LEVOFLOXACIN 500MG/D5W 100ML IV NR ×2 (15:00→15:45)
[2018-05-20] MEDS ORDERED: NICARDIPINE HCL SOLN 10 ML ONE ×2 (15:28→19:30)
[2018-05-20] MEDS ORDERED: VANCOMYCIN 1GM/NS 250 ML 250 ML IV SCH (15:30)
[2018-05-20] MEDS: NICARDIPINE HCL SOLN 20 MG in SODIUM CHLORIDE 0.9% 250ML 200 ML IV SCH ×3 (15:32→23:08)
[2018-05-20] MEDS: ONDANSETRON HCL INJ 2MG/ML 2ML 2 MG/ML VIAL IV PRN ×2 (15:34→22:50)
[2018-05-20] MEDS: HYDROMORPHONE 2MG/ML 2 MG/ML ML IV PRN ×3 (15:36→23:43)
[2018-05-20] MEDS: CEFEPIME 1GM/NS 0.9% 50 ML 50 ML IV SCH (15:45)
[2018-05-20 17:34] LABS: CREATINE KINASE MB 1.3 ng/mL (0-5.0)
[2018-05-20] MEDS: METRONIDAZOLE 500MG/NS 100ML IV SCH ×2 (18:00→23:31)
--- NOTE | 2018-05-20 19:00 | NUR ---
Bedside report received from Suzie MCGREGOR. Dr. Moya present at the bedside and assessed the pt, mentioned that the pts tachycardia may be related to his lower abdominal pain. Next dose of pain medication will be given as available per prn orders, refer to EMAR as needed.
[2018-05-20] MEDS: BUSPIRONE HCL 5 MG TAB PO SCH (19:14)
[2018-05-20] MEDS ORDERED: NICARDIPINE 20MG/200ML PREMIX 200 ML ONE ×2 (19:31→22:35)
--- NOTE | 2018-05-20 20:57 | Consultation ---
DATE OF CONSULTATION: 05/20/2018 Cardiology Consultation REASON FOR CONSULTATION: Hypertension and tachycardia. HISTORY OF PRESENT ILLNESS: This is a 48-year-old male with history of end- stage renal disease on hemodialysis, hypertension, anemia, and bleeding ulcer, who presents with complaints of abdominal pain. The patient indicates he developed abdominal pain yesterday. He describes it as sharp and squeezing, 8/10 in severity. This was associated with shortness of breath and chills. The pain lasted hours until he presented to the ER. He denies any fever. He denies chest pain, edema, orthopnea, or PND. Cardiology is consulted for tachycardia and hypertension. REVIEW OF SYSTEMS: Negative except as per HPI. PAST MEDICAL HISTORY: 1. End-stage renal disease, on hemodialysis. 2. Hypertension. 3. Anemia. 4. History of bleeding ulcer. PAST SURGICAL HISTORY: 1. Multiple AV fistula creations. 2. Renal transplant in 2007. 3. Tunneled dialysis catheter. SOCIAL HISTORY: No tobacco, alcohol, or illicit drugs. FAMILY HISTORY: Pertinent for mother with myocardial infarction. ALLERGIES: PLEASE SEE EMR. MEDICATIONS: Please see medication list. PHYSICAL EXAMINATION: VITAL SIGNS: Temperature 97.8 degrees, pulse 102, respiratory rate 18, blood pressure 175/109, and oxygen saturation 97% on 2 L nasal cannula. GENERAL: Awake, alert, well-developed and well-nourished man, in no acute distress. HEENT: Normocephalic, atraumatic. Pupils equal, no scleral icterus. NECK: Supple. No thyroid or cervical lymphadenopathy. No carotid bruits. LUNGS: Clear to auscultation bilaterally. No wheezes or crackles. CARDIOVASCULAR: Tachycardic, but regular. No murmur. Normal S1, S2. ABDOMEN: Soft, tender to palpation. EXTREMITIES: No edema. NEURO: Nonfocal exam. LABORATORY DATA: WBC 9.66, hemoglobin 11.3, hematocrit 35.7, and platelets 107. Sodium 139, potassium 5.2, chloride 97, CO2 of 24, BUN 60, creatinine 15.32. Lactic acid 19.9. Troponin 0.032. Amylase 251, lipase 81. CT abdomen and pelvis, no evidence of aortic aneurysm or dissection; patent mesenteric vasculature; diffusely ectatic iliac artery, SMA, and branch vessels; limited evaluation of visceral structures secondary to motion artifact and lack of oral contrast. Decompressed colonic loops, which appear mildly thick walled. EKG, normal sinus rhythm, biatrial enlargement, and an incomplete right bundle- branch block. Telemetry, sinus tachycardia. IMPRESSION: 1. Hypertension, uncontrolled. 2. Sinus tachycardia. 3. Abdominal pain. 4. End-stage renal disease, on hemodialysis. RECOMMENDATIONS: Continue Cardene drip and resume home antihypertensive therapy. The patient had echocardiogram performed less than 1 month prior with normal LV size and systolic function. Mild concentric LVH was noted. No significant valvular abnormalities were present. Likely hypertension and tachycardia are secondary to the patient's poorly-controlled pain. Further adjustments as pain is controlled. Blaire Moya MD ABS/MODL /[id number] MTDD
--- NOTE | 2018-05-20 21:53 | Consultation ---
DATE OF CONSULTATION: 05/20/2018 Renal Consultation REASON FOR CONSULTATION: End-stage renal disease, hyperkalemia, and hypertension. HISTORY OF PRESENT ILLNESS: A 48-year-old male with end-stage renal disease on hemodialysis Saturday, , Saturday. His last hemodialysis was Saturday, who presented to [facility] with abdominal pain, nausea, and vomiting. The patient's blood pressure was very high and he did not respond to IV labetalol and was started on Cardene drip. The patient was found to have hyperkalemia and Nephrology consultation was called. REVIEW OF SYSTEMS: As above, positive chills. No fevers. Some abdominal pain. All other systems negative. PAST MEDICAL HISTORY: 1. End-stage renal disease, on hemodialysis Saturday, , and Saturday. 2. Hypertension. 3. History of bleeding ulcer. 4. Anemia secondary to chronic kidney disease. 5. Secondary hyperparathyroidism. PAST SURGICAL HISTORY: 1. Multiple AV fistulas. 2. Kidney transplant in 2007. 3. Tunneled dialysis catheter. SOCIAL HISTORY: No tobacco, no alcohol, no IV drugs. FAMILY HISTORY: No family history of kidney disease. ALLERGIES: HEPARIN, HYDRALAZINE, AND MORPHINE. CURRENT MEDICATIONS: See list. PHYSICAL EXAMINATION: VITAL SIGNS: Blood pressure 161/93, it was 227/132 on admission; pulse 85; respiratory rate 12; temperature 97.7. GENERAL: No apparent distress. HEENT: Oropharynx clear. No scleral icterus. No periorbital edema. NECK: Supple. Elevated jugular venous pressure. No lymphadenopathy. CHEST: Clear to auscultation anteriorly bilaterally with decreased breath sounds at the bases. CARDIOVASCULAR: Regular rate and rhythm. No murmurs or rubs. ABDOMEN: Soft. Some tenderness. EXTREMITIES: Trace edema. No clubbing. No cyanosis. SKIN: Warm. IMAGING: CT abdomen and pelvis, no evidence of aortic dissection. Patent mesenteric vasculature. Limited evaluation of visceral structures secondary to motion artifact and lack of oral contrast. Gallbladder ultrasound shows no sonographic evidence of cholelithiasis or cholecystitis. Pancreas is unremarkable. LABORATORY DATA: Labs, white count 9.6, hemoglobin 11.3, hematocrit 35.7, platelets 107. Sodium 138, potassium 5.2, chloride 97, CO2 of 24, BUN 60, creatinine 15.3. Amylase 251, lipase 81, lactic acid 19.9. ASSESSMENT AND PLAN: 1. End-stage renal disease. We will do hemodialysis today and continue Saturday, and Saturday. 2. Anemia secondary to chronic kidney disease. We will start Epogen if hemoglobin drops below 11. 3. Nausea, vomiting, and abdominal pain. The patient has mildly elevated amylase and lipase for the patient on dialysis. I am more concerned that perhaps his catheter is infected. We will use his fistula. Blood cultures to be taken. We will add vancomycin and cefepime, and await culture and sensitivity. 4. Hypertension. Follow after hemodialysis. 5. Hyperkalemia. We will correct with dialysis as above. MD LYLE Root/MODBassam /[id number]
--- NOTE | 2018-05-20 22:45 | NUR ---
Paged regarding pts uncontrolled pain.
--- NOTE | 2018-05-20 23:19 | NUR ---
Dr. Matthews return called page regarding pts uncontrolled pain. New order received: Dilaudid 1mg IVP Q3HRS PRN severe pain (7-10). Entered into [employer] and currently awaiting off-camp[facility] pharmacy to verify and enter into [employer]. Charge nurse Jennifer Maier RN notified.
--- NOTE | 2018-05-20 23:43 | NUR ---
Dilaudid 1mg IVP given at this time for pain level of 9 out of 10(worst). Stacey Kline RN witnessed [employer] override and needed waste. Still awaiting off-campus pharmacy to verify medication.
[2018-05-21] VITALS (50 sets, daily range): BP systolic 129–193; BP diastolic 52–119
[2018-05-21] MEDS ORDERED: NICARDIPINE 20MG/200ML PREMIX 200 ML ONE ×3 (00:41→09:04)
--- NOTE | 2018-05-21 01:20 | NUR ---
Dr.M. Petty present and assessing the pt. Updated him on pt status, vital signs, and care plan. New orders received, please refer to EMR as needed.
--- NOTE | 2018-05-21 04:57 | NUR ---
Pt signed consent for EGD and Colonoscopy. Pt instructed on how to take the golytely. Pt stated that he may not be able to drink all off it. I instructed him to try to drink 1 cup every 10-15 minutes.
[2018-05-21] MEDS ORDERED: PEG (High)/E-LYTE SOLN 4,000 ML BTL PO ONE (05:00)
[2018-05-21] MEDS: METRONIDAZOLE 500MG/NS 100ML IV SCH ×4 (05:04→23:52)
[2018-05-21] MEDS: NICARDIPINE HCL SOLN 20 MG in SODIUM CHLORIDE 0.9% 250ML 200 ML IV SCH (05:05)
--- NOTE | 2018-05-21 05:06 | NUR ---
Correction to data: IV forearm site should read LEFT ARM for all documentation from 05/20/18 1900 to 05/21/18 0500 and moving forward. The rest of the information documented is correct for the Left arm IV site. Addendum: 05/21/18 at 0508 by Britta Mcclendon RN Amended: Links added.
[2018-05-21 05:11] LABS: BASOPHILS # (AUTO) 0.1 (0.0-0.1); EOSINOPHILS # (AUTO) 0.2 (0.0-0.4); EOSINOPHILS % 2.8 % (0.0-6.0); HEMATOCRIT 35.9 % (38.2-49.6); HEMOGLOBIN 11.3 g/dL (14.0-18.0); LYMPHOCYTES % 25.3 % (18.0-39.1); MEAN CORPUSCULAR HGB CONC 31.5 g/dL (31-35); MEAN CORPUSCULAR VOLUME 92.3 fL (81-99); MONOCYTES # (AUTO) 0.9 (0.2-0.8); NEUTROPHILS # (AUTO) 4.6 (2.1-6.9); NEUTROPHILS % 58.5 % (38.7-80.0); PLATELET COUNT 107 x10e3/uL (140-360); RED BLOOD COUNT 3.89 x10e6/uL (4.3-5.7); RED CELL DISTRIBUTION WIDTH 16.6 % (11.7-14.4)
[2018-05-21 05:49] LABS: ALBUMIN 4.1 g/dL (3.5-5.0); ALBUMIN/GLOBULIN RATIO 1.1 (0.8-2.0); ANION GAP 18.7 mmol/L (8-16); BILIRUBIN,DIRECT 0.3 mg/dL (0.0-0.5); CREATININE, SERUM 10.16 mg/dL (0.72-1.25); POTASSIUM 4.7 mmol/L (3.5-5.1)
[2018-05-21 07:07] LABS: CREATINE KINASE MB 2.2 ng/mL (0-5.0)
[2018-05-21] MEDS: BUSPIRONE HCL 5 MG TAB PO SCH ×4 (09:00→19:24)
[2018-05-21] MEDS: NICARDIPINE 20MG/200ML PREMIX 200 ML IV SCH ×7 (09:30→23:50)
--- NOTE | 2018-05-21 11:59 | Progress Note ---
DATE: 05/21/2018 Cardiology Progress Note SUBJECTIVE: The patient denies chest pain or shortness of breath. He reports his abdominal pain is better. The patient remains on Cardene 5. OBJECTIVE: VITAL SIGNS: Temperature 98.8 degrees, pulse 111, respiratory rate 21, blood pressure 142/72, and oxygen saturation 100% on 2 L nasal cannula. GENERAL: Awake, alert, in no acute distress. LUNGS: Clear to auscultation bilaterally. No wheeze or crackles. CARDIOVASCULAR: Tachycardic, but regular. No murmur. Normal S1 and S2. ABDOMEN: Soft, tender to palpation. EXTREMITIES: No edema. CARDIAC MEDICATIONS: Cardene drip. LABORATORY DATA: WBC 7.8, hemoglobin 11.3, hematocrit 35.9, and platelets 107. Sodium 139, potassium 4.7, chloride 100, CO2 of 25, BUN 32, creatinine 10.16. Troponin 0.059. Amylase 236 and lipase 81. Telemetry, sinus tachycardia. IMPRESSION: 1. Hypertension, uncontrolled. 2. Sinus tachycardia. 3. Abdominal pain. 4. End-stage renal disease, on hemodialysis. RECOMMENDATIONS: Continue Cardene drip. Once the patient can take oral medications, we will titrate antihypertensive therapy based on response. The patient's hypertension and tachycardia are likely physiologic responses to the patient's pain. These have improved as the patient's pain control has improved. We will monitor. Thank you for this consult. We will continue to follow. Blaire Moya MD ABS/MODL /[id number]
[2018-05-21] MEDS: HYDROMORPHONE 2MG/ML 2 MG/ML ML IV PRN ×3 (12:08→21:00)
[2018-05-21] MEDS ORDERED: SODIUM CHLORIDE 0.9% 250ML 250 ML ONE (12:19)
[2018-05-21] MEDS ORDERED: LEVOFLOXACIN 500MG/D5W 100ML IV SCH (15:00)
--- NOTE | 2018-05-21 15:53 | NUR ---
CASE MANAGEMENT INITIAL ASSESSMENT Automotive Software Engineer to bedside to discuss plan of care with patient/family. CM/SW role and care transitions discussed. Anticipated discharge plan discussed along with duration of care. CM/SW discussed patients right to make decisions in care. CM/SW work hours given. Patient lives: 18 YR OLD SON Admit/Transfer: ER Hospital/ER visits since last admit:0 POA/Emergency contact: ANALILIA GOMEZ DTR Current/Previous Home Health: NONE PCP/Follow-up Care: DR BRISA SEXTON Current/Previous DME: NONE Medications (referring to index hospitalization or the first time you were in the hospital) a. Were changes made in your medications when you were in the hospital on [date of index hospitalization]? Yes No Not sure Explain: Note: If no or not sure, please skip to question d b. Did you understand the changes? Yes No Explain: c. Were you able to obtain your new medications right away? Yes No n/a SNF only Explain: d. Were you able to take your medications like the doctor wanted you to? TAKING MEDS ORDERED BY PCP e. Did the hospital give you an accurate, easy to understand list of medications when you left? N/A Scale of 1-10 how comfortable does patient feel with disease management in outpatient setting: Other Services: DIALYSIS AT [facility] [address]; ALSO HAS A CM THRU [facility] WHO ASSISTS WITH RIDES TO DIALYSIS Employment Status: DISABLED Areas of Concerns: NONE Referral Needs: NONE Education Needs: TO BE DETERMINED IMM/GUSTAFSON given and signed (if applicable): IMM ON ADMIT Goal for discharge:DC HOME SOON POSSIBLE CM/SW left business card at the bedside with contact information. Name and number was also written on the patients whiteboard. Patient verbalized understanding of discussion. CM will follow-up with ongoing discharge and transition of care needs.
[2018-05-21] MEDS: CEFEPIME 1GM/NS 0.9% 50 ML 50 ML IV SCH (16:15)
--- NOTE | 2018-05-21 16:19 | NUR ---
at 1608 pt had a 8beat run vtach noted in leads II and V. patient denied symptoms and feels "fine". bp 177/81, hr 104, regular rhythm. rr 11 with 96% room air. patient denies pain. paged cardiology to notify. I spoke with Dr. Jones, anesthesia wants cardiology to clear patient prior to egd/colonoscopy. tests will be postponed at this time. I updated patient with change in plan of care. pt verbalizes understanding.
--- NOTE | 2018-05-21 16:42 | NUR ---
spoke with Dr. Fuller (cardiology) updating her with 8 beat v-tach. instructed to obtain magnesium level and if mag is wnl then okay to proceed with EGD/Colonoscopy. attempted to call Dr. Jones to update him with cards. left message. ordered stat magnesium level. updated patient as well.
[2018-05-21 17:51] LABS: CREATINE KINASE MB 2.3 ng/mL (0-5.0)
[2018-05-21 18:11] LABS: ANION GAP 20.7 mmol/L (8-16); CALCIUM 9.1 mg/dL (8.4-10.2); CREATININE, SERUM 11.19 mg/dL (0.72-1.25); POTASSIUM 4.7 mmol/L (3.5-5.1)
--- NOTE | 2018-05-21 19:53 | NUR ---
Notified Dr. Sampson of magnesium level 2.9 No new orders received.
[2018-05-21] MEDS: ACETAMINOPHEN 325 MG TAB PO PRN (20:39)
[2018-05-21] MEDS: MINOXIDIL 2.5 MG TAB PO SCH (21:29)
[2018-05-21] MEDS: ONDANSETRON HCL INJ 2MG/ML 2ML 2 MG/ML VIAL IV PRN (21:35)
[2018-05-22] VITALS (75 sets, daily range): BP systolic 124–201; BP diastolic 56–90
[2018-05-22] MEDS: NICARDIPINE 20MG/200ML PREMIX 200 ML IV SCH ×10 (01:06→23:01)
[2018-05-22] MEDS: ONDANSETRON HCL INJ 2MG/ML 2ML 2 MG/ML VIAL IV PRN ×2 (03:47→18:08)
[2018-05-22] MEDS: HYDROMORPHONE 2MG/ML 2 MG/ML ML IV PRN ×5 (03:47→21:29)
[2018-05-22 05:03] LABS: BASOPHILS # (AUTO) 0.1 (0.0-0.1); EOSINOPHILS # (AUTO) 0.4 (0.0-0.4); EOSINOPHILS % 4.1 % (0.0-6.0); HEMATOCRIT 34.5 % (38.2-49.6); HEMOGLOBIN 10.8 g/dL (14.0-18.0); LYMPHOCYTES # (AUTO) 1.9 (1.0-3.2); LYMPHOCYTES % 21.1 % (18.0-39.1); MEAN CORPUSCULAR HEMOGLOBIN 29.4 pg (28-32); MEAN CORPUSCULAR HGB CONC 31.3 g/dL (31-35); MONOCYTES # (AUTO) 1.1 (0.2-0.8); MONOCYTES % 12.7 % (4.4-11.3); NEUTROPHILS # (AUTO) 5.4 (2.1-6.9); NEUTROPHILS % 60.8 % (38.7-80.0); PLATELET COUNT 101 x10e3/uL (140-360); RED BLOOD COUNT 3.67 x10e6/uL (4.3-5.7); RED CELL DISTRIBUTION WIDTH 16.6 % (11.7-14.4)
[2018-05-22 05:21] LABS: ANION GAP 20.5 mmol/L (8-16); CREATININE, SERUM 12.21 mg/dL (0.72-1.25); MAGNESIUM 2.9 MG/DL (1.3-2.1); PHOSPHORUS 6.3 MG/DL (2.3-4.7); POTASSIUM 4.5 mmol/L (3.5-5.1)
[2018-05-22] MEDS: METRONIDAZOLE 500MG/NS 100ML IV SCH ×3 (05:48→17:26)
[2018-05-22] MEDS: METOCLOPRAMIDE HCL 10 MG/2ML VIAL IV SCH ×3 (05:48→17:26)
[2018-05-22 06:11] LABS: AMYLASE 263 U/L (25-125); LIPASE 82 U/L (8-78)
[2018-05-22] MEDS ORDERED: SODIUM CHLORIDE 0.9% 1000ML 1,000 ML ONE (08:03)
--- NOTE | 2018-05-22 12:26 | NUR ---
patient being dialyzed (started this morning). held am medications until HD completed. patient agreeable to plan of care.
--- NOTE | 2018-05-22 12:30 | Progress Note ---
DATE: 05/22/2018 SUBJECTIVE: Mr. Benoit is a 48-year-old man with end-stage renal disease, hypertension, history of bleeding ulcer, anemia secondary to chronic kidney disease, came to the emergency room complaining of abdominal pain, nausea, vomiting, stool guaiac came back positive for blood. His blood pressure was very elevated. He had to be started on Cardene drip and admitted to ICU. Cardiology and Nephrology consults were requested as well as GI consult. OBJECTIVE: GENERAL: Today, he is awake. He is alert. He is doing a little better. VITAL SIGNS: Temperature is 97.7 and blood pressure is 167/76. HEART: Regular rate. LUNGS: Clear to auscultation. ABDOMEN: Soft. LABORATORY DATA: White count is 8.92, hemoglobin 10.8, hematocrit 34.5. Potassium 4.5, creatinine 12.21, magnesium 2.9, lipase is 82, and troponin was negative. Blood cultures so far have been negative. ASSESSMENT: 1. Abdominal pain, probably colitis. 2. Gastrointestinal bleed with bloody diarrhea. 3. Uncontrolled hypertension. 4. End-stage renal disease, on hemodialysis. 5. Reflux. 6. Anemia secondary to chronic kidney disease and gastrointestinal bleed. PLAN: At the present time is to continue hemodialysis three times a week. Continue to monitor electrolytes. The patient is going to go for EGD and colonoscopy probably in the morning. Continue IV antibiotics and IV Protonix. All this was discussed with the patient and nurse. All questions were answered to satisfaction. I spent more than 35 minutes examining the patient, reviewing overnight events, lab results, x-ray, and discussing plan of care with patient. MD GENE Singh/ARNIE /[id number]
[2018-05-22] MEDS: PANTOPRAZOLE 40 MG 10ML VIAL IV SCH (13:11)
[2018-05-22] MEDS: BUSPIRONE HCL 5 MG TAB PO SCH ×2 (13:11→17:26)
[2018-05-22] MEDS: ACETAMINOPHEN 325 MG TAB PO PRN (13:11)
--- NOTE | 2018-05-22 14:15 | Progress Note ---
DATE: 05/22/2018 Cardiology Progress Note SUBJECTIVE: The patient denies chest pain or shortness of breath. He did not have his endoscopy done yesterday because he had one episode of nonsustained ventricular tachycardia. OBJECTIVE: VITAL SIGNS: Temperature 97.7 degrees, pulse 104, respiratory rate 16, blood pressure 167/76, and oxygen saturation 100% on room air. GENERAL: Awake, alert, in no acute distress. LUNGS: Clear to auscultation bilaterally. No wheezes or crackles. CARDIAC: Tachycardia, but regular rhythm. No murmur. Normal S1, S2. ABDOMEN: Soft, nontender. EXTREMITIES: No edema. CARDIAC MEDICATIONS: Cardene drip. LABS: WBC 8.92, hemoglobin 10.8, hematocrit 34.5, and platelets 101. Sodium 139, potassium 4.5, chloride 102, CO2 21, BUN 36, creatinine 12.21. BNP 2.9, amylase 263, and lipase 82. TELEMETRY: Sinus tachycardia, one episode of nonsustained ventricular tachycardia was noted. IMPRESSION: 1. Hypertension, uncontrolled. 2. Sinus tachycardia. 3. Nonsustained ventricular tachycardia. 4. Abdominal pain. 5. End-stage renal disease, on hemodialysis. RECOMMENDATIONS: Continue Cardene drip for blood pressure control. Once the patient can take oral medications, we will resume home antihypertensive therapy and titrate based on response. The patient's tachycardia is sinus and likely physiologic response to the patient's pain. This has improved. We will continue to monitor on telemetry. Nonsustained ventricular tachycardia was noted on telemetry. The patient's echocardiogram last month was with normal LV size and systolic function with mild LVH. No significant valvular abnormalities were noted. No further cardiac evaluation is indicated at this time. Keep potassium above 4 and magnesium above 2. The patient may proceed with endoscopy from a cardiac standpoint. Volume management per Nephrology. Thank you for this consult. We will continue to follow. Blaire Moya MD ABS/MODL /[id number]
[2018-05-22] MEDS ORDERED: SODIUM CHLORIDE 0.9% 1000ML 2,000 ML IV PRN (15:00)
[2018-05-22] MEDS ORDERED: SODIUM CHLORIDE 0.9% 250ML 500 ML IV PRN (15:00)
[2018-05-22] MEDS: CEFEPIME 1GM/NS 0.9% 50 ML 50 ML IV SCH (15:28)
[2018-05-22] MEDS ORDERED: VANCOMYCIN 1GM/NS 250 ML 250 ML IV SCH (15:30)
[2018-05-22] MEDS: SEVELAMER CARBONATE 800 MG TAB PO SCH (17:26)
[2018-05-22] MEDS: LABETALOL HCL 200 MG TAB PO SCH (17:26)
--- NOTE | 2018-05-22 18:50 | NUR ---
Nutrition Screen Note RD Recommendation for Physician: -Rec advancing to renal diet as medically appropriate -RD provided education on phosphorus intake per pt request Plan of Care: RD following, monitoring for tolerance and adequacy, diet education Nutrition reason for involvement: Diagnosis ESRD Primary Diagnose(s): 1. Hypertension, uncontrolled. 2. Sinus tachycardia. 3. Nonsustained ventricular tachycardia. 4. Abdominal pain. PMH: ESRD on HD, HTN, bleeding ulcer, anemia Ht: 65in Wt: 134.44lb BMI: 22.4kg/m2 IBW: 136lb RD Assessment: (05/22) Chart reviewed. Labs and meds reviewed. 48yo M, who was admitted for abdominal pain x 3days. HD was done this AM. Phos at 6.3 today. Visited pt in the room. Pt complained of abdominal pain, nausea and vomited broth this AM. Meds were given. Abd/pel CT showed colitis. Pt denied any chewing or swallowing difficulty. No recent weight loss reported with UBW ~123lbs. RD provided education on low phosphorus as pt requested. Will continue to monitor and follow. Please consult as needed. Current Diet: clear liquid diet Malnutrition Evaluation (05/22) The patient does not meet criteria for a specified degree of malnutrition at this time. Will re-evaluate at follow-up as appropriate. Diet Education Needs Assessment: Pt requested for list of foods with low phosphorus. Learner(s): pt Time spent: 20minutes Barriers: No barriers identified. Cultural/Language Modifications: No cultural/language modifications noted. Pt speaks Mongolian. Readiness: Pt eager to learn. Method: Handouts, explanation Topics: Low phosphorus Understanding/Compliance: Expect good understanding/compliance from pt. Will benefit from reinforcement. All questions have been answered. Nutrition Care Level: Low Signed: Sowmya Thomas, MS, RD, LD
--- NOTE | 2018-05-22 20:07 | NUR ---
nursing report given to car shifter Bertha Nguyen RN
[2018-05-22] MEDS: CLONIDINE HCL 0.2 MG TAB PO SCH (21:29)
[2018-05-23] VITALS (12 sets, daily range): BP systolic 106–167; BP diastolic 48–86
[2018-05-23] MEDS: HYDROMORPHONE 2MG/ML 2 MG/ML ML IV PRN ×2 (00:05→05:07)
[2018-05-23] MEDS ORDERED: PROMETHAZINE 12.5MG/ NACL 0.9% 12.5 MG/50 ML BAG IV PRN (00:15)
[2018-05-23] MEDS: METRONIDAZOLE 500MG/NS 100ML IV SCH ×3 (00:35→12:30)
[2018-05-23] MEDS: METOCLOPRAMIDE HCL 10 MG/2ML VIAL IV SCH ×3 (00:36→12:30)
[2018-05-23] MEDS: NICARDIPINE 20MG/200ML PREMIX 200 ML IV SCH (04:50)
[2018-05-23 05:38] LABS: AMYLASE 207 U/L (25-125); LIPASE 38 U/L (8-78)
--- NOTE | 2018-05-23 05:55 | NUR ---
STOPPED CARDENE DRIP. LAST RATE WAS AT 3MG/HR. VS STABLE AT THIS TIME
--- NOTE | 2018-05-23 06:56 | NUR ---
RESTARTED THE ELIER DRIP AT 8MG/HR PATIENTs SBP 210
[2018-05-23] MEDS: SEVELAMER CARBONATE 800 MG TAB PO SCH ×2 (08:00→12:00)
[2018-05-23] MEDS ORDERED: DILTIAZEM HCL ER 120 MG CAP PO SCH (09:00)
[2018-05-23] MEDS ORDERED: DILTIAZEM HCL 180 MG CAP ER PO SCH (09:00)
[2018-05-23] MEDS: BUSPIRONE HCL 5 MG TAB PO SCH (09:50)
[2018-05-23] MEDS: MINOXIDIL 2.5 MG TAB PO SCH (09:50)
[2018-05-23] MEDS: LABETALOL HCL 200 MG TAB PO SCH (09:50)
[2018-05-23] MEDS: CLONIDINE HCL 0.2 MG TAB PO SCH (09:50)
[2018-05-23] MEDS: PANTOPRAZOLE 40 MG 10ML VIAL IV SCH (09:50)
--- NOTE | 2018-05-23 11:45 | Progress Note ---
DATE: 05/23/2018 SUBJECTIVE: Mr. Benoit is a 48-year-old man with history of hypertension, end-stage renal disease on hemodialysis, history of bleeding ulcer, and anemia secondary to chronic kidney disease. He came to the emergency room complaining of abdominal pain, nausea, and vomiting. Positive stool guaiac. He is to go for EGD and colonoscopy today. His blood pressure was very elevated. He was started on Cardene drip and admitted to ICU. PHYSICAL EXAMINATION: GENERAL: He is awake and alert. VITAL SIGNS: Temperature is 98.9 and blood pressure 156/78. HEART: Regular rate and rhythm. LUNGS: Clear to auscultation. ABDOMEN: Soft. LAB WORK: Potassium 4.5, creatinine is 12.2, and glucose is 79. White count 8.92, hemoglobin 10.8, and hematocrit 34.5. He is getting dialysis three times a week. So far, cultures have been negative. ASSESSMENT: 1. Abdominal pain, probably colitis. 2. Gastrointestinal bleed with bloody diarrhea. 3. Uncontrolled hypertension. 4. End-stage renal disease, on hemodialysis. 5. Gastroesophageal reflux disease. 6. Anemia secondary to chronic kidney disease and gastrointestinal bleed. 7. Nonsustained ventricular tachycardia. PLAN: At present time, he is to continue the Cardene drip. The patient is going to go for EGD and colonoscopy. Once the patient can take p.o. medications, he is going to be switched to p.o. medication and continue to monitor blood pressure and continue to monitor electrolytes. All these were discussed with the patient. All questions were answered to satisfaction. If he is stable, he may go home in the morning. MD GENE Singh/ARNIE /[id number]
--- NOTE | 2018-05-23 14:20 | NUR ---
PATIENT WISHES TO LEAVE THE HOSPITAL AMA DUE TO CONSTANT RESCHEDULING OF ENDOSCOPIC PROCEDURES. NOTIFIED DR. HERBIE CURIEL, WILL CONTACT DR TELLO WELL
--- NOTE | 2018-05-23 14:41 | NUR ---
PATIENT IS AWARE THAT IR WAS SCHEDULED TO HAVE TUNNELLED HD REMOVED. PATIENT SAID HE WILL SET UP A TIME TO HAVE THE CATHETER TAKEN OUT AT THE [facility] ON SATURDAY.
[2018-05-23] MEDS ORDERED: LABETALOL HCL 200 MG TAB PO SCH (17:00)
--- NOTE | 2018-05-23 17:00 | Progress Note ---
DATE: 05/23/2018 Cardiology Progress Note SUBJECTIVE: The patient denies chest pain or shortness of breath. His abdominal pain has improved. He is scheduled for an endoscopy today. OBJECTIVE: VITAL SIGNS: Temperature 98.5 degrees, pulse 89, respiratory rate 16, blood pressure 153/66, and oxygen saturation 97% on room air. GENERAL: Awake, alert, in no acute distress. LUNGS: Clear to auscultation bilaterally. No wheezes or crackles. CARDIOVASCULAR: Normal rate. Regular rhythm. No murmur. Normal S1, S2. ABDOMEN: Soft, nontender. EXTREMITIES: No edema. CARDIAC MEDICATIONS: Diltiazem 240 mg p.o. daily, minoxidil 2.5 mg p.o. t.i.d., labetalol 200 mg p.o. b.i.d., and clonidine 0.2 mg p.o. t.i.d. LABS: None today. TELEMETRY: Normal sinus rhythm. IMPRESSION: 1. Hypertension, uncontrolled. 2. Sinus tachycardia. 3. Nonsustained ventricular tachycardia. 4. Abdominal pain. 5. End-stage renal disease, on hemodialysis. RECOMMENDATIONS: The patient has been restarted on his p.o. medications. We will adjust his therapy to improve blood pressure control. Monitor the patient on telemetry. His last echocardiogram was one month prior with normal LV size and systolic function with mild LVH, no significant valve abnormalities were noted. No further cardiac evaluation is indicated at this time. Keep potassium above 4 and magnesium above 2. Volume management per Nephrology. Thank you for this consult. We will continue to follow. Blaire Moya MD ABS/MODL /[id number]
== END 2018-05-23 14:30 | disposition left against medical advice (07) | DRG 377 ==
LOC: ER 06:47 → ERHOLD 14:22 → ICU 16:25
PROVIDERS: ADMIT Internal Medicine; ATTEND Internal Medicine
DX: K92.1 Melena (principal); N18.6 End stage renal disease; I47.2 Ventricular tachycardia; I10 Essential (primary) hypertension; D64.9 Anemia, unspecified; K21.9 Gastro-esophageal reflux disease without esophagitis
CPT/HCPCS: 36415; 70450; 71045; 74174; 76705; 80048; 80053; 80076; 82150; 82270; 82550; 82553; 82948; 83605; 83690; 83735; 84100; 84484; 85025; 86704; 86706; 86850; 86900; 87040; 87045; 87340; 87400; 87493; 93005; 99285; J0360; J0692; J1200; J1956; J2405; J2550; J2765; J3370; J7030; J7050; Q9967

== ENCOUNTER 2018-10-27 23:05 | Emergency (ER) | payer MEDICARE, OTHER ==
[~2018-10-27] VITALS: Ht 165.1 cm; Wt 57.2 kg
[~2018-10-27 23:05] MED LIST changes: +BUSPIRONE HCL5 MG PO; +CLONIDINE1 EAC1; +LABETALOL HCL200 MG PO
--- OUTSIDE RECORDS SUMMARY | 2018-10-27 23:08 | XMS REPORT | Clinical Summary ---
Author Author [employer] Address Unknown Phone Unavailable Care Team Providers Care Hat Braider Name Role Phone Sourav Harmon MD PCP [...] by mouth 2 (two) times a day. Additional information Patient taking differently: 1 mg oral 2 times daily, Reported on 01/21/2017 11:16 AM Active NIFEdipine XL (PROCARDIA Take 1 tablet 30 tablet 5 XL) 90 MG 24 hr tablet (90 mg total) 7 by mouth daily. Additional information Patient taking differently: 90 mg oral every morning, Reported on 01/21/2017 11:16 AM Active minoxidil (LONITEN) 2.5 Take 2 60 tablet 5 MG tablet tablets (5 mg 7 total) by mouth daily. Additional information Patient taking differently: 5 mg oral 3 times daily, Reported on 01/21/2017 11:16 AM 08/04/2020 Active predniSONE (DELTASONE) 10 Take 1 tablet 30 tablet 0 mg tablet (10 mg total) 7 by mouth daily. Additional information Patient taking differently: 10 mg oral every morning, Reported on 01/21/2017 11:16 AM Active diltiazem CD (CardIZEM Take 240 mg 0 CD) 240 MG 24 hr capsule by mouth every morning. Active PANTOPRAZOLE SODIUM Take 40 mg by 0 (PANTOPRAZOLE ORAL) mouth as needed. Active Problems Problem Noted Date HTN (hypertension) 06/30/2016 Kidney transplant rejection 06/30/2016 Gastroesophageal reflux disease without esophagitis 06/30/2016 Anemia 06/30/2016 Encounters Care Team Description Date Type Specialty Chantal Choudhury RN 06/12/2018 Abstract Transplant Guy Man MD No Show 10/30/2017 Hospital Transplant Encounter Hu Craven MD No Show 10/30/2017 Hospital Transplant Encounter Guy Man MD No Show 10/30/2017 Hospital Transplant Encounter Hu Craven MD Guerrero, Alex No Show 10/30/2017 Hospital Transplant Encounter after 10/26/2017 Family History Medical History Relation Name Comments Hypertension Paternal Grandmother Stroke Paternal Grandmother Relation Name Status Comments Paternal Grandmother Social History Date Tobacco Use Types Packs/Day Years Used Quit: 1989 Former Smoker Cigarettes 0.25 1 Smokeless Tobacco: Never Used Comments: One pack would last a month, only smoked for one year in early 90s Drinks/Week oz/Week Comments Alcohol Use No Sex Assigned at Date Recorded Not on file Industry Job Start Date Occupation Not on file Not on file Not on file Travel End Travel History Travel Start No recent travel history available. Last Filed Vital Signs Not on file Plan of Treatment Health Maintenance Due Date Last Done Comments INFLUENZA VACCINE 10/09/2018 Implants Device Identifier Shelf Expiration Date Model / Serial / Lot Implanted Type Area Manufactur er [id number] [facility] / / Particle [facility] [place] 5gm Surgical N/A: N/A MED[employer] Mph - [id number] Implants; Implanted: Qty: 1 on 01/25/2017 by [employer]; Lawson Caldwell MD at [facility]; HOSPITAL Surgical Wires 09/25/2021 [id number] / [id number] / [id number] Graft Vasclr [place] [facility] 10cm Vascular N/A: N/A W L GORE 6mm - [id number] - [id number] Graft Implanted: Qty: 1 on 01/25/2017 by Lawson Caldwell MD at [facility] Results Not on fileafter 10/26/2017 Insurance Type Payer Benefit Subscriber ID Effective Phone Address Plan / Dates Group Medicare MEDICARE MEDICARE xxxxxxxxxx 2016-P [place], PART A AND resent [place] B O [facility] MEDICAID [facility] xxxxxxxxx 2017-P COMM STAR+ resent ARLEEN Advance Directives For more information, please contact: [phone] 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
--- OUTSIDE RECORDS SUMMARY | 2018-10-27 23:09 | XMS REPORT | Clinical Summary ---
Author Author AL [facility] Organization [facility] Address Unknown Phone Unavailable Care Team Providers Care Coach Tour Driver Name Role Phone Eric Alcala PCP Allergies Comments Active Allergy Reactions Severity Noted Date Heparin Analogues Itching Low 02/12/2018 Hydralazine Analogues Nausea And High 02/12/2018 Vomiting Morphine Sulfate Itching High 02/12/2018 Medications End Date Status Medication Sig Dispensed Refills Start Date Active pantoprazole (PROTONIX) Take 40 mg by 0 40 MG tablet mouth daily. Active promethazine (PHENERGAN) Take 25 mg by 0 25 MG tablet mouth every 6 (six) hours as needed for Nausea. Active sevelamer (RENVELA) 800 Take 2,400 mg 0 mg tablet by mouth 3 (three) times daily with meals . Active dilTIAZem (CARDIZEM CD) Take 240 mg 0 240 MG 24 hr capsule by mouth daily. Active MINOXIDIL ORAL Take 2.5 mg 0 by mouth 3 (three) times daily . Active aspirin 81 MG EC tablet Take 81 mg by 0 mouth daily. Active labetalol (NORMODYNE) 200 Take 200 mg 0 MG tablet by mouth 2 (two) times daily. Active cloNIDine (CATAPRES-TTS) Place 1 patch 0 0.2 mg/24 hr patch onto the skin once a week. Active busPIRone (BUSPAR) 5 MG Take 5 mg by 0 tablet mouth every 12 (twelve) hours . Active cloNIDine HCl (CATAPRES) Take 0.2 mg 0 0.2 MG tablet by mouth 3 (three) times daily. 02/20/2018 Discontinued cloNIDine HCl (CATAPRES) Take 0.2 mg 0 0.2 MG tablet by mouth 2 (two) times daily. 02/20/2018 Discontinued diltiazem (TIAZAC) 240 MG Take 240 mg 0 24 hr capsule by mouth daily. 05/31/2018 Discontinued NIFEdipine (ADALAT CC) 90 Take 90 mg by 0 MG 24 hr tablet mouth daily. 05/31/2018 Discontinued cinacalcet (SENSIPAR) 60 Take 60 mg by 0 MG tablet mouth daily. 02/20/2018 Discontinued minoxidil (LONITEN) 2.5 Take 2.5 mg 0 MG tablet by mouth 2 (two) times daily. 05/31/2018 Discontinued losartan (COZAAR) 100 MG Take 100 mg 0 tablet by mouth daily. 04/23/2018 cloNIDine (CATAPRES-TTS) Place 1 patch [...] 10 days. Max Daily Amount: 4 tablets 05/31/2018 Discontinued traMADol (ULTRAM) 50 mg Take 1 tablet 20 tablet 0 tablet (50 mg total) 9 by mouth every 6 (six) hours as needed for Pain. Max Daily Amount: 200 mg Active Problems Problem Noted Date Dialysis AV fistula malfunction 06/02/2018 Acute hyperkalemia 05/31/2018 ESRD (end stage renal disease) on dialysis 03/28/2018 S/p nephrectomy 03/17/2018 Last Assessment & Plan: He is s/p nephrectomy on 02/14/2018. He is doing well and has no evidence of recurrent disease. [place] were removed in clinic today. Uncontrolled hypertension 03/17/2018 Last Assessment & Plan: Blood pressure [...] AV F, with vein transposition, performed today. Encounters Care Team Description Date Type Specialty Tej Cunningham MD [place], MD Heide Martini Alok, MD Acute hyperkalemia (Primary Dx); Shortness of breath at rest; End stage renal failure on dialysis (HCC); Hyperphosphatemia; Hypermagnesemia; Anemia of chronic disease; ESRD (end stage renal disease) on dialysis (HCC); Essential hypertension 05/31/2018 Hospital Intensive Care - Encounter 06/03/2018 05/31/2018 Orders Only General Internal Medicine 05/31/2018 Travel Orestes Muhammad MD CREATION,A-V FISTULA 03/28/2018 Surgery Lucy Pelaez MD 03/28/2018 Anesthesia Event Orestes Muhammad MD ESRD (end stage renal disease) on dialysis (HCC) (Primary Dx) 03/28/2018 Hospital Encounter Radha Pérez RN 03/27/2018 Orders Only Cardiology Resource, Oqmt Preadmit Phone 03/20/2018 Hospital Pre-Admission Testing Encounter Ayaan Phillips MD Lands, Sarah Elizabeth, NP ESRD (end stage renal disease) (HCC); S/p nephrectomy; Anemia of chronic disease 03/17/2018 Follow-Up Transplant Hepatology Radha Pérez, MECHE 03/06/2018 Orders Only Cardiology Joanne Alvarez Y Appointment 03/06/2018 Telephone Transplant Haresh Rai MD Clotted vascular catheter, initial encounter (HCC) (Primary Dx); ESRD (end stage renal disease) (HCC); Essential hypertension; Anemia due to chronic kidney disease, on chronic dialysis (HCC) 03/01/2018 Emergency Emergency Medicine Melinda Quiros MD Dialysis catheter not working 03/01/2018 Telephone Internal Medicine Radha Pérez, MECHE 02/26/2018 Orders Only Cardiology Joanne Alvarez Y Appointment 02/20/2018 Telephone Transplant Rell Solorzano MD 02/14/2018 Anesthesia Event Jaye Sweet MD NEPHRECTOMY 02/14/2018 Surgery Jarrod Blackman III, MD Athreya, Khannan K., MD Agrawal, Neeraj, MD ESRD (end stage renal disease) ([facility]) (Primary Dx); Peritoneal dialysis status (HCC); Hypertensive crisis; Failed kidney transplant; Uremia syndrome; Peritonitis (HCC); Anemia of chronic disease; Encounter regarding vascular access for dialysis for end-stage renal disease (HCC) 02/12/2018 [facility] Internal Medicine - Encounter 02/20/2018 02/12/2018 Travel after 10/26/2017 Social History Date Tobacco Use Types Packs/Day [...] Vital Signs Time Taken Vital Sign Reading 06/03/2018 7:00 PM CDT Blood Pressure 136/68 06/03/2018 7:00 PM CDT Pulse 57 06/03/2018 7:00 PM CDT Temperature 36.6 C (97.9 F) 06/03/2018 7:00 PM CDT Respiratory Rate 13 06/03/2018 7:00 PM CDT Oxygen Saturation 100% - Inhaled Oxygen - Concentration 06/03/2018 4:00 AM CDT Weight 63.9 kg (140 lb 14 oz) 05/31/2018 9:32 PM CDT Height 165.1 cm (5' 5") 06/03/2018 4:00 AM CDT Body Mass Index 23.44 Plan of Treatment Not on file Goals Goal Patient Associated Recent Progress Patient-Stat Author Goal Type Problems ed? Contact counselor available General ESRD on Yes Moises Tatum through your work hemodialysis MD Vlad Note: Depression intervention and follow up Implants Device Identifier Shelf Expiration Date Model / Serial / Lot Implanted Type Area Manufactur er 06/08/2020 [id number] / N/A / [id number] Cath Kt Hd Dl Str [id number] Catheter Left: Neck ANGIODYNAM [id number] - Sn/A Dialysis ICS Implanted: Qty: 1 on 02/14/2018 by Jaye Silva MD Procedures Comments Procedure Name Priority Date/Time Associated Diagnosis REPORT OF PROCEDURE - 06/05/2018 ENDOSCOPY SCAN 1:40 PM CDT RHYTHM STRIP - SCAN 06/05/2018 1:40 PM CDT HEMODIALYSIS INPATIENT Routine 06/03/2018 7:20 PM CDT POCT-GLUCOSE METER Routine 06/03/2018 6:23 PM CDT POCT-GLUCOSE METER Routine 06/03/2018 11:25 AM CDT IR TUNNELED DIALYSIS GUILLERMINA 06/03/2018 CATHETER 10:40 AM CDT POCT-GLUCOSE METER Routine 06/03/2018 8:19 AM CDT POCT-GLUCOSE METER Routine 06/03/2018 6:02 AM CDT POCT-GLUCOSE METER Routine 06/03/2018 4:44 AM CDT CBC W/PLT COUNT & AUTO Routine 06/03/2018 DIFFERENTIAL 4:41 AM CDT BASIC METABOLIC PANEL (7) Routine 06/03/2018 4:41 AM CDT PHOSPHORUS Routine 06/03/2018 4:41 AM CDT MAGNESIUM Routine 06/03/2018 4:41 AM CDT CBC W/PLT COUNT & AUTO Routine 06/03/2018 DIFFERENTIAL 4:41 AM CDT POCT-GLUCOSE METER Routine 06/03/2018 12:07 AM CDT POCT-GLUCOSE METER Routine 06/02/2018 10:12 PM CDT POCT-GLUCOSE METER Routine 06/02/2018 9:04 PM CDT POCT-GLUCOSE METER Routine 06/02/2018 6:47 PM CDT BASIC METABOLIC PANEL (7) Routine 06/02/2018 5:57 PM CDT POCT-GLUCOSE METER Routine 06/02/2018 4:41 PM CDT POCT-GLUCOSE METER Routine 06/02/2018 3:31 PM CDT BASIC METABOLIC PANEL (7) Routine 06/02/2018 12:18 PM CDT POCT-GLUCOSE METER Routine 06/02/2018 12:05 PM CDT POCT-GLUCOSE METER Routine 06/02/2018 8:24 AM CDT BASIC METABOLIC PANEL (7) Routine 06/02/2018 8:01 AM CDT POCT-GLUCOSE METER Routine 06/02/2018 6:17 AM CDT POCT-GLUCOSE METER Routine 06/02/2018 4:08 AM CDT CBC W/PLT COUNT & AUTO Routine 06/02/2018 DIFFERENTIAL 4:05 AM CDT PHOSPHORUS Routine 06/02/2018 4:05 AM CDT MAGNESIUM Routine 06/02/2018 4:05 AM CDT BASIC METABOLIC PANEL (7) Routine 06/02/2018 4:05 AM CDT CBC W/PLT COUNT & AUTO Routine 06/02/2018 DIFFERENTIAL 4:05 AM CDT POCT-GLUCOSE METER Routine 06/02/2018 12:05 AM CDT BASIC METABOLIC PANEL (7) Routine 06/02/2018 12:05 AM CDT POCT-GLUCOSE METER Routine 06/01/2018 9:52 PM CDT BASIC METABOLIC PANEL (7) Routine 06/01/2018 8:45 PM CDT POCT-GLUCOSE METER Routine 06/01/2018 7:53 PM CDT BASIC METABOLIC PANEL (7) Routine 06/01/2018 2:38 PM CDT HEMODIALYSIS INPATIENT Routine 06/01/2018 9:36 AM CDT POCT-GLUCOSE METER Routine 06/01/2018 7:46 AM CDT CBC W/PLT COUNT & AUTO Routine 06/01/2018 DIFFERENTIAL 5:58 AM CDT HEPATITIS B SURFACE Routine 06/01/2018 ANTIGEN 5:58 AM CDT IRON, TIBC, % SAT. Routine 06/01/2018 (WITHOUT FERRITIN) 5:58 AM CDT FERRITIN Routine 06/01/2018 5:58 AM CDT VITAMIN B12 AND FOLATE Routine 06/01/2018 5:58 AM CDT PHOSPHORUS Routine 06/01/2018 5:58 AM CDT MAGNESIUM Routine 06/01/2018 5:58 AM CDT BASIC METABOLIC PANEL (7) Routine 06/01/2018 5:58 AM CDT CBC W/PLT COUNT & AUTO Routine 06/01/2018 DIFFERENTIAL 5:58 AM CDT BASIC METABOLIC PANEL (7) Routine 06/01/2018 5:58 AM CDT XR CHEST 1 VIEW STAT 06/01/2018 PORTABLE/BEDSIDE 5:45 AM CDT POCT-GLUCOSE METER Routine 06/01/2018 3:27 AM CDT POCT-GLUCOSE METER Routine 06/01/2018 2:07 AM CDT POCT-GLUCOSE METER Routine 06/01/2018 12:46 AM CDT BASIC METABOLIC PANEL (7) Routine 06/01/2018 12:13 AM CDT CRITICAL CARE Routine 05/31/2018 11:10 PM CDT ECG 12-LEAD STAT 05/31/2018 10:06 PM CDT CBC W/PLT COUNT & AUTO STAT 05/31/2018 DIFFERENTIAL 10:06 PM CDT TROPONIN I STAT 05/31/2018 10:06 PM CDT COMPREHENSIVE METABOLIC STAT 05/31/2018 PANEL 10:06 PM CDT PT/APTT STAT 05/31/2018 10:06 PM CDT CBC W/PLT COUNT & AUTO STAT 05/31/2018 DIFFERENTIAL 10:06 PM CDT PHOSPHORUS STAT 05/31/2018 10:06 PM CDT MAGNESIUM STAT 05/31/2018 10:06 PM CDT XR CHEST 1 VIEW STAT 05/31/2018 PORTABLE/BEDSIDE 9:42 PM CDT RHYTHM STRIP - SCAN 04/15/2018 8:30 AM DEALERSHIP MANAGER TRANSFUSION SERVICE 03/29/2018 REPORT - SCAN 5:53 PM DEALERSHIP MANAGER CREATION,A-V FISTULA 03/28/2018 End stage renal disease 3:15 PM DEALERSHIP MANAGER (HCC) TYPE AND SCREEN, Routine 03/28/2018 AUTOMATED 11:57 AM DEALERSHIP MANAGER PROTHROMBIN TIME/INR STAT 03/28/2018 11:57 AM DEALERSHIP MANAGER HGB/HCT (H&H) - STAT LAB Routine 03/28/2018 11:57 AM DEALERSHIP MANAGER GLUCOSE-STAT LAB STAT 03/28/2018 11:57 AM DEALERSHIP MANAGER POTASSIUM-STAT LAB STAT 03/28/2018 11:57 AM DEALERSHIP MANAGER CBC W/PLT COUNT & AUTO STAT 03/01/2018 DIFFERENTIAL 6:03 PM DEALERSHIP MANAGER PT/APTT STAT 03/01/2018 6:03 PM DEALERSHIP MANAGER BASIC METABOLIC PANEL (7) STAT 03/01/2018 6:03 PM DEALERSHIP MANAGER CBC W/PLT COUNT & AUTO STAT 03/01/2018 DIFFERENTIAL 6:03 PM DEALERSHIP MANAGER RHYTHM STRIP - SCAN 02/27/2018 8:40 AM DEALERSHIP MANAGER CBC W/PLT COUNT & AUTO STAT 02/20/2018 DIFFERENTIAL 12:26 PM DEALERSHIP MANAGER CBC W/PLT COUNT & AUTO STAT 02/20/2018 DIFFERENTIAL 12:26 PM DEALERSHIP MANAGER BASIC METABOLIC PANEL (7) STAT 02/20/2018 12:26 PM DEALERSHIP MANAGER IR VENOGRAM - EXTREMITY Routine 02/20/2018 BILATERAL 8:45 AM DEALERSHIP MANAGER PREALBUMIN Routine 02/20/2018 4:57 AM DEALERSHIP MANAGER HEMODIALYSIS INPATIENT Routine 02/19/2018 12:57 PM DEALERSHIP MANAGER CBC W/PLT COUNT & AUTO STAT 02/19/2018 DIFFERENTIAL 8:08 AM DEALERSHIP MANAGER BASIC METABOLIC PANEL (7) STAT 02/19/2018 8:08 AM DEALERSHIP MANAGER CBC W/PLT COUNT & AUTO STAT 02/19/2018 DIFFERENTIAL 8:08 AM DEALERSHIP MANAGER VANCOMYCIN LEVEL, RANDOM Routine 02/19/2018 4:10 AM DEALERSHIP MANAGER VANCOMYCIN LEVEL, RANDOM Routine 02/18/2018 4:11 AM DEALERSHIP MANAGER PHOSPHORUS Routine 02/18/2018 4:11 AM DEALERSHIP MANAGER CBC (HEMOGRAM ONLY) Routine 02/18/2018 4:11 AM DEALERSHIP MANAGER BASIC METABOLIC PANEL (7) Routine 02/18/2018 4:11 AM DEALERSHIP MANAGER HEMODIALYSIS INPATIENT Routine 02/17/2018 7:[address] ABDOMEN/PELVIS WITH IV Routine 02/17/2018 CONTRAST 3:53 PM DEALERSHIP MANAGER PREALBUMIN Routine 02/17/2018 4:17 AM DEALERSHIP MANAGER VANCOMYCIN LEVEL, TROUGH Timed 02/17/2018 4:17 AM DEALERSHIP MANAGER PHOSPHORUS Routine 02/17/2018 4:17 AM DEALERSHIP MANAGER CBC (HEMOGRAM ONLY) Routine 02/17/2018 4:17 AM DEALERSHIP MANAGER BASIC METABOLIC PANEL (7) Routine 02/17/2018 4:17 AM DEALERSHIP MANAGER XR ABDOMEN 1 VIEW Routine 02/16/2018 6:46 PM DEALERSHIP MANAGER PHOSPHORUS Routine 02/16/2018 5:32 AM DEALERSHIP MANAGER CBC (HEMOGRAM ONLY) Routine 02/16/2018 5:32 AM DEALERSHIP MANAGER BASIC METABOLIC PANEL (7) Routine 02/16/2018 5:32 AM DEALERSHIP MANAGER TRANSFUSION SERVICE 02/15/2018 REPORT - SCAN 6:00 PM DEALERSHIP MANAGER PHOSPHORUS Routine 02/15/2018 6:11 AM DEALERSHIP MANAGER CBC (HEMOGRAM ONLY) Routine 02/15/2018 6:11 AM DEALERSHIP MANAGER BASIC METABOLIC PANEL (7) Routine 02/15/2018 6:11 AM DEALERSHIP MANAGER WOUND CULTURE + GRAM Routine 02/14/2018 STAIN 10:00 PM DEALERSHIP MANAGER HEPATITIS C ANTIBODY Routine 02/14/2018 6:34 PM DEALERSHIP MANAGER HEPATITIS B CORE Routine 02/14/2018 ANTIBODY, TOTAL 6:34 PM DEALERSHIP MANAGER HEPATITIS B CORE Routine 02/14/2018 ANTIBODY, IGM 6:34 PM DEALERSHIP MANAGER HEPATITIS B SURFACE Routine 02/14/2018 ANTIGEN 6:34 PM DEALERSHIP MANAGER VANCOMYCIN LEVEL, RANDOM Routine 02/14/2018 6:34 PM DEALERSHIP MANAGER HEMODIALYSIS INPATIENT Routine 02/14/2018 6:24 PM DEALERSHIP MANAGER TRANSFUSION SERVICE 02/14/2018 REPORT - SCAN 6:01 PM DEALERSHIP MANAGER PREPARE RBC Routine 02/14/2018 5:10 PM DEALERSHIP MANAGER FL PROPERTY UNDERWRITER IN OR 30 Routine 02/14/2018 MINUTE INCREMENTS 4:35 PM DEALERSHIP MANAGER SURGICALLY OBTAINED GUILLERMINA 02/14/2018 CULTURE + GRAM STAIN 4:19 PM DEALERSHIP MANAGER FUNGUS CULTURE + SMEAR GUILLERMINA 02/14/2018 4:19 PM DEALERSHIP MANAGER ANAEROBIC CULTURE GUILLERMINA 02/14/2018 4:19 PM DEALERSHIP MANAGER AFB CULTURE + SMEAR GUILLERMINA 02/14/2018 4:19 PM DEALERSHIP MANAGER FUNGUS CULTURE + SMEAR GUILLERMINA 02/14/2018 3:57 PM DEALERSHIP MANAGER ANAEROBIC CULTURE GUILLERMINA 02/14/2018 3:57 PM DEALERSHIP MANAGER AFB CULTURE + SMEAR GUILLERMINA 02/14/2018 3:57 PM DEALERSHIP MANAGER SPIN/CONCENTRATION CHARGE Routine 02/14/2018 3:57 PM DEALERSHIP MANAGER TISSUE EXAM AP Routine 02/14/2018 3:37 PM DEALERSHIP MANAGER HGB/HCT (H&H) - STAT LAB STAT 02/14/2018 3:19 PM DEALERSHIP MANAGER GLUCOSE-STAT LAB STAT 02/14/2018 3:19 PM DEALERSHIP MANAGER POTASSIUM-STAT LAB STAT 02/14/2018 3:19 PM DEALERSHIP MANAGER SODIUM NA-STAT LAB STAT 02/14/2018 3:19 PM DEALERSHIP MANAGER BLOOD GAS, ARTERIAL STAT 02/14/2018 3:19 PM DEALERSHIP MANAGER CALCIUM, IONIZED STAT 02/14/2018 3:19 PM DEALERSHIP MANAGER RRL CRITICAL LABS STAT 02/14/2018 (ABG,NA,K,H&H,GLUCOSE) 3:19 PM DEALERSHIP MANAGER INSERTION,DIALYSIS 02/14/2018 Renal infection CATHETER PERITONEAL 11:22 AM DEALERSHIP MANAGER REMOVAL,CATHETER 02/14/2018 Renal infection PERITONEAL 11:22 AM DEALERSHIP MANAGER NEPHRECTOMY 02/14/2018 Renal infection 11:22 AM DEALERSHIP MANAGER ECG 12-LEAD STAT 02/14/2018 8:55 AM DEALERSHIP MANAGER PHOSPHORUS Routine 02/14/2018 6:32 AM DEALERSHIP MANAGER CBC (HEMOGRAM ONLY) Routine 02/14/2018 6:32 AM DEALERSHIP MANAGER BASIC METABOLIC PANEL (7) Routine 02/14/2018 6:32 AM DEALERSHIP MANAGER LACTIC ACID, VENOUS Routine 02/14/2018 6:32 AM DEALERSHIP MANAGER TYPE AND SCREEN, Routine 02/13/2018 AUTOMATED 8:41 PM DEALERSHIP MANAGER BASIC METABOLIC PANEL (7) Routine 02/13/2018 12:10 PM DEALERSHIP MANAGER LACTIC ACID, VENOUS Routine 02/13/2018 5:05 AM DEALERSHIP MANAGER BODY FLUID CELL COUNT Routine 02/13/2018 WITH DIFFERENTIAL 12:00 AM DEALERSHIP MANAGER BODY FLUID CULTURE + GRAM Routine 02/12/2018 STAIN 11:38 PM DEALERSHIP MANAGER APTT Routine 02/12/2018 8:54 PM DEALERSHIP MANAGER PROTHROMBIN TIME/INR Routine 02/12/2018 8:54 PM DEALERSHIP MANAGER LIPASE Routine 02/12/2018 8:54 PM DEALERSHIP MANAGER HEPATIC FUNCTION PANEL Routine 02/12/2018 8:54 PM DEALERSHIP MANAGER LACTIC ACID, VENOUS STAT 02/12/2018 8:54 PM DEALERSHIP MANAGER XR CHEST 1 VIEW Routine 02/12/2018 PORTABLE/BEDSIDE 8:31 PM DEALERSHIP MANAGER CBC W/PLT COUNT & AUTO Routine 02/12/2018 DIFFERENTIAL 6:40 PM DEALERSHIP MANAGER CBC W/PLT COUNT & AUTO Routine 02/12/2018 DIFFERENTIAL 6:40 PM DEALERSHIP MANAGER PROCALCITONIN STAT 02/12/2018 6:35 PM DEALERSHIP MANAGER BASIC METABOLIC PANEL (7) Routine 02/12/2018 6:35 PM DEALERSHIP MANAGER BLOOD CULTURE STAT 02/12/2018 6:33 PM DEALERSHIP MANAGER BLOOD CULTURE STAT 02/12/2018 6:32 PM DEALERSHIP MANAGER POCT-LACTIC ACID, VENOUS Routine 02/12/2018 6:18 PM DEALERSHIP MANAGER after 10/26/2017 Results * EKG-SCANNED (06/05/2018 1:40 PM CDT) Narrative Performed At * RHYTHM STRIP - SCAN (06/05/2018 1:40 PM CDT) Only the most recent of 3 results within the time period is included. Narrative Performed At * HEMODIALYSIS INPATIENT (06/03/2018 7:20 PM CDT) Narrative Performed At Jazmin Arechiga RN 06/03/20187:20 PM Dialyzed for 4hrs. Right IJ tunneled catheter dry and intact. Negative infection. UF net=3.5L. Vss. Alert, oriented x4. Report given to MECHE Duncan. Lab Results Component Value Date GLUCOSE 87 06/03/2018 CALCIUM 8.6 06/03/2018 NA 140 06/03/2018 K 4.6 06/03/2018 CO2 29 06/03/2018 CL 97 (L) 06/03/2018 BUN 46 (H) 06/03/2018 CREATININE 13.27 (H) 06/03/2018 Lab Results Component Value Date WBC 6.1 06/03/2018 HGB 7.9 (L) 06/03/2018 HCT 24.7 (L) 06/03/2018 MCV 94.3 (H) 06/03/2018 PLT 100 (L) 06/03/2018 * POC-Glucose meter (06/03/2018 6:23 PM CDT) Only the most recent of 22 results within the time period is included. POC-Glucose Meter 93Comment: TESTED AT [facility] 70 - 110 mg/dL [facility] [address] [facility] [id number] [facility] Specimen Blood Performing Organization Address City/State/Zipcode Phone Number [facility] [address] [place] [address] [facility] * IR Tunneled Catheter Insertion (06/03/2018 10:40 AM CDT) Specimen Narrative Performed At FINAL REPORT [facility] Procedure: Placement of tunneled hemodialysis catheter, right internal jugular vein, 06/03/2018 HISTORY: Renal failure Anesthesia: 2% lidocaine Sedation: 1 mg Versed, 50 mg fentanyl, moderate conscious sedation, monitored by the registered nurse. Sedation time: 20 minutes Approach: Right internal jugular vein Modality: Ultrasound and fluoroscopy Fluoroscopy time: 0.3 minutes, total dose: 0.4 mGy, reference air kerma method TECHNIQUE: This procedure was performed after obtaining written informed consent using all elements maximal sterile barrier technique. Right internal jugular vein was evaluated and found to be patent and ultrasound. Images the patent vein were saved on PACS. The internal jugular vein was then accessed with real-time ultrasound guidance. A guidewire was advanced centrally. At 15.5 [place] two hemodialysis catheter was tunneled along the right anterior chest, entering the right internal jugular vein and terminating in the upper portion the right atrium. The catheter was secured in place with sutures and packed with ACD-A. CONCLUSION: Placement of tunneled hemodialysis catheter Signed: Wilmer Bains MD Report Verified Date/Time:06/03/2018 17:10:17 Reading Location: [place] [address] Angio Body Reading Room Procedure Note Interface, External Ris In - 06/03/2018 5:12 PM CDT FINAL REPORT Procedure: Placement of tunneled hemodialysis catheter, right internal jugular vein, 06/03/2018 HISTORY: Renal failure Anesthesia: 2% lidocaine Sedation: 1 mg Versed, 50 mg fentanyl, moderate conscious sedation, monitored by the registered nurse. Sedation time: 20 minutes Approach: Right internal jugular vein Modality: Ultrasound and fluoroscopy Fluoroscopy time: 0.3 minutes, total dose: 0.4 mGy, reference air kerma method TECHNIQUE: This procedure was performed after obtaining written informed consent using all elements maximal sterile barrier technique. Right internal jugular vein was evaluated and found to be patent and ultrasound. Images the patent vein were saved on PACS. The internal jugular vein was then accessed with real-time ultrasound guidance. A guidewire was advanced centrally. At 15.5 [place] two hemodialysis catheter was tunneled along the right anterior chest, entering the right internal jugular vein and terminating in the upper portion the right atrium. The catheter was secured in place with sutures and packed with ACD-A. CONCLUSION: Placement of tunneled hemodialysis catheter Signed: Wilmer Bains MD Report Verified Date/Time: 06/03/2018 17:10:17 Reading Location: [facility] [address] Angio Body Reading Room Performing Organization Address City/State/Zipcode Phone Number [facility] * CBC with platelet count + automated diff (06/03/2018 4:41 AM CDT) Only the most recent of 8 results within the time period is included. WBC 6.1 3.5 - 10.5 K/L [facility] RBC 2.62 (L) 4.63 - 6.08 M/L [facility] Hemoglobin 7.9 (L) 13.7 - 17.5 GM/DL [facility] Hematocrit 24.7 (L) 40.1 - 51.0 % [facility] MCV 94.3 (H) 79.0 - 92.2 fL [facility] MCH 30.2 25.7 - 32.2 pg [facility] MCHC 32.0 (L) 32.3 - 36.5 GM/DL [facility] RDW 16.9 (H) 11.6 - 14.4 % [facility] Platelets 100 (L) 150 - 450 K/CU MM [facility] MPV 11.9 9.4 - 12.4 fL [facility] nRBC 0 0 - 0 /100 WBC [facility] % Neutros 46 % [facility] % Lymphs 29 % [facility] % Monos 17 % [facility] % Eos 6 % [facility] % Baso 1 % [facility] # Neutros 2.84 1.78 - 5.38 K/L [facility] # Lymphs 1.77 1.32 - 3.57 K/L [facility] # Monos 1.06 (H) 0.30 - 0.82 K/L [facility] # Eos 0.35 0.04 - 0.54 K/L [facility] # Baso 0.07 0.01 - 0.08 K/L [facility] Immature 1 0 - 1 % [facility] Granulocytes-[facility] Specimen Blood Performing Organization Address City/[facility] Phone Number [address] * Phosphorus (06/03/2018 4:41 AM CDT) Only the most recent of 9 results within the time period is included. Phosphorus 8.1 (H) 2.3 - 4.7 mg/dL [facility] Specimen Blood Performing Organization Address City/[facility] Phone Number [address] * Magnesium (06/03/2018 4:41 AM CDT) Only the most recent of 4 results within the time period is included. Magnesium 2.7 (H) 1.6 - 2.6 mg/dL [facility] Specimen Blood Performing Organization Address City/[facility]/Zipcode Phone Number [address] * Basic Metabolic Panel (06/03/2018 4:41 AM CDT) Only the most recent of 21 results within the time period is included. Sodium 140 136 - 145 meq/L [facility] Potassium 4.6 3.5 - 5.1 meq/L [facility] Chloride 97 (L) 98 - 107 meq/L [facility] CO2 29 22 - 29 meq/L [facility] BUN 46 (H) 7 - 21 mg/dL [facility] Creatinine 13.27 (H) 0.57 - 1.25 mg/dL [facility] Glucose 87 70 - 105 mg/dL [facility] Calcium 8.6 8.4 - 10.2 mg/dL [facility] EGFR Comment: INSUFFICIENT CLINICAL mL/min/1.73 sq m [facility] DATA TO CALCULATE ESTIMATED [facility] GFR. Specimen Blood Performing Organization Address City/State/Zipcode Phone Number [facility] [address] [place] [address] [facility] * HEMODIALYSIS INPATIENT (06/01/2018 9:36 AM CDT) Narrative Performed At Lida Ghotra RN 06/01/20189:36 AM 3 hours HD completed. Net UF of 3 L. Pt tolerated tx well. Reports given to primary utility appraiser Results Component Value Date GLUCOSE 76 06/01/2018 GLUCOSE 76 06/01/2018 CALCIUM 8.9 06/01/2018 CALCIUM 8.9 06/01/2018 NA 143 06/01/2018 NA 143 06/01/2018 K 5.9 (H) 06/01/2018 K 5.8 (H) 06/01/2018 CO2 23 06/01/2018 CO2 26 06/01/2018 CL 100 06/01/2018 CL 99 06/01/2018 BUN 68 (H) 06/01/2018 BUN 68 (H) 06/01/2018 CREATININE 16.80 (H) 06/01/2018 CREATININE 16.75 (H) 06/01/2018 Lab Results Component Value Date WBC 6.7 06/01/2018 HGB 7.9 (L) 06/01/2018 HCT 25.4 (L) 06/01/2018 MCV 94.1 (H) 06/01/2018 PLT 119 (L) 06/01/2018 Lab Results Component Value Date HEPBSAG Nonreactive 02/14/2018 No results found for: HEPBSAB Allergies Allergen Reactions Hydralazine Analogues Nausea And Vomiting Morphine Sulfate Itching Heparin Analogues Itching Chief Complaint Patient presents with Shortness of Breath Active Ambulatory Problems Diagnosis Date Noted Peritonitis ([facility]) 02/12/2018 ESRD (end stage renal disease) ([facility]) 02/12/2018 Hypertensive crisis 02/17/2018 Anemia of chronic disease 02/17/2018 ESRD on hemodialysis ([facility]) S/p nephrectomy 03/17/2018 HTN (hypertension) 03/17/2018 ESRD (end stage renal disease) on dialysis ([facility]) 03/28/2018 Resolved Ambulatory Problems Diagnosis Date Noted No Resolved Ambulatory Problems Past Medical History: Diagnosis Date ESRD (end stage renal disease) ([facility]) HTN (hypertension) Past Surgical History: Procedure Laterality Date CREATION,A-V FISTULA Right 03/28/2018 Procedure: CREATION,A-V FISTULA;Surgeon: Orestes Muhammad MD;Location: [facility] CV OR;Service: CV Surgery; Laterality: Right; INSERTION,DIALYSIS CATHETER PERITONEAL Left 02/14/2018 Procedure: INSERTION,DIALYSIS CATHETER PERITONEAL;Surgeon: Jaye Sweet MD;Location: [facility] CV OR;Service: General Surgery;Laterality: Left;Dura Flow 2. 15.5F x 24cm Chronic Hemodialysis Catheter NEPHRECTOMY Left 02/14/2018 Procedure: NEPHRECTOMY;Surgeon: Jaye Sweet MD; Location: [facility] CV OR;Service: General Surgery;Laterality: Left; REMOVAL,CATHETER PERITONEAL Left 02/14/2018 Procedure: REMOVAL,CATHETER PERITONEAL;Surgeon: Jaye Sweet MD;Location: [facility] CV OR;Service: General Surgery;Laterality: Left; TRANSPLANT,[id number] Lida Ghotra RN * Vitamin B12 and Folate (06/01/2018 5:58 AM CDT) Vitamin B12 307 213 - 816 pg/mL [facility] Folate 9.7 >=7.0 ng/mL [facility] Specimen Blood Narrative Performed At For chronic HD patients, draw HBsAg with each admission then every 30 days. [facility] Performing Organization Address City/[facility]/[place] [address] [phone] [place] [address] * Iron, TIBC, % sat. (without ferritin) (06/01/2018 5:58 AM CDT) Iron 27.0 (L) 40.0 - 160.0 ug/dL [facility] TIBC 136 (L) 250 - 450 ug/dL [facility] Iron % Saturation 20 20 - 55 % [facility] Specimen Blood Narrative Performed At For chronic HD patients, draw HBsAg with each admission then every 30 days. [facility] Performing Organization Address [facility]/Zipcode Phone Number [place] [phone] * Hepatitis B surface antigen (06/01/2018 5:58 AM CDT) Only the most recent of 2 results within the time period is included. hepatitis B Surface Ag Nonreactive Nonreactive [facility] Specimen Blood Narrative Performed At For chronic HD patients, draw HBsAg with each admission then every 30 days. [facility] Performing Organization Address [facility]/[place] [address] [facility] * Ferritin (06/01/2018 5:58 AM CDT) Ferritin 1,315 (H) 5 - 275 ng/mL [facility] Specimen Blood Narrative Performed At For chronic HD patients, draw HBsAg with each admission then every 30 days. [facility] Performing Organization Address City/[facility]/[place] [address] [facility] * XR chest 1 view portable / bedside (06/01/2018 5:45 AM CDT) Only the most recent of 3 results within the time period is included. Specimen Narrative Performed At FINAL REPORT GE [facility] Chest one view. Clinical history: line placement Comparison: Chest radiograph 05/31/2018 Technique: A single frontal view of the chest was obtained. Findings/impression: There is a right IJ central venous catheter with tip in the SVC. The heart is normal in size. The aorta is tortuous. There is no focal pulmonary consolidation, pleural effusion or pneumothorax. There is no pulmonary edema. Signed: Hans Rosario MD Report Verified Date/Time:06/01/2018 06:25:10 Reading Location: [facility] C013Y CT Body Reading Room Procedure Note Interface, External Ris In - 06/01/2018 6:27 AM CDT FINAL REPORT Chest one view. Clinical history: line placement Comparison: Chest radiograph 05/31/2018 Technique: A single frontal view of the chest was obtained. Findings/impression: There is a right IJ central venous catheter with tip in the SVC. The heart is normal in size. The aorta is tortuous. There is no focal pulmonary consolidation, pleural effusion or pneumothorax. There is no pulmonary edema. Signed: Hans Rosario MD Report Verified Date/Time: 06/01/2018 06:25:10 Reading Location: [facility] C0Y CT Body Reading Room Performing Organization Address City/State/Zipcode Phone Number [facility] * CRITICAL CARE (05/31/2018 11:10 PM CDT) Narrative Performed At Tej Cunningham MD 05/31/2018 11:15 PM Critical Care Performed by: Tej Cunningham MD Authorized by: Tej Cunningham MD Total critical care time: 68 minutes Critical care was necessary to treat or prevent imminent or life-threatening deterioration of the following conditions: renal failure and metabolic crisis. Critical care was time spent personally by me on the following activities: discussions with consultants, discussions with primary provider, interpretation of cardiac output measurements, evaluation of patient's response to treatment, examination of patient, obtaining history from patient or surrogate, ordering and performing treatments and interventions, ordering and review of laboratory studies, ordering and review of radiographic studies, pulse oximetry, re-evaluation of patient's condition and review of old charts. * ECG 12 lead (05/31/2018 10:06 PM CDT) Only the most recent of 2 results within the time period is included. Specimen Narrative Performed At Ventricular Rate 61 BPM GE MUSE Atrial Rate 61 BPM P-R Interval 190 ms QRS Duration 110 ms Q-T Interval 480 ms QTC Calculation(Bazett) 483 ms P [place] 24 degrees R [place] 28 degrees T [place] 55 degrees Normal sinus rhythm Prolonged QT Abnormal ECG When compared with ECG of 14-FEB-2018 08:55, T wave inversion no longer evident in Anterior leads Confirmed by MD Bustamante Mahboob ([id number]) on 06/01/2018 12:55:50 PM Procedure Note Interface, External Ris In - 06/01/2018 12:55 PM CDT Ventricular Rate 61 BPM Atrial Rate 61 BPM P-R Interval 190 ms QRS Duration 110 ms Q-T Interval 480 ms QTC Calculation(Bazett) 483 ms P [place] 24 degrees R [place] 28 degrees T [place] 55 degrees Normal sinus rhythm Prolonged QT Abnormal ECG When compared with ECG of 14-FEB-2018 08:55, T wave inversion no longer evident in Anterior leads Confirmed by MD Bustamante Mahboob ([id number]) on 06/01/2018 12:55:50 PM Performing Organization Address City/[facility] Phone Number [facility] * PT/aPTT (05/31/2018 10:06 PM CDT) Only the most recent of 2 results within the time period is included. Protime 13.7 11.7 - 14.7 seconds [facility] INR 1.0 <=5.9 [facility] PTT 44.0 (H) 22.5 - 36.0 seconds [facility] Specimen Blood Narrative Performed At RECOMMENDED COUMADIN/WARFARIN INR THERAPY RANGES [facility] STANDARD DOSE: 2.0 - 3.0 Includes: PROPHYLAXIS for venous thrombosis, [facility] systemic embolization; TREATMENT for venous thrombosis and/or pulmonary embolus. HIGH RISK: Target INR is 2.5-3.5 for patients with mechanical heart valves. Performing Organization Address City/[facility]/Zipcode Phone Number [facility] [address] [place] [address] [facility] * Troponin I (05/31/2018 10:06 PM CDT) Troponin I 0.02 0.00 - 0.03 ng/mL [facility] Specimen Blood Narrative Performed At Troponin I (TnI) levels must be interpreted in the context of the presenting [facility] symptoms and the clinical findings. Elevated TnI levels indicate myocardial [facility] damage, but are not specific for ischemic heart disease. Elevated TnI levels are seen in patients with other cardiac conditions (including myocarditis and congestive heart failure), and slight TnI elevations occur in patients with other conditions, including sepsis, renal failure, acidosis, acute neurological disease, and persistent tachyarrhythmia. Performing Organization Address City/State/Zipcode Phone Number [facility] [address] [place] [address] [facility] * Comprehensive metabolic panel (05/31/2018 10:06 PM CDT) Protein, Total 6.9 6.0 - 8.3 gm/dL [facility] Albumin 3.8 3.5 - 5.0 g/dL [facility] Alkaline Phosphatase 93 40 - 150 U/L [facility] Total Bilirubin 0.4 0.2 - 1.2 mg/dL [facility] Sodium 141 136 - 145 meq/L [facility] Potassium 7.3 (HH) 3.5 - 5.1 meq/L [facility] Chloride 99 98 - 107 meq/L [facility] CO2 24 22 - 29 meq/L [facility] BUN 68 (H) 7 - 21 mg/dL [facility] Creatinine 16.55 (H) 0.57 - 1.25 mg/dL [facility] Glucose 79 70 - 105 mg/dL [facility] Calcium 8.6 8.4 - 10.2 mg/dL [facility] AST 22 5 - 34 U/L [facility] ALT 22 6 - 55 U/L [facility] EGFR Comment: INSUFFICIENT CLINICAL mL/min/1.73 sq m [facility] DATA TO CALCULATE ESTIMATED [facility] GFR. Specimen Blood Performing Organization Address [facility] Hospital[facility] [place] [address] [phone] * TRANSFUSION SERVICE REPORT - SCAN (03/29/2018 5:53 PM DEALERSHIP MANAGER) Only the most recent of 3 results within the time period is included. Narrative Performed At * Potassium-Stat Lab (03/28/2018 11:57 AM DEALERSHIP MANAGER) Only the most recent of 2 results within the time period is included. Potassium 4.7 3.6 - 5.5 meq/L [facility] Specimen Blood, Arterial Performing Organization Address [facility] [place] [phone] [place] [address] * Glucose-Stat Lab (03/28/2018 11:57 AM DEALERSHIP MANAGER) Only the most recent of 2 results within the time period is included. Glucose 74 70 - 110 mg/dL [facility] Specimen Blood, Arterial Performing Organization Address [facility] [place] [address] [phone] [place] [address] * Type and screen, automated (03/28/2018 11:57 AM DEALERSHIP MANAGER) Only the most recent of 2 results within the time period is included. ABO/RH AUTOMATED (BEAKER) O POSITIVE [facility] Ab Scrn NEGATIVE [facility] Specimen Blood Performing Organization Address [facility] Phone Number [address] [address] [phone] [place] [address] * HGB/HCT (H&H)-Stat Lab (03/28/2018 11:57 AM DEALERSHIP MANAGER) Only the most recent of 2 results within the time period is included. Hemoglobin 10.3 (L) 13.0 - 16.8 g/dL [facility] Hematocrit 30.0 (L) 40.0 - 50.0 % [facility] Specimen Blood, Arterial Performing Organization Address City/[facility] Phone Number [address] [address] [facility] * Prothrombin time/INR (03/28/2018 11:57 AM DEALERSHIP MANAGER) Only the most recent of 2 results within the time period is included. Protime 14.0 11.7 - 14.7 seconds [facility] INR 1.1 <=5.9 [facility] Specimen Blood Narrative Performed At RECOMMENDED COUMADIN/WARFARIN INR THERAPY RANGES [facility] STANDARD DOSE: 2.0 - 3.0 Includes: PROPHYLAXIS for venous thrombosis, [facility] systemic embolization; TREATMENT for venous thrombosis and/or pulmonary embolus. HIGH RISK: Target INR is 2.5-3.5 for patients with mechanical heart valves. Performing Organization Address City/[facility] Phone Number [address] [address] [facility] * IR Venogram - Extremity Bilateral (02/20/2018 8:45 AM DEALERSHIP MANAGER) Specimen Narrative Performed At FINAL REPORT [facility] Bilateral upper extremity venogram, 02/20/2018. [...] MD Report Verified Date/Time:02/20/2018 16:41:39 Reading Location: [place] [address] Angio Body Reading Room Procedure Note Interface, External Ris In - 02/20/2018 4:43 PM DEALERSHIP MANAGER FINAL REPORT Bilateral upper extremity venogram, [...] Report Verified Date/Time: 02/20/2018 16:41:39 Reading Location: [place] [address] Angio Body Reading Room Performing Organization Address City/[facility] Phone Number [facility] * Prealbumin (02/20/2018 4:57 AM DEALERSHIP MANAGER) Only the most recent of 2 results within the time period is included. Prealbumin 23 14 - 45 mg/dL [facility] Specimen Blood Performing Organization Address [facility] Phone Number [address] [address] [phone] [place] [address] * HEMODIALYSIS INPATIENT (02/19/2018 12:57 PM DEALERSHIP MANAGER) Narrative Performed At Guillermina Abraham RN 02/19/2018 12:57 PM HDX4 hours completed,UF-2L, patient tolerated well. * Vancomycin level, random (02/19/2018 4:10 AM DEALERSHIP MANAGER) Only the most recent of 3 results within the time period is included. Vancomycin Rm 16.2 ug/mL [facility] Specimen Blood Narrative Performed At Reference Range: No Normals [facility] Performing Organization Address [facility] Phone Number [facility] [address] [place] [address] [facility] * CBC (Hemogram only) (02/18/2018 4:11 AM DEALERSHIP MANAGER) Only the most recent of 5 results within the time period is included. WBC 11.0 (H) 3.5 - 10.5 K/L [facility] RBC 3.27 (L) 4.63 - 6.08 M/L [facility] Hemoglobin 9.1 (L) 13.7 - 17.5 GM/DL [facility] Hematocrit 29.7 (L) 40.1 - 51.0 % [facility] MCV 90.8 79.0 - 92.2 fL [facility] MCH 27.8 25.7 - 32.2 pg [facility] MCHC 30.6 (L) 32.3 - 36.5 GM/DL [facility] RDW 13.6 11.6 - 14.4 % [facility] Platelets 149 (L) 150 - 450 K/CU MM [facility] MPV 9.8 9.4 - 12.4 fL [facility] nRBC 0 0 - 0 /100 WBC [facility] Specimen Blood Performing Organization Address City/State/Zipcode Phone Number [facility] [address] [place] [address] [facility] * HEMODIALYSIS INPATIENT (02/17/2018 7:36 PM DEALERSHIP MANAGER) Narrative Performed At Chandler Staley RN 02/17/20187:38 PM Received pt on NPO post ct scan. Pt awake alert. Explained hd tx plan today pt agreed verbalized understanding. Lab Results Component Value Date WBC 9.7 02/17/2018 HGB 9.9 (L) 02/17/2018 HCT 31.5 (L) 02/17/2018 MCV 91.0 02/17/2018 PLT 146 (L) 02/17/2018 Chemistry Component Value Date/Time NA 134 (L) 02/17/2018416 K 4.3 02/17/2018416 CL 99 02/17/2018416 CO2 20 (L) 02/17/2018416 BUN 44 (H) 02/17/2018416 CREATININE 15.26 (H) 02/17/2018416 Component Value Date/Time CALCIUM 7.1 (L) 02/17/2018416 ALKPHOS 66 02/12/20182053 AST 18 02/12/20182053 ALT 13 02/12/20182053 BILITOT 0.3 02/12/20182053 Results for ROGERIO GILLIAM ( ) as of 02/17/2018 19:37 Ref. Range 02/14/2018 18:34 Hepatitis B Surface Ag Latest Ref Range: NonreactiveNonreactive To monitor pt. * CT abdomen/pelvis with IV contrast (02/17/2018 3:53 PM DEALERSHIP MANAGER) Specimen Narrative Performed At FINAL REPORT [facility] INDICATION: 47-year-old male with abdominal pain. Evaluate [...] No biliary ductal dilatation. Atrophic [place] kidneys are noted. There is scattered moderate calcified plaque of the abdominal aorta and visceral arteries. Osseous structures unremarkable. IMPRESSION: Interval ligation of renal transplant artery and left epigastric artery with small left rectus hematoma. No bowel obstruction. Signed: Narciso Mccauley MD Report Verified Date/Time:02/17/2018 17:50:40 Reading Location: [address] Consult Reading Room Procedure Note Interface, External Ris In - 02/17/2018 5:52 PM DEALERSHIP MANAGER FINAL REPORT INDICATION: 47-year-old male with [...] No biliary ductal dilatation. Atrophic [place] kidneys are noted. There is scattered moderate calcified plaque of the abdominal aorta and visceral arteries. Osseous structures unremarkable. IMPRESSION: Interval ligation of renal transplant artery and left epigastric artery with small left rectus hematoma. No bowel obstruction. Signed: Narciso Mccauley MD Report Verified Date/Time: 02/17/2018 17:50:40 Reading Location: [facility] [id number] Consult Reading Room Performing Organization Address City/State/Zipcode Phone Number [employer] * Vancomycin level, trough (02/17/2018 4:17 AM DEALERSHIP MANAGER) Vancomycin Tr 25.3 (H) 10.0 - 20.0 ug/mL [facility] Specimen Blood Performing Organization Address City/[facility]/Zipcode Phone Number [place] [phone] [place] [address] [facility] * XR abdomen / KUB 1 view (02/16/2018 6:46 PM DEALERSHIP MANAGER) Specimen Narrative Performed At FINAL REPORT GE [employer] RAD, ABDOMEN/KUB, 1 VIEW AP CLINICAL INDICATION:post op distention COMPARISON: None TECHNIQUE: Single, frontal radiograph of the abdomen. FINDINGS: The bowel gas pattern nonspecific with multiple air filled loops. No fluid fluid levels are noted, however, this is not an upright view. Surgical buddy are noted across the pelvis and midline [...] MD Report Verified Date/Time:02/16/2018 19:13:54 Reading Location: [address] Transitional Reading Room Procedure Note Interface, External Ris In - 02/16/2018 7:16 PM DEALERSHIP MANAGER FINAL REPORT RAD, ABDOMEN/KUB, 1 VIEW AP CLINICAL INDICATION: post op distention COMPARISON: None TECHNIQUE: Single, frontal radiograph of the abdomen. FINDINGS: The bowel gas pattern nonspecific with multiple air filled loops. No fluid fluid levels are noted, however, this is not an upright view. Surgical buddy are noted across the pelvis and midline [...] Report Verified Date/Time: 02/16/2018 19:13:54 Reading Location: [address] Transitional Reading Room Performing Organization Address City/[facility]/Zipcode Phone Number [facility] * Wound culture + gram stain (02/14/2018 10:00 PM DEALERSHIP MANAGER) Result No growth [facility] Specimen Wound Performing Organization Address City/[facility]/Zipcode Phone Number [address] [address] [facility] * Hepatitis C antibody (02/14/2018 6:34 PM DEALERSHIP MANAGER) Hepatitis C Ab Nonreactive Nonreactive [facility] Specimen Blood Performing Organization Address [facility]/Zipcode Phone Number [address] [address] [phone] [place] [address] * Hepatitis B core antibody, IgM (02/14/2018 6:34 PM DEALERSHIP MANAGER) Hep B C IgM Nonreactive Nonreactive [facility] Specimen Blood Performing Organization Address [facility] Phone Number [address] [address] [phone] [place] [address] * Hepatitis B core antibody, total (02/14/2018 6:34 PM DEALERSHIP MANAGER) Hep B Core Total Ab Nonreactive Nonreactive [facility] Specimen Blood Performing Organization Address [facility] Phone Number [address] * Prepare RBC (02/14/2018 5:10 PM DEALERSHIP MANAGER) CROSSMATCH COMPATIBLE SAFETRACE TX Unit ABO O Pos SAFETRACE TX UNIT NUMBER [id number] SAFETRACE TX Status RETURNED FROM ISSUE SAFETRACE TX Blood Bank Product RED BLOOD CELLS SAFETRACE TX PRODUCT CODE [id number] SAFETRACE TX CROSSMATCH COMPATIBLE SAFETRACE TX Unit ABO O Pos SAFETRACE TX UNIT NUMBER [id number] SAFETRACE TX Status RETURNED FROM ISSUE SAFETRACE TX Blood Bank Product RED BLOOD CELLS SAFETRACE TX PRODUCT CODE [id number] SAFETRACE TX CROSSMATCH COMPATIBLE SAFETRACE TX Unit ABO O Pos SAFETRACE TX UNIT NUMBER [id number] SAFETRACE TX Status READY SAFETRACE TX Blood Bank Product RED BLOOD CELLS SAFETRACE TX PRODUCT CODE [id number] SAFETRACE TX CROSSMATCH COMPATIBLE SAFETRACE TX Unit ABO O Pos SAFETRACE TX UNIT NUMBER [id number] SAFETRACE TX Status READY SAFETRACE TX Blood Bank Product RED BLOOD CELLS SAFETRACE TX PRODUCT CODE [id number] SAFETRACE TX Performing Organization Address [facility] Phone Number SAFETRACE [place] * [place] indian trader in or 30 minute increments (02/14/2018 4:35 PM DEALERSHIP MANAGER) Specimen Narrative Performed At FINAL REPORT GE [facility] Fluoroscopy one view intraoperative 02/14/2018 5:31 PM CLINICAL HISTORY: Instrument localization COMPARISON: None available IMPRESSION: Please correlate imaging report findings with the procedure note prepared by Dr. Meza, as an intra-procedure imaging consultation was not requested. Reported cumulative dose: 0.260 mGy. Signed: Jarad Olivares MD Report Verified Date/Time:02/17/2018 10:51:13 Reading Location: [facility] Radiology Reading Room Procedure Note Interface, External Ris In - 02/17/2018 10:53 AM DEALERSHIP MANAGER FINAL REPORT Fluoroscopy one view intraoperative 02/14/2018 5:31 PM CLINICAL HISTORY: Instrument localization COMPARISON: None available IMPRESSION: Please correlate imaging report findings with the procedure note prepared by Dr. Meza, as an intra-procedure imaging consultation was not requested. Reported cumulative dose: 0.260 mGy. Signed: Jarad Olivares MD Report Verified Date/Time: 02/17/2018 10:51:13 Reading Location: [facility] Radiology Reading Room Performing Organization Address City/[facility] Phone Number GE RIS * AFB culture + smear (02/14/2018 4:19 PM DEALERSHIP MANAGER) Only the most recent of 2 results within the time period is included. Result No acid-fast bacilli isolated [facility] in 42 days [facility] AFB Smear No acid fast bacilli seen [facility] Specimen Tissue Performing Organization Address City/[facility] Phone Number [address] [address] [facility] * Anaerobic culture (02/14/2018 4:19 PM DEALERSHIP MANAGER) Only the most recent of 2 results within the time period is included. Result No anaerobes isolated [facility] Specimen Tissue Performing Organization Address [facility] Phone Number [address] [address] [facility] * Surgically obtained culture + gram stain (02/14/2018 4:19 PM DEALERSHIP MANAGER) Result No growth [facility] Gram Stain Result <1+ White blood cells seen [facility] Gram Stain Result No organisms seen [facility] Specimen Tissue Performing Organization Address City/[facility] Phone Number [address] * Fungus culture + smear (02/14/2018 4:19 PM DEALERSHIP MANAGER) Only the most recent of 2 results within the time period is included. Result No fungus isolated in 28 days [facility] Fungus Smear No fungi seen [facility] Specimen Tissue Performing Organization Address City/[facility]/Zipcode Phone Number [address] * SPIN/CONCENTRATION CHARGE (02/14/2018 3:57 PM DEALERSHIP MANAGER) Concentration charged Done [facility] Specimen Other Performing Organization Address City/[facility] Phone Number [address] * Tissue Exam (02/14/2018 3:37 PM DEALERSHIP MANAGER) Case Report Surgical Pathology [facility] Case: [id number] Authorizing Provider:Jaye Sweet, Collected: 02/14/2018 Irma PABON Ordering Location: [facility] Received: 02/17/2018 0838 PERIOPERATIVE SERVICES Pathologist: Williams Taveras MD Specimen:Kidney, Transplanted Kidney DIAGNOSIS KIDNEY, ALLOGRAFT, TRANSPLANT [facility] NEPHRECTOMY [facility] - BOTH ANTIBODY- AND CELL-MEDIATED REJECTION, SEVERE, ACUTE AND CHRONIC Signing Pathologist Direct Phone Line: [phone] CPT Code(s) 41024, 36492 x3, 16869, [address]93 [facility] x5, [address] [facility] CLINICAL HISTORY Renal infection [facility] SPECIMEN SOURCE Transplanted kidney [facility] GROSS DESCRIPTION The specimen is received in a [facility] formalin-filled container [facility] labeled with the patient's information and labeled "transplanted kidney" and consists of a fragmented transplanted nephrectomy weighing 165 gm collectively and measuring approximately 9.5 x 5 x 5 cm. 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 Grossly no masses are identified. Cafe Or Restaurant Manager sections are submitted in A1-A6. 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 [...] use of [facility] immunohistochemistry or special stains. Immunohistochemistry technical testing was performed at [facility] Pathology Laboratory where it was developed and [...] high complexity clinical laboratory testing. Specimen Tissue Performing Organization Address City/[facility]/Zipcode Phone Number [address] [address] [phone] [place] [address] * Sodium Na-Stat Lab (02/14/2018 3:19 PM DEALERSHIP MANAGER) Sodium 134 (L) 135 - 148 meq/L [facility] Specimen Blood, Arterial Performing Organization Address City/[facility]/Zipcode Phone Number [address] * Calcium, Ionized (02/14/2018 3:19 PM DEALERSHIP MANAGER) Calcium, Ion 0.89 (L) 1.12 - 1.27 mmol/L [facility] pH, Blood 7.43 [facility] Specimen Blood Performing Organization Address City/[facility]/Zipcode Phone Number [address] [address] [phone] [place] [address] * Blood gas, arterial (02/14/2018 3:19 PM DEALERSHIP MANAGER) pH, Arterial 7.43 7.35 - 7.45 [facility] pCO2, Arterial 36 35 - 45 mmHg [facility] pO2, Arterial 121 (H) 80 - 90 mmHg [facility] O2 Sat, Arterial 98.6 (H) 96.0 - 97.0 % [facility] HCO3, Arterial 23 21 - 29 mmol/L [facility] Base Excess, Arterial -1.0 -2.0 - 3.0 mmol/L [facility] Patient Temperature 35.4 C [facility] FIO2 56.0 % [facility] Specimen Blood, Arterial Performing Organization Address [facility] Phone Number [address] [address] [facility] * Lactic acid, venous, whole blood Daily (02/14/2018 6:32 AM DEALERSHIP MANAGER) Only the most recent of 3 results within the time period is included. Lactate, Venous 0.5 0.5 - 2.2 mmol/L [facility] Specimen Blood Performing Organization Address [facility] Phone Number [address] [address] [facility] * Body fluid cell count with differential (02/13/2018 12:00 AM DEALERSHIP MANAGER) Appearance Clear Clear [facility] Color Colorless Colorless, Straw [facility] RBCs 570 (H) <=1 /cu mm [facility] Adjusted WBC Count 163 (H) <=5 /cu mm [facility] Lining Cells 0 <=1 /cu mm [facility] % Segs 3 % [facility] % Lymphs 41 % [facility] % Monos 55 % [facility] % Eos 1 % [facility] % Baso 0 % [facility] Container Body Fluid EDTA Tube [facility] Specimen Body Fluid Performing Organization Address City/[facility]/Zipcode Phone Number [address] * Body fluid culture + gram stain (02/12/2018 11:38 PM DEALERSHIP MANAGER) Result No growth [facility] Gram Stain Result <1+ White blood cells seen [facility] Gram Stain Result No organisms seen [facility] Specimen Body Fluid - Peritoneal Dialysis Fluid Performing Organization Address City/[facility] Phone Number [address] * aPTT (02/12/2018 8:54 PM DEALERSHIP MANAGER) PTT 39.4 (H) 22.5 - 36.0 seconds [facility] Specimen Blood Performing Organization Address [facility] Phone Number [address] * Lipase (02/12/2018 8:54 PM DEALERSHIP MANAGER) Lipase 20 8 - 78 U/L [facility] Specimen Blood Performing Organization Address [facility] Phone Number [address] * Hepatic function panel (02/12/2018 8:54 PM DEALERSHIP MANAGER) Protein, Total 6.8Comment: Specimen slightly 6.0 - 8.3 gm/dL [facility] 3.[facility] (L)Comment: Specimen 3.5 - 5.0 g/dL [facility] Total Bilirubin 0.3Comment: Specimen slightly 0.2 - 1.2 mg/dL [facility] Bilirubin, Direct 0.2Comment: Specimen slightly 0.1 - 0.5 mg/dL [facility] Alkaline Phosphatase 66 40 - 150 U/L [facility] AST 18Comment: Specimen slightly 5 - 34 U/L [facility] hemolyzed [facility] ALT 13Comment: Specimen slightly 6 - 55 U/L [facility] Specimen Blood Performing Organization Address City/State/Zipcode Phone Number [phone] [place] [address] * Procalcitonin (02/12/2018 6:35 PM DEALERSHIP MANAGER) Procalcitonin 0.75 (H) <0.05 ng/mL [facility] Specimen Blood Narrative Performed At SEPSIS RISK (ng/mL) [facility] Low:0.05-0.50 [facility] Intermediate: 0.51-2.00 High: >=2.01 Performing Organization Address [facility] Phone Number [address] * Blood culture #2 (02/12/2018 6:33 PM DEALERSHIP MANAGER) Only the most recent of 2 results within the time period is included. Result No growth in 5 days [facility] Specimen Blood Performing Organization Address [facility] Phone Number [phone] [place] [address] * POC-Lactic Acid, Venous (02/12/2018 6:18 PM DEALERSHIP MANAGER) POC-Lactic Acid, Venous 2.1 (H)Comment: TESTED AT 0.9 - 1.7 mmol/L [facility] [address] [place] [id number] Specimen Blood Performing Organization Address City/[facility]/Zipcode Phone Number [address] after 10/26/2017 Insurance Payer Benefit Subscriber ID Type Phone Address Plan / Group [facility] xxxxxxxxx MEDICARE MGD CARE MEDICARE HMO MEDICAID - MEDICAID MGD [facility] xxxxxxxxx Medicaid CARE COMM STAR Contracted PLAN Advance Directives For more information, please contact: [facility] [address] [place] [address] Date Inactivated Comments Code Status Date Activated 06/03/2018 9:32 PM Full Code 05/31/2018 11:46 PM This code status was determined by: Patient 05/31/2018 9:28 PM Full Code 03/28/2018 11:36 AM This code status was determined by: Patient 03/01/2018 5:12 PM Full Code 02/12/2018 6:00 PM This code status was determined by: Patient
[2018-10-27] MEDS ORDERED: METOPROLOL TARTRATE INJ 1 MG/ML VIAL IV ONE (23:45)
[2018-10-27] MEDS ORDERED: ONDANSETRON HCL INJ 2MG/ML 2ML 2 MG/ML VIAL IV STA (23:58)
[2018-10-28 00:32] LABS: BASOPHILS % 0.1 % (0.0-1.0); EOSINOPHILS % 0.1 % (0.0-6.0); HEMATOCRIT 34.5 % (38.2-49.6); HEMOGLOBIN 11.8 g/dL (14.0-18.0); LYMPHOCYTES # (AUTO) 0.8 (1.0-3.2); LYMPHOCYTES % 7.7 % (18.0-39.1); MEAN CORPUSCULAR HEMOGLOBIN 32.5 pg (28-32); MEAN CORPUSCULAR HGB CONC 34.2 g/dL (31-35); MONOCYTES # (AUTO) 0.8 (0.2-0.8); MONOCYTES % 7.7 % (4.4-11.3); NEUTROPHILS # (AUTO) 8.1 (2.1-6.9); NEUTROPHILS % 83.9 % (38.7-80.0); PLATELET COUNT 89 x10e3/uL (140-360); RED BLOOD COUNT 3.63 x10e6/uL (4.3-5.7); RED CELL DISTRIBUTION WIDTH 16.1 % (11.7-14.4)
[2018-10-28 00:33] LABS: ALBUMIN 3.8 g/dL (3.5-5.0); ALBUMIN/GLOBULIN RATIO 0.9 (0.8-2.0); ANION GAP 32.7 mmol/L (8-16); CREATININE, SERUM 18.81 mg/dL (0.72-1.25)
[2018-10-28 00:35] LABS: CALCIUM 10.5 mg/dL (8.4-10.2)
[2018-10-28 00:36] LABS: POTASSIUM 6.7 mmol/L (3.5-5.1)
[2018-10-28 00:42] LABS: AMYLASE 137 U/L (25-125); LIPASE 20 U/L (8-78)
[2018-10-28] MEDS ORDERED: METOPROLOL TARTRATE INJ 1 MG/ML VIAL IV ONE (00:45)
[2018-10-28] MEDS ORDERED: IOPAMIDOL 370 MG/ML 200 ML INFUS..BTL INJ ONE (00:47)
[2018-10-28] MEDS ORDERED: SODIUM CHLORIDE 0.9% 100 ML 100 ML ONE (00:47)
[2018-10-28 00:56] LABS: CREATINE KINASE MB 2.8 ng/mL (0-5.0)
--- NOTE | 2018-10-28 00:59 | NUR ---
dolly stone called to set up dialysis for am. left voicemail.
[2018-10-28] MEDS ORDERED: SOD POLYSTYRENE SULFONATE SUSP 15 GM/60 ML BTL PO ONE (01:00)
[2018-10-28] MEDS ORDERED: DILTIAZEM 24HR120 M1 PO (01:47)
[2018-10-28] MEDS ORDERED: MINOXIDIL2.5 MG PO (01:48)
[2018-10-28] MEDS ORDERED: NITROGLYCERIN 2% OINT 1 GM PKT TOP ONE (02:45)
--- NOTE | 2018-10-28 03:11 | Diagnostic Imaging Report ---
EXAM: CTA of the chest abdomen and pelvis with and without contrast INDICATION: Chest and epigastric pain COMPARISON: CTA 05/20/2018. TECHNIQUE: Multi-detector CT technology was employed. CT of the chest abdomen pelvis was performed prior to the administration of IV contrast. CTA of the chest abdomen and pelvis was performed after the administration of IV contrast. IV CONTRAST: 100 mL of Isovue 370 ORAL CONTRAST: None COMPLICATIONS: None RADIATION DOSE: Total DLP: 688 mGy*cm Estimated effective dose: (DLP x 0.015 x size factor) mSv CTDIvol has been reviewed. It is below the limits set by the Radiation Protocol Committee (RPC). Dose modulation, iterative reconstruction, and/or weight based adjustment of the mA/kV was utilized to reduce the radiation dose to as low as reasonably achievable. For optimization of anatomic evaluation, multiplanar reconstruction, maximum intensity projections, and advanced 3-D off-line postprocessing were performed on a dedicated stand-alone workstation under the direct supervision of the interpreting physician. FINDINGS: Potential study limitations: None. VASCULAR WITH ADVANCED 3-D OFF-LINE POSTPROCESSING: The aorta is normal in course, caliber, and contour. There is no acute aortic pathology . Aortic plaques: Mild. The aorta is nondilated. The celiac axis, SMA, and MAXIM are patent. There are single renal arteries bilaterally, both of which appear patent. The pelvic arteries are normal in caliber and contour. There are is mild atherosclerotic changes of the pelvic arteries. CHEST: Atherosclerotic calcifications of the left main coronary artery and left anterior descending and left circumflex coronary arteries. The heart is mildly enlarged. The left atrium is mildly dilated. The main pulmonary artery is nondilated.. Right IJ tunneled dialysis catheter, with tip in cavoatrial junction. ABDOMEN: The liver, gallbladder, spleen, and pancreas appear normal. The adrenal glands appear normal. Atrophic kidneys. There is no abnormal mass or hydronephrosis. PELVIS: There is no significant retroperitoneal adenopathy. No free fluid or free air within the abdomen or pelvis. The bowel appears unremarkable. The urinary bladder appears normal. Postsurgical changes in the bilateral groins. BONES: Bilateral L5 inferior pars defects. IMPRESSION: No acute aortic pathology. Mild atherosclerotic disease of the aorta. Calcific left coronary artery disease. Mild cardiomegaly. Renal atrophy. Signed by: Jeffrey Wheatley DO on 10/28/2018 3:07 AM
--- NOTE | 2018-10-28 03:25 | NUR ---
dolly nurse paged for stat dialysis. spoke to
--- NOTE | 2018-10-28 04:18 | NUR ---
dialysis nurse arrived at this time. patient refusing to do dialysis unless pain medication administered. er md informed. md to room to speak with patient.
[2018-10-28] MEDS ORDERED: SODIUM CHLORIDE 0.9% 1000ML 2,000 ML ONE (04:39)
[2018-10-28] MEDS ORDERED: ONDANSETRON HCL 4 MG ORAL DISINTEGRATING TAB ONE (04:40)
[2018-10-28] MEDS ORDERED: ONDANSETRON HCL 4 MG ORAL DISINTEGRATING TAB PO ONE (04:45)
--- NOTE | 2018-10-28 06:45 | NUR ---
hd nurse requesting heparin for packing of hd catheter. pt questioned regarding allergy to heparin. pt states that causes itching when administered intravenously during dialysis. pt states that heparin can be used for packing hd catheter only. pt states that heparin used routinely s complications at outpatient dialysis. pharmacist informed.
[2018-10-28 09:04] LABS: ANION GAP 21.3 mmol/L (8-16); CALCIUM 10.7 mg/dL (8.4-10.2); CREATININE, SERUM 6.1 mg/dL (0.72-1.25); POTASSIUM 3.3 mmol/L (3.5-5.1)
[2018-10-28] MEDS ORDERED: DILTIAZEM HCL 5 MG/ML 5 ML VIAL IV ONE (09:30)
[2018-10-28] MEDS ORDERED: LABETALOL HCL 100 MG TAB PO ONE (09:30)
== END 2018-10-28 11:07 | disposition home or self-care (01) ==
LOC: ER 23:05
DX: R07.89 Other chest pain (principal); I12.0 Hypertensive chronic kidney disease with stage 5 chronic kidney disease or end stage renal disease; N18.6 End stage renal disease; Z99.2 Dependence on renal dialysis; K21.9 Gastro-esophageal reflux disease without esophagitis
CPT/HCPCS: 36415; 71275; 74174; 80048; 80053; 82150; 82550; 82553; 83690; 84484; 85025; 93005; 96374; 99284; J1642; J2405; J7030; Q0162; Q9967

== ENCOUNTER 2018-11-16 07:53 | Emergency (ER) | payer MEDICARE, OTHER ==
[~2018-11-16] VITALS: Ht 165.1 cm; Wt 57.2 kg
[~2018-11-16 07:53] MED LIST changes: +DILTIAZEM 24HR120 M1 PO
--- OUTSIDE RECORDS SUMMARY | 2018-11-16 07:56 | XMS REPORT | Clinical Summary ---
Author Author [facility] Organization [place] [facility] Address Unknown Phone Unavailable Care Team Providers Care String Top Sealer Name Role Phone Sourav Harmon MD PCP [...] Specialty Chantal Choudhury RN 06/12/2018 Abstract Transplant after 11/15/2017 Family History Medical History Relation Name Comments [...] / Lot Implanted Type Area Manufactur er [id number] [facility] / / [facility]icle [facility] Abs[facility]bl Allison 5gm Surgical N/A: N/A [employer] [facility] - [id number] Implants; Implanted: Qty: 1 on 01/25/2017 by [employer]; Lawson Caldwell MD at [facility]; HOSPITAL Surgical Wires 09/25/2021 [id number] / [id number] / [id number] Graft Vasclr Kendall-Alireza Stdwl 10cm Vascular N/A: N/A W L GORE 6mm - [id number] - [id number] Graft Implanted: Qty: 1 on 01/25/2017 by Lawson Caldwell MD at [facility] Results Not on fileafter 11/15/2017 Insurance Type Payer Benefit Subscriber ID Effective Phone Address Plan / Dates Group Medicare MEDICARE MEDICARE xxxxxxxxxx 2016-P VEGA, PART A AND resent [place] B [id number] 2017-P COMM STAR+ resent ARLEEN Advance Directives For more information, please contact: [phone] 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
--- OUTSIDE RECORDS SUMMARY | 2018-11-16 07:56 | XMS REPORT | Clinical Summary ---
Author Author AL [facility] Organization [facility] Address Unknown Phone Unavailable Care Team Providers Care Manager Interventional Name Role Phone Eric Alcala PCP Allergies [...] and has no evidence of recurrent disease. [place] were removed in clinic today. Uncontrolled hypertension [...] Event Jaye Sweet MD NEPHRECTOMY 02/14/2018 Surgery HiralJarrod III, MD Athreya, Khannan K., MD Agrawal, Neeraj, MD ESRD (end stage renal disease) ([facility]) (Primary Dx); Peritoneal dialysis status (HCC); Hypertensive crisis; Failed kidney transplant; Uremia syndrome; Peritonitis (HCC); Anemia of chronic disease; Encounter regarding vascular access for dialysis for end-stage renal disease (HCC) 02/12/2018 [facility] Internal Medicine - Encounter 02/20/2018 02/12/2018 Travel after 11/15/2017 Social History Date Tobacco Use Types Packs/Day [...] Lot Implanted Type Area Manufactur er 06/08/2020 [id number] / N/A / [id number] Cath Kt Hd Dl Str [id number] Catheter Left: Neck ANGIODYNAM [id number] - Sn/A Dialysis ICS Implanted: Qty: 1 [...] RHYTHM STRIP - SCAN 04/15/2018 8:30 AM PARK MAINTAINER TRANSFUSION SERVICE 03/29/2018 REPORT - SCAN 5:53 PM PARK MAINTAINER CREATION,A-V FISTULA 03/28/2018 End stage renal disease 3:15 PM PARK MAINTAINER (HCC) TYPE AND SCREEN, Routine 03/28/2018 AUTOMATED 11:57 AM PARK MAINTAINER PROTHROMBIN TIME/INR STAT 03/28/2018 11:57 AM PARK MAINTAINER HGB/HCT (H&H) - STAT LAB Routine 03/28/2018 11:57 AM PARK MAINTAINER GLUCOSE-STAT LAB STAT 03/28/2018 11:57 AM PARK MAINTAINER POTASSIUM-STAT LAB STAT 03/28/2018 11:57 AM PARK MAINTAINER CBC W/PLT COUNT & AUTO STAT 03/01/2018 DIFFERENTIAL 6:03 PM PARK MAINTAINER PT/APTT STAT 03/01/2018 6:03 PM PARK MAINTAINER BASIC METABOLIC PANEL (7) STAT 03/01/2018 6:03 PM PARK MAINTAINER CBC W/PLT COUNT & AUTO STAT 03/01/2018 DIFFERENTIAL 6:03 PM PARK MAINTAINER RHYTHM STRIP - SCAN 02/27/2018 8:40 AM PARK MAINTAINER CBC W/PLT COUNT & AUTO STAT 02/20/2018 DIFFERENTIAL 12:26 PM PARK MAINTAINER CBC W/PLT COUNT & AUTO STAT 02/20/2018 DIFFERENTIAL 12:26 PM PARK MAINTAINER BASIC METABOLIC PANEL (7) STAT 02/20/2018 12:26 PM PARK MAINTAINER IR VENOGRAM - EXTREMITY Routine 02/20/2018 BILATERAL 8:45 AM PARK MAINTAINER PREALBUMIN Routine 02/20/2018 4:57 AM PARK MAINTAINER HEMODIALYSIS INPATIENT Routine 02/19/2018 12:57 PM PARK MAINTAINER CBC W/PLT COUNT & AUTO STAT 02/19/2018 DIFFERENTIAL 8:08 AM PARK MAINTAINER BASIC METABOLIC PANEL (7) STAT 02/19/2018 8:08 AM PARK MAINTAINER CBC W/PLT COUNT & AUTO STAT 02/19/2018 DIFFERENTIAL 8:08 AM PARK MAINTAINER VANCOMYCIN LEVEL, RANDOM Routine 02/19/2018 4:10 AM PARK MAINTAINER VANCOMYCIN LEVEL, RANDOM Routine 02/18/2018 4:11 AM PARK MAINTAINER PHOSPHORUS Routine 02/18/2018 4:11 AM PARK MAINTAINER CBC (HEMOGRAM ONLY) Routine 02/18/2018 4:11 AM PARK MAINTAINER BASIC METABOLIC PANEL (7) Routine 02/18/2018 4:11 AM PARK MAINTAINER HEMODIALYSIS INPATIENT Routine 02/17/2018 7:[address] ABDOMEN/PELVIS WITH IV Routine 02/17/2018 CONTRAST 3:53 PM PARK MAINTAINER PREALBUMIN Routine 02/17/2018 4:17 AM PARK MAINTAINER VANCOMYCIN LEVEL, TROUGH Timed 02/17/2018 4:17 AM PARK MAINTAINER PHOSPHORUS Routine 02/17/2018 4:17 AM PARK MAINTAINER CBC (HEMOGRAM ONLY) Routine 02/17/2018 4:17 AM PARK MAINTAINER BASIC METABOLIC PANEL (7) Routine 02/17/2018 4:17 AM PARK MAINTAINER XR ABDOMEN 1 VIEW Routine 02/16/2018 6:46 PM PARK MAINTAINER PHOSPHORUS Routine 02/16/2018 5:32 AM PARK MAINTAINER CBC (HEMOGRAM ONLY) Routine 02/16/2018 5:32 AM PARK MAINTAINER BASIC METABOLIC PANEL (7) Routine 02/16/2018 5:32 AM PARK MAINTAINER TRANSFUSION SERVICE 02/15/2018 REPORT - SCAN 6:00 PM PARK MAINTAINER PHOSPHORUS Routine 02/15/2018 6:11 AM PARK MAINTAINER CBC (HEMOGRAM ONLY) Routine 02/15/2018 6:11 AM PARK MAINTAINER BASIC METABOLIC PANEL (7) Routine 02/15/2018 6:11 AM PARK MAINTAINER WOUND CULTURE + GRAM Routine 02/14/2018 STAIN 10:00 PM PARK MAINTAINER HEPATITIS C ANTIBODY Routine 02/14/2018 6:34 PM PARK MAINTAINER HEPATITIS B CORE Routine 02/14/2018 ANTIBODY, TOTAL 6:34 PM PARK MAINTAINER HEPATITIS B CORE Routine 02/14/2018 ANTIBODY, IGM 6:34 PM PARK MAINTAINER HEPATITIS B SURFACE Routine 02/14/2018 ANTIGEN 6:34 PM PARK MAINTAINER VANCOMYCIN LEVEL, RANDOM Routine 02/14/2018 6:34 PM PARK MAINTAINER HEMODIALYSIS INPATIENT Routine 02/14/2018 6:24 PM PARK MAINTAINER TRANSFUSION SERVICE 02/14/2018 REPORT - SCAN 6:01 PM PARK MAINTAINER PREPARE RBC Routine 02/14/2018 5:10 PM PARK MAINTAINER FL STAMPING DIE MAKER IN OR 30 Routine 02/14/2018 MINUTE INCREMENTS 4:35 PM PARK MAINTAINER SURGICALLY OBTAINED GUILLERMINA 02/14/2018 CULTURE + GRAM STAIN 4:19 PM PARK MAINTAINER FUNGUS CULTURE + SMEAR GUILLERMINA 02/14/2018 4:19 PM PARK MAINTAINER ANAEROBIC CULTURE GUILLERMINA 02/14/2018 4:19 PM PARK MAINTAINER AFB CULTURE + SMEAR GUILLERMINA 02/14/2018 4:19 PM PARK MAINTAINER FUNGUS CULTURE + SMEAR GUILLERMINA 02/14/2018 3:57 PM PARK MAINTAINER ANAEROBIC CULTURE GUILLERMINA 02/14/2018 3:57 PM PARK MAINTAINER AFB CULTURE + SMEAR GUILLERMINA 02/14/2018 3:57 PM PARK MAINTAINER SPIN/CONCENTRATION CHARGE Routine 02/14/2018 3:57 PM PARK MAINTAINER TISSUE EXAM AP Routine 02/14/2018 3:37 PM PARK MAINTAINER HGB/HCT (H&H) - STAT LAB STAT 02/14/2018 3:19 PM PARK MAINTAINER GLUCOSE-STAT LAB STAT 02/14/2018 3:19 PM PARK MAINTAINER POTASSIUM-STAT LAB STAT 02/14/2018 3:19 PM PARK MAINTAINER SODIUM NA-STAT LAB STAT 02/14/2018 3:19 PM PARK MAINTAINER BLOOD GAS, ARTERIAL STAT 02/14/2018 3:19 PM PARK MAINTAINER CALCIUM, IONIZED STAT 02/14/2018 3:19 PM PARK MAINTAINER RRL CRITICAL LABS STAT 02/14/2018 (ABG,NA,K,H&H,GLUCOSE) 3:19 PM PARK MAINTAINER INSERTION,DIALYSIS 02/14/2018 Renal infection CATHETER PERITONEAL 11:22 AM PARK MAINTAINER REMOVAL,CATHETER 02/14/2018 Renal infection PERITONEAL 11:22 AM PARK MAINTAINER NEPHRECTOMY 02/14/2018 Renal infection 11:22 AM PARK MAINTAINER ECG 12-LEAD STAT 02/14/2018 8:55 AM PARK MAINTAINER PHOSPHORUS Routine 02/14/2018 6:32 AM PARK MAINTAINER CBC (HEMOGRAM ONLY) Routine 02/14/2018 6:32 AM PARK MAINTAINER BASIC METABOLIC PANEL (7) Routine 02/14/2018 6:32 AM PARK MAINTAINER LACTIC ACID, VENOUS Routine 02/14/2018 6:32 AM PARK MAINTAINER TYPE AND SCREEN, Routine 02/13/2018 AUTOMATED 8:41 PM PARK MAINTAINER BASIC METABOLIC PANEL (7) Routine 02/13/2018 12:10 PM PARK MAINTAINER LACTIC ACID, VENOUS Routine 02/13/2018 5:05 AM PARK MAINTAINER BODY FLUID CELL COUNT Routine 02/13/2018 WITH DIFFERENTIAL 12:00 AM PARK MAINTAINER BODY FLUID CULTURE + GRAM Routine 02/12/2018 STAIN 11:38 PM PARK MAINTAINER APTT Routine 02/12/2018 8:54 PM PARK MAINTAINER PROTHROMBIN TIME/INR Routine 02/12/2018 8:54 PM PARK MAINTAINER LIPASE Routine 02/12/2018 8:54 PM PARK MAINTAINER HEPATIC FUNCTION PANEL Routine 02/12/2018 8:54 PM PARK MAINTAINER LACTIC ACID, VENOUS STAT 02/12/2018 8:54 PM PARK MAINTAINER XR CHEST 1 VIEW Routine 02/12/2018 PORTABLE/BEDSIDE 8:31 PM PARK MAINTAINER CBC W/PLT COUNT & AUTO Routine 02/12/2018 DIFFERENTIAL 6:40 PM PARK MAINTAINER CBC W/PLT COUNT & AUTO Routine 02/12/2018 DIFFERENTIAL 6:40 PM PARK MAINTAINER PROCALCITONIN STAT 02/12/2018 6:35 PM PARK MAINTAINER BASIC METABOLIC PANEL (7) Routine 02/12/2018 6:35 PM PARK MAINTAINER BLOOD CULTURE STAT 02/12/2018 6:33 PM PARK MAINTAINER BLOOD CULTURE STAT 02/12/2018 6:32 PM PARK MAINTAINER POCT-LACTIC ACID, VENOUS Routine 02/12/2018 6:18 PM PARK MAINTAINER after 11/15/2017 Results * EKG-SCANNED (06/05/2018 1:40 PM CDT) [...] included. POC-Glucose Meter 93Comment: TESTED AT [facility] 70 - 110 mg/dL [facility] [address] [facility] [address] [facility] Specimen Blood Performing Organization Address City/State/Zipcode Phone Number [facility] [address] [place] [address] [facility] * IR Tunneled Catheter Insertion (06/03/2018 10:40 AM CDT) Specimen Narrative Performed At FINAL REPORT [facility] Procedure: Placement of tunneled hemodialysis catheter, right [...] A guidewire was advanced centrally. At 15.5 [place] two hemodialysis catheter was tunneled along the right anterior chest, entering the right internal jugular vein and terminating in the upper portion the right atrium. The catheter was secured in place with sutures and packed with ACD-A. CONCLUSION: Placement of tunneled hemodialysis catheter Signed: Wilmer Bains MD Report Verified Date/Time:06/03/2018 17:10:17 Reading Location: [place] [address] Angio Body Reading Room Procedure Note Interface, [...] A guidewire was advanced centrally. At 15.5 [place] two hemodialysis catheter was tunneled along the right anterior chest, entering the right internal jugular vein and terminating in the upper portion the right atrium. The catheter was secured in place with sutures and packed with ACD-A. CONCLUSION: Placement of tunneled hemodialysis catheter Signed: Wilmer Bains MD Report Verified Date/Time: 06/03/2018 17:10:17 Reading Location: [facility] P048 Angio Body Reading Room Performing Organization Address City/State/Zipcode Phone Number [facility] * CBC with platelet count + automated diff (06/03/2018 4:41 AM CDT) Only the most recent of 8 results within the time period is included. WBC 6.1 3.5 - 10.5 K/L [facility] RBC 2.62 (L) 4.63 - 6.08 M/L [facility] Hemoglobin 7.9 (L) 13.7 - 17.5 GM/DL [facility] Hematocrit 24.7 (L) 40.1 - 51.0 % [facility] MCV 94.3 (H) 79.0 - 92.2 fL [facility] MCH 30.2 25.7 - 32.2 pg [facility] MCHC 32.0 (L) 32.3 - 36.5 GM/DL [facility] RDW 16.9 (H) 11.6 - 14.4 % [facility] Platelets 100 (L) 150 - 450 K/CU MM [facility] MPV 11.9 9.4 - 12.4 fL [facility] nRBC 0 0 - 0 /100 WBC [facility] % Neutros 46 % [facility] % Lymphs 29 % [facility] % Monos 17 % [facility] % Eos 6 % [facility] % Baso 1 % [facility] # Neutros 2.84 1.78 - 5.38 K/L [facility] # Lymphs 1.77 1.32 - 3.57 K/L [facility] # Monos 1.06 (H) 0.30 - 0.82 K/L [facility] # Eos 0.35 0.04 - 0.54 K/L [facility] # Baso 0.07 0.01 - 0.08 K/L [facility] Immature 1 0 - 1 % [facility] Granulocytes-[facility] Specimen Blood Performing Organization Address City/[facility] Phone Number [address] * Phosphorus (06/03/2018 4:41 AM CDT) Only the most recent of 9 results within the time period is included. Phosphorus 8.1 (H) 2.3 - 4.7 mg/dL [facility] Specimen Blood Performing Organization Address City/[facility] Phone Number [address] * Magnesium (06/03/2018 4:41 AM CDT) Only the most recent of 4 results within the time period is included. Magnesium 2.7 (H) 1.6 - 2.6 mg/dL [facility] Specimen Blood Performing Organization Address City/[facility]/Zipcode Phone Number [address] * Basic Metabolic Panel (06/03/2018 4:41 AM CDT) Only the most recent of 21 results within the time period is included. Sodium 140 136 - 145 meq/L [facility] Potassium 4.6 3.5 - 5.1 meq/L [facility] Chloride 97 (L) 98 - 107 meq/L [facility] CO2 29 22 - 29 meq/L [facility] BUN 46 (H) 7 - 21 mg/dL [facility] Creatinine 13.27 (H) 0.57 - 1.25 mg/dL [facility] Glucose 87 70 - 105 mg/dL [facility] Calcium 8.6 8.4 - 10.2 mg/dL [facility] EGFR Comment: INSUFFICIENT CLINICAL mL/min/1.73 sq m [facility] DATA TO CALCULATE ESTIMATED [facility] GFR. Specimen Blood Performing Organization Address City/State/Zipcode Phone Number [facility] [address] [place] [address] [facility] * HEMODIALYSIS INPATIENT (06/01/2018 9:36 AM CDT) Narrative Performed At Lida Ghotra RN 06/01/20189:36 AM 3 hours HD completed. Net UF of 3 L. Pt tolerated tx well. Reports given to primary state inspector Results Component Value Date GLUCOSE 76 06/01/2018 [...] Active Ambulatory Problems Diagnosis Date Noted Peritonitis ([facility]) 02/12/2018 ESRD (end stage renal disease) ([facility]) 02/12/2018 Hypertensive crisis 02/17/2018 Anemia of chronic disease 02/17/2018 ESRD on hemodialysis ([facility]) S/p nephrectomy 03/17/2018 HTN (hypertension) 03/17/2018 ESRD (end stage renal disease) on dialysis ([facility]) 03/28/2018 Resolved Ambulatory Problems Diagnosis Date Noted No Resolved Ambulatory Problems Past Medical History: Diagnosis Date ESRD (end stage renal disease) ([facility]) HTN (hypertension) Past Surgical History: Procedure Laterality Date CREATION,A-V FISTULA Right 03/28/2018 Procedure: CREATION,A-V FISTULA;Surgeon: Orestes Muhammad MD;Location: [facility] CV OR;Service: CV Surgery; Laterality: Right; INSERTION,DIALYSIS CATHETER PERITONEAL Left 02/14/2018 Procedure: INSERTION,DIALYSIS CATHETER PERITONEAL;Surgeon: Jaye Sweet MD;Location: [facility] CV OR;Service: General Surgery;Laterality: Left;Dura Flow 2. 15.5F x 24cm Chronic Hemodialysis Catheter NEPHRECTOMY Left 02/14/2018 Procedure: NEPHRECTOMY;Surgeon: Jaye Sweet MD; Location: [facility] CV OR;Service: General Surgery;Laterality: Left; REMOVAL,CATHETER PERITONEAL Left 02/14/2018 Procedure: REMOVAL,CATHETER PERITONEAL;Surgeon: Jaye Sweet MD;Location: [facility] CV OR;Service: General Surgery;Laterality: Left; TRANSPLANT,[id number] Lida Ghotra RN * Vitamin B12 and Folate (06/01/2018 5:58 AM CDT) Vitamin B12 307 213 - 816 pg/mL [facility] Folate 9.7 >=7.0 ng/mL [facility] Specimen Blood Narrative Performed At For chronic HD patients, draw HBsAg with each admission then every 30 days. [facility] Performing Organization Address City/[facility]/[place] [address] [phone] [place] [address] * Iron, TIBC, % sat. (without ferritin) (06/01/2018 5:58 AM CDT) Iron 27.0 (L) 40.0 - 160.0 ug/dL [facility] TIBC 136 (L) 250 - 450 ug/dL [facility] Iron % Saturation 20 20 - 55 % [facility] Specimen Blood Narrative Performed At For chronic HD patients, draw HBsAg with each admission then every 30 days. [facility] Performing Organization Address [facility]/Zipcode Phone Number [place] [phone] * Hepatitis B surface antigen (06/01/2018 5:58 AM CDT) Only the most recent of 2 results within the time period is included. hepatitis B Surface Ag Nonreactive Nonreactive [facility] Specimen Blood Narrative Performed At For chronic HD patients, draw HBsAg with each admission then every 30 days. [facility] Performing Organization Address [facility]/[place] [address] [facility] * Ferritin (06/01/2018 5:58 AM CDT) Ferritin 1,315 (H) 5 - 275 ng/mL [facility] Specimen Blood Narrative Performed At For chronic HD patients, draw HBsAg with each admission then every 30 days. [facility] Performing Organization Address City/[facility]/[place] [address] [facility] * XR chest 1 view portable [...] MD Report Verified Date/Time:06/01/2018 06:25:10 Reading Location: [facility] C013Y CT Body Reading Room Procedure Note [...] Report Verified Date/Time: 06/01/2018 06:25:10 Reading Location: [facility] C0Y CT Body Reading Room Performing Organization Address City/State/Zipcode Phone Number [facility] * CRITICAL CARE (05/31/2018 11:10 PM CDT) Narrative Performed At Tje Cunningham MD 05/31/2018 11:15 PM Critical Care [...] 480 ms QTC Calculation(Bazett) 483 ms P [place] 24 degrees R [place] 28 degrees T [place] 55 degrees Normal sinus rhythm Prolonged QT [...] 480 ms QTC Calculation([place]azett) 483 ms P [place] 24 degrees R [place] 28 degrees T [place] 55 degrees Normal sinus rhythm Prolonged QT Abnormal ECG When compared with ECG of 14-FEB-2018 08:55, T wave inversion no longer evident in Anterior leads Confirmed by MD Bustamante Mahboob ([id number]) on 06/01/2018 12:55:50 PM Performing Organization Address City/[facility] Phone Number [facility] * PT/aPTT (05/31/2018 10:06 PM CDT) Only the most recent of 2 results within the time period is included. Protime 13.7 11.7 - 14.7 seconds [facility] INR 1.0 <=5.9 [facility] PTT 44.0 (H) 22.5 - 36.0 seconds [facility] Specimen Blood Narrative Performed At RECOMMENDED COUMADIN/WARFARIN INR THERAPY RANGES [facility] STANDARD DOSE: 2.0 - 3.0 Includes: PROPHYLAXIS for venous thrombosis, [facility] systemic embolization; TREATMENT for venous thrombosis and/or pulmonary embolus. HIGH RISK: Target INR is 2.5-3.5 for patients with mechanical heart valves. Performing Organization Address City/[facility]/Zipcode Phone Number [facility] [address] [place] [address] [facility] * Troponin I (05/31/2018 10:06 PM CDT) Troponin I 0.02 0.00 - 0.03 ng/mL [facility] Specimen Blood Narrative Performed At Troponin I (TnI) levels must be interpreted in the context of the presenting [facility] symptoms and the clinical findings. Elevated TnI levels indicate myocardial [facility] damage, but are not specific for ischemic heart disease. Elevated TnI levels are seen in patients with other cardiac conditions (including myocarditis and congestive heart failure), and slight TnI elevations occur in patients with other conditions, including sepsis, renal failure, acidosis, acute neurological disease, and persistent tachyarrhythmia. Performing Organization Address City/State/Zipcode Phone Number [facility] [address] [place] [address] [facility] * Comprehensive metabolic panel (05/31/2018 10:06 PM CDT) Protein, Total 6.9 6.0 - 8.3 gm/dL [facility] Albumin 3.8 3.5 - 5.0 g/dL [facility] Alkaline Phosphatase 93 40 - 150 U/L [facility] Total Bilirubin 0.4 0.2 - 1.2 mg/dL [facility] Sodium 141 136 - 145 meq/L [facility] Potassium 7.3 (HH) 3.5 - 5.1 meq/L [facility] Chloride 99 98 - 107 meq/L [facility] CO2 24 22 - 29 meq/L [facility] BUN 68 (H) 7 - 21 mg/dL [facility] Creatinine 16.55 (H) 0.57 - 1.25 mg/dL [facility] Glucose 79 70 - 105 mg/dL [facility] Calcium 8.6 8.4 - 10.2 mg/dL [facility] AST 22 5 - 34 U/L [facility] ALT 22 6 - 55 U/L [facility] EGFR Comment: INSUFFICIENT CLINICAL mL/min/1.73 sq m [facility] DATA TO CALCULATE ESTIMATED [facility] GFR. Specimen Blood Performing Organization Address [facility] [place] [address] [phone] * TRANSFUSION SERVICE REPORT - SCAN (03/29/2018 5:53 PM PARK MAINTAINER) Only the most recent of 3 results within the time period is included. Narrative Performed At * Potassium-Stat Lab (03/28/2018 11:57 AM PARK MAINTAINER) Only the most recent of 2 results within the time period is included. Potassium 4.7 3.6 - 5.5 meq/L [facility] Specimen Blood, Arterial Performing Organization Address [facility] [place] [address] [phone] [place] [address] * Glucose-Stat Lab (03/28/2018 11:57 AM PARK MAINTAINER) Only the most recent of 2 results within the time period is included. Glucose 74 70 - 110 mg/dL [facility] Specimen Blood, Arterial Performing Organization Address [facility] [place] [address] [phone] [place] [address] * Type and screen, automated (03/28/2018 11:57 AM PARK MAINTAINER) Only the most recent of 2 results within the time period is included. ABO/RH AUTOMATED (BEAKER) O POSITIVE [facility] Ab Scrn NEGATIVE [facility] Specimen Blood Performing Organization Address [facility] Phone Number [address] [address] [phone] [place] [address] * HGB/HCT (H&H)-Stat Lab (03/28/2018 11:57 AM PARK MAINTAINER) Only the most recent of 2 results within the time period is included. Hemoglobin 10.3 (L) 13.0 - 16.8 g/dL [facility] Hematocrit 30.0 (L) 40.0 - 50.0 % [facility] Specimen Blood, Arterial Performing Organization Address City/[facility] Phone Number [address] [address] [facility] * Prothrombin time/INR (03/28/2018 11:57 AM PARK MAINTAINER) Only the most recent of 2 results within the time period is included. Protime 14.0 11.7 - 14.7 seconds [facility] INR 1.1 <=5.9 [facility] Specimen Blood Narrative Performed At RECOMMENDED COUMADIN/WARFARIN INR THERAPY RANGES [facility] STANDARD DOSE: 2.0 - 3.0 Includes: PROPHYLAXIS for venous thrombosis, [facility] systemic embolization; TREATMENT for venous thrombosis and/or pulmonary embolus. HIGH RISK: Target INR is 2.5-3.5 for patients with mechanical heart valves. Performing Organization Address City/[facility] Hospital[facility] Phone Number [address] [address] [facility] * IR Venogram - Extremity Bilateral (02/20/2018 8:45 AM PARK MAINTAINER) Specimen Narrative Performed At FINAL REPORT [facility] Bilateral upper extremity venogram, 02/20/2018. History: [...] MD Report Verified Date/Time:02/20/2018 16:41:39 Reading Location: [place] [address] Angio Body Reading Room Procedure Note Interface, External Ris In - 02/20/2018 4:43 PM PARK MAINTAINER FINAL REPORT Bilateral upper extremity venogram, 02/20/2018. [...] Report Verified Date/Time: 02/20/2018 16:41:39 Reading Location: [place] [address] Angio Body Reading Room Performing Organization Address City/[facility] Phone Number [facility] * Prealbumin (02/20/2018 4:57 AM PARK MAINTAINER) Only the most recent of 2 results within the time period is included. Prealbumin 23 14 - 45 mg/dL [facility] Specimen Blood Performing Organization Address [facility] Phone Number [address] [address] [phone] [place] [address] * HEMODIALYSIS INPATIENT (02/19/2018 12:57 PM PARK MAINTAINER) Narrative Performed At Guillermina Abraham RN 02/19/2018 12:57 PM HDX4 hours completed,UF-2L, patient tolerated well. * Vancomycin level, random (02/19/2018 4:10 AM PARK MAINTAINER) Only the most recent of 3 results within the time period is included. Vancomycin Rm 16.2 ug/mL [facility] Specimen Blood Narrative Performed At Reference Range: No Normals [facility] Performing Organization Address [facility] Phone Number [facility] [address] [place] [address] [facility] * CBC (Hemogram only) (02/18/2018 4:11 AM PARK MAINTAINER) Only the most recent of 5 results within the time period is included. WBC 11.0 (H) 3.5 - 10.5 K/L [facility] RBC 3.27 (L) 4.63 - 6.08 M/L [facility] Hemoglobin 9.1 (L) 13.7 - 17.5 GM/DL [facility] Hematocrit 29.7 (L) 40.1 - 51.0 % [facility] MCV 90.8 79.0 - 92.2 fL [facility] MCH 27.8 25.7 - 32.2 pg [facility] MCHC 30.6 (L) 32.3 - 36.5 GM/DL [facility] RDW 13.6 11.6 - 14.4 % [facility] Platelets 149 (L) 150 - 450 K/CU MM [facility] MPV 9.8 9.4 - 12.4 fL [facility] nRBC 0 0 - 0 /100 WBC [facility] Specimen Blood Performing Organization Address City/State/Zipcode Phone Number [facility] [address] [place] [address] [facility] * HEMODIALYSIS INPATIENT (02/17/2018 7:36 PM PARK MAINTAINER) Narrative Performed At Chandler Staley RN 02/17/20187:38 [...] abdomen/pelvis with IV contrast (02/17/2018 3:53 PM PARK MAINTAINER) Specimen Narrative Performed At FINAL REPORT [employer] RIS INDICATION: 47-year-old male with abdominal pain. [...] the gallbladder. No biliary ductal dilatation. 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 There is scattered moderate calcified plaque of the abdominal aorta and visceral arteries. Osseous structures unremarkable. IMPRESSION: Interval ligation of renal transplant artery and left epigastric artery with small left rectus hematoma. No bowel obstruction. Signed: Narciso Mccauley MD Report Verified Date/Time:02/17/2018 17:50:40 Reading Location: [address] Consult Reading Room Procedure Note Interface, External Ris In - 02/17/2018 5:52 PM PARK MAINTAINER FINAL REPORT INDICATION: 47-year-old male with abdominal [...] the gallbladder. No biliary ductal dilatation. 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 There is scattered moderate calcified plaque of the abdominal aorta and visceral arteries. Osseous structures unremarkable. IMPRESSION: Interval ligation of renal transplant artery and left epigastric artery with small left rectus hematoma. No bowel obstruction. Signed: Narciso Mccauley MD Report Verified Date/Time: 02/17/2018 17:50:40 Reading Location: [facility] [id number] Consult Reading Room Performing Organization Address City/State/Zipcode Phone Number [employer] * Vancomycin level, trough (02/17/2018 4:17 AM PARK MAINTAINER) Vancomycin Tr 25.3 (H) 10.0 - 20.0 ug/mL [facility] Specimen Blood Performing Organization Address City/[facility]/Zipcode Phone Number [place] [phone] [place] [address] [facility] * XR abdomen / KUB 1 view (02/16/2018 6:46 PM PARK MAINTAINER) Specimen Narrative Performed At FINAL REPORT GE [employer] RAD, ABDOMEN/KUB, 1 VIEW AP CLINICAL INDICATION:post [...] MD Report Verified Date/Time:02/16/2018 19:13:54 Reading Location: [address] Transitional Reading Room Procedure Note Interface, External Ris In - 02/16/2018 7:16 PM PARK MAINTAINER FINAL REPORT RAD, ABDOMEN/KUB, 1 VIEW AP [...] Report Verified Date/Time: 02/16/2018 19:13:54 Reading Location: [address] Transitional Reading Room Performing Organization Address City/[facility]/Zipcode Phone Number GE RIS * Wound culture + gram stain (02/14/2018 10:00 PM PARK MAINTAINER) Result No growth [facility] Specimen Wound Performing Organization Address City/[facility]/Zipcode Phone Number [address] [address] [facility] * Hepatitis C antibody (02/14/2018 6:34 PM PARK MAINTAINER) Hepatitis C Ab Nonreactive Nonreactive [facility] Specimen Blood Performing Organization Address [facility]/Zipcode Phone Number [address] [address] [phone] [place] [address] * Hepatitis B core antibody, IgM (02/14/2018 6:34 PM PARK MAINTAINER) Hep B C IgM Nonreactive Nonreactive [facility] Specimen Blood Performing Organization Address [facility] Phone Number [address] [address] [phone] [place] [address] * Hepatitis B core antibody, total (02/14/2018 6:34 PM PARK MAINTAINER) Hep B Core Total Ab Nonreactive Nonreactive [facility] Specimen Blood Performing Organization Address [facility] Phone Number [address] * Prepare RBC (02/14/2018 5:10 PM PARK MAINTAINER) CROSSMATCH COMPATIBLE SAFETRACE TX Unit ABO O Pos SAFETRACE TX UNIT NUMBER [id number] SAFETRACE TX Status RETURNED FROM ISSUE SAFETRACE TX Blood Bank Product RED BLOOD CELLS SAFETRACE TX PRODUCT CODE [id number] SAFETRACE TX CROSSMATCH COMPATIBLE SAFETRACE TX Unit ABO O Pos SAFETRACE TX UNIT NUMBER [id number] SAFETRACE TX Status RETURNED FROM ISSUE SAFETRACE TX Blood Bank Product RED BLOOD CELLS SAFETRACE TX PRODUCT CODE [id number] SAFETRACE TX CROSSMATCH COMPATIBLE SAFETRACE TX Unit ABO O Pos SAFETRACE TX UNIT NUMBER [id number] SAFETRACE TX Status READY SAFETRACE TX Blood Bank Product RED BLOOD CELLS SAFETRACE TX PRODUCT CODE [id number] SAFETRACE TX CROSSMATCH COMPATIBLE SAFETRACE TX Unit ABO O Pos SAFETRACE TX UNIT NUMBER [id number] SAFETRACE TX Status READY SAFETRACE TX Blood Bank Product RED BLOOD CELLS SAFETRACE TX PRODUCT CODE [id number] SAFETRACE TX Performing Organization Address [facility] Phone Number SAFETRACE TX * FL radio frequency engineer in or 30 minute increments (02/14/2018 4:35 PM PARK MAINTAINER) Specimen Narrative Performed At FINAL REPORT GE [facility] Fluoroscopy one view intraoperative 02/14/2018 5:31 PM CLINICAL HISTORY: Instrument localization COMPARISON: None available IMPRESSION: Please correlate imaging report findings with the procedure note prepared by Dr. Meza, as an intra-procedure imaging consultation was not requested. Reported cumulative dose: 0.260 mGy. Signed: Jarad Olivares MD Report Verified Date/Time:02/17/2018 10:51:13 Reading Location: [facility] Radiology Reading Room Procedure Note Interface, External Ris In - 02/17/2018 10:53 AM PARK MAINTAINER FINAL REPORT Fluoroscopy one view intraoperative 02/14/2018 5:31 PM CLINICAL HISTORY: Instrument localization COMPARISON: None available IMPRESSION: Please correlate imaging report findings with the procedure note prepared by Dr. Meza, as an intra-procedure imaging consultation was not requested. Reported cumulative dose: 0.260 mGy. Signed: Jarad Olivares MD Report Verified Date/Time: 02/17/2018 10:51:13 Reading Location: [facility] Radiology Reading Room Performing Organization Address City/[facility] Phone Number GE [facility] * AFB culture + smear (02/14/2018 4:19 PM PARK MAINTAINER) Only the most recent of 2 results within the time period is included. Result No acid-fast bacilli isolated [facility] in 42 days [facility] AFB Smear No acid fast bacilli seen [facility] Specimen Tissue Performing Organization Address City/[facility] Phone Number [address] [address] [facility] * Anaerobic culture (02/14/2018 4:19 PM PARK MAINTAINER) Only the most recent of 2 results within the time period is included. Result No anaerobes isolated [facility] Specimen Tissue Performing Organization Address [facility] Phone Number [address] [address] [facility] * Surgically obtained culture + gram stain (02/14/2018 4:19 PM PARK MAINTAINER) Result No growth [facility] Gram Stain Result <1+ White blood cells seen [facility] Gram Stain Result No organisms seen [facility] Specimen Tissue Performing Organization Address City/[facility] Phone Number [address] * Fungus culture + smear (02/14/2018 4:19 PM PARK MAINTAINER) Only the most recent of 2 results within the time period is included. Result No fungus isolated in 28 days [facility] Fungus Smear No fungi seen [facility] Specimen Tissue Performing Organization Address City/[facility]/Zipcode Phone Number [address] * SPIN/CONCENTRATION CHARGE (02/14/2018 3:57 PM PARK MAINTAINER) Concentration charged Done [facility] Specimen Other Performing Organization Address City/[facility] Phone Number [address] * Tissue Exam (02/14/2018 3:37 PM PARK MAINTAINER) Case Report Surgical Pathology [facility] Case: [id number] Authorizing Provider:Jaye Sweet, Collected: 02/14/2018 Irma PABON Ordering Location: [facility] ISATU HARRIS Received: 02/17/2018 0838 PERIOPERATIVE SERVICES Pathologist: Williams Taveras MD Specimen:Kidney, Transplanted Kidney DIAGNOSIS KIDNEY, ALLOGRAFT, TRANSPLANT [facility] NEPHRECTOMY [facility] - BOTH ANTIBODY- AND CELL-MEDIATED REJECTION, SEVERE, ACUTE AND CHRONIC Signing Pathologist Direct Phone Line: [phone] CPT Code(s) 74652, 09218 x3, 44814, [address] [facility] x5, [address] [facility] CLINICAL HISTORY Renal infection [facility] SPECIMEN SOURCE Transplanted kidney [facility] GROSS DESCRIPTION The specimen is received in a [facility] formalin-filled container [facility] labeled with the patient's information and labeled "transplanted kidney" and consists of a fragmented transplanted nephrectomy weighing 165 gm collectively and measuring approximately 9.5 x 5 x 5 cm. 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 Grossly no masses are identified. Deck Engineer sections are submitted in A1-A6. CG/ew MICROSCOPIC DESCRIPTION LIGHT MICROSCOPY [facility] Sections from the cortex of [facility] the transplant nephrectomy show diffuse global [...] lamellations. SPECIAL STUDIES The interpretation of this [facility] case included the use of [facility] immunohistochemistry or special stains. Immunohistochemistry technical testing was performed at [facility], Pathology Laboratory where it was developed [...] laboratory testing. Specimen Tissue Performing Organization Address City/[facility]/Zipcode Phone Number [address] [address] [phone] [place] [address] * Sodium Na-Stat Lab (02/14/2018 3:19 PM PARK MAINTAINER) Sodium 134 (L) 135 - 148 meq/L [facility] Specimen Blood, Arterial Performing Organization Address City/[facility]/Zipcode Phone Number [address] * Calcium, Ionized (02/14/2018 3:19 PM PARK MAINTAINER) Calcium, Ion 0.89 (L) 1.12 - 1.27 mmol/L [facility] pH, Blood 7.43 [facility] Specimen Blood Performing Organization Address City/[facility]/Zipcode Phone Number [address] [address] [phone] [place] [address] * Blood gas, arterial (02/14/2018 3:19 PM PARK MAINTAINER) pH, Arterial 7.43 7.35 - 7.45 [facility] pCO2, Arterial 36 35 - 45 mmHg [facility] pO2, Arterial 121 (H) 80 - 90 mmHg [facility] O2 Sat, Arterial 98.6 (H) 96.0 - 97.0 % [facility] HCO3, Arterial 23 21 - 29 mmol/L [facility] Base Excess, Arterial -1.0 -2.0 - 3.0 mmol/L [facility] Patient Temperature 35.4 C [facility] FIO2 56.0 % [facility] Specimen Blood, Arterial Performing Organization Address [facility] Phone Number [address] [address] [facility] * Lactic acid, venous, whole blood Daily (02/14/2018 6:32 AM PARK MAINTAINER) Only the most recent of 3 results within the time period is included. Lactate, Venous 0.5 0.5 - 2.2 mmol/L [facility] Specimen Blood Performing Organization Address [facility] Phone Number [address] [address] [facility] * Body fluid cell count with differential (02/13/2018 12:00 AM PARK MAINTAINER) Appearance Clear Clear [facility] Color Colorless Colorless, Straw [facility] RBCs 570 (H) <=1 /cu mm [facility] Adjusted WBC Count 163 (H) <=5 /cu mm [facility] Lining Cells 0 <=1 /cu mm [facility] % Segs 3 % [facility] % Lymphs 41 % [facility] % Monos 55 % [facility] % Eos 1 % [facility] % Baso 0 % [facility] Container Body Fluid EDTA Tube [facility] Specimen Body Fluid Performing Organization Address City/[facility]/Zipcode Phone Number [address] * Body fluid culture + gram stain (02/12/2018 11:38 PM PARK MAINTAINER) Result No growth [facility] Gram Stain Result <1+ White blood cells seen [facility] Gram Stain Result No organisms seen [facility] Specimen Body Fluid - Peritoneal Dialysis Fluid Performing Organization Address City/[facility] Phone Number [address] * aPTT (02/12/2018 8:54 PM PARK MAINTAINER) PTT 39.4 (H) 22.5 - 36.0 seconds [facility] Specimen Blood Performing Organization Address [facility] Phone Number [address] * Lipase (02/12/2018 8:54 PM PARK MAINTAINER) Lipase 20 8 - 78 U/L [facility] Specimen Blood Performing Organization Address [facility] Phone Number [address] * Hepatic function panel (02/12/2018 8:54 PM PARK MAINTAINER) Protein, Total 6.8Comment: Specimen slightly 6.0 - 8.3 gm/dL [facility] Albumin 3.1 (L)Comment: Specimen 3.5 - 5.0 g/dL [facility] Total Bilirubin 0.3Comment: Specimen slightly 0.2 - 1.2 mg/dL [facility] Bilirubin, Direct 0.2Comment: Specimen slightly 0.1 - 0.5 mg/dL [facility] Alkaline Phosphatase 66 40 - 150 U/L [facility] AST 18Comment: Specimen slightly 5 - 34 U/L [facility] hemolyzed [facility] ALT 13Comment: Specimen slightly 6 - 55 U/L [facility] Specimen Blood Performing Organization Address City/State/Zipcode Phone Number [phone] [place] [address] * Procalcitonin (02/12/2018 6:35 PM PARK MAINTAINER) Procalcitonin 0.75 (H) <0.05 ng/mL [facility] Specimen Blood Narrative Performed At SEPSIS RISK (ng/mL) [facility] Low:0.05-0.50 [facility] Intermediate: 0.51-2.00 High: >=2.01 Performing Organization Address [facility] Phone Number [address] * Blood culture #2 (02/12/2018 6:33 PM PARK MAINTAINER) Only the most recent of 2 results within the time period is included. Result No growth in 5 days [facility] Specimen Blood Performing Organization Address [facility] Phone Number [phone] [place] [address] * POC-Lactic Acid, Venous (02/12/2018 6:18 PM PARK MAINTAINER) POC-Lactic Acid, Venous 2.1 (H)Comment: TESTED AT 0.9 - 1.7 mmol/L [facility] [address] [place] [address] Specimen Blood Performing Organization Address City/[facility]/Zipcode Phone Number [address] after 11/15/2017 Insurance Payer Benefit Subscriber ID Type Phone Address Plan / Group [facility] xxxxxxxxx MEDICARE MGD CARE MEDICARE HMO MEDICAID - MEDICAID MGD [facility] xxxxxxxxx Medicaid CARE COMM STAR Contracted PLAN Advance Directives For more information, please contact: [facility] [address] [place] [address] Date Inactivated Comments Code Status Date Activated 06/03/2018 9:32 PM Full Code 05/31/2018 11:46 PM This code status was determined by: Patient 05/31/2018 9:28 PM Full Code 03/28/2018 11:36 AM This code status was determined by: Patient 03/01/2018 5:12 PM Full Code 02/12/2018 6:00 PM This code status was determined by: Patient
--- OUTSIDE RECORDS SUMMARY | 2018-11-16 07:58 | XMS REPORT | Summary of Care ---
Author Author [facility] - Health Organization [facility] - Health Address Unknown Phone Unavailable Care Team Providers Care Basting Machine Operator Name Role Phone Joni Junior PCP Reason for Visit * Reason Comments Transition Of Care Encounter Details Care Team Description Date Type Department Julia Vergara RN [address] [place] [phone] Transition Of Care 11/14/2018 Transition of [facility] Allergies Comments Active Allergy Reactions Severity Noted Date Codeine Itching Medium 06/30/2016 Heparin Itching Medium 10/29/2018 Heparin Analogues Hives, Low 06/29/2016 Itching Headache Hydralazide Other - See Medium 10/29/2018 comments Morphine Itching Medium 10/29/2018 documented as of this encounter (statuses as of 11/14/2018) Medications End Date Status Medication Sig Dispensed Refills Start Date Active aspirin 81 mg EC tablet Take 81 mg by 0 mouth daily. Active busPIRone 5 mg tablet Take 5 mg by 0 mouth daily. Active cloNIDine 0.2 mg tablet Take 0.2 mg 0 by mouth 3 7 (three) times daily. Active diltiazem 240 mg 24 hr Take 240 mg 0 capsule by mouth daily. Active labetalol 200 mg tablet Take 200 mg 0 by mouth every 12 (twelve) hours. Active NIFEdipine XL 90 mg 24 hr Take 90 mg by 0 tablet mouth. 7 12/13/2018 Active sevelamer 800 mg Take 2 180 tablet 0 tabletIndications: tablets by 9 [address] fistula mouth 3 infection, subsequent (three) times encounter daily with meals for 30 days. Active traMADol 50 mg Take 2 15 tablet 0 tabletIndications: tablets by [address] fistula mouth every 4 infection, subsequent (four) hours encounter as needed for Pain (scale 7-10). 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 Fever 10/29/2018 Sepsis due to methicillin susceptible Staphylococcus aureus 10/29/2018 Myalgia 10/29/2018 Hyponatremia 10/29/2018 Dehydration 10/29/2018 Hypochloremia 10/29/2018 Elevated troponin 10/29/2018 Infection of hemodialysis catheter 06/02/2018 S/p nephrectomy 03/17/2018 Overview: Last Assessment & Plan: He is s/p nephrectomy on 02/14/2018. He is doing well and has no evidence of recurrent disease. [place] were removed in clinic today. Anemia of chronic disease 02/17/2018 Overview: Last Assessment & Plan: Continue follow up with nephrology for anemia treatment. Gastroesophageal reflux disease without esophagitis 06/30/2016 Hypertension 06/30/2016 Overview: Last Assessment & Plan: Blood pressure management per nephrology. Kidney transplant rejection 06/30/2016 Diabetes mellitus Overview: PATIENT DENIES Renal transplant rejection documented as of this encounter (statuses as of 11/14/2018) Immunizations Name Administration Dates Next Due Pneumococcal 13 03/11/2014 Conjugate, PCV13 (Prevnar 13) documented as of this encounter Social History Date Tobacco Use Types Packs/Day Years Used Never Smoker Smokeless Tobacco: Never Used Drinks/Week oz/Week Comments Alcohol Use Not Currently Sex Assigned at Date Recorded Not on file Industry Job Start Date Occupation Not on file Not on file Not on file Travel End Travel History Travel Start No recent travel history available. documented as of this encounter Last Filed Vital Signs Not on filedocumented in this encounter Plan of Treatment Health Maintenance Due Date Last Done Comments EYE EXAM 1980 FOOT EXAM 1988 DTaP,Tdap,and Td Vaccines 1989 (1 - Tdap) PNEUMOCOCCAL 0-64 YEARS 05/06/2014 03/11/2014 COMBINED SERIES (2 of 3 - PPSV23) INFLUENZA VACCINE (#1) 2018 HgA1C 05/02/2019 10/30/2018, 10/29/2018 LDL-C 11/01/2019 10/31/2018, 10/30/2018 CREATININE (SERUM) 11/12/2019 11/11/2018, 11/11/2018, 11/02/2018, Additional history exists documented as of this encounter Implants Device Identifier Shelf Expiration Date Model / Serial / Lot Implanted Type Area Manufactur er Catheter Catheter 05/02/2021 [id number] / [id number] / [id number] [place] [employer] Stent Right: Arm [employer] GORE & Implanted: Qty: 1 on 11/12/2018 by Lynn Brooks MD at [facility]) documented as of this encounter Results Not on filedocumented in this encounter Insurance Type Payer Benefit Subscriber ID Effective Phone Address Plan / Dates Group Medicaid [facility] xxxxxxxxx 2018-P PLAN - MANAGED MEDICAID STAR PLUS resent documented as of this encounter
--- OUTSIDE RECORDS SUMMARY | 2018-11-16 07:58 | XMS REPORT | Summary of Care ---
Author Author [facility] - Health Organization [facility] - Health Address Unknown Phone Unavailable Care Team Providers Care Door Liner Name Role Phone Joni Boyle PCP Reason for Referral * (Routine) Referred By Contact Referred To Contact Status Reason Specialty Diagnoses / Procedures Russ Velasquez MD [address] [place] [address] New Request IM-NEPHROLOGY Diagnoses Dialysis AV fistula infection, subsequent encounter P rocedures Discharge Follow-Up: Specialty Service IM-NEPHROLOGY; 2 Weeks * (Routine) Referred By Contact Referred To Contact Status Reason Specialty Diagnoses / Procedures Candace Solano, GLUCOSE AND SYRUP WEIGHER [address] [place] [address] Joni Boyle [address] [place] [address] [address] [place] [address] New Request Diagnoses Dialysis AV fistula infection, subsequent encounter P rocedures Discharge Follow-up: PCP JONI BOYLE; 2 Weeks * Radiology Services (Routine) Referred By Contact Referred To Contact Status Reason Specialty Diagnoses / Procedures Russ Velasquez MD [address] [place] [address] New Request Diagnostic Diagnoses Radiology End-stage renal disease on hemodialysis P rocedures IR INTRO CATHETER DIALYSIS CIRCUIT WITH ANGIOPLASTY AND STENT IR VENOUS * (STAT) Referred By Contact Referred To Contact Status Reason Specialty Diagnoses / Procedures Sowmya Michelle DO [address] [facility] [address] [place] [address] New Request Procedures UNILATERAL DUPLEX SCAN UPPER EXTREMITY ARTERIAL BY VAS LAB * (STAT) Referred By Contact Referred To Contact Status Reason Specialty Diagnoses / Procedures Sowmya Michelle I, DO [address] [employer] [employer] [facility] [address] [place] [address] New Request Procedures UNILATERAL DUPLEX SCAN UPPER EXTREMITY ARTERIAL BY VASC LAB Reason for Visit * Reason Comments Arm Injury ULTRASOUND * Auth/Cert Referred By Contact Referred To Contact Status Reason Specialty Diagnoses / Procedures [facility] Emergency Dept [address] [place] [address] Emergency Medicine Encounter Details Care Team Description Date Type Department Sowmya Michelle I, DO [address] [facility] [address] [place], [place] [id number] Efrain Mcrae MD [address] [place] [address] Anemia 11/11/2018 Hospital [facility] Health - Encounter Medicine/Surgery CLC 4A 11/13/2018 [address] [place] [address] Allergies Comments Active Allergy Reactions Severity Noted Date Codeine Itching Medium 06/30/2016 Heparin Itching Medium 10/29/2018 Heparin Analogues Hives, Low 06/29/2016 Itching Headache Hydralazide Other - See Medium 10/29/2018 comments Morphine Itching Medium 10/29/2018 documented as of this encounter (statuses as of 11/13/2018) Medications End Date Status Medication Sig Dispensed [...] as of this encounter (statuses as of 11/13/2018) Active Problems Problem Noted Date Anemia 11/11/2018 [...] and has no evidence of recurrent disease. Bowden were removed in clinic today. Anemia of chronic disease 02/17/2018 Overview: Last Assessment & Plan: Continue follow up with nephrology for anemia treatment. Gastroesophageal reflux disease without esophagitis 06/30/2016 Hypertension 06/30/2016 Overview: Last Assessment & Plan: Blood pressure management per nephrology. Kidney transplant rejection 06/30/2016 Diabetes mellitus Overview: PATIENT DENIES Renal transplant rejection documented as of this encounter (statuses as of 11/13/2018) Immunizations Name Administration Dates Next Due Pneumococcal [...] of this encounter Last Filed Vital Signs Reading Time Taken Comments Vital Sign 135/76 11/13/2018 4:00 PM CDT Blood Pressure 87 11/13/2018 4:00 PM CDT Pulse 36.3 C (97.3 F) 11/13/2018 4:00 PM CDT Temperature 18 11/13/2018 4:00 PM CDT Respiratory Rate 99% 11/13/2018 4:00 PM CDT Oxygen Saturation - - Inhaled Oxygen Concentration 58.7 kg (129 lb 6.6 oz) 11/13/2018 1:16 PM CDT Weight 165.1 cm (5' 5") 11/11/2018 7:00 AM CDT Height 21.53 11/11/2018 7:00 AM CDT Body Mass Index documented in this encounter Discharge Instructions * Attachments The following attachments cannot be sent through Care Everywhere.* Tramadol tablets (Haitian) * Sevelamer capsules or tablets (Haitian) * Dialysis, Arteriovenous (AV) Fistula for (Haitian) documented in this encounter Progress Notes * Silvia Ureña RN - 11/13/2018 3:28 PM CDT CARE MANAGEMENT NOTE 11/13/18 3:28 PM CM efaxed discharge summary to [facility] [address], [place] [address] P: [phone] F: [phone] Silvia Ureña RN BSN Vocal Music Teacher- [facility] Department of Care Management O: [phone] E: [email or web address] * Lynn Brown MD - 11/13/2018 2:33 PM CDT VASCULAR AND INTERVENTIONAL RADIOLOGY PROGRESS NOTE Patient POD#1 of fistulagram with stent placement in venous outflow. Since then the fistula has successfully been used 2 times for adequate dialysis. Does have less hand swelling today however arm still swollen and painful. Vitals: 11/13/18 1230 11/13/18 1300 11/13/18 1309 11/13/18 1316 BP: (!) 129/97 (!) 145/88 (!) 145/88 (!) 160/89 Pulse: 80 91 90 88 Resp: 20 Temp: 36.1 C (97 F) TempSrc: Tympanic SpO2: Weight: 129 lb 6.6 oz (58.7 kg) Height: GEN: NAD, resting in bed comfortably. CV: rrr RESP: CTAB. ABD: soft Palpable thrill right upper arm fistula Labs - Hemogram Recent Labs 11/11/1872711/11/182235 WBC 9.33 9.46 HGB 5.1* 6.2* HCT 16.5* 19.0* PLT 187 207 Chemistry Recent Labs 11/11/1872711/11/182234 NA 134* 132* K 4.8 5.6* CL 94* 94* TCO2 23 22* BUN 72* 80* CREAT 13.67* 15.25* GLU 81 81 CA 9.0 8.8 Coagulation Profile Recent Labs 11/11/182235 PTPAT 13.4* PTINR 1.2 LFTs No results for input(s): AST, ALT, ALKPHOS, TYRA, LIPASE, BILIT, BILICONJ, BILIUN CON in the last 72 hours. Imaging reviewed in PACS. A/P - 48 year-old undergoing successful dialysis post fistulagram with stent evie cement. - Subsequent management as per nephrology. Arm swelling improving, likely the he matoma in the upper arm will take 2 weeks or so to resolve completely - Patient did mention concern that the dialysis center outpatient may have diffi culty accessing his fistula. Given the hematoma/swelling access may get easier i n 2 weeks or so. If there is significant difficulty accessing his fistula on an outpatient basis a permcath for 2-3 weeks can be considered while swelling goes down. * Ryan Niño MD - 11/12/2018 1:46 PM CDT CLS Progress Note Date of Service: 11/12/2018 13:46 Chief Complaint: Right arm swelling and pain for one day. SUBJECTIVE: Patient reports to have pain in his right arm, but the swelling is better today. Reports he had trouble accessing his Fistula for HD. Denies any N/V/D Denies any Fever. PHYSICAL EXAM: Vitals: 11/12/18 0400 11/12/18 0450 11/12/18 0800 11/12/18 1149 BP: 127/52 127/52 139/73 130/81 Pulse: 69 69 69 67 Resp: 18 18 16 16 Temp: 35.8 C (96.4 F) 35.8 C (96.4 F) 37 C (98.6 F) 35.7 C (96.3 F) TempSrc: Tympanic Tympanic Tympanic Tympanic SpO2: 98% 98% 98% 98% Weight: Height: O2 Sat: SpO2 readings for the past 24 hrs: SpO2 11/11/18 1432 98 % 11/11/18 1500 97 % 11/11/18 1600 100 % 11/11/18 1750 100 % 11/11/18 1816 100 % 11/11/18 1845 97 % 11/11/18 2000 99 % 11/11/18 2100 99 % 11/12/18 0000 99 % 11/12/18 0209 100 % 11/12/18 0224 100 % 11/12/18 0230 100 % 11/12/18 0400 98 % 11/12/18 0450 98 % 11/12/18 0800 98 % 11/12/18 1149 98 % Intake/Output Summary (Last 24 hours) at 11/12/2018 1346 Last data filed at 11/12/2018 0400 Gross per 24 hour Intake 1501 ml Output 0 ml Net 1501 ml General: alert and oriented; no apparent distress HEENT: pupils equal, round; extraocular movements intact; oropharynx clear; mois t mucous membranes Lungs: clear to auscultation bilaterally, no crackles, no wheezes, cough is stro ng and effective Cardio: regular rate and rhythm, no murmurs, no gallops Abdomen: soft; non-tender; non-distended; normoactive bowel sounds Extremities: no cyanosis, clubbing or Rt arm swelling, LT arm with previous mult iple fistulas LABS/IMAGING - reviewed, pertinent results as below: Recent Results (from the past 48 hour(s)) Basic Metabolic Panel (NA, K, CL, CO2, GLUCOSE, BUN, CREATININE, CA) Collection Time: 11/11/18 7:28 AM Result Value Ref Range NA 134 (L) 135 - 145 mmol/L K 4.8 3.5 - 5.0 mmol/L CL 94 (L) 98 - 108 mmol/L CO2 TOTAL 23 23 - 31 mmol/L AGAP 17 (H) 2 - 16 BUN 72 (H) 7 - 23 mg/dL GLUCOSE 81 70 - 110 mg/dL CREATININE 13.67 (H) 0.60 - 1.25 mg/dL CALCIUM 9.0 8.6 - 10.6 mg/dL eGFR Calculation (Non-) 3.9 mL/min/1.73m2 eGFR Calculation () 4.7 mL/min/1.73m2 CBC WITH DIFFERENTIAL Collection Time: 11/11/18 7:28 AM Result Value Ref Range WBC 9.33 4.20 - 10.70 10*3/L RBC 1.64 (L) 4.26 - 5.52 10*6/L HGB 5.1 (L) 12.2 - 16.4 g/dL HCT 16.5 (L) 38.4 - 49.3 % MCV 100.6 (H) 81.7 - 95.6 fL MCH 31.1 26.1 - 32.7 pg MCHC 30.9 (L) 31.2 - 35.0 g/dL RDW-SD 59.2 (H) 38.5 - 51.6 fL RDW-CV 16.1 (H) 12.1 - 15.4 % PLT 187 150 - 328 10*3/L MPV 11.2 9.8 - 13.0 fL NRBC/100 WBC 0.0 0.0 - 10.0 /100 WBCs NRBC x10^3 <0.01 10*3/L GRAN MAT (NEUT) % 75.1 % IMM GRAN % 1.60 % LYMPH % 14.1 % MONO % 7.8 % EOS % 1.0 % BASO % 0.4 % GRAN MAT x10^3(ANC) 7.00 (H) 1.99 - 6.95 10*3/uL IMM GRAN x10^3 0.15 (H) 0.00 - 0.06 10*3/uL LYMPH x10^3 1.32 1.09 - 3.23 10*3/uL MONO x10^3 0.73 0.36 - 1.02 10*3/uL EOS x10^3 0.09 0.06 - 0.53 10*3/uL BASO x10^3 0.04 0.01 - 0.09 10*3/uL Type and Screen - Type and Screen expires at midnight on the 3rd day after it wa s drawn. A current Type and Screen is required when RBCs are requested. For all other blood products, a Type and Screen performed during the current hospitaliz ation i... Collection Time: 11/11/18 8:00 AM Result Value Ref Range ABO & RH O Positive IAT Negative ABORH CONFIRMATION Collection Time: 11/11/18 8:21 AM Result Value Ref Range ABO & RH O Positive Prepare Packed RBC (in units), 1 Units Collection Time: 11/11/18 5:10 PM Result Value Ref Range Cross Match Result Compatible ISBT Blood Type Code 5100 Unit Blood Type O Pos Unit Number [id number] Blood Expiration Date & Time [id number] Status Information Issued Product Identification Red Blood Cells Product Code [id number] BASIC METABOLIC PANEL (NA, K, CL, CO2, GLUCOSE, BUN, CREATININE, CA) Collection Time: 11/11/18 10:35 PM Result Value Ref Range NA 132 (L) 135 - 145 mmol/L K 5.6 (H) 3.5 - 5.0 mmol/L CL 94 (L) 98 - 108 mmol/L CO2 TOTAL 22 (L) 23 - 31 mmol/L AGAP 16 2 - 16 BUN 80 (H) 7 - 23 mg/dL GLUCOSE 81 70 - 110 mg/dL CREATININE 15.25 (H) 0.60 - 1.25 mg/dL CALCIUM 8.8 8.6 - 10.6 mg/dL eGFR Calculation (Non-) 3.4 mL/min/1.73m2 eGFR Calculation () 4.2 mL/min/1.73m2 CBC WITH DIFFERENTIAL Collection Time: 11/11/18 10:36 PM Result Value Ref Range WBC 9.46 4.20 - 10.70 10*3/L RBC 1.99 (L) 4.26 - 5.52 10*6/L HGB 6.2 (L) 12.2 - 16.4 g/dL HCT 19.0 (L) 38.4 - 49.3 % MCV 95.5 81.7 - 95.6 fL MCH 31.2 26.1 - 32.7 pg MCHC 32.6 31.2 - 35.0 g/dL RDW-SD 66.3 (H) 38.5 - 51.6 fL RDW-CV 19.1 (H) 12.1 - 15.4 % PLT 207 150 - 328 10*3/L MPV 11.6 9.8 - 13.0 fL NRBC/100 WBC 0.0 0.0 - 10.0 /100 WBCs NRBC x10^3 <0.01 10*3/L GRAN MAT (NEUT) % 70.4 % IMM GRAN % 1.30 % LYMPH % 18.4 % MONO % 8.0 % EOS % 1.2 % BASO % 0.7 % GRAN MAT x10^3(ANC) 6.66 1.99 - 6.95 10*3/uL IMM GRAN x10^3 0.12 (H) 0.00 - 0.06 10*3/uL LYMPH x10^3 1.74 1.09 - 3.23 10*3/uL MONO x10^3 0.76 0.36 - 1.02 10*3/uL EOS x10^3 0.11 0.06 - 0.53 10*3/uL BASO x10^3 0.07 0.01 - 0.09 10*3/uL PROTHROMBIN TIME / INR Collection Time: 11/11/18 10:36 PM Result Value Ref Range PROTIME PATIENT 13.4 (H) 10.1 - 12.6 Seconds INR 1.2 Prepare Packed RBC (in units), 2 Units Collection Time: 11/12/18 2:01 AM Result Value Ref Range Cross Match Result Compatible ISBT Blood Type Code 5100 Unit Blood Type O Pos Unit Number [id number] Blood Expiration Date & Time [id number] Status Information Issued Product Identification Red Blood Cells Product Code [id number] No final results containing an impression from the past 48 hours were found. CURRENT MEDICATIONS - reviewed. Current Facility-Administered Medications Medication Dose Route Frequency Last Rate Last Dose [START ON 11/14/2018] ceFAZolin (ANCEF) 3,000 mg in NaCl 0.9% (NS) 100 mL veronica yback 3,000 mg IV Piggyback QFRIDAY AT 1999 [START ON 11/17/2018] ceFAZolin in dextrose (iso-os) (ANCEF) 2 gram/100 mL Pig gyback 2 g 2,000 mg IV Piggyback QMONDAY AT 1999 ceFAZolin in dextrose (iso-os) (ANCEF) 2 gram/100 mL Piggyback 2 g 2 g IV P iggyback QWEDNESDAY AT 1999 acetaminophen (TYLENOL) tablet 650 mg 650 mg Oral Q6HPRN 650 mg at 1425 busPIRone (BUSPAR) tablet 5 mg 5 mg Oral DAILY 5 mg at 11/12/18 0946 cloNIDine (CATAPRES) tablet 0.2 mg 0.2 mg Oral TID 0.2 mg at 11/11/18 161 5 diltiazem XR (DILT-XR) capsule 240 mg 240 mg Oral DAILY 240 mg at 9 0945 docusate (COLACE) capsule 100 mg 100 mg Oral BID 100 mg at 11/11/18 2141 epoetin tomás (PROCRIT) injection 10,000 Units 10,000 Units Subcutaneous QMO N/SAT/SAT AT 1999 HYDROcodone-acetaminophen (NORCO 5) 5-325 mg tablet 1 tablet 1 tablet Oral Q4HPRN 1 tablet at 11/12/18 0945 labetalol (NORMODYNE) tablet 200 mg 200 mg Oral Q12H 200 mg at 11/11/18 2 141 morpHINE injection 4 mg 4 mg Slow IV Push Q4HPRN NIFEdipine CC (ADALAT CC) tablet 90 mg 90 mg Oral DAILY pantoprazole (PROTONIX) EC tablet 40 mg 40 mg Oral DAILY 40 mg at 9 0945 proCHLORperazine (COMPAZINE) injection 10 mg 10 mg Slow IV Push Q6HPRN sevelamer (RENVELA) tablet 1,600 mg 1,600 mg Oral TID MEALS 1,600 mg at 0 11/11/18 1840 ASSESSMENT/PLAN Rogerio Benoit III is a 48 year old male admitted to the hospital with: Assessments: 1- Inability to Access Fistula site: Nephology is on the case, Planning to acces s the fistula site once again if not accessible then we will go for tunnel HD. 2-Anemia of chronic disease : acute bleeding (soft tissue bleeding) on chronic o f ESRD. 3-End-stage renal disease on hemodialysis 4 Infection of hemodialysis catheter: ID consulted. 5-Gastroesophageal reflux disease without esophagitis 6-Hypertension 7- Kidney transplant rejection Plan: -Tunnel HD if failed fistula access. -Cefazolin -Appreciate Nephrology consult. -HD. -Am labs. -ID consult -PPI. -Resume home meds except ASA. Dr. Ryan Niño [phone] * Silvia Ureña RN - 11/12/2018 9:40 AM CDT Care Management Social Functional Assessment Patient Name: Rogerio Benoit III Age: [age] year old Sex: male MRN: [id number] Patient's Previous Admission Date at [facility]: 10/29/2018 Current diagnosis and co-morbidities: anemia Readmission Questions: Was patient discharged from any acute care hospital within the last 30 days: Yes Were all questions regarding previous illness/diagnosis answered prior to discha rge: Yes Did you have any difficulties with your discharge instructions: No Were you able to go to your follow-up discharge appointments: Yes Any difficulties after discharge with medications: No Any difficulties after discharge with transportation: No Any difficulties after discharge with physical conditions, support, or other vega itations?: No Did patient refuse services that were recommended on the previous admission: No Was patient non-compliant with the previously recommended treatment: No If admitted from the ED did you call your primary MD or place a sick call/reques t with your provider?: N/A Social Functional Assessment: Primary language spoken/preferred: Haitian Mental Status: Alert & Oriented to Person,Place & Time Information given by: Self Patient's support system: Other Name and number of support system: Myrna Flores (S.O.) [phone] Primary Data Entry Analyst: Self MPOA: No Living Arrangement: Apartment: Upstairs Address of living arrangement : [address] [place] [address] [place] [address] Persons living in home: Self Barriers to returning home: None Baseline functional status- ambulation: Independent Functional status-baseline personal care: Independent Baseline functional status- driving: Independent Baseline functional status- grocery shopping: Independent Functional status-baseline housekeeping: Independent Functional status-baseline meal prep: Independent Current functional status same as prior: Yes Do you have a PCP?: Yes Name of PCP: Joni Boyle [facility] Agency: No Provider Services: No DME Company: No Equipment: None Hemodialysis: Yes Dialysis Facility: Other Name of Other Dialysis Facility: [facility] [address], [place] Dialysis Schedule: MWF Dialysis Time: 529 Mode of Transportation: Self Type of Access: AV Fistula Community resources utilized: SSA/SSI/Medicaid Funding Resources: Medicaid HMO Prescription coverage plan: Medicaid unlimited slots Pharmacy where meds are filled: Other Other pharmacy: [id number] - [place], [place] - [address] Anticipated services prior to disharge: None Expected mode of discharge transportation: Personal vehicle;Same as support syst em Additional info required for discharge planning: No needs identified Recommended discharge plan: Home Any issues or concerns with obtaining/affording your medications at home: no. 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 D escribe: no issues. SFA Complete: Social Functional Assessment complete: Yes Alcohol Use Screening (AUDIT-C) How often do you have a drink containing alcohol?: Never SCORE: 0 Did patient elect to have resources provided: No Actions taken: Provided support Role of Care Management explained. Silvia Ureña RN BSN Vocal Music Teacher- [facility] Department of Care Management O: [phone] E: [email or web address] documented in this encounter Plan of Treatment Date/Time Name Type Priority Associated Diagnoses 11/12/2018 4:09 PM CDT IR INTRO CATHETER IMAGING Routine End-stage renal disease DIALYSIS CIRCUIT WITH on hemodialysis ANGIOPLASTY AND STENT Order Schedule Name Type Priority Associated Diagnoses ONCE for 1 Occurrences starting 11/11/2018 until 11/11/2018 OCCULT (GUAIAC) BLOOD LAB Routine ONCE for 1 Occurrences starting 11/11/2018 until 11/11/2018 CBC WITH DIFF LAB Routine Once for 1 Occurrences starting 11/11/2018 until 11/11/2018 CBC WITH DIFFERENTIAL LAB Routine ONCE for 1 Occurrences starting 11/12/2018 until 11/11/2018 IR INTRO CATHETER IMAGING Routine End-stage renal disease DIALYSIS CIRCUIT WITH on hemodialysis ANGIOPLASTY AND STENT Health Maintenance Due Date Last Done Comments [...] Type Area Manufactur er Catheter Catheter 05/02/2021 [id number] / [id number] / [id number] [place] [employer] Stent Right: Arm WL GORE & Implanted: Qty: 1 on 11/12/2018 by Lynn Brooks MD at [facility] ([facility]) documented as of this encounter Procedures Comments Procedure Name Priority Date/Time Associated Diagnosis PROFILE / HEMOGRAM Routine 11/13/2018 4:17 PM CDT PREPARE PACKED RBC GUILLERMINA 11/12/2018 2:01 AM CDT CBC WITH DIFFERENTIAL Routine 11/11/2018 10:36 PM CDT PROTHROMBIN TIME / INR Routine 11/11/2018 10:36 PM CDT BASIC METABOLIC PANEL Routine 11/11/2018 (NA, K, CL, CO2, GLUCOSE, 10:35 PM CDT BUN, CREATININE, CA) TRANSFUSE PACKED RBC Routine 11/11/2018 8:51 PM CDT PREPARE PACKED RBC Routine 11/11/2018 5:10 PM CDT ABORH CONFIRMATION Routine 11/11/2018 8:21 AM CDT UNILATERAL DUPLEX SCAN STAT 11/11/2018 UPPER EXTREMITY ARTERIAL 8:07 AM CDT BY [facility] LAB TYPE AND SCREEN Routine 11/11/2018 Anemia due to chronic 8:00 AM CDT kidney disease, on chronic dialysis EKG-12 LEAD Routine 11/11/2018 7:29 AM CDT CBC WITH DIFFERENTIAL STAT 11/11/2018 Dialysis AV fistula 7:28 AM CDT infection, subsequent encounter EXTRA TUBE LT. BLUE STAT 11/11/2018 7:28 AM CDT CBC WITH DIFF Routine 11/11/2018 Dialysis AV fistula 7:28 AM CDT infection, subsequent encounter BASIC METABOLIC PANEL STAT 11/11/2018 Dialysis AV fistula (NA, K, CL, CO2, GLUCOSE, 7:28 AM CDT infection, subsequent BUN, CREATININE, CA) encounter EKG-12 LEAD STAT 11/11/2018 7:16 AM CDT documented in this encounter Results * PROFILE / HEMOGRAM (11/13/2018 4:17 PM CDT) WBC 8.09 4.20 - 10.70 [facility] 10*3/L [facility] RBC 2.68 (L) 4.26 - 5.52 10*6/L [facility] HGB 8.5 (L) 12.2 - 16.4 g/dL [facility] HCT 25.9 (L) 38.4 - 49.3 % [facility] MCH 31.7 26.1 - 32.7 pg [facility] MCV 96.6 (H) 81.7 - 95.6 fL [facility] MCHC 32.8 31.2 - 35.0 g/dL [facility] PLT 272 150 - 328 10*3/L [facility] MPV 11.6 9.8 - 13.0 fL [facility] RDW-CV 19.2 (H) 12.1 - 15.4 % [facility] RDW-SD 67.1 (H) 38.5 - 51.6 fL [facility] NRBC x10^3 <0.01 10*3/L [facility] NRBC/100 WBC 0.0 0.0 - 10.0 /100 WBCs [facility] IPF % 1.2 - 10.7 % [facility] Specimen Blood - ARM, LEFT Performing Organization Address City/State/[facility] Phone Number [facility] CLIA: [id number], [address] [place] [address] [facility] * Prepare Packed RBC (in units), 2 Units (11/12/2018 2:01 AM CDT) [facility] Cross Match Compatible LAB Result ISBT Blood Type 5100 LAB Code Unit Blood Type O Pos LAB Unit Number [id number] LAB Blood [id number] LAB Expiration Date & Time Status Issued LAB Information Product Red Blood Cells LAB Identification Product Code [id number] LAB Comment: Performed at [facility] Blood Bank [address] [place] [id number] Toll Free: [phone] CLIA No. [id number] Specimen Performing Organization Address City/[facility]/Zipcode Phone Number BLD LAB * PROTHROMBIN TIME / INR (11/11/2018 10:36 PM CDT) [facility] PROTIME PATIENT 13.4 (H) 10.1 - 12.6 Seconds [facility] INR 1.2Comment: Normal INR <1.1; [facility] Warfarin Therapeutic range 2.0 [facility] to 3.0 or 2.5 to 3.5, [facility] depending upon the indications. Specimen Blood - ARM, LEFT Performing Organization Address City/[facility]/Zipcode Phone Number [facility] CLIA: [id number], [address] [place] [address] [facility] * CBC WITH DIFFERENTIAL (11/11/2018 10:36 PM CDT) [facility] WBC 9.46 4.20 - 10.70 [facility] 10*3/L [facility] RBC 1.99 (L) 4.26 - 5.52 10*6/L [facility] HGB 6.2 (L) 12.2 - 16.4 g/dL [facility] HCT 19.0 (L) 38.4 - 49.3 % [facility] MCV 95.5 81.7 - 95.6 fL [facility] MCH 31.2 26.1 - 32.7 pg [facility] MCHC 32.6 31.2 - 35.0 g/dL [facility] RDW-SD 66.3 (H) 38.5 - 51.6 fL [facility] RDW-CV 19.1 (H) 12.1 - 15.4 % [facility] PLT 207 150 - 328 10*3/L [facility] MPV 11.6 9.8 - 13.0 fL [facility] NRBC/100 WBC 0.0 0.0 - 10.0 /100 WBCs [facility] NRBC x10^3 <0.01 10*3/L [facility] GRAN MAT (NEUT) 70.4 % [facility] % [facility] IMM GRAN % 1.30 % [facility] LYMPH % 18.4 % [facility] MONO % 8.0 % [facility] EOS % 1.2 % [facility] BASO % 0.7 % [facility] [facility] 6.66 1.99 - 6.95 10*3/uL [facility] x10^3(ANC) [facility] IMM GRAN x10^3 0.12 (H) 0.00 - 0.06 10*3/uL [facility] LYMPH x10^3 1.74 1.09 - 3.23 10*3/uL [facility] MONO x10^3 0.76 0.36 - 1.02 10*3/uL [facility] EOS x10^3 0.11 0.06 - 0.53 10*3/uL [facility] BASO x10^3 0.07 0.01 - 0.09 10*3/uL [facility] Specimen Blood - ARM, LEFT Performing Organization Address City/State/Zipcode Phone Number [facility] CLIA: [id number], [address] [place] [address] [facility] * BASIC METABOLIC PANEL (NA, K, CL, CO2, GLUCOSE, BUN, CREATININE, CA) (11/11/2018 10:35 PM CDT) NA 132 (L) 135 - 145 mmol/L [facility] K 5.6 (H) 3.5 - 5.0 mmol/L [facility] CL 94 (L) 98 - 108 mmol/L [facility] CO2 TOTAL 22 (L) 23 - 31 mmol/L [facility] AGAP 16 2 - 16 [facility] BUN 80 (H) 7 - 23 mg/dL [facility] GLUCOSE 81 70 - 110 mg/dL [facility] CREATININE 15.25 (H) 0.60 - 1.25 mg/dL [facility] CALCIUM 8.8 8.6 - 10.6 mg/dL [facility] eGFR 3.4 mL/min/1.73m2 [facility] Calculation [facility] ([facility] [place]) eGFR 4.2 mL/min/1.73m2 [facility] Calculation [facility] ([facility] [place]) Specimen Blood - ARM, LEFT Narrative Performed At Association of Glomerular Filtration Rate (GFR) and Staging of Kidney Disease* [facility] + + + + [facility] | GFR (mL/min/1.73 m2)| With Kidney Damage|Without Kidney Damage CAMPUS + + + + |>90|Stage one| Normal + + + + |60-89|Stage two| Decreased GFR + + + + |30-59|Stage three| Stage three + + + + |15-29|Stage four | Stage four + + + + |<15 (or dialysis)|Stage five | Stage five + + + + *Each stage assumes the associated GFR level has been in effect for at least three months.Stages 1 to 5, with or without kidney disease, indicate chronic kidney disease. Notes: Determination of stages one and two (with eGFR >59mL/min/1.73 m2) requires estimation of kidney damage for at least three months as defined by structural or functional abnormalities of the kidney, manifested by either: Pathological abnormalities or Markers of kidney damage (including abnormalities in the composition of the blood or urine or abnormalities in imaging tests). Performing Organization Address City/State/Zipcode Phone Number [facility] CLIA: [id number], [address] [place] [address] [facility] * Prepare Packed RBC (in units), 1 Units (11/11/2018 5:10 PM CDT) [facility] Cross Match Compatible LAB Result ISBT Blood Type 5100 LAB Code Unit Blood Type O Pos LAB Unit Number [id number] LAB Blood [id number] LAB Expiration Date & Time Status Issued LAB Information Product Red Blood Cells LAB Identification Product Code [id number] LAB Comment: Performed at [facility] Laboratory Services - [facility] Blood [facility] [address] [place] [id number] Toll Free: [phone] CLIA No. [id number] Specimen Performing Organization Address City/[facility] Phone Number [facility] * ABORH CONFIRMATION (11/11/2018 8:21 AM CDT) [facility] ABO & RH O Positive LAB Comment: Performed at [facility] Laboratory Services - [facility] [address] [place] [phone] Toll Free: [phone] CLIA No. [id number] Specimen Performing Organization Address City/[facility] Phone Number [facility] * Type and Screen - Type and Screen expires at midnight on the 3rd day after it was drawn. A current Type and Screen is required when RBCs are requested. For all other blood products, a Type and Screen performed during the current hospitalization i... (11/11/2018 8:00 AM CDT) [facility] ABO & RH O Positive LAB Comment: Performed at [facility] Laboratory Services - [facility] [address] [place] [phone] Toll Free: [phone] CLIA No. [id number] IAT Negative LAB Comment: Performed at [facility] Laboratory Services - [facility] [address] [place] [phone] Toll Free: [phone] CLIA No. [id number] Specimen Blood - VENOUS Performing Organization Address City/State/Zipcode Phone Number [facility] * EXTRA TUBE LT. BLUE (11/11/2018 7:28 AM CDT) Specimen Blood Performing Organization Address City/State/Zipcode Phone Number [facility] CLIA: [id number], [address] [place], [place] [id number] [facility] * CBC WITH DIFFERENTIAL (11/11/2018 7:28 AM CDT) WBC 9.33 4.20 - 10.70 [facility] 10*3/L [facility] RBC 1.64 (L) 4.26 - 5.52 10*6/L [facility] HGB 5.1 (L) 12.2 - 16.4 g/dL [facility] HCT 16.5 (L) 38.4 - 49.3 % [facility] MCV 100.6 (H) 81.7 - 95.6 fL [facility] MCH 31.1 26.1 - 32.7 pg [facility] MCHC 30.9 (L) 31.2 - 35.0 g/dL [facility] RDW-SD 59.2 (H) 38.5 - 51.6 fL [facility] RDW-CV 16.1 (H) 12.1 - 15.4 % [facility] PLT 187 150 - 328 10*3/L [facility] MPV 11.2 9.8 - 13.0 fL [facility] NRBC/100 WBC 0.0 0.0 - 10.0 /100 WBCs [facility] NRBC x10^3 <0.01 10*3/L [facility] GRAN MAT (NEUT) 75.1 % [facility] % [facility] IMM GRAN % 1.60 % [facility] LYMPH % 14.1 % [facility] MONO % 7.8 % [facility] EOS % 1.0 % [facility] BASO % 0.4 % [facility] GRAN MAT 7.00 (H) 1.99 - 6.95 10*3/uL [facility] x10^3(ANC) [facility] IMM GRAN x10^3 0.15 (H) 0.00 - 0.06 10*3/uL [facility] LYMPH x10^3 1.32 1.09 - 3.23 10*3/uL [facility] MONO x10^3 0.73 0.36 - 1.02 10*3/uL [facility] EOS x10^3 0.09 0.06 - 0.53 10*3/uL [facility] BASO x10^3 0.04 0.01 - 0.09 10*3/uL [facility] Specimen Blood - HAND, LEFT Performing Organization Address City/State/Zipcode Phone Number [facility] CLIA: [id number], [address] [place], [place] [id number] [facility] * Basic Metabolic Panel (NA, K, CL, CO2, GLUCOSE, BUN, CREATININE, CA) (11/11/2018 7:28 AM CDT) NA 134 (L) 135 - 145 mmol/L [facility] K 4.8 3.5 - 5.0 mmol/L [facility] CL 94 (L) 98 - 108 mmol/L [facility] CO2 TOTAL 23 23 - 31 mmol/L [facility] AGAP 17 (H) 2 - 16 [facility] BUN 72 (H) 7 - 23 mg/dL [facility] GLUCOSE 81 70 - 110 mg/dL [facility] CREATININE 13.67 (H) 0.60 - 1.25 mg/dL [facility] CALCIUM 9.0 8.6 - 10.6 mg/dL [facility] eGFR 3.9 mL/min/1.73m2 [facility] Calculation [facility] ([facility] [place]) eGFR 4.7 mL/min/1.73m2 [facility] Calculation [facility] [place]) Specimen Blood - HAND, LEFT Narrative Performed At [facility] of Glomerular Filtration Rate (GFR) and Staging of Kidney Disease* [facility] + + + + [facility] | GFR (mL/min/1.73 m2)| With Kidney Damage|Without Kidney Damage CAMPUS + + + + |>90|Stage one| Normal + + + + |60-89|Stage two| Decreased GFR + + + + |30-59|Stage three| Stage three + + + + |15-29|Stage four | Stage four + + + + |<15 (or dialysis)|Stage five | Stage five + + + + *Each stage assumes the associated GFR level has been in effect for at least three months.Stages 1 to 5, with or without kidney disease, indicate chronic kidney disease. Notes: Determination of stages one and two (with eGFR >59mL/min/1.73 m2) requires estimation of kidney damage for at least three months as defined by structural or functional abnormalities of the kidney, manifested by either: Pathological abnormalities or Markers of kidney damage (including abnormalities in the composition of the blood or urine or abnormalities in imaging tests). Performing Organization Address City/State/Zipcode Phone Number [facility] CLIA: [id number], [address] [place] [address] [facility] documented in this encounter Visit Diagnoses Diagnosis Anemia due to chronic kidney disease, on chronic dialysis - Primary Dialysis AV fistula infection, subsequent encounter End-stage renal disease on hemodialysis End stage renal disease Sepsis due to methicillin susceptible Staphylococcus aureus Methicillin susceptible staphylococcus aureus septicemia Anemia Anemia, unspecified Anemia of chronic disease Anemia of other chronic disease Infection of hemodialysis catheter Infection and inflammatory reaction due to other vascular device, implant, and graft Gastroesophageal reflux disease without esophagitis Esophageal reflux Hypertension Unspecified essential hypertension Kidney transplant rejection Complications of transplanted kidney documented in this encounter Administered Medications Action Date Dose Rate Site Medication Order MAR Action 11/11/2018 2:25 PM CDT 650 mg acetaminophen (TYLENOL) tablet 650 mg Given 650 mg, Oral, Q6HPRN, Starting Sat11/11/18 at 1336, Until Discontinued, Routine, Pain (scale 1-3) 11/13/2018 8:03 AM CDT 5 mg busPIRone (BUSPAR) tablet 5 mg Given 5 mg, Oral, DAILY, First dose on Sat11/12/18 at 0900, Until Discontinued, Routine 5 mg Given 11/12/2018 9:46 AM CDT ceFAZolin (ANCEF) 3,000 mg in NaCl 0.9% (NS) 100 mL piggyback 3,000 mg, IV Piggyback, QFRIDAY AT 1999, 3 doses, First dose on Sat11/14/18 at 1999, Last dose on Sat11/28/18 at 1999, 100 mL, Reason for Anti-Infective: Documented Infection, Documented Infection Site: Blood, Duration of Therapy: Other (see Comments) ceFAZolin in dextrose (iso-os) (ANCEF) 2 gram/100 mL Piggyback 2 g 2 g (2,000 mg), IV Piggyback, QMONDAY AT 1999, 3 doses, First dose on Sat11/17/18 at 1999, Last dose on Sat12/01/18 at 1999, 100 mL, Reason for Anti-Infective: Documented Infection, Documented Infection Site: Blood, Duration of Therapy: Other (see Comments) 11/12/2018 9:17 PM CDT 2 g ceFAZolin in dextrose (iso-os) (ANCEF) 2 Given gram/100 mL Piggyback 2 g 2 g, IV Piggyback, QWE AT 1999, 3 doses, First dose on Sat11/12/18 at 1999, Last dose on Sat11/26/18 at 1999, 100 mL, Reason for Anti-Infective: Documented Infection, Documented Infection Site: Blood, Duration of Therapy: Other (see Comments) 11/11/2018 4:15 PM CDT 0.2 mg cloNIDine (CATAPRES) tablet 0.2 mg Given 0.2 mg, Oral, TID, First dose on Sat11/11/18 at 1400, Until Discontinued, Routine 11/12/2018 9:45 AM CDT 240 mg diltiazem XR (DILT-XR) capsule 240 mg Given 240 mg, Oral, DAILY, First dose on Sat11/12/18 at 0900, Until Discontinued 11/12/2018 9:12 PM CDT 100 mg docusate (COLACE) capsule 100 mg Given 100 mg, Oral, BID, First dose on Sat11/11/18 at 1999, Until Discontinued, Routine 100 mg Given 11/11/2018 9:41 PM CDT 11/12/2018 9:14 PM CDT 10,000 Units Abdomen-SC epoetin tomás (PROCRIT) injection 10,000 Given Units 10,000 Units, Subcutaneous, QMON/ AT 2000, First dose on Sat11/12/18 at 2000, Until Discontinued, Routine, 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 approving Restricted medication: RUSS VELASQUEZ 11/13/2018 4:20 PM CDT 1 tablet HYDROcodone-acetaminophen (NORCO 5) Given 5-325 mg tablet 1 tablet 1 tablet, Oral, Q4HPRN, Starting Sat11/11/18 at 1631, Until Discontinued, Routine, Pain (scale 4-6) 1 tablet Given 11/13/2018 9:23 AM CDT 1 tablet Given 11/12/2018 9:11 PM CDT 11/12/2018 9:11 PM CDT 200 mg labetalol (NORMODYNE) tablet 200 mg Given 200 mg, Oral, Q12H, First dose on Sat11/11/18 at 2000, Until Discontinued, Routine 200 mg Given 11/11/2018 9:41 PM CDT morpHINE injection 4 mg 4 mg, Slow IV Push, Q4HPRN, Starting Sat11/11/18 at 1632, Until Discontinued, Routine, Breakthrough Pain (scale 4-10) 11/13/2018 8:03 AM CDT 40 mg pantoprazole (PROTONIX) EC tablet 40 mg Given 40 mg, Oral, DAILY, First dose on Sat11/12/18 at 0900, Until Discontinued, Routine 40 mg Given 11/12/2018 9:45 AM CDT 11/13/2018 1:25 PM CDT 1,600 mg sevelamer (RENVELA) tablet 1,600 mg Given 1,600 mg, Oral, TID MEALS, First dose on Sat11/11/18 at 1700, Until Discontinued, Routine 1,600 mg Given 11/13/2018 8:02 AM CDT 1,600 mg Given 11/12/2018 5:24 PM CDT Action Date Dose Rate Site Medication Order MAR Action 11/11/2018 4:15 PM CDT 1,000 mg ceFAZolin (ANCEF) 1,000 mg in NaCl 0.9% Given (NS) 50 mL MINI-BAG 1,000 mg, IV Piggyback, ONCE, 1 dose, Sat11/11/18 at 1500, 50 mL, Reason for Anti-Infective: Documented Infection, Documented Infection Site: Blood, Duration of Therapy: Other (see Comments) 11/12/2018 3:12 PM CDT 50 mcg FENTanyl PF (SUBLIMAZE (PF)) injection Given Slow IV Push, PRN, Starting Sat11/12/18 at 1431, Until Sat11/12/18 at 1512, Routine 50 mcg Given 11/12/2018 2:31 PM CDT 11/11/2018 7:24 AM CDT 1 tablet HYDROcodone-acetaminophen (NORCO 5) Given 5-325 mg tablet 1 tablet 1 tablet, Oral, ONCE, 1 dose, 11/11/18 at 0815, GUILLERMINA 11/12/2018 4:09 PM CDT 80 mL iohexol (OMNIPAQUE 300-100 mL) injection Given 80 mL 80 mL, Intravenous, ONCE, 1 dose, Sat11/12/18 at 1545, Routine 11/12/2018 3:05 PM CDT 10 mL lidocaine 2% (XYLOCAINE) 20 mg/mL (2 %) Given injection PRN, Starting Sat11/12/18 at 1505, Until Sat11/12/18 at 1505, Routine 11/12/2018 3:12 PM CDT 1 mg midazolam (VERSED) injection Given IV Push, PRN, Starting Sat11/12/18 at 1431, Until Sat11/12/18 at 1512, Routine 1 mg Given 11/12/2018 2:31 PM CDT documented in this encounter Insurance Type Payer Benefit Subscriber ID Effective Phone Address Plan / Dates Group Medicaid [employer] [place] xxxxxxxxx 2018-P PLAN - MANAGED MEDICAID STAR PLUS resent documented as of this encounter
--- OUTSIDE RECORDS SUMMARY | 2018-11-16 07:58 | XMS REPORT | Summary of Care ---
Author Author [facility] Address Unknown Phone Unavailable Care Team Providers Care Exchange Engineer Name Role Phone Joni Boyle PCP Reason for Referral * (Routine) Referred By Contact Referred To Contact Status Reason Specialty Diagnoses / Procedures Joni Boyle [address] [place] [id number] Joni Boyle [address] [place] [phone] New Request Diagnoses Infection of hemodialysis catheter, initial encounter Sepsis due to methicillin susceptible Staphylococcus aureus P rocedures Discharge Follow-up: PCP JONI BOYLE; 1 Week * Radiology Services (Routine) Referred By Contact Referred To Contact Status Reason Specialty Diagnoses / Procedures Roya Yadav MD [address] [place] [address] New Request Diagnostic Diagnoses Radiology Infection of hemodialysis catheter, initial encounter Sepsis due to methicillin susceptible Staphylococcus aureus P rocedures IR REMOVAL TUNNELED CENTRAL VENOUS CATHETER WITHOUT PORT/PUMP IR OTHER * Radiology Services (STAT) Referred By Contact Referred To Contact Status Reason Specialty Diagnoses / Procedures Rebekah Werner MD [address] [place] [phone] New Request Diagnostic Diagnoses Radiology End-stage renal disease on hemodialysis P rocedures XR CHEST 1 VW * Radiology Services (STAT) Referred By Contact Referred To Contact Status Reason Specialty Diagnoses / Procedures Rebekah Werner MD [address] [place] [phone] New Request Diagnostic Diagnoses Radiology End-stage renal disease on hemodialysis P rocedures XR CHEST 1 VW * Radiology Services (STAT) Referred By Contact Referred To Contact Status Reason Specialty Diagnoses / Procedures Carlo Workman [facility] [address] [place] [address] New Request Diagnostic Diagnoses Radiology Precordial pain P rocedures Chest 1 View * Radiology Services (STAT) Referred By Contact Referred To Contact Status Reason Specialty Diagnoses / Procedures Carlo Workman [facility] [address] [place] [address] New Request Diagnostic Diagnoses Radiology Precordial pain P rocedures Chest 1 View Reason for Visit * Reason Comments Fever Chest Pain Body Aches * Auth/Cert Referred By Contact Referred To Contact Status Reason Specialty Diagnoses / Procedures [facility] Emergency Dept [address] [place] [address] Emergency Medicine Encounter Details Care Team Description Date Type Department Carlo Workman DO [facility] [address] [place] [address] [phone] Chetna Busch MD 501 [facility] [address] [place] [address] [place] [id number] [facility] [address] [place], [place] [id number] Sepsis due to methicillin susceptible Staphylococcus aureus 10/29/2018 [facility] - Encounter Medicine/Surgery CLC 4A 11/03/2018 [address] [place] [address] Allergies Comments Active Allergy Reactions Severity Noted Date Codeine Itching Medium 06/30/2016 Heparin Itching Medium 10/29/2018 Heparin Analogues Hives, Low 06/29/2016 Itching Headache Hydralazide Other - See Medium 10/29/2018 comments Morphine Itching Medium 10/29/2018 documented as of this encounter (statuses as of 11/03/2018) Medications End Date Status Medication Sig Dispensed [...] 90 mg by 0 tablet mouth. 7 10/29/2018 Discontinued cloniDINE 0.2 mg/24 hr Apply 1 Patch 0 patch to skin. 10/29/2018 Discontinued mycophenolate mofetil 500 Take 500 mg 0 06/13/ mg tablet by mouth. 7 documented as of this encounter (statuses as of 11/03/2018) Active Problems Problem Noted Date E44.1 Mild protein-calorie malnutrition 10/31/2018 AV fistula [...] disease. Dre were removed in clinic today. Anemia of chronic disease 02/17/2018 Overview: Last Assessment & Plan: Continue follow up with nephrology for anemia treatment. Gastroesophageal reflux disease without esophagitis 06/30/2016 Hypertension 06/30/2016 Overview: Last Assessment & Plan: Blood pressure management per nephrology. Kidney transplant rejection 06/30/2016 Diabetes mellitus Overview: PATIENT DENIES documented as of this encounter (statuses as of 11/03/2018) Immunizations Name Administration Dates Next Due Pneumococcal [...] Signs Reading Time Taken Comments Vital Sign 117/64 11/03/2018 2:00 PM CDT Blood Pressure 99 11/03/2018 2:00 PM CDT Pulse 36.4 C (97.6 F) 11/03/2018 2:00 PM CDT Temperature 19 11/03/2018 2:00 PM CDT Respiratory Rate 99% 11/03/2018 2:00 PM CDT Oxygen Saturation - - Inhaled Oxygen Concentration 61.1 kg (134 lb 11.2 oz) 11/03/2018 1:26 PM CDT Weight 165.1 cm (5' 5") 10/29/2018 7:34 PM CDT Height 22.42 10/29/2018 7:34 PM CDT Body Mass Index documented in this encounter Discharge Summaries * Tej Rivera MD - 11/03/2018 4:05 PM CDT Discharge Diagnosis: Sepsis likely secondary to line sepsis Tachycardia and pyrexia Port-A-Cath with drainage New fistula right upper extremity End-stage renal disease on hemodialysis Saturday, Saturday, and Saturday Diabetes mellitus type 2 Hypertension Status post renal transplant with rejection Bilateral knee pain from osteoarthritis Hospital Course: Rogerio Benoit III is a 48 year old male that presented to the ED on 10/29/2018 c/o fever and muscle aches. The patient reported that his port-cath in his R ch est had a green discharge. The patient is a HD patient that receives dialysis on MWF schedule. He was placed on IV Ancef and followed by ID. His catheter was removed and both his catheter and blood cultures grew MSSA. He will be discharged on Ancef after HD days and follow up with his editor index. ADMISSION DATE: 10/29/2018 DISCHARGE DATE:11/03/2018 DISPOSITION: To home CONDITION: Improved ACTIVITY: As tolerated DIET: Renal MEDICATION: See discharge medical reconciliation form FOLLOW UP: PCP in one week documented in this encounter Discharge Instructions * Attachments The following attachments cannot be sent through Care Everywhere.* Bacteremia, Suspected (Adult) (Maldivian) * Dialysis, Arteriovenous (AV) Fistula for (Maldivian) * Hemodialysis (Maldivian) documented in this encounter Progress Notes * Mehran Steele MD - 11/03/2018 5:04 PM CDT [facility] Nephrology Progress Note 11/02/2018 12:12 PM Aaron Benoit III is a 48 year old male admitted with MSSA bacteremia. Doing good. No new complaints. Objective Vitals Vitals: 11/03/18 1300 11/03/18 1324 11/03/18 1326 11/03/18 1400 BP: (!) 184/94 (!) 149/57 (!) 148/74 117/64 Pulse: 89 88 91 99 Resp: 18 Temp: 36.3 C (97.3 F) 36.4 C (97.6 F) TempSrc: Tympanic Tympanic SpO2: 99% Weight: 61.1 kg (134 lb 11.2 oz) Height: I/O No intake/output data recorded. I/O last 3 completed shifts: In: - Out: 1999 [Other:1999] Physical Exam General: Appropriate for age, no acute distress, well-developed and well-nourish ed. HENT: Head: Normocephalic and atraumatic. Eyes: Conjunctivae and EOM are normal. Pupils are equal, round, and reactive to light. Neck: Neck supple. No jugular venous distention Cardiovascular: Normal rate, rhythm and heart sounds. No gallop, rub or murmur. Chest: CTA. No wheezes or rales. Abdominal: Soft. BS are normal. Extremities: Normal range of motion, no edema, tenderness or deformity. Neurological: Alert and oriented. Cranial nerves intact Psych: Appropriate mood and response Medications Current Facility-Administered Medications Medication Dose Route Frequency Last Rate Last Dose ceFAZolin (ANCEF) 1,000 mg in NaCl 0.9% (NS) 50 mL MINI-BAG 1,000 mg IV Pig gyback Q24H 1,000 mg at 11/02/18 1604 acetaminophen (TYLENOL) tablet 650 mg 650 mg Oral Q6HPRN 650 mg at 1730 aspirin tablet 325 mg 325 mg Oral DAILY 325 mg at 11/03/18 0943 bisacodyl (DULCOLAX) tablet 10 mg 10 mg Oral DAILY 10 mg at 11/02/18 0751 cloNIDine (CATAPRES) tablet 0.1 mg 0.1 mg Oral BID Stopped at 11/03/18 08 00 dextrose 50 % in water (D50W) injection 25 mL 25 mL Slow IV Push PRN diphenhydrAMINE (BENADRYL) injection 50 mg 50 mg Slow IV Push QDAILYPRN docusate (COLACE) capsule 100 mg 100 mg Oral DAILY enoxaparin (LOVENOX) injection 30 mg 30 mg Subcutaneous Q24H 30 mg at 1604 glucagon (GLUCAGEN DIAGNOSTIC KIT) injection 1 mg 1 mg Intramuscular PRN HYDROcodone-acetaminophen (NORCO 5) 5-325 mg tablet 1 tablet 1 tablet Oral Q6HPRN 1 tablet at 11/02/18 2356 labetalol (NORMODYNE) tablet 200 mg 200 mg Oral Q12H 200 mg at 11/02/18 0 751 ondansetron (ZOFRAN (PF)) injection 4 mg 4 mg Slow IV Push Q6HPRN sennosides-docusate sodium (SENOKOT S) 8.6-50 mg per tablet 1 tablet 1 tabl et Oral DAILY sevelamer (RENVELA) tablet 2,400 mg 2,400 mg Oral TID MEALS 2,400 mg at 0 11/02/18 1604 Labs and Radiology CMP NA (mmol/L) Date Value 11/02/2018 130 (L) 10/31/2018 129 (L) 10/30/2018 132 (L) 10/29/2018 130 (L) K (mmol/L) Date Value 11/02/2018 3.9 10/31/2018 4.0 10/30/2018 4.0 10/29/2018 4.3 CALCIUM (mg/dL) Date Value 11/02/2018 9.5 10/31/2018 9.1 10/30/2018 9.1 10/29/2018 9.2 CL (mmol/L) Date Value 11/02/2018 88 (L) 10/31/2018 92 (L) 10/30/2018 94 (L) 10/29/2018 89 (L) BUN (mg/dL) Date Value 11/02/2018 60 (H) 10/31/2018 63 (H) 10/30/2018 42 (H) 10/29/2018 40 (H) CREATININE (mg/dL) Date Value 11/02/2018 10.37 (H) 10/31/2018 10.66 (H) 10/30/2018 8.70 (H) 10/29/2018 8.31 (H) GLUCOSE (mg/dL) Date Value 11/02/2018 110 10/31/2018 89 10/30/2018 112 (H) 10/29/2018 82 CO2 TOTAL (mmol/L) Date Value 11/02/2018 27 10/31/2018 22 (L) 10/30/2018 23 10/29/2018 24 ALBUMIN (g/dL) Date Value 10/30/2018 3.6 T PROTEIN (g/dL) Date Value 10/30/2018 7.2 TOTAL BILI (mg/dL) Date Value 10/30/2018 0.9 BILI UNCON (mg/dL) Date Value 10/30/2018 0.4 BILI CONJ (mg/dL) Date Value 10/30/2018 0.0 ALT(SGPT) (U/L) Date Value 10/30/2018 17 AST(SGOT) (U/L) Date Value 10/30/2018 29 ALK PHOS (U/L) Date Value 10/30/2018 70 CBC withoutdiff WBC (10*3/L) Date Value 10/31/2018 7.83 10/30/2018 8.00 10/29/2018 8.02 HGB (g/dL) Date Value 10/31/2018 8.6 (L) 10/30/2018 10.2 (L) 10/29/2018 10.7 (L) HCT (%) Date Value 10/31/2018 26.1 (L) 10/30/2018 30.4 (L) 10/29/2018 32.3 (L) MCV (fL) Date Value 10/31/2018 97.0 (H) 10/30/2018 97.1 (H) 10/29/2018 97.0 (H) PLT (10*3/L) Date Value 10/31/2018 52 (L) 10/30/2018 56 (L) 10/29/2018 59 (L) No results found for: UPROTEIN No results found for: UPH No results found for: UGLUCOSE No results found for: UKETONES No results found for: UBILI No results found for: UBLOOD No results found for: UUROBILIN No results found for: ULEUKEST No results found for: UNITRITE No results found for: USPGRAV No final results containing an impression from the past 2 days were found. Problem List: No problems updated. Assessment Rogerio Benoit III is a 48 year old male with: #. ESRD #. HTN #. MSSA bacteremia #. Anemia of CKD #. MBD #. S/P failed Renal transplant done in 2007 # HyponatremiaPlan HD today. UF 2L BP stable post HD Abx per ID. Plans to d/c home today with outpt ABX during HD. Mehran Steele MD [facility] * Roya Yadav MD - 11/03/2018 12:11 PM CDT [facility] Progress Note Subjective MSSA HD cath infection Physical Exam: BP (!) 166/106 | Pulse 94 | Temp 35.7 C (96.3 F) (Tympanic) | Resp 18 | Ht 1.651 m (5' 5") | Wt 63.7 kg (140 lb 6.9 oz) | SpO2 98% | BMI 23.37 kg/m General Appearance: alert, appears stated age and cooperative Head: Normocephalic, without obvious abnormality, atraumatic Eyes: conjunctivae/corneas clear. PERRL, EOM's intact. Fundi benign. Nose: Nares normal. Septum midline. Mucosa normal. No drainage or sinus tendern ess. Throat: lips, mucosa, and tongue normal; teeth and gums normal Neck: no adenopathy, no carotid bruit, no JVD, supple Back: symmetric, no curvature. ROM normal. Lungs: clear to auscultation bilaterally Chest Wall: no tenderness Heart: regular rate and rhythm, S1, S2 normal, no murmur, click, rub or gallop Abdomen: soft, non-tender; bowel sounds normal; no masses, no organomegaly, No CVA tenderness. Extremities: extremities normal, atraumatic, no cyanosis or edema Musculoskeletal: No joint pains or swelling Skin: Skin color, texture, turgor normal. No rashes or lesions. Neurologic: Alert and oriented X 3, with clear speech Medications Current Facility-Administered Medications Medication Dose Route Frequency Last Rate Last Dose ceFAZolin (ANCEF) 1,000 mg in NaCl 0.9% (NS) 50 mL MINI-BAG 1,000 mg IV Pig gyback Q24H 1,000 mg at 11/02/18 1604 acetaminophen (TYLENOL) tablet 650 mg 650 mg Oral Q6HPRN 650 mg at 1730 aspirin tablet 325 mg 325 mg Oral DAILY 325 mg at 11/03/18 0943 bisacodyl (DULCOLAX) tablet 10 mg 10 mg Oral DAILY 10 mg at 11/02/18 0751 cloNIDine (CATAPRES) tablet 0.1 mg 0.1 mg Oral BID Stopped at 11/03/18 08 00 dextrose 50 % in water (D50W) injection 25 mL 25 mL Slow IV Push PRN diphenhydrAMINE (BENADRYL) injection 50 mg 50 mg Slow IV Push QDAILYPRN docusate (COLACE) capsule 100 mg 100 mg Oral DAILY enoxaparin (LOVENOX) injection 30 mg 30 mg Subcutaneous Q24H 30 mg at 1604 glucagon (GLUCAGEN DIAGNOSTIC KIT) injection 1 mg 1 mg Intramuscular PRN HYDROcodone-acetaminophen (NORCO 5) 5-325 mg tablet 1 tablet 1 tablet Oral Q6HPRN 1 tablet at 11/02/18 2356 labetalol (NORMODYNE) tablet 200 mg 200 mg Oral Q12H 200 mg at 11/02/18 0 751 ondansetron (ZOFRAN (PF)) injection 4 mg 4 mg Slow IV Push Q6HPRN sennosides-docusate sodium (SENOKOT S) 8.6-50 mg per tablet 1 tablet 1 tabl et Oral DAILY sevelamer (RENVELA) tablet 2,400 mg 2,400 mg Oral TID MEALS 2,400 mg at 0 11/02/18 1604 Labs/Radiology Recent Results (from the past 48 hour(s)) BASIC METABOLIC PANEL (NA, K, CL, CO2, GLUCOSE, BUN, CREATININE, CA) Collection Time: 11/02/18 11:53 PM Result Value Ref Range NA 130 (L) 135 - 145 mmol/L K 3.9 3.5 - 5.0 mmol/L CL 88 (L) 98 - 108 mmol/L CO2 TOTAL 27 23 - 31 mmol/L AGAP 15 2 - 16 BUN 60 (H) 7 - 23 mg/dL GLUCOSE 110 70 - 110 mg/dL CREATININE 10.37 (H) 0.60 - 1.25 mg/dL CALCIUM 9.5 8.6 - 10.6 mg/dL eGFR Calculation (Non-) 5.4 mL/min/1.73m2 eGFR Calculation () 6.5 mL/min/1.73m2 No final results containing an impression from the past 48 hours were found. Diagnoses Principal Problem: Sepsis due to methicillin susceptible Staphylococcus aureus Active Problems: Anemia of chronic disease Infection of hemodialysis catheter End-stage renal disease on hemodialysis Kidney transplant rejection S/p nephrectomy Elevated troponin E44.1 Mild protein-calorie malnutrition AV fistula thrombosis Plan Sepsis POA MSSA on blood culture 10/29-10/30 MSSA on site culture 10/30 HD cath removed 10/31 R arm AVF is in use (L arm AVF is thrombosed and nonfunctional) TTE noted Ok to DC on Ancef for 2 weeks Will follow Length of Stay: 5 * Tej Rivera MD - 11/03/2018 8:40 AM CDT [facility] Progress Note Dr. Tej Rivera Subjective: Patient seen & examined. Events reviewed. Objective: Vitals: 11/02/18 1900 11/02/18 2300 11/03/18 0300 11/03/18 0700 BP: (!) 148/95 124/49 134/72 118/72 Pulse: 95 97 87 93 Resp: 18 18 18 17 Temp: 37.7 C (99.9 F) 36.7 C (98.1 F) 37 C (98.6 F) 36.2 C (97.2 F) TempSrc: Oral Oral Oral Tympanic SpO2: 96% 95% 97% 98% Weight: Height: General: awake, alert, no distress HEENT: NC, AT, PERRLA, EOMI, MMM, anicteric sclera Neck: no JVD/lymphadenopathy CV: RRR, no murmurs, rubs, gallops Lungs: clear to auscultation bilaterally Abdomen: soft, NT, ND, (+)BS Skin: no rashes Extremities: no clubbing, cyanosis, edema Neuro: CN 2-12 intact, no focal deficits Psych: oriented x 3, normal affect Labs: Recent Results (from the past 48 hour(s)) BASIC METABOLIC PANEL (NA, K, CL, CO2, GLUCOSE, BUN, CREATININE, CA) Collection Time: 11/02/18 11:53 PM Result Value Ref Range NA 130 (L) 135 - 145 mmol/L K 3.9 3.5 - 5.0 mmol/L CL 88 (L) 98 - 108 mmol/L CO2 TOTAL 27 23 - 31 mmol/L AGAP 15 2 - 16 BUN 60 (H) 7 - 23 mg/dL GLUCOSE 110 70 - 110 mg/dL CREATININE 10.37 (H) 0.60 - 1.25 mg/dL CALCIUM 9.5 8.6 - 10.6 mg/dL eGFR Calculation (Non-) 5.4 mL/min/1.73m2 eGFR Calculation () 6.5 mL/min/1.73m2 Current Facility-Administered Medications: ceFAZolin (ANCEF) 1,000 mg in NaCl 0.9% (NS) 50 mL MINI-BAG, 1,000 mg, IV P iggyback, Q24H, Roya Yadav MD, 1,000 mg at 11/02/18 1604 acetaminophen (TYLENOL) tablet 650 mg, 650 mg, Oral, Q6HPRN, Consuelo Werner MD, 650 mg at 10/30/18 1730 aspirin tablet 325 mg, 325 mg, Oral, DAILY, Cornel Kincaid PA-C, 325 mg at 11/02/18 0751 bisacodyl (DULCOLAX) tablet 10 mg, 10 mg, Oral, DAILY, Rebekah Werner MD, 10 mg at 11/02/18 0751 cloNIDine (CATAPRES) tablet 0.1 mg, 0.1 mg, Oral, BID, Mehran Steele M D, 0.1 mg at 11/01/18 2215 dextrose 50 % in water (D50W) injection 25 mL, 25 mL, Slow IV Push, PRN, Rebekah castro MD diphenhydrAMINE (BENADRYL) injection 50 mg, 50 mg, Slow IV Push, QDAILYPRN, Rebekah Werner MD docusate (COLACE) capsule 100 mg, 100 mg, Oral, DAILY, Rebekah Werner MD enoxaparin (LOVENOX) injection 30 mg, 30 mg, Subcutaneous, Q24H, Chloe Werner MD, 30 mg at 11/02/18 1604 glucagon (GLUCAGEN DIAGNOSTIC KIT) injection 1 mg, 1 mg, Intramuscular, PRN , Rebekah Werner MD HYDROcodone-acetaminophen (NORCO 5) 5-325 mg tablet 1 tablet, 1 tablet, Ora l, Q6HPRN, Tej Rivera MD, 1 tablet at 11/02/18 2356 labetalol (NORMODYNE) tablet 200 mg, 200 mg, Oral, Q12H, Mehran Steele MD, 200 mg at 11/02/18 0751 ondansetron (ZOFRAN (PF)) injection 4 mg, 4 mg, Slow IV Push, Q6HPRN, Cornel Kincaid PA-C sennosides-docusate sodium (SENOKOT S) 8.6-50 mg per tablet 1 tablet, 1 tab let, Oral, DAILY, Rebekah Werner MD sevelamer (RENVELA) tablet 2,400 mg, 2,400 mg, Oral, TID MEALS, Mehran Steele MD, 2,400 mg at 11/02/18 1604 Assessment: Rogerio Benoit III is a 48 year old male admitted with: Sepsis likely secondary to line sepsis Tachycardia and pyrexia Port-A-Cath with drainage New fistula right upper extremity End-stage renal disease on hemodialysis Saturday, Saturday, and Saturday Diabetes mellitus type 2 Hypertension Status post renal transplant with rejection Bilateral knee pain from osteoarthritis Plan: Joslyn WILKERSON'd by IR yesterday and sent for culture Current culture growing Staph A Continue with IV antibiotic therapy Following closely with infectious disease and Renal Hemodialysis Saturday, Saturday, and Saturday Following blood sugar and blood pressure closely Adjusting medications as needed Further recommendations will be based on this patient's clinical course 11/02/18 Continue IV abx Awaiting final cultures ID following Await final decision by ID on IV abx treatment Start DC planning DW case management Further recommendations will be based on this patient's clinical course 11/03/18 Continue with IV antibiotic therapy Awaiting final cultures Plan IV antibiotics We'll discuss with infectious disease today Discussed with nephrology We'll discuss with case management on discharge planning Likely home later today if okay with infectious disease Further recommendations will be based on this patient's clinical course Tej Rivera MD * Duran Park MD - 11/02/2018 12:56 PM CDT [facility] Nephrology Progress Note 11/02/2018 12:12 PM Subjective Rogerio Benoit III is a 48 year old male admitted with MSSA bacteremia. Had di alysis on Saturday. Doing good. No new complaints. Objective Vitals Vitals: 11/01/18 2359 11/02/18 0400 11/02/18 0704 11/02/18 1110 BP: 135/78 111/67 111/44 104/47 Pulse: 106 84 84 72 Resp: 18 16 Temp: 36.8 C (98.2 F) 36.4 C (97.5 F) 36.7 C (98 F) 36.7 C (98.1 F) TempSrc: Tympanic Tympanic Skin Skin SpO2: 95% 97% 99% 98% Weight: Height: I/O I/O this shift: In: 480 [Oral:480] Out: - No intake/output data recorded. Physical Exam General: Appropriate for age, no acute distress, well-developed and well-nourish ed. HENT: Head: Normocephalic and atraumatic. Eyes: Conjunctivae and EOM are normal. Pupils are equal, round, and reactive to light. Neck: Neck supple. No jugular venous distention Cardiovascular: Normal rate, rhythm and heart sounds. No gallop, rub or murmur. Chest: CTA. No wheezes or rales. Abdominal: Soft. BS are normal. Extremities: Normal range of motion, no edema, tenderness or deformity. Neurological: Alert and oriented. Cranial nerves intact Psych: Appropriate mood and response Medications Current Facility-Administered Medications Medication Dose Route Frequency Last Rate Last Dose ceFAZolin (ANCEF) 1,000 mg in NaCl 0.9% (NS) 50 mL MINI-BAG 1,000 mg IV Pig gyback Q24H 1,000 mg at 11/01/18 1614 acetaminophen (TYLENOL) tablet 650 mg 650 mg Oral Q6HPRN 650 mg at 1730 aspirin tablet 325 mg 325 mg Oral DAILY 325 mg at 11/02/18 0751 bisacodyl (DULCOLAX) tablet 10 mg 10 mg Oral DAILY 10 mg at 11/02/18 0751 cloNIDine (CATAPRES) tablet 0.1 mg 0.1 mg Oral BID 0.1 mg at 11/01/18 221 5 dextrose 50 % in water (D50W) injection 25 mL 25 mL Slow IV Push PRN diphenhydrAMINE (BENADRYL) injection 50 mg 50 mg Slow IV Push QDAILYPRN docusate (COLACE) capsule 100 mg 100 mg Oral DAILY enoxaparin (LOVENOX) injection 30 mg 30 mg Subcutaneous Q24H 30 mg at 1614 glucagon (GLUCAGEN DIAGNOSTIC KIT) injection 1 mg 1 mg Intramuscular PRN HYDROcodone-acetaminophen (NORCO 5) 5-325 mg tablet 1 tablet 1 tablet Oral Q6HPRN 1 tablet at 11/02/18 0751 labetalol (NORMODYNE) tablet 200 mg 200 mg Oral Q12H 200 mg at 11/02/18 0 751 ondansetron (ZOFRAN (PF)) injection 4 mg 4 mg Slow IV Push Q6HPRN sennosides-docusate sodium (SENOKOT S) 8.6-50 mg per tablet 1 tablet 1 tabl et Oral DAILY sevelamer (RENVELA) tablet 2,400 mg 2,400 mg Oral TID MEALS 2,400 mg at 0 11/02/18 1157 Labs and Radiology CMP NA (mmol/L) Date Value 10/31/2018 129 (L) 10/30/2018 132 (L) 10/29/2018 130 (L) K (mmol/L) Date Value 10/31/2018 4.0 10/30/2018 4.0 10/29/2018 4.3 CALCIUM (mg/dL) Date Value 10/31/2018 9.1 10/30/2018 9.1 10/29/2018 9.2 CL (mmol/L) Date Value 10/31/2018 92 (L) 10/30/2018 94 (L) 10/29/2018 89 (L) BUN (mg/dL) Date Value 10/31/2018 63 (H) 10/30/2018 42 (H) 10/29/2018 40 (H) CREATININE (mg/dL) Date Value 10/31/2018 10.66 (H) 10/30/2018 8.70 (H) 10/29/2018 8.31 (H) GLUCOSE (mg/dL) Date Value 10/31/2018 89 10/30/2018 112 (H) 10/29/2018 82 CO2 TOTAL (mmol/L) Date Value 10/31/2018 22 (L) 10/30/2018 23 10/29/2018 24 ALBUMIN (g/dL) Date Value 10/30/2018 3.6 T PROTEIN (g/dL) Date Value 10/30/2018 7.2 TOTAL BILI (mg/dL) Date Value 10/30/2018 0.9 BILI UNCON (mg/dL) Date Value 10/30/2018 0.4 BILI CONJ (mg/dL) Date Value 10/30/2018 0.0 ALT(SGPT) (U/L) Date Value 10/30/2018 17 AST(SGOT) (U/L) Date Value 10/30/2018 29 ALK PHOS (U/L) Date Value 10/30/2018 70 CBC withoutdiff WBC (10*3/L) Date Value 10/31/2018 7.83 10/30/2018 8.00 10/29/2018 8.02 HGB (g/dL) Date Value 10/31/2018 8.6 (L) 10/30/2018 10.2 (L) 10/29/2018 10.7 (L) HCT (%) Date Value 10/31/2018 26.1 (L) 10/30/2018 30.4 (L) 10/29/2018 32.3 (L) MCV (fL) Date Value 10/31/2018 97.0 (H) 10/30/2018 97.1 (H) 10/29/2018 97.0 (H) PLT (10*3/L) Date Value 10/31/2018 52 (L) 10/30/2018 56 (L) 10/29/2018 59 (L) No results found for: UPROTEIN No results found for: UPH No results found for: UGLUCOSE No results found for: UKETONES No results found for: UBILI No results found for: UBLOOD No results found for: UUROBILIN No results found for: ULEUKEST No results found for: UNITRITE No results found for: USPGRAV No final results containing an impression from the past 2 days were found. Problem List: No problems updated. Assessment Rogerio Benoit III is a 48 year old male with: #. ESRD #. HTN #. MSSA bacteremia #. Anemia of CKD #. MBD #. S/P failed Renal transplant done in 2007 # HyponatremiaPlan Continue current plan of care. Will dialyze on Saturday.Duran Park MD FACP [facility] Adjunct fish processing supervisor [facility] * Tej Rivera MD - 11/02/2018 8:25 AM CDT [facility] Progress Note Dr. Tej Rivera Subjective: Patient seen & examined. Events reviewed. Objective: Vitals: 11/01/18 1930 11/01/18 2359 11/02/18 0400 11/02/18 0704 BP: (!) 139/96 135/78 111/67 111/44 Pulse: 111 106 84 84 Resp: 18 18 16 17 Temp: 37.9 C (100.2 F) 36.8 C (98.2 F) 36.4 C (97.5 F) 36.7 C (98 F) TempSrc: Tympanic Tympanic Tympanic Skin SpO2: 99% 95% 97% 99% Weight: Height: General: awake, alert, no distress HEENT: NC, AT, PERRLA, EOMI, MMM, anicteric sclera Neck: no JVD/lymphadenopathy CV: RRR, no murmurs, rubs, gallops Lungs: clear to auscultation bilaterally Abdomen: soft, NT, ND, (+)BS Skin: no rashes Extremities: no clubbing, cyanosis, edema Neuro: CN 2-12 intact, no focal deficits Psych: oriented x 3, normal affect Labs: Recent Results (from the past 48 hour(s)) Vancomycin Random Level Collection Time: 10/31/18 11:22 AM Result Value Ref Range VANCO RANDOM 17.8 ug/mL IMPLANT/HARDWARE/ORTHO INFECTION CULTURE(AEROBIC/ANAEROBIC) Collection Time: 10/31/18 4:19 PM Result Value Ref Range Gram stain No Organisms seen Gram stain Occasional (Rare) Polymorphonuclear leukocytes Current Facility-Administered Medications: ceFAZolin (ANCEF) 1,000 mg in NaCl 0.9% (NS) 50 mL MINI-BAG, 1,000 mg, IV P iggyback, Q24H, Roya Yadav MD, 1,000 mg at 11/01/18 1614 acetaminophen (TYLENOL) tablet 650 mg, 650 mg, Oral, Q6HPRN, Consuelo Werner MD, 650 mg at 10/30/18 1730 aspirin tablet 325 mg, 325 mg, Oral, DAILY, Cornel Kincaid PA-C, 325 mg at 11/02/18 0751 bisacodyl (DULCOLAX) tablet 10 mg, 10 mg, Oral, DAILY, Rebekah Werner MD, 10 mg at 11/02/18 0751 cloNIDine (CATAPRES) tablet 0.1 mg, 0.1 mg, Oral, BID, Mehran Steele M D, 0.1 mg at 11/01/18 2215 dextrose 50 % in water (D50W) injection 25 mL, 25 mL, Slow IV Push, PRN, Rebekah castro MD diphenhydrAMINE (BENADRYL) injection 50 mg, 50 mg, Slow IV Push, QDAILYPRN, Rebekah Werner MD docusate (COLACE) capsule 100 mg, 100 mg, Oral, DAILY, Rebekah Werner MD enoxaparin (LOVENOX) injection 30 mg, 30 mg, Subcutaneous, Q24H, Chloe Werner MD, 30 mg at 11/01/18 1614 glucagon (GLUCAGEN DIAGNOSTIC KIT) injection 1 mg, 1 mg, Intramuscular, PRN , Rebekah Werner MD HYDROcodone-acetaminophen (NORCO 5) 5-325 mg tablet 1 tablet, 1 tablet, Ora l, Q6HPRN, Tej Rivera MD, 1 tablet at 11/02/18 0751 labetalol (NORMODYNE) tablet 200 mg, 200 mg, Oral, Q12H, Mehran Steele MD, 200 mg at 11/02/18 0751 ondansetron (ZOFRAN (PF)) injection 4 mg, 4 mg, Slow IV Push, Q6HPRN, Cornel Kincaid PA-C sennosides-docusate sodium (SENOKOT S) 8.6-50 mg per tablet 1 tablet, 1 tab let, Oral, DAILY, Rebekah Werner MD sevelamer (RENVELA) tablet 2,400 mg, 2,400 mg, Oral, TID MEALS, Mehran Steele MD, 2,400 mg at 11/02/18 0751 Assessment: Rogerio Benoit III is a 48 year old male admitted with: Sepsis likely secondary to line sepsis Tachycardia and pyrexia Port-A-Cath with drainage New fistula right upper extremity End-stage renal disease on hemodialysis Saturday, Saturday, and Saturday Diabetes mellitus type 2 Hypertension Status post renal transplant with rejection Bilateral knee pain from osteoarthritis Plan: PermCath DC'd by IR yesterday and sent for culture Current culture growing Staph A Continue with IV antibiotic therapy Following closely with infectious disease and Renal Hemodialysis Saturday, Saturday, and Saturday Following blood sugar and blood pressure closely Adjusting medications as needed Further recommendations will be based on this patient's clinical course 11/02/18 Continue IV abx Awaiting final cultures ID following Await final decision by ID on IV abx treatment Start DC planning DW case management Further recommendations will be based on this patient's clinical course Tej Rivera MD * Darius Solano MD - 11/01/2018 3:20 PM CDT Cardiology Progress Note Date of Service: 11/01/18 SUBJECTIVE: Pt denies CP/SOB/Palp CURRENT MEDICATIONS: Current Facility-Administered Medications: ceFAZolin (ANCEF) 1,000 mg in NaCl 0.9% (NS) 50 mL MINI-BAG, 1,000 mg, IV P iggyback, Q24H, Roya Yadav MD, 1,000 mg at 10/31/18 1547 acetaminophen (TYLENOL) tablet 650 mg, 650 mg, Oral, Q6HPRN, Consuelo Werner MD, 650 mg at 10/30/18 1730 aspirin tablet 325 mg, 325 mg, Oral, DAILY, Cornel Kincaid PA-C, 325 mg at 11/01/18 0823 bisacodyl (DULCOLAX) tablet 10 mg, 10 mg, Oral, DAILY, Rebekah Werner MD cloNIDine (CATAPRES) tablet 0.1 mg, 0.1 mg, Oral, BID, Mehran Steele M D, Stopped at 10/31/18 0800 dextrose 50 % in water (D50W) injection 25 mL, 25 mL, Slow IV Push, PRN, Rebekah castro MD diphenhydrAMINE (BENADRYL) injection 50 mg, 50 mg, Slow IV Push, QDAILYPRN, Rebekah Werner MD docusate (COLACE) capsule 100 mg, 100 mg, Oral, DAILY, Rebekah Wernre MD enoxaparin (LOVENOX) injection 30 mg, 30 mg, Subcutaneous, Q24H, Chloe Werner MD, 30 mg at 10/31/18 1703 glucagon (GLUCAGEN DIAGNOSTIC KIT) injection 1 mg, 1 mg, Intramuscular, PRN , Rebekah Werner MD HYDROcodone-acetaminophen (NORCO 5) 5-325 mg tablet 1 tablet, 1 tablet, Ora l, Q6HPRN, Tej Rviera MD, 1 tablet at 11/01/18 1214 labetalol (NORMODYNE) tablet 200 mg, 200 mg, Oral, Q12H, Mehran Steele MD, 200 mg at 11/01/18 0823 ondansetron (ZOFRAN (PF)) injection 4 mg, 4 mg, Slow IV Push, Q6HPRN, Cornel Kincaid PA-C sennosides-docusate sodium (SENOKOT S) 8.6-50 mg per tablet 1 tablet, 1 tab let, Oral, DAILY, Rebekah Werner MD sevelamer (RENVELA) tablet 2,400 mg, 2,400 mg, Oral, TID MEALS, Mehran Steele MD, 2,400 mg at 11/01/18 1213 PHYSICAL EXAM: Vitals: 11/01/18 0000 11/01/18 0400 11/01/18 0700 11/01/18 1200 BP: (!) 140/45 138/85 133/62 109/51 Pulse: 112 111 101 85 Resp: 18 17 18 17 Temp: 37.4 C (99.4 F) 37.1 C (98.8 F) 36.7 C (98.1 F) 35.6 C (96.1 F) TempSrc: Tympanic Tympanic Tympanic Tympanic SpO2: 97% 97% 99% 93% Weight: Height: Intake/Output Summary (Last 24 hours) at 11/01/2018 1520 Last data filed at 10/31/2018 1521 Gross per 24 hour Intake 50 ml Output 3600 ml Net -3550 ml General: Well Developed Well Nourished ENT: Oral mucosa is moist. NECK: No JVD, No bruits LUNGS: Clear to auscuatioan bilaterally CV: RRR ABD: Soft EXT: No clubbing,cyanosis, edema LABS/IMAGING REVIEWED Recent Results (from the past 24 hour(s)) IMPLANT/HARDWARE/ORTHO INFECTION CULTURE(AEROBIC/ANAEROBIC) Collection Time: 10/31/18 4:19 PM Result Value Ref Range Gram stain No Organisms seen Gram stain Occasional (Rare) Polymorphonuclear leukocytes ECHO: 10/30/18 EF 55-60%, psuedonl, RVSP 20-25 Cardiac catheterization: ASSESSMENT/PLAN Mr Rogerio Benoit III is a 48 year old male patient with history of has a pas t medical history of Anemia, Chronic kidney disease, ESRD (end stage renal disea se) on dialysis, Hypertension, and Renal transplant rejection. who was admitted on 10/29/2018 with Line sepsis. 1. Tachy Resolved 2. Sepsis Improved. Will sign off and be available as needed. Thank you for involving us in the patient's care. Please feel free to call us wi th questions. Darius Solano MD 11/01/2018 * Duran Park MD - 11/01/2018 12:[address] [facility] [place] [facility] Nephrology Progress Note 11/01/2018 12:12 PM Subjective Rogerio Benoit III is a 48 year old male admitted with MSSA bacteremia. Had di alysis yesterday. Doing good. No new complaints. Objective Vitals Vitals: 10/31/18 2000 11/01/18 0000 11/01/18 0400 11/01/18 0700 BP: 107/50 (!) 140/45 138/85 133/62 Pulse: 123 112 111 101 Resp: 18 18 17 18 Temp: 38.1 C (100.5 F) 37.4 C (99.4 F) 37.1 C (98.8 F) 36.7 C (98. 1 F) TempSrc: Tympanic Tympanic Tympanic Tympanic SpO2: 96% 97% 97% 99% Weight: Height: I/O No intake/output data recorded. I/O last 3 completed shifts: In: 50 [I.V.:50] Out: 3600 [Other:3600] Physical Exam General: Appropriate for age, no acute distress, well-developed and well-nourish ed. HENT: Head: Normocephalic and atraumatic. Eyes: Conjunctivae and EOM are normal. Pupils are equal, round, and reactive to light. Neck: Neck supple. No jugular venous distention Cardiovascular: Normal rate, rhythm and heart sounds. No gallop, rub or murmur. Chest: CTA. No wheezes or rales. Abdominal: Soft. BS are normal. Extremities: Normal range of motion, no edema, tenderness or deformity. Neurological: Alert and oriented. Cranial nerves intact Psych: Appropriate mood and response Medications Current Facility-Administered Medications Medication Dose Route Frequency Last Rate Last Dose ceFAZolin (ANCEF) 1,000 mg in NaCl 0.9% (NS) 50 mL MINI-BAG 1,000 mg IV Pig gyback Q24H 1,000 mg at 10/31/18 1547 acetaminophen (TYLENOL) tablet 650 mg 650 mg Oral Q6HPRN 650 mg at 1730 aspirin tablet 325 mg 325 mg Oral DAILY 325 mg at 11/01/18 0823 bisacodyl (DULCOLAX) tablet 10 mg 10 mg Oral DAILY cloNIDine (CATAPRES) tablet 0.1 mg 0.1 mg Oral BID Stopped at 10/31/18 08 00 dextrose 50 % in water (D50W) injection 25 mL 25 mL Slow IV Push PRN diphenhydrAMINE (BENADRYL) injection 50 mg 50 mg Slow IV Push QDAILYPRN docusate (COLACE) capsule 100 mg 100 mg Oral DAILY enoxaparin (LOVENOX) injection 30 mg 30 mg Subcutaneous Q24H 30 mg at 1703 glucagon (GLUCAGEN DIAGNOSTIC KIT) injection 1 mg 1 mg Intramuscular PRN HYDROcodone-acetaminophen (NORCO 5) 5-325 mg tablet 1 tablet 1 tablet Oral Q6HPRN 1 tablet at 11/01/18 0622 labetalol (NORMODYNE) tablet 200 mg 200 mg Oral Q12H 200 mg at 11/01/18 0 823 ondansetron (ZOFRAN (PF)) injection 4 mg 4 mg Slow IV Push Q6HPRN sennosides-docusate sodium (SENOKOT S) 8.6-50 mg per tablet 1 tablet 1 tabl et Oral DAILY sevelamer (RENVELA) tablet 2,400 mg 2,400 mg Oral TID MEALS 2,400 mg at 0 11/01/18 0823 Labs and Radiology CMP NA (mmol/L) Date Value 10/31/2018 129 (L) 10/30/2018 132 (L) 10/29/2018 130 (L) K (mmol/L) Date Value 10/31/2018 4.0 10/30/2018 4.0 10/29/2018 4.3 CALCIUM (mg/dL) Date Value 10/31/2018 9.1 10/30/2018 9.1 10/29/2018 9.2 CL (mmol/L) Date Value 10/31/2018 92 (L) 10/30/2018 94 (L) 10/29/2018 89 (L) BUN (mg/dL) Date Value 10/31/2018 63 (H) 10/30/2018 42 (H) 10/29/2018 40 (H) CREATININE (mg/dL) Date Value 10/31/2018 10.66 (H) 10/30/2018 8.70 (H) 10/29/2018 8.31 (H) GLUCOSE (mg/dL) Date Value 10/31/2018 89 10/30/2018 112 (H) 10/29/2018 82 CO2 TOTAL (mmol/L) Date Value 10/31/2018 22 (L) 10/30/2018 23 10/29/2018 24 ALBUMIN (g/dL) Date Value 10/30/2018 3.6 T PROTEIN (g/dL) Date Value 10/30/2018 7.2 TOTAL BILI (mg/dL) Date Value 10/30/2018 0.9 BILI UNCON (mg/dL) Date Value 10/30/2018 0.4 BILI CONJ (mg/dL) Date Value 10/30/2018 0.0 ALT(SGPT) (U/L) Date Value 10/30/2018 17 AST(SGOT) (U/L) Date Value 10/30/2018 29 ALK PHOS (U/L) Date Value 10/30/2018 70 CBC withoutdiff WBC (10*3/L) Date Value 10/31/2018 7.83 10/30/2018 8.00 10/29/2018 8.02 HGB (g/dL) Date Value 10/31/2018 8.6 (L) 10/30/2018 10.2 (L) 10/29/2018 10.7 (L) HCT (%) Date Value 10/31/2018 26.1 (L) 10/30/2018 30.4 (L) 10/29/2018 32.3 (L) MCV (fL) Date Value 10/31/2018 97.0 (H) 10/30/2018 97.1 (H) 10/29/2018 97.0 (H) PLT (10*3/L) Date Value 10/31/2018 52 (L) 10/30/2018 56 (L) 10/29/2018 59 (L) No results found for: UPROTEIN No results found for: UPH No results found for: UGLUCOSE No results found for: UKETONES No results found for: UBILI No results found for: UBLOOD No results found for: UUROBILIN No results found for: ULEUKEST No results found for: UNITRITE No results found for: USPGRAV No final results containing an impression from the past 2 days were found. Problem List: No problems updated. Assessment Rogerio Benoit III is a 48 year old male with: #. ESRD #. HTN #. MSSA bacteremia #. Anemia of CKD #. MBD #. S/P failed Renal transplant done in 2007 # Hyponatremia Plan Continue current plan of care. Will dialyze on Saturday. 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 Tej Rivera Subjective: Patient seen & examined. Events reviewed. Objective: Vitals: 10/31/18 1513 10/31/18 2000 11/01/18 0000 11/01/18 0400 BP: 124/54 107/50 (!) 140/45 138/85 Pulse: 117 123 112 111 Resp: 18 18 18 17 Temp: 35.9 C (96.6 F) 38.1 C (100.5 F) 37.4 C (99.4 F) 37.1 C (98. 8 F) TempSrc: Tympanic Tympanic Tympanic Tympanic SpO2: 96% 97% 97% Weight: 60.4 kg (133 lb 2.5 oz) Height: General: awake, alert, no distress HEENT: NC, AT, PERRLA, EOMI, MMM, anicteric sclera Neck: no JVD/lymphadenopathy CV: RRR, no murmurs, rubs, gallops Lungs: clear to auscultation bilaterally Abdomen: soft, NT, ND, (+)BS Skin: no rashes Extremities: no clubbing, cyanosis, edema Neuro: CN 2-12 intact, no focal deficits Psych: oriented x 3, normal affect Labs: Recent Results (from the past 48 hour(s)) POCT GLUCOSE (AUTOMATED) Collection Time: 10/30/18 8:29 AM Result Value Ref Range POCT GLU 80 70 - 110 mg/dL Hepatitis B Surface Antibody (HBsAb) Collection Time: 10/30/18 5:09 PM Result Value Ref Range HBsAB Positive HBsAb Semi-Quantitative 165.00 mIU/mL Hepatitis B Core Antibody (HBcAb) IGM Collection Time: 10/30/18 5:09 PM Result Value Ref Range HBCM Negative HBCM Semi-Quantitative 0.03 WOUND CULTURE Collection Time: 10/30/18 5:21 PM Result Value Ref Range Wound Culture 1+ Staphylococcus aureus Gram stain No Organisms seen Gram stain No PMNs or Mononuclear cells observed Blood Culture Collection Time: 10/30/18 7:30 PM Result Value Ref Range Blood Culture-Aerobic No growth at 24 hours No growth Blood Culture-Anaerobic No growth at 24 hours No growth Lipid Panel (Total Cholesterol, Triglycerides, HDL) - Fasting Collection Time: 10/31/18 1:23 AM Result Value Ref Range CHOL 85 (L) 120 - 200 mg/dL HDL 24 (L) >40 mg/dL HDLC RATIO 3.5 <=5.0 TRIG 136 30 - 170 mg/dL LDL CHOL 34 <=160 mg/dL VLDL 27 5 - 60 mg/dL TROPONIN I Collection Time: 10/31/18 1:23 AM Result Value Ref Range TROPONIN I 0.596 (H) <=0.034 ng/mL Basic Metabolic Panel (NA, K, CL, CO2, GLUCOSE, BUN, CREATININE, CA) Collection Time: 10/31/18 1:23 AM Result Value Ref Range NA 129 (L) 135 - 145 mmol/L K 4.0 3.5 - 5.0 mmol/L CL 92 (L) 98 - 108 mmol/L CO2 TOTAL 22 (L) 23 - 31 mmol/L AGAP 15 2 - 16 BUN 63 (H) 7 - 23 mg/dL GLUCOSE 89 70 - 110 mg/dL CREATININE 10.66 (H) 0.60 - 1.25 mg/dL CALCIUM 9.1 8.6 - 10.6 mg/dL eGFR Calculation (Non-) 5.2 mL/min/1.73m2 eGFR Calculation () 6.3 mL/min/1.73m2 Magnesium Serum Collection Time: 10/31/18 1:23 AM Result Value Ref Range MAGNESIUM 2.4 1.7 - 2.4 mg/dL CBC WITH DIFFERENTIAL Collection Time: 10/31/18 1:23 AM Result Value Ref Range WBC 7.83 4.20 - 10.70 10*3/L RBC 2.69 (L) 4.26 - 5.52 10*6/L HGB 8.6 (L) 12.2 - 16.4 g/dL HCT 26.1 (L) 38.4 - 49.3 % MCV 97.0 (H) 81.7 - 95.6 fL MCH 32.0 26.1 - 32.7 pg MCHC 33.0 31.2 - 35.0 g/dL RDW-SD 59.4 (H) 38.5 - 51.6 fL RDW-CV 16.7 (H) 12.1 - 15.4 % PLT 52 (L) 150 - 328 10*3/L MPV 10.5 9.8 - 13.0 fL IPF % 5.6 1.2 - 10.7 % NRBC/100 WBC 0.0 0.0 - 10.0 /100 WBCs NRBC x10^3 <0.01 10*3/L GRAN MAT (NEUT) % 62.7 % IMM GRAN % 14.20 % LYMPH % 9.6 % MONO % 12.1 % EOS % 1.1 % BASO % 0.3 % GRAN MAT x10^3(ANC) 4.91 1.99 - 6.95 10*3/uL IMM GRAN x10^3 1.11 (H) 0.00 - 0.06 10*3/uL LYMPH x10^3 0.75 (L) 1.09 - 3.23 10*3/uL MONO x10^3 0.95 0.36 - 1.02 10*3/uL EOS x10^3 0.09 0.06 - 0.53 10*3/uL BASO x10^3 <0.03 0.01 - 0.09 10*3/uL SCHISTOCYTES 1+ (A) BANDS Increased (A) TOXIC CHANGES Present (A) PLT ESTIMATE Decreased (A) Normal Vancomycin Random Level Collection Time: 10/31/18 11:22 AM Result Value Ref Range VANCO RANDOM 17.8 ug/mL Current Facility-Administered Medications: ceFAZolin (ANCEF) 1,000 mg in NaCl 0.9% (NS) 50 mL MINI-BAG, 1,000 mg, IV P iggyback, Q24H, Roya Yadav MD, 1,000 mg at 10/31/18 1547 acetaminophen (TYLENOL) tablet 650 mg, 650 mg, Oral, Q6HPRN, Consuelo Werner MD, 650 mg at 10/30/18 1730 aspirin tablet 325 mg, 325 mg, Oral, DAILY, Cornel Kincaid PA-C, 325 mg at 10/31/18 0811 bisacodyl (DULCOLAX) tablet 10 mg, 10 mg, Oral, DAILY, Rebekah Werner MD cloNIDine (CATAPRES) tablet 0.1 mg, 0.1 mg, Oral, BID, eMhran Steele M D, Stopped at 10/31/18 0800 dextrose 50 % in water (D50W) injection 25 mL, 25 mL, Slow IV Push, PRN, Rebekah castro MD diphenhydrAMINE (BENADRYL) injection 50 mg, 50 mg, Slow IV Push, QDAILYPRN, Rebekah Werner MD docusate (COLACE) capsule 100 mg, 100 mg, Oral, DAILY, Rebekah Werner MD enoxaparin (LOVENOX) injection 30 mg, 30 mg, Subcutaneous, Q24H, Chloe Werner MD, 30 mg at 10/31/18 1703 glucagon (GLUCAGEN DIAGNOSTIC KIT) injection 1 mg, 1 mg, Intramuscular, PRN , Rebekah Werner MD HYDROcodone-acetaminophen (NORCO 5) 5-325 mg tablet 1 tablet, 1 tablet, Yazmin tracy, Q6HPRN, Tej Rivera MD, 1 tablet at 11/01/18 0026 labetalol (NORMODYNE) tablet 200 mg, 200 mg, Oral, Q12H, Mehran Steele MD, Stopped at 10/31/18 0800 ondansetron (ZOFRAN (PF)) injection 4 mg, 4 mg, Slow IV Push, Q6HPRN, Cornel Kincaid PA-C sennosides-docusate sodium (SENOKOT S) 8.6-50 mg per tablet 1 tablet, 1 tab let, Oral, DAILY, Rebekah Werner MD sevelamer (RENVELA) tablet 2,400 mg, 2,400 mg, Oral, TID MEALS, Mehran Steele MD, 2,400 mg at 10/31/18 1741 Sliding Scale Insulin-Regular + Fsbg Testing, , Subcutaneous, AC+HS, Cornel Kincaid PA-C Assessment: Rogerio Benoit III is a 48 year old male admitted with: Sepsis likely secondary to line sepsis Tachycardia and pyrexia Port-A-Cath with drainage New fistula right upper extremity End-stage renal disease on hemodialysis Saturday, Saturday, and Saturday Diabetes mellitus type 2 Hypertension Status post renal transplant with rejection Bilateral knee pain from osteoarthritis Plan: PermCath DC'd by IR yesterday and sent for culture Current culture growing Staph A Continue with IV antibiotic therapy Following closely with infectious disease and Renal Hemodialysis Saturday, Saturday, and Saturday Following blood sugar and blood pressure closely Adjusting medications as needed Further recommendations will be based on this patient's clinical course Tej Rivera MD 11/01/2018 5:41 AM * Mehran Steele MD - 10/31/2018 7:15 PM CDT [facility] Nephrology Progress Note Admission Date: 10/29/2018 Consult Date: 10/30/18 Reason for Consult ESRD Subjective: Patient seen and examined. S/p HD using right upper extremity AVG with good bloo d flows and UF of 3.6L. Blood cultures positive for mssa bacteremia and kelseyo young atheter removed. Still has some myalgia, but not as bad as it was yesterday. Past Medical History: Diagnosis Date Anemia Chronic kidney disease ESRD (end stage renal disease) on dialysis Hypertension Renal transplant rejection Past Surgical History: Procedure Laterality Date ARTERIOVENOUS FISTULA CREATION Right MARCH 2018 ARTERIOVENOUS FISTULA CREATION 2000 NEPHRECTOMY SC HEMODIALYSIS VIA CATHETER RIGHT CHEST Social History Socioeconomic History Marital status: Single Spouse name: Not on file Number of children: Not on file Years of education: Not on file Highest education level: Not on file Occupational History Not on file Social Needs Financial resource strain: Not on file Food insecurity: Worry: Not on file Inability: Not on file Transportation needs: Medical: Not on file Non-medical: Not on file Tobacco Use Smoking status: Never Smoker Smokeless tobacco: Never Used Substance and Sexual Activity Alcohol use: Not Currently Drug use: Not Currently Sexual activity: Not Currently Lifestyle Physical activity: Days per week: Not on file Minutes per session: Not on file Stress: Not on file Relationships Social connections: Talks on phone: Not on file Gets together: Not on file Attends mormonism service: Not on file Active member of club or organization: Not on file Attends meetings of clubs or organizations: Not on file Relationship status: Not on file Intimate partner violence: Fear of current or ex partner: Not on file Emotionally abused: Not on file Physically abused: Not on file Forced sexual activity: Not on file Other Topics Concern Not on file Social History Narrative Not on file Allergies Allergen Reactions Codeine Itching Heparin Itching Hydralazide Other - See comments Headache Morphine Itching Heparin Analogues Hives and Itching Current Facility-Administered Medications Medication Dose Route Frequency Last Rate Last Dose ceFAZolin (ANCEF) 1,000 mg in NaCl 0.9% (NS) 50 mL MINI-BAG 1,000 mg IV Pig gyback Q24H 1,000 mg at 10/31/18 1547 acetaminophen (TYLENOL) tablet 650 mg 650 mg Oral Q6HPRN 650 mg at 1730 aspirin tablet 325 mg 325 mg Oral DAILY 325 mg at 10/31/18 0811 bisacodyl (DULCOLAX) tablet 10 mg 10 mg Oral DAILY cloNIDine (CATAPRES) tablet 0.1 mg 0.1 mg Oral BID Stopped at 10/31/18 08 00 dextrose 50 % in water (D50W) injection 25 mL 25 mL Slow IV Push PRN diphenhydrAMINE (BENADRYL) injection 50 mg 50 mg Slow IV Push QDAILYPRN docusate (COLACE) capsule 100 mg 100 mg Oral DAILY enoxaparin (LOVENOX) injection 30 mg 30 mg Subcutaneous Q24H 30 mg at 1703 glucagon (GLUCAGEN DIAGNOSTIC KIT) injection 1 mg 1 mg Intramuscular PRN HYDROcodone-acetaminophen (NORCO 5) 5-325 mg tablet 1 tablet 1 tablet Oral Q6HPRN 1 tablet at 10/31/18 1738 labetalol (NORMODYNE) tablet 200 mg 200 mg Oral Q12H Stopped at 10/31/18 0800 ondansetron (ZOFRAN (PF)) injection 4 mg 4 mg Slow IV Push Q6HPRN sennosides-docusate sodium (SENOKOT S) 8.6-50 mg per tablet 1 tablet 1 tabl et Oral DAILY sevelamer (RENVELA) tablet 2,400 mg 2,400 mg Oral TID MEALS 2,400 mg at 0 10/31/18 1741 Sliding Scale Insulin-Regular + Fsbg Testing Subcutaneous AC+HS Prior to Admission medications Medication Sig Start Date End Date Taking? Authorizing Provider cloNIDine 0.2 mg tablet Take 0.2 mg by mouth 3 (three) times daily. 06/26/16 Yes Doctor Unassigned, Sasser NIFEdipine XL 90 mg 24 hr tablet Take 90 mg by mouth. 07/05/16 Yes Doctor Unassi gned, Sasser aspirin 81 mg EC tablet Take 81 mg by mouth daily. Doctor Unassigned, Sasser busPIRone 5 mg tablet Take 5 mg by mouth daily. Doctor Unassigned, Sasser diltiazem 240 mg 24 hr capsule Take 240 mg by mouth daily. Doctor Unassigned, Sasser labetalol 200 mg tablet Take 200 mg by mouth every 12 (twelve) hours. Doctor Unassigned, Sasser @[email or web address]@ Review of Systems A 12 point ROS was performed and pertinent positives as per HPI. Physical Exam BP: (101-138)/(38-96) Temp: [35.6 C (96.1 F)-37.5 C (99.5 F)] Temp source: Tympanic (10/31 1513) Pulse: [88-117] Resp: [17-19] SpO2: [96 %-98 %] Height: -- Weight: [60.4 kg (133 lb 2.5 oz)-63.6 kg (140 lb 3.4 oz)] BMI (calculated): [22.16-23.33] Wt Readings from Last 3 Encounters: 10/31/18 60.4 kg (133 lb 2.5 oz) General: Appropriate for age, no acute distress, well-developed and well-nourish ed. HENT: Head: Normocephalic and atraumatic. Eyes: Conjunctivae and EOM are normal. Pupils are equal, round, and reactive to light. Neck: Normal range of motion. Neck supple. Has Rt IJ tessio catheter Cardiovascular: Normal rate, regular rhythm, normal heart sounds Chest: Effort normal and breath sounds normal. Abdomen: Soft. Bowel sounds are normal, no distension, no tenderness, no rebound and no guarding. Musculoskeletal: Normal range of motion, no edema, tenderness or deformity. Lymphadenopathy: No lymphadenopathy noted Neurological: Alert and oriented to person, place, and time. Cranial nerves are grossly intact Psych: Appropriate mood and response Medications Current Facility-Administered Medications Medication Dose Route Frequency Last Rate Last Dose ceFAZolin (ANCEF) 1,000 mg in NaCl 0.9% (NS) 50 mL MINI-BAG 1,000 mg IV Pig gyback Q24H 1,000 mg at 10/31/18 1547 acetaminophen (TYLENOL) tablet 650 mg 650 mg Oral Q6HPRN 650 mg at 1730 aspirin tablet 325 mg 325 mg Oral DAILY 325 mg at 10/31/18 0811 bisacodyl (DULCOLAX) tablet 10 mg 10 mg Oral DAILY cloNIDine (CATAPRES) tablet 0.1 mg 0.1 mg Oral BID Stopped at 10/31/18 08 00 dextrose 50 % in water (D50W) injection 25 mL 25 mL Slow IV Push PRN diphenhydrAMINE (BENADRYL) injection 50 mg 50 mg Slow IV Push QDAILYPRN docusate (COLACE) capsule 100 mg 100 mg Oral DAILY enoxaparin (LOVENOX) injection 30 mg 30 mg Subcutaneous Q24H 30 mg at 1703 glucagon (GLUCAGEN DIAGNOSTIC KIT) injection 1 mg 1 mg Intramuscular PRN HYDROcodone-acetaminophen (NORCO 5) 5-325 mg tablet 1 tablet 1 tablet Oral Q6HPRN 1 tablet at 10/31/18 1738 labetalol (NORMODYNE) tablet 200 mg 200 mg Oral Q12H Stopped at 10/31/18 0800 ondansetron (ZOFRAN (PF)) injection 4 mg 4 mg Slow IV Push Q6HPRN sennosides-docusate sodium (SENOKOT S) 8.6-50 mg per tablet 1 tablet 1 tabl et Oral DAILY sevelamer (RENVELA) tablet 2,400 mg 2,400 mg Oral TID MEALS 2,400 mg at 0 10/31/18 1741 Sliding Scale Insulin-Regular + Fsbg Testing Subcutaneous AC+HS Labs and Radiology - reviewed, pertinent results as below: Recent Results (from the past 48 hour(s)) Basic Metabolic Panel (NA, K, CL, CO2, GLUCOSE, BUN, CREATININE, CA) Collection Time: 10/29/18 8:20 PM Result Value Ref Range NA 130 (L) 135 - 145 mmol/L K 4.3 3.5 - 5.0 mmol/L CL 89 (L) 98 - 108 mmol/L CO2 TOTAL 24 23 - 31 mmol/L AGAP 17 (H) 2 - 16 BUN 40 (H) 7 - 23 mg/dL GLUCOSE 82 70 - 110 mg/dL CREATININE 8.31 (H) 0.60 - 1.25 mg/dL CALCIUM 9.2 8.6 - 10.6 mg/dL eGFR Calculation (Non-) 6.9 mL/min/1.73m2 eGFR Calculation () 8.4 mL/min/1.73m2 Troponin I Collection Time: 10/29/18 8:20 PM Result Value Ref Range TROPONIN I 0.539 (H) <=0.034 ng/mL Prothrombin Time (PT) / INR Collection Time: 10/29/18 8:20 PM Result Value Ref Range PROTIME PATIENT 12.5 10.1 - 12.6 Seconds INR 1.1 aPTT Collection Time: 10/29/18 8:20 PM Result Value Ref Range APTT Patient 30 26 - 36 Seconds CBC WITH DIFFERENTIAL Collection Time: 10/29/18 8:20 PM Result Value Ref Range WBC 8.02 4.20 - 10.70 10*3/L RBC 3.33 (L) 4.26 - 5.52 10*6/L HGB 10.7 (L) 12.2 - 16.4 g/dL HCT 32.3 (L) 38.4 - 49.3 % MCV 97.0 (H) 81.7 - 95.6 fL MCH 32.1 26.1 - 32.7 pg MCHC 33.1 31.2 - 35.0 g/dL RDW-SD 58.4 (H) 38.5 - 51.6 fL RDW-CV 16.3 (H) 12.1 - 15.4 % PLT 59 (L) 150 - 328 10*3/L MPV 10.5 9.8 - 13.0 fL IPF % 5.8 1.2 - 10.7 % NRBC/100 WBC 0.0 0.0 - 10.0 /100 WBCs NRBC x10^3 <0.01 10*3/L GRAN MAT (NEUT) % 76.4 % IMM GRAN % 0.90 % LYMPH % 6.4 % MONO % 15.8 % EOS % 0.1 % BASO % 0.4 % GRAN MAT x10^3(ANC) 6.13 1.99 - 6.95 10*3/uL IMM GRAN x10^3 0.07 (H) 0.00 - 0.06 10*3/uL LYMPH x10^3 0.51 (L) 1.09 - 3.23 10*3/uL MONO x10^3 1.27 (H) 0.36 - 1.02 10*3/uL EOS x10^3 <0.03 (L) 0.06 - 0.53 10*3/uL BASO x10^3 0.03 0.01 - 0.09 10*3/uL Blood Culture Collection Time: 10/29/18 8:20 PM Result Value Ref Range Blood Culture-Aerobic Culture positive, identification to follow (AA) No growth Blood Culture-Anaerobic Culture In Progress No growth Blood Culture Collection Time: 10/29/18 8:20 PM Result Value Ref Range Blood Culture-Aerobic Culture positive, identification to follow (AA) No growth Blood Culture-Anaerobic Culture positive, identification to follow (AA) No grow th Glycosylated Hemoglobin (A1C) Collection Time: 10/29/18 8:20 PM Result Value Ref Range HGB A1C 4.9 4.0 - 6.0 % NGSP BLOOD CULTURE WORKUP Collection Time: 10/29/18 8:20 PM Result Value Ref Range Gram stain Isolated from aerobic bottle Gram positive cocci Gram stain Isolated from anaerobic bottle Gram positive cocci BLOOD CULTURE WORKUP Collection Time: 10/29/18 8:20 PM Result Value Ref Range Gram stain Isolated from aerobic bottle Gram positive cocci GRAM POSITIVE BLOOD PATHOGENS DNA PROBE-AEROBIC Collection Time: 10/29/18 8:20 PM Result Value Ref Range Staphylococcus aureus Positive (A) Negative mecA Negative Negative GRAM POSITIVE BLOOD PATHOGENS DNA PROBE-ANAEROBIC Collection Time: 10/29/18 8:20 PM Result Value Ref Range Staphylococcus aureus Positive (A) Negative mecA Negative Negative AC VBG + LACTIC ACID Collection Time: 10/29/18 8:29 PM Result Value Ref Range PH 7.47 (H) 7.32 - 7.42 PCO2 BALAJI 37 (L) 41 - 51 mmHg PO2 ABLAJI 37 25 - 40 mmHg HCO3 BALAJI 26 24 - 28 mEq/L AC VBE(BEAKER) 2.7 mEq/L LACTIC ACID 1.50 0.50 - 2.20 mmol/L BASIC METABOLIC PANEL (NA, K, CL, CO2, GLUCOSE, BUN, CREATININE, CA) Collection Time: 10/30/18 1:20 AM Result Value Ref Range NA 132 (L) 135 - 145 mmol/L K 4.0 3.5 - 5.0 mmol/L CL 94 (L) 98 - 108 mmol/L CO2 TOTAL 23 23 - 31 mmol/L AGAP 15 2 - 16 BUN 42 (H) 7 - 23 mg/dL GLUCOSE 112 (H) 70 - 110 mg/dL CREATININE 8.70 (H) 0.60 - 1.25 mg/dL CALCIUM 9.1 8.6 - 10.6 mg/dL eGFR Calculation (Non-) 6.6 mL/min/1.73m2 eGFR Calculation () 8.0 mL/min/1.73m2 HEPATIC FUNCTION PANEL (12676) (ALB,T.PRO,BILI T,BU/BC,ALT,AST,ALK PHOS) Collection Time: 10/30/18 1:20 AM Result Value Ref Range TOTAL BILI 0.9 0.1 - 1.1 mg/dL BILI UNCON 0.4 0.1 - 1.1 mg/dL BILI CONJ 0.0 0.0 - 0.3 mg/dL T PROTEIN 7.2 6.3 - 8.2 g/dL ALBUMIN 3.6 3.5 - 5.0 g/dL ALK PHOS 70 34 - 122 U/L ALT(SGPT) 17 9 - 51 U/L AST(SGOT) 29 13 - 40 U/L Phosphorus Serum Collection Time: 10/30/18 1:20 AM Result Value Ref Range PHOSPHORUS 7.6 (H) 2.5 - 5.0 mg/dL Glycosylated Hemoglobin (A1C) Collection Time: 10/30/18 1:20 AM Result Value Ref Range HGB A1C 4.9 4.0 - 6.0 % NGSP CBC WITH DIFFERENTIAL Collection Time: 10/30/18 1:20 AM Result Value Ref Range WBC 8.00 4.20 - 10.70 10*3/L RBC 3.13 (L) 4.26 - 5.52 10*6/L HGB 10.2 (L) 12.2 - 16.4 g/dL HCT 30.4 (L) 38.4 - 49.3 % MCV 97.1 (H) 81.7 - 95.6 fL MCH 32.6 26.1 - 32.7 pg MCHC 33.6 31.2 - 35.0 g/dL RDW-SD 59.3 (H) 38.5 - 51.6 fL RDW-CV 16.7 (H) 12.1 - 15.4 % PLT 56 (L) 150 - 328 10*3/L MPV 11.8 9.8 - 13.0 fL IPF % 6.1 1.2 - 10.7 % NRBC/100 WBC 0.0 0.0 - 10.0 /100 WBCs NRBC x10^3 <0.01 10*3/L GRAN MAT (NEUT) % 74.6 % IMM GRAN % 2.30 % LYMPH % 8.4 % MONO % 13.9 % EOS % 0.4 % BASO % 0.4 % GRAN MAT x10^3(ANC) 5.98 1.99 - 6.95 10*3/uL IMM GRAN x10^3 0.18 (H) 0.00 - 0.06 10*3/uL LYMPH x10^3 0.67 (L) 1.09 - 3.23 10*3/uL MONO x10^3 1.11 (H) 0.36 - 1.02 10*3/uL EOS x10^3 0.03 (L) 0.06 - 0.53 10*3/uL BASO x10^3 0.03 0.01 - 0.09 10*3/uL SCHISTOCYTES 1+ (A) BANDS Increased (A) TOXIC CHANGES Present (A) PLT ESTIMATE Decreased (A) Normal Magnesium Serum Collection Time: 10/30/18 1:20 AM Result Value Ref Range MAGNESIUM 2.2 1.7 - 2.4 mg/dL Lipid Panel (Total Cholesterol, Triglycerides, HDL) - Fasting Collection Time: 10/30/18 1:20 AM Result Value Ref Range CHOL 108 (L) 120 - 200 mg/dL HDL 35 (L) >40 mg/dL HDLC RATIO 3.1 <=5.0 TRIG 159 30 - 170 mg/dL LDL CHOL 41 <=160 mg/dL VLDL 32 5 - 60 mg/dL Hepatitis B Surface Antigen (HBsAg) Collection Time: 10/30/18 1:20 AM Result Value Ref Range HBsAg Negative Negative HBsAg Semi-Quantitative 0.04 Prothrombin Time / INR Collection Time: 10/30/18 1:21 AM Result Value Ref Range PROTIME PATIENT 12.2 10.1 - 12.6 Seconds INR 1.1 aPTT Collection Time: 10/30/18 1:21 AM Result Value Ref Range APTT Patient 31 26 - 36 Seconds Lactic Acid Whole Blood Collection Time: 10/30/18 4:46 AM Result Value Ref Range LACTIC ACID 0.73 0.50 - 2.20 mmol/L POCT GLUCOSE (AUTOMATED) Collection Time: 10/30/18 8:29 AM Result Value Ref Range POCT GLU 80 70 - 110 mg/dL Hepatitis B Surface Antibody (HBsAb) Collection Time: 10/30/18 5:09 PM Result Value Ref Range HBsAB Positive HBsAb Semi-Quantitative 165.00 mIU/mL Hepatitis B Core Antibody (HBcAb) IGM Collection Time: 10/30/18 5:09 PM Result Value Ref Range HBCM Negative HBCM Semi-Quantitative 0.03 WOUND CULTURE Collection Time: 10/30/18 5:21 PM Result Value Ref Range Wound Culture 1+ Staphylococcus aureus Gram stain No Organisms seen Gram stain No PMNs or Mononuclear cells observed Blood Culture Collection Time: 10/30/18 7:30 PM Result Value Ref Range Blood Culture-Aerobic Culture In Progress No growth Blood Culture-Anaerobic Culture In Progress No growth Lipid Panel (Total Cholesterol, Triglycerides, HDL) - Fasting Collection Time: 10/31/18 1:23 AM Result Value Ref Range CHOL 85 (L) 120 - 200 mg/dL HDL 24 (L) >40 mg/dL HDLC RATIO 3.5 <=5.0 TRIG 136 30 - 170 mg/dL LDL CHOL 34 <=160 mg/dL VLDL 27 5 - 60 mg/dL TROPONIN I Collection Time: 10/31/18 1:23 AM Result Value Ref Range TROPONIN I 0.596 (H) <=0.034 ng/mL Basic Metabolic Panel (NA, K, CL, CO2, GLUCOSE, BUN, CREATININE, CA) Collection Time: 10/31/18 1:23 AM Result Value Ref Range NA 129 (L) 135 - 145 mmol/L K 4.0 3.5 - 5.0 mmol/L CL 92 (L) 98 - 108 mmol/L CO2 TOTAL 22 (L) 23 - 31 mmol/L AGAP 15 2 - 16 BUN 63 (H) 7 - 23 mg/dL GLUCOSE 89 70 - 110 mg/dL CREATININE 10.66 (H) 0.60 - 1.25 mg/dL CALCIUM 9.1 8.6 - 10.6 mg/dL eGFR Calculation (Non-) 5.2 mL/min/1.73m2 eGFR Calculation () 6.3 mL/min/1.73m2 Magnesium Serum Collection Time: 10/31/18 1:23 AM Result Value Ref Range MAGNESIUM 2.4 1.7 - 2.4 mg/dL CBC WITH DIFFERENTIAL Collection Time: 10/31/18 1:23 AM Result Value Ref Range WBC 7.83 4.20 - 10.70 10*3/L RBC 2.69 (L) 4.26 - 5.52 10*6/L HGB 8.6 (L) 12.2 - 16.4 g/dL HCT 26.1 (L) 38.4 - 49.3 % MCV 97.0 (H) 81.7 - 95.6 fL MCH 32.0 26.1 - 32.7 pg MCHC 33.0 31.2 - 35.0 g/dL RDW-SD 59.4 (H) 38.5 - 51.6 fL RDW-CV 16.7 (H) 12.1 - 15.4 % PLT 52 (L) 150 - 328 10*3/L MPV 10.5 9.8 - 13.0 fL IPF % 5.6 1.2 - 10.7 % NRBC/100 WBC 0.0 0.0 - 10.0 /100 WBCs NRBC x10^3 <0.01 10*3/L GRAN MAT (NEUT) % 62.7 % IMM GRAN % 14.20 % LYMPH % 9.6 % MONO % 12.1 % EOS % 1.1 % BASO % 0.3 % GRAN MAT x10^3(ANC) 4.91 1.99 - 6.95 10*3/uL IMM GRAN x10^3 1.11 (H) 0.00 - 0.06 10*3/uL LYMPH x10^3 0.75 (L) 1.09 - 3.23 10*3/uL MONO x10^3 0.95 0.36 - 1.02 10*3/uL EOS x10^3 0.09 0.06 - 0.53 10*3/uL BASO x10^3 <0.03 0.01 - 0.09 10*3/uL SCHISTOCYTES 1+ (A) BANDS Increased (A) TOXIC CHANGES Present (A) PLT ESTIMATE Decreased (A) Normal Vancomycin Random Level Collection Time: 10/31/18 11:22 AM Result Value Ref Range VANCO RANDOM 17.8 ug/mL Assessment Rogerio Benoit III is a 48 year old male with: #. ESRD #. HTN #. MSSA bacteremia #. Anemia of CKD #. MBD #. S/P failed Renal transplant done in 2007 Plan - HD MWF schedule and HD today. UF 3.6L - BP better. - Blood cultures positive for mssa bacteremia and abx per ID. Used his right upp er extremity AVG and worked well with qb 400 mls. Tessio catheter d/c'ed by IR a nd tip sent for culture. - Hb low. Will give a dose of epogen. - Phos high and binders started. Mehran Steele MD [facility] Office: [phone] * Roya Yadav MD - 10/31/2018 3:26 PM CDT [facility] Progress Note Subjective MSSA HD cath infection Physical Exam: BP 124/54 | Pulse 117 | Temp 35.9 C (96.6 F) (Tympanic) | Resp 18 | Ht 1 .651 m (5' 5") | Wt 63.6 kg (140 lb 3.4 oz) | SpO2 98% | BMI 23.33 kg/m General Appearance: alert, appears stated age and cooperative Head: Normocephalic, without obvious abnormality, atraumatic Eyes: conjunctivae/corneas clear. PERRL, EOM's intact. Fundi benign. Nose: Nares normal. Septum midline. Mucosa normal. No drainage or sinus tendern ess. Throat: lips, mucosa, and tongue normal; teeth and gums normal Neck: no adenopathy, no carotid bruit, no JVD, supple Back: symmetric, no curvature. ROM normal. Lungs: clear to auscultation bilaterally Chest Wall: no tenderness Heart: regular rate and rhythm, S1, S2 normal, no murmur, click, rub or gallop Abdomen: soft, non-tender; bowel sounds normal; no masses, no organomegaly, No CVA tenderness. Extremities: extremities normal, atraumatic, no cyanosis or edema Musculoskeletal: No joint pains or swelling Skin: Skin color, texture, turgor normal. No rashes or lesions. Neurologic: Alert and oriented X 3, with clear speech Medications Current Facility-Administered Medications Medication Dose Route Frequency Last Rate Last Dose acetaminophen (TYLENOL) tablet 650 mg 650 mg Oral Q6HPRN 650 mg at 1730 aspirin tablet 325 mg 325 mg Oral DAILY 325 mg at 10/31/18 0811 bisacodyl (DULCOLAX) tablet 10 mg 10 mg Oral DAILY cloNIDine (CATAPRES) tablet 0.1 mg 0.1 mg Oral BID Stopped at 10/31/18 08 00 dextrose 50 % in water (D50W) injection 25 mL 25 mL Slow IV Push PRN diphenhydrAMINE (BENADRYL) injection 50 mg 50 mg Slow IV Push QDAILYPRN docusate (COLACE) capsule 100 mg 100 mg Oral DAILY enoxaparin (LOVENOX) injection 30 mg 30 mg Subcutaneous Q24H 30 mg at 1604 glucagon (GLUCAGEN DIAGNOSTIC KIT) injection 1 mg 1 mg Intramuscular PRN HYDROcodone-acetaminophen (NORCO 5) 5-325 mg tablet 1 tablet 1 tablet Oral Q6HPRN 1 tablet at 10/31/18 1144 labetalol (NORMODYNE) tablet 200 mg 200 mg Oral Q12H Stopped at 10/31/18 0800 ondansetron (ZOFRAN (PF)) injection 4 mg 4 mg Slow IV Push Q6HPRN piperacillin-tazobactam (ZOSYN) 2.25 g/50 mL RTU 2.25 g IV Piggyback Q12H A BX 2.25 g at 10/31/18 0125 sennosides-docusate sodium (SENOKOT S) 8.6-50 mg per tablet 1 tablet 1 tabl et Oral DAILY sevelamer (RENVELA) tablet 2,400 mg 2,400 mg Oral TID MEALS 2,400 mg at 0 10/31/18 1504 Sliding Scale Insulin-Regular + Fsbg Testing Subcutaneous AC+HS vancomycin (VANCOCIN) 500 mg in NaCl 0.9% (NS) 100 mL piggyback 500 mg IV P iggyback QMON/WEDS/FRI AT 1700 Labs/Radiology Recent Results (from the past 48 hour(s)) Basic Metabolic Panel (NA, K, CL, CO2, GLUCOSE, BUN, CREATININE, CA) Collection Time: 10/29/18 8:20 PM Result Value Ref Range NA 130 (L) 135 - 145 mmol/L K 4.3 3.5 - 5.0 mmol/L CL 89 (L) 98 - 108 mmol/L CO2 TOTAL 24 23 - 31 mmol/L AGAP 17 (H) 2 - 16 BUN 40 (H) 7 - 23 mg/dL GLUCOSE 82 70 - 110 mg/dL CREATININE 8.31 (H) 0.60 - 1.25 mg/dL CALCIUM 9.2 8.6 - 10.6 mg/dL eGFR Calculation (Non-) 6.9 mL/min/1.73m2 eGFR Calculation () 8.4 mL/min/1.73m2 Troponin I Collection Time: 10/29/18 8:20 PM Result Value Ref Range TROPONIN I 0.539 (H) <=0.034 ng/mL Prothrombin Time (PT) / INR Collection Time: 10/29/18 8:20 PM Result Value Ref Range PROTIME PATIENT 12.5 10.1 - 12.6 Seconds INR 1.1 aPTT Collection Time: 10/29/18 8:20 PM Result Value Ref Range APTT Patient 30 26 - 36 Seconds CBC WITH DIFFERENTIAL Collection Time: 10/29/18 8:20 PM Result Value Ref Range WBC 8.02 4.20 - 10.70 10*3/L RBC 3.33 (L) 4.26 - 5.52 10*6/L HGB 10.7 (L) 12.2 - 16.4 g/dL HCT 32.3 (L) 38.4 - 49.3 % MCV 97.0 (H) 81.7 - 95.6 fL MCH 32.1 26.1 - 32.7 pg MCHC 33.1 31.2 - 35.0 g/dL RDW-SD 58.4 (H) 38.5 - 51.6 fL RDW-CV 16.3 (H) 12.1 - 15.4 % PLT 59 (L) 150 - 328 10*3/L MPV 10.5 9.8 - 13.0 fL IPF % 5.8 1.2 - 10.7 % NRBC/100 WBC 0.0 0.0 - 10.0 /100 WBCs NRBC x10^3 <0.01 10*3/L GRAN MAT (NEUT) % 76.4 % IMM GRAN % 0.90 % LYMPH % 6.4 % MONO % 15.8 % EOS % 0.1 % BASO % 0.4 % GRAN MAT x10^3(ANC) 6.13 1.99 - 6.95 10*3/uL IMM GRAN x10^3 0.07 (H) 0.00 - 0.06 10*3/uL LYMPH x10^3 0.51 (L) 1.09 - 3.23 10*3/uL MONO x10^3 1.27 (H) 0.36 - 1.02 10*3/uL EOS x10^3 <0.03 (L) 0.06 - 0.53 10*3/uL BASO x10^3 0.03 0.01 - 0.09 10*3/uL Blood Culture Collection Time: 10/29/18 8:20 PM Result Value Ref Range Blood Culture-Aerobic Culture positive, identification to follow (AA) No growth Blood Culture-Anaerobic Culture In Progress No growth Blood Culture Collection Time: 10/29/18 8:20 PM Result Value Ref Range Blood Culture-Aerobic Culture positive, identification to follow (AA) No growth Blood Culture-Anaerobic Culture In Progress No growth Glycosylated Hemoglobin (A1C) Collection Time: 10/29/18 8:20 PM Result Value Ref Range HGB A1C 4.9 4.0 - 6.0 % NGSP BLOOD CULTURE WORKUP Collection Time: 10/29/18 8:20 PM Result Value Ref Range Gram stain Isolated from aerobic bottle Gram positive cocci Gram stain Isolated from anaerobic bottle Gram positive cocci BLOOD CULTURE WORKUP Collection Time: 10/29/18 8:20 PM Result Value Ref Range Gram stain Isolated from aerobic bottle Gram positive cocci GRAM POSITIVE BLOOD PATHOGENS DNA PROBE-AEROBIC Collection Time: 10/29/18 8:20 PM Result Value Ref Range Staphylococcus aureus Positive (A) Negative mecA Negative Negative GRAM POSITIVE BLOOD PATHOGENS DNA PROBE-ANAEROBIC Collection Time: 10/29/18 8:20 PM Result Value Ref Range Staphylococcus aureus Positive (A) Negative mecA Negative Negative AC VBG + LACTIC ACID Collection Time: 10/29/18 8:29 PM Result Value Ref Range PH 7.47 (H) 7.32 - 7.42 PCO2 BALAJI 37 (L) 41 - 51 mmHg PO2 BALAJI 37 25 - 40 mmHg HCO3 BALAJI 26 24 - 28 mEq/L AC VBE(BEAKER) 2.7 mEq/L LACTIC ACID 1.50 0.50 - 2.20 mmol/L BASIC METABOLIC PANEL (NA, K, CL, CO2, GLUCOSE, BUN, CREATININE, CA) Collection Time: 10/30/18 1:20 AM Result Value Ref Range NA 132 (L) 135 - 145 mmol/L K 4.0 3.5 - 5.0 mmol/L CL 94 (L) 98 - 108 mmol/L CO2 TOTAL 23 23 - 31 mmol/L AGAP 15 2 - 16 BUN 42 (H) 7 - 23 mg/dL GLUCOSE 112 (H) 70 - 110 mg/dL CREATININE 8.70 (H) 0.60 - 1.25 mg/dL CALCIUM 9.1 8.6 - 10.6 mg/dL eGFR Calculation (Non-) 6.6 mL/min/1.73m2 eGFR Calculation () 8.0 mL/min/1.73m2 HEPATIC FUNCTION PANEL (40297) (ALB,T.PRO,BILI T,BU/BC,ALT,AST,ALK PHOS) Collection Time: 10/30/18 1:20 AM Result Value Ref Range TOTAL BILI 0.9 0.1 - 1.1 mg/dL BILI UNCON 0.4 0.1 - 1.1 mg/dL BILI CONJ 0.0 0.0 - 0.3 mg/dL T PROTEIN 7.2 6.3 - 8.2 g/dL ALBUMIN 3.6 3.5 - 5.0 g/dL ALK PHOS 70 34 - 122 U/L ALT(SGPT) 17 9 - 51 U/L AST(SGOT) 29 13 - 40 U/L Phosphorus Serum Collection Time: 10/30/18 1:20 AM Result Value Ref Range PHOSPHORUS 7.6 (H) 2.5 - 5.0 mg/dL Glycosylated Hemoglobin (A1C) Collection Time: 10/30/18 1:20 AM Result Value Ref Range HGB A1C 4.9 4.0 - 6.0 % NGSP CBC WITH DIFFERENTIAL Collection Time: 10/30/18 1:20 AM Result Value Ref Range WBC 8.00 4.20 - 10.70 10*3/L RBC 3.13 (L) 4.26 - 5.52 10*6/L HGB 10.2 (L) 12.2 - 16.4 g/dL HCT 30.4 (L) 38.4 - 49.3 % MCV 97.1 (H) 81.7 - 95.6 fL MCH 32.6 26.1 - 32.7 pg MCHC 33.6 31.2 - 35.0 g/dL RDW-SD 59.3 (H) 38.5 - 51.6 fL RDW-CV 16.7 (H) 12.1 - 15.4 % PLT 56 (L) 150 - 328 10*3/L MPV 11.8 9.8 - 13.0 fL IPF % 6.1 1.2 - 10.7 % NRBC/100 WBC 0.0 0.0 - 10.0 /100 WBCs NRBC x10^3 <0.01 10*3/L GRAN MAT (NEUT) % 74.6 % IMM GRAN % 2.30 % LYMPH % 8.4 % MONO % 13.9 % EOS % 0.4 % BASO % 0.4 % GRAN MAT x10^3(ANC) 5.98 1.99 - 6.95 10*3/uL IMM GRAN x10^3 0.18 (H) 0.00 - 0.06 10*3/uL LYMPH x10^3 0.67 (L) 1.09 - 3.23 10*3/uL MONO x10^3 1.11 (H) 0.36 - 1.02 10*3/uL EOS x10^3 0.03 (L) 0.06 - 0.53 10*3/uL BASO x10^3 0.03 0.01 - 0.09 10*3/uL SCHISTOCYTES 1+ (A) BANDS Increased (A) TOXIC CHANGES Present (A) PLT ESTIMATE Decreased (A) Normal Magnesium Serum Collection Time: 10/30/18 1:20 AM Result Value Ref Range MAGNESIUM 2.2 1.7 - 2.4 mg/dL Lipid Panel (Total Cholesterol, Triglycerides, HDL) - Fasting Collection Time: 10/30/18 1:20 AM Result Value Ref Range CHOL 108 (L) 120 - 200 mg/dL HDL 35 (L) >40 mg/dL HDLC RATIO 3.1 <=5.0 TRIG 159 30 - 170 mg/dL LDL CHOL 41 <=160 mg/dL VLDL 32 5 - 60 mg/dL Hepatitis B Surface Antigen (HBsAg) Collection Time: 10/30/18 1:20 AM Result Value Ref Range HBsAg Negative Negative HBsAg Semi-Quantitative 0.04 Prothrombin Time / INR Collection Time: 10/30/18 1:21 AM Result Value Ref Range PROTIME PATIENT 12.2 10.1 - 12.6 Seconds INR 1.1 aPTT Collection Time: 10/30/18 1:21 AM Result Value Ref Range APTT Patient 31 26 - 36 Seconds Lactic Acid Whole Blood Collection Time: 10/30/18 4:46 AM Result Value Ref Range LACTIC ACID 0.73 0.50 - 2.20 mmol/L POCT GLUCOSE (AUTOMATED) Collection Time: 10/30/18 8:29 AM Result Value Ref Range POCT GLU 80 70 - 110 mg/dL Hepatitis B Surface Antibody (HBsAb) Collection Time: 10/30/18 5:09 PM Result Value Ref Range HBsAB Positive HBsAb Semi-Quantitative 165.00 mIU/mL Hepatitis B Core Antibody (HBcAb) IGM Collection Time: 10/30/18 5:09 PM Result Value Ref Range HBCM Negative HBCM Semi-Quantitative 0.03 WOUND CULTURE Collection Time: 10/30/18 5:21 PM Result Value Ref Range Gram stain No Organisms seen Gram stain No PMNs or Mononuclear cells observed Blood Culture Collection Time: 10/30/18 7:30 PM Result Value Ref Range Blood Culture-Aerobic Culture In Progress No growth Blood Culture-Anaerobic Culture In Progress No growth Lipid Panel (Total Cholesterol, Triglycerides, HDL) - Fasting Collection Time: 10/31/18 1:23 AM Result Value Ref Range CHOL 85 (L) 120 - 200 mg/dL HDL 24 (L) >40 mg/dL HDLC RATIO 3.5 <=5.0 TRIG 136 30 - 170 mg/dL LDL CHOL 34 <=160 mg/dL VLDL 27 5 - 60 mg/dL TROPONIN I Collection Time: 10/31/18 1:23 AM Result Value Ref Range TROPONIN I 0.596 (H) <=0.034 ng/mL Basic Metabolic Panel (NA, K, CL, CO2, GLUCOSE, BUN, CREATININE, CA) Collection Time: 10/31/18 1:23 AM Result Value Ref Range NA 129 (L) 135 - 145 mmol/L K 4.0 3.5 - 5.0 mmol/L CL 92 (L) 98 - 108 mmol/L CO2 TOTAL 22 (L) 23 - 31 mmol/L AGAP 15 2 - 16 BUN 63 (H) 7 - 23 mg/dL GLUCOSE 89 70 - 110 mg/dL CREATININE 10.66 (H) 0.60 - 1.25 mg/dL CALCIUM 9.1 8.6 - 10.6 mg/dL eGFR Calculation (Non-) 5.2 mL/min/1.73m2 eGFR Calculation () 6.3 mL/min/1.73m2 Magnesium Serum Collection Time: 10/31/18 1:23 AM Result Value Ref Range MAGNESIUM 2.4 1.7 - 2.4 mg/dL CBC WITH DIFFERENTIAL Collection Time: 10/31/18 1:23 AM Result Value Ref Range WBC 7.83 4.20 - 10.70 10*3/L RBC 2.69 (L) 4.26 - 5.52 10*6/L HGB 8.6 (L) 12.2 - 16.4 g/dL HCT 26.1 (L) 38.4 - 49.3 % MCV 97.0 (H) 81.7 - 95.6 fL MCH 32.0 26.1 - 32.7 pg MCHC 33.0 31.2 - 35.0 g/dL RDW-SD 59.4 (H) 38.5 - 51.6 fL RDW-CV 16.7 (H) 12.1 - 15.4 % PLT 52 (L) 150 - 328 10*3/L MPV 10.5 9.8 - 13.0 fL IPF % 5.6 1.2 - 10.7 % NRBC/100 WBC 0.0 0.0 - 10.0 /100 WBCs NRBC x10^3 <0.01 10*3/L GRAN MAT (NEUT) % 62.7 % IMM GRAN % 14.20 % LYMPH % 9.6 % MONO % 12.1 % EOS % 1.1 % BASO % 0.3 % GRAN MAT x10^3(ANC) 4.91 1.99 - 6.95 10*3/uL IMM GRAN x10^3 1.11 (H) 0.00 - 0.06 10*3/uL LYMPH x10^3 0.75 (L) 1.09 - 3.23 10*3/uL MONO x10^3 0.95 0.36 - 1.02 10*3/uL EOS x10^3 0.09 0.06 - 0.53 10*3/uL BASO x10^3 <0.03 0.01 - 0.09 10*3/uL SCHISTOCYTES 1+ (A) BANDS Increased (A) TOXIC CHANGES Present (A) PLT ESTIMATE Decreased (A) Normal Vancomycin Random Level Collection Time: 10/31/18 11:22 AM Result Value Ref Range VANCO RANDOM 17.8 ug/mL Xr Chest 1 Vw Result Date: 10/30/2018 1. Interval placement of a right IJ approach central venous catheter which termi nates overlying the proximal SVC. No pneumothorax. 2. No active pulmonary proces s. RL: [id number] AFC: [id number] Chest 1 View Result Date: 10/29/2018 Impression: No acute cardiopulmonary disease RL: [id number] End of report Diagnoses Principal Problem: Sepsis due to methicillin susceptible Staphylococcus aureus Active Problems: Anemia of chronic disease Infection of hemodialysis catheter End-stage renal disease on hemodialysis Kidney transplant rejection S/p nephrectomy Elevated troponin E44.1 Mild protein-calorie malnutrition AV fistula thrombosis Plan Sepsis POA MSSA on blood culture Site culture in progress Renal plans to use R arm AVF and remove HD cath (L arm AVF is thrombosed and non functional) TTE done 10/30 Change to [facility] Will follow Length of Stay: 2 * Tej Rivera MD - 10/31/2018 11:40 AM CDT [facility] Progress Note Dr. Tej Rivera Subjective: Patient seen & examined. Events reviewed. Objective: Vitals: 10/31/18 1106 10/31/18 1110 10/31/18 1115 10/31/18 1130 BP: 116/62 123/41 (!) 116/38 123/70 Pulse: 92 88 89 92 Resp: 18 Temp: 36.5 C (97.7 F) TempSrc: Tympanic SpO2: Weight: 63.6 kg (140 lb 3.4 oz) Height: General: awake, alert, no distress HEENT: NC, AT, PERRLA, EOMI, MMM, anicteric sclera Neck: no JVD/lymphadenopathy CV: RRR, no murmurs, rubs, gallops Lungs: clear to auscultation bilaterally Abdomen: soft, NT, ND, (+)BS Skin: no rashes Extremities: no clubbing, cyanosis, edema Neuro: CN 2-12 intact, no focal deficits Psych: oriented x 3, normal affect Labs: Recent Results (from the past 48 hour(s)) Basic Metabolic Panel (NA, K, CL, CO2, GLUCOSE, BUN, CREATININE, CA) Collection Time: 10/29/18 8:20 PM Result Value Ref Range NA 130 (L) 135 - 145 mmol/L K 4.3 3.5 - 5.0 mmol/L CL 89 (L) 98 - 108 mmol/L CO2 TOTAL 24 23 - 31 mmol/L AGAP 17 (H) 2 - 16 BUN 40 (H) 7 - 23 mg/dL GLUCOSE 82 70 - 110 mg/dL CREATININE 8.31 (H) 0.60 - 1.25 mg/dL CALCIUM 9.2 8.6 - 10.6 mg/dL eGFR Calculation (Non-) 6.9 mL/min/1.73m2 eGFR Calculation () 8.4 mL/min/1.73m2 Troponin I Collection Time: 10/29/18 8:20 PM Result Value Ref Range TROPONIN I 0.539 (H) <=0.034 ng/mL Prothrombin Time (PT) / INR Collection Time: 10/29/18 8:20 PM Result Value Ref Range PROTIME PATIENT 12.5 10.1 - 12.6 Seconds INR 1.1 aPTT Collection Time: 10/29/18 8:20 PM Result Value Ref Range APTT Patient 30 26 - 36 Seconds CBC WITH DIFFERENTIAL Collection Time: 10/29/18 8:20 PM Result Value Ref Range WBC 8.02 4.20 - 10.70 10*3/L RBC 3.33 (L) 4.26 - 5.52 10*6/L HGB 10.7 (L) 12.2 - 16.4 g/dL HCT 32.3 (L) 38.4 - 49.3 % MCV 97.0 (H) 81.7 - 95.6 fL MCH 32.1 26.1 - 32.7 pg MCHC 33.1 31.2 - 35.0 g/dL RDW-SD 58.4 (H) 38.5 - 51.6 fL RDW-CV 16.3 (H) 12.1 - 15.4 % PLT 59 (L) 150 - 328 10*3/L MPV 10.5 9.8 - 13.0 fL IPF % 5.8 1.2 - 10.7 % NRBC/100 WBC 0.0 0.0 - 10.0 /100 WBCs NRBC x10^3 <0.01 10*3/L GRAN MAT (NEUT) % 76.4 % IMM GRAN % 0.90 % LYMPH % 6.4 % MONO % 15.8 % EOS % 0.1 % BASO % 0.4 % GRAN MAT x10^3(ANC) 6.13 1.99 - 6.95 10*3/uL IMM GRAN x10^3 0.07 (H) 0.00 - 0.06 10*3/uL LYMPH x10^3 0.51 (L) 1.09 - 3.23 10*3/uL MONO x10^3 1.27 (H) 0.36 - 1.02 10*3/uL EOS x10^3 <0.03 (L) 0.06 - 0.53 10*3/uL BASO x10^3 0.03 0.01 - 0.09 10*3/uL Blood Culture Collection Time: 10/29/18 8:20 PM Result Value Ref Range Blood Culture-Aerobic Culture positive, identification to follow (AA) No growth Blood Culture-Anaerobic Culture In Progress No growth Blood Culture Collection Time: 10/29/18 8:20 PM Result Value Ref Range Blood Culture-Aerobic Culture positive, identification to follow (AA) No growth Blood Culture-Anaerobic Culture In Progress No growth Glycosylated Hemoglobin (A1C) Collection Time: 10/29/18 8:20 PM Result Value Ref Range HGB A1C 4.9 4.0 - 6.0 % NGSP BLOOD CULTURE WORKUP Collection Time: 10/29/18 8:20 PM Result Value Ref Range Gram stain Isolated from aerobic bottle Gram positive cocci Gram stain Isolated from anaerobic bottle Gram positive cocci BLOOD CULTURE WORKUP Collection Time: 10/29/18 8:20 PM Result Value Ref Range Gram stain Isolated from aerobic bottle Gram positive cocci GRAM POSITIVE BLOOD PATHOGENS DNA PROBE-AEROBIC Collection Time: 10/29/18 8:20 PM Result Value Ref Range Staphylococcus aureus Positive (A) Negative mecA Negative Negative GRAM POSITIVE BLOOD PATHOGENS DNA PROBE-ANAEROBIC Collection Time: 10/29/18 8:20 PM Result Value Ref Range Staphylococcus aureus Positive (A) Negative mecA Negative Negative AC VBG + LACTIC ACID Collection Time: 10/29/18 8:29 PM Result Value Ref Range PH 7.47 (H) 7.32 - 7.42 PCO2 BALAJI 37 (L) 41 - 51 mmHg PO2 BALAJI 37 25 - 40 mmHg HCO3 BALAJI 26 24 - 28 mEq/L AC VBE(BEAKER) 2.7 mEq/L LACTIC ACID 1.50 0.50 - 2.20 mmol/L BASIC METABOLIC PANEL (NA, K, CL, CO2, GLUCOSE, BUN, CREATININE, CA) Collection Time: 10/30/18 1:20 AM Result Value Ref Range NA 132 (L) 135 - 145 mmol/L K 4.0 3.5 - 5.0 mmol/L CL 94 (L) 98 - 108 mmol/L CO2 TOTAL 23 23 - 31 mmol/L AGAP 15 2 - 16 BUN 42 (H) 7 - 23 mg/dL GLUCOSE 112 (H) 70 - 110 mg/dL CREATININE 8.70 (H) 0.60 - 1.25 mg/dL CALCIUM 9.1 8.6 - 10.6 mg/dL eGFR Calculation (Non-) 6.6 mL/min/1.73m2 eGFR Calculation () 8.0 mL/min/1.73m2 HEPATIC FUNCTION PANEL (70071) (ALB,T.PRO,BILI T,BU/BC,ALT,AST,ALK PHOS) Collection Time: 10/30/18 1:20 AM Result Value Ref Range TOTAL BILI 0.9 0.1 - 1.1 mg/dL BILI UNCON 0.4 0.1 - 1.1 mg/dL BILI CONJ 0.0 0.0 - 0.3 mg/dL T PROTEIN 7.2 6.3 - 8.2 g/dL ALBUMIN 3.6 3.5 - 5.0 g/dL ALK PHOS 70 34 - 122 U/L ALT(SGPT) 17 9 - 51 U/L AST(SGOT) 29 13 - 40 U/L Phosphorus Serum Collection Time: 10/30/18 1:20 AM Result Value Ref Range PHOSPHORUS 7.6 (H) 2.5 - 5.0 mg/dL Glycosylated Hemoglobin (A1C) Collection Time: 10/30/18 1:20 AM Result Value Ref Range HGB A1C 4.9 4.0 - 6.0 % NGSP CBC WITH DIFFERENTIAL Collection Time: 10/30/18 1:20 AM Result Value Ref Range WBC 8.00 4.20 - 10.70 10*3/L RBC 3.13 (L) 4.26 - 5.52 10*6/L HGB 10.2 (L) 12.2 - 16.4 g/dL HCT 30.4 (L) 38.4 - 49.3 % MCV 97.1 (H) 81.7 - 95.6 fL MCH 32.6 26.1 - 32.7 pg MCHC 33.6 31.2 - 35.0 g/dL RDW-SD 59.3 (H) 38.5 - 51.6 fL RDW-CV 16.7 (H) 12.1 - 15.4 % PLT 56 (L) 150 - 328 10*3/L MPV 11.8 9.8 - 13.0 fL IPF % 6.1 1.2 - 10.7 % NRBC/100 WBC 0.0 0.0 - 10.0 /100 WBCs NRBC x10^3 <0.01 10*3/L GRAN MAT (NEUT) % 74.6 % IMM GRAN % 2.30 % LYMPH % 8.4 % MONO % 13.9 % EOS % 0.4 % BASO % 0.4 % GRAN MAT x10^3(ANC) 5.98 1.99 - 6.95 10*3/uL IMM GRAN x10^3 0.18 (H) 0.00 - 0.06 10*3/uL LYMPH x10^3 0.67 (L) 1.09 - 3.23 10*3/uL MONO x10^3 1.11 (H) 0.36 - 1.02 10*3/uL EOS x10^3 0.03 (L) 0.06 - 0.53 10*3/uL BASO x10^3 0.03 0.01 - 0.09 10*3/uL SCHISTOCYTES 1+ (A) BANDS Increased (A) TOXIC CHANGES Present (A) PLT ESTIMATE Decreased (A) Normal Magnesium Serum Collection Time: 10/30/18 1:20 AM Result Value Ref Range MAGNESIUM 2.2 1.7 - 2.4 mg/dL Lipid Panel (Total Cholesterol, Triglycerides, HDL) - Fasting Collection Time: 10/30/18 1:20 AM Result Value Ref Range CHOL 108 (L) 120 - 200 mg/dL HDL 35 (L) >40 mg/dL HDLC RATIO 3.1 <=5.0 TRIG 159 30 - 170 mg/dL LDL CHOL 41 <=160 mg/dL VLDL 32 5 - 60 mg/dL Hepatitis B Surface Antigen (HBsAg) Collection Time: 10/30/18 1:20 AM Result Value Ref Range HBsAg Negative Negative HBsAg Semi-Quantitative 0.04 Prothrombin Time / INR Collection Time: 10/30/18 1:21 AM Result Value Ref Range PROTIME PATIENT 12.2 10.1 - 12.6 Seconds INR 1.1 aPTT Collection Time: 10/30/18 1:21 AM Result Value Ref Range APTT Patient 31 26 - 36 Seconds Lactic Acid Whole Blood Collection Time: 10/30/18 4:46 AM Result Value Ref Range LACTIC ACID 0.73 0.50 - 2.20 mmol/L POCT GLUCOSE (AUTOMATED) Collection Time: 10/30/18 8:29 AM Result Value Ref Range POCT GLU 80 70 - 110 mg/dL Hepatitis B Surface Antibody (HBsAb) Collection Time: 10/30/18 5:09 PM Result Value Ref Range HBsAB Positive HBsAb Semi-Quantitative 165.00 mIU/mL Hepatitis B Core Antibody (HBcAb) IGM Collection Time: 10/30/18 5:09 PM Result Value Ref Range HBCM Negative HBCM Semi-Quantitative 0.03 WOUND CULTURE Collection Time: 10/30/18 5:21 PM Result Value Ref Range Gram stain No Organisms seen Gram stain No PMNs or Mononuclear cells observed Blood Culture Collection Time: 10/30/18 7:30 PM Result Value Ref Range Blood Culture-Aerobic Culture In Progress No growth Blood Culture-Anaerobic Culture In Progress No growth Lipid Panel (Total Cholesterol, Triglycerides, HDL) - Fasting Collection Time: 10/31/18 1:23 AM Result Value Ref Range CHOL 85 (L) 120 - 200 mg/dL HDL 24 (L) >40 mg/dL HDLC RATIO 3.5 <=5.0 TRIG 136 30 - 170 mg/dL LDL CHOL 34 <=160 mg/dL VLDL 27 5 - 60 mg/dL TROPONIN I Collection Time: 10/31/18 1:23 AM Result Value Ref Range TROPONIN I 0.596 (H) <=0.034 ng/mL Basic Metabolic Panel (NA, K, CL, CO2, GLUCOSE, BUN, CREATININE, CA) Collection Time: 10/31/18 1:23 AM Result Value Ref Range NA 129 (L) 135 - 145 mmol/L K 4.0 3.5 - 5.0 mmol/L CL 92 (L) 98 - 108 mmol/L CO2 TOTAL 22 (L) 23 - 31 mmol/L AGAP 15 2 - 16 BUN 63 (H) 7 - 23 mg/dL GLUCOSE 89 70 - 110 mg/dL CREATININE 10.66 (H) 0.60 - 1.25 mg/dL CALCIUM 9.1 8.6 - 10.6 mg/dL eGFR Calculation (Non-) 5.2 mL/min/1.73m2 eGFR Calculation () 6.3 mL/min/1.73m2 Magnesium Serum Collection Time: 10/31/18 1:23 AM Result Value Ref Range MAGNESIUM 2.4 1.7 - 2.4 mg/dL CBC WITH DIFFERENTIAL Collection Time: 10/31/18 1:23 AM Result Value Ref Range WBC 7.83 4.20 - 10.70 10*3/L RBC 2.69 (L) 4.26 - 5.52 10*6/L HGB 8.6 (L) 12.2 - 16.4 g/dL HCT 26.1 (L) 38.4 - 49.3 % MCV 97.0 (H) 81.7 - 95.6 fL MCH 32.0 26.1 - 32.7 pg MCHC 33.0 31.2 - 35.0 g/dL RDW-SD 59.4 (H) 38.5 - 51.6 fL RDW-CV 16.7 (H) 12.1 - 15.4 % PLT 52 (L) 150 - 328 10*3/L MPV 10.5 9.8 - 13.0 fL IPF % 5.6 1.2 - 10.7 % NRBC/100 WBC 0.0 0.0 - 10.0 /100 WBCs NRBC x10^3 <0.01 10*3/L GRAN MAT (NEUT) % 62.7 % IMM GRAN % 14.20 % LYMPH % 9.6 % MONO % 12.1 % EOS % 1.1 % BASO % 0.3 % GRAN MAT x10^3(ANC) 4.91 1.99 - 6.95 10*3/uL IMM GRAN x10^3 1.11 (H) 0.00 - 0.06 10*3/uL LYMPH x10^3 0.75 (L) 1.09 - 3.23 10*3/uL MONO x10^3 0.95 0.36 - 1.02 10*3/uL EOS x10^3 0.09 0.06 - 0.53 10*3/uL BASO x10^3 <0.03 0.01 - 0.09 10*3/uL SCHISTOCYTES 1+ (A) BANDS Increased (A) TOXIC CHANGES Present (A) PLT ESTIMATE Decreased (A) Normal Current Facility-Administered Medications: acetaminophen (TYLENOL) tablet 650 mg, 650 mg, Oral, Q6HPRN, Consuelo Werner MD, 650 mg at 10/30/18 1730 aspirin tablet 325 mg, 325 mg, Oral, DAILY, Cornel Kincaid PA-C, 325 mg at 10/31/18 0811 bisacodyl (DULCOLAX) tablet 10 mg, 10 mg, Oral, DAILY, Rebekah Werner MD cloNIDine (CATAPRES) tablet 0.1 mg, 0.1 mg, Oral, BID, Mehran Steele M D, Stopped at 10/31/18 0800 dextrose 50 % in water (D50W) injection 25 mL, 25 mL, Slow IV Push, PRN, Rebekah castro MD diphenhydrAMINE (BENADRYL) injection 50 mg, 50 mg, Slow IV Push, QDAILYPRN, Rebekah Werner MD docusate (COLACE) capsule 100 mg, 100 mg, Oral, DAILY, Rebekah Werner MD enoxaparin (LOVENOX) injection 30 mg, 30 mg, Subcutaneous, Q24H, Chloe Werner MD, 30 mg at 10/30/18 1604 glucagon (GLUCAGEN DIAGNOSTIC KIT) injection 1 mg, 1 mg, Intramuscular, PRN , Rebekah Werner MD HYDROcodone-acetaminophen (NORCO 5) 5-325 mg tablet 1 tablet, 1 tablet, Ora l, Q6HPRN, Tej Rivera MD, 1 tablet at 10/31/18 0438 labetalol (NORMODYNE) tablet 200 mg, 200 mg, Oral, Q12H, Mehran Steele MD, Stopped at 10/31/18 0800 ondansetron (ZOFRAN (PF)) injection 4 mg, 4 mg, Slow IV Push, Q6HPRN, Cornel Kincaid PA-C piperacillin-tazobactam (ZOSYN) 2.25 g/50 mL RTU, 2.25 g, IV Piggyback, Q12 H ABX, Cornel Kincaid PA-C, 2.25 g at 10/31/18 0125 sennosides-docusate sodium (SENOKOT S) 8.6-50 mg per tablet 1 tablet, 1 tab let, Oral, DAILY, Rebekah Werner MD sevelamer (RENVELA) tablet 2,400 mg, 2,400 mg, Oral, TID MEALS, Mehran Steele MD, 2,400 mg at 10/30/18 1646 Sliding Scale Insulin-Regular + Fsbg Testing, , Subcutaneous, AC+HS, Cornel Kincaid PA-C vancomycin (VANCOCIN) 500 mg in NaCl 0.9% (NS) 100 mL piggyback, 500 mg, IV Piggyback, DAILY, Cornel Kincaid PA-C Assessment: Rogerio Benoit III is a 48 year old male admitted with: Sepsis likely secondary to line sepsis Tachycardia and pyrexia Port-A-Cath with drainage New fistula right upper extremity End-stage renal disease on hemodialysis Saturday, Saturday, and Saturday Diabetes mellitus type 2 Hypertension Status post renal transplant with rejection Bilateral knee pain from osteoarthritis Plan: Continue with IV antibiotic therapy Following closely with infectious disease Appreciate consultation Check TTE Site culture in progress Following renal function Hemodialysis Saturday, Saturday, and Saturday Following blood sugar and blood pressure closely Adjusting medications as needed Further recommendations will be based on this patient's clinical course Tej Rivera MD 10/31/2018 11:41 AM * Silvia Weston RN - 10/31/2018 9:51 AM CDT Care Management Social Functional Assessment Patient Name: Rogerio Benoit III Age: [age] year old Sex: male MRN: [id number] Previous admit date: N/A Current diagnosis and co-morbidities: Sepsis Readmission Questions: Was patient discharged from any acute care hospital within the last 30 days: No Social Functional Assessment: Primary language spoken/preferred: Maldivian Mental Status: Alert & Oriented to Person,Place & Time Information given by: Self Patient's support system: Child Name and number of support system: Anderson 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 MPOA: Same as support system Living Arrangement: Apartment: Upstairs Address of living arrangement : [address] [place] [address] [address] [place] [address] Persons living in home: Self;Same as support system Barriers to returning home: None Baseline functional status- ambulation: Independent Functional status-baseline personal care: Independent Baseline functional status- driving: Independent Baseline functional status- grocery shopping: Independent Functional status-baseline housekeeping: Independent Functional status-baseline meal prep: Independent Current functional status same as prior: Yes Do you have a PCP?: Yes Name of PCP: Dr. Joni Boyle [facility] Agency: No Provider Services: No DME Company: No Equipment: None Hemodialysis: Yes Dialysis Facility: Other Name of Other Dialysis Facility: [address] [place], [place] Mode of Transportation: Self Community resources utilized: SSA/SSI/Medicaid Funding Resources: Medicaid HMO Prescription coverage plan: Medicaid unlimited slots Pharmacy where meds are filled: Other Other pharmacy: [facility] Anticipated services prior to disharge: Continue Medical Eval Expected mode of discharge transportation: Same as support system Additional Recommendations for DC: CM confirmed with HD clinic that they can giv e IV abx with HD Additional info required for discharge planning: Pending medical evaluation Recommended discharge plan: Home SFA Complete: Social Functional Assessment complete: Yes Alcohol Use Screening (AUDIT-C) How often do you have a drink containing alcohol?: Never SCORE: 0 Role of Care Management explained. Silvia Weston RN, BSN Maintenance Manager- [facility] Department of Care Management O [phone] E [email or web address] F [phone] * Jeff Morelos MD - 10/30/2018 1:40 PM CDT Dict number [id number] Patient seen and examined Full note to follow * Tej Rivera MD - 10/30/2018 9:02 AM CDT XpertMD Progress Note Dr. Tej Rivera Subjective: Patient seen & examined. Events reviewed. Complains of knee pain bilaterally from osteoarthritis Objective: Vitals: 10/29/18 2123 10/29/18 2159 10/30/18 0000 10/30/18 0500 BP: 113/53 137/74 (!) 172/73 (!) 151/80 Pulse: 110 109 100 95 Resp: 20 18 20 17 Temp: 38 C (100.4 F) 36.2 C (97.1 F) 36.6 C (97.8 F) TempSrc: Tympanic Tympanic SpO2: 97% 98% 99% 97% Weight: Height: General: awake, alert, no distress HEENT: NC, AT, PERRLA, EOMI, MMM, anicteric sclera Neck: no JVD/lymphadenopathy CV: RRR, no murmurs, rubs, gallops Lungs: clear to auscultation bilaterally Abdomen: soft, NT, ND, (+)BS Skin: no rashes Extremities: no clubbing, cyanosis, edema, multiple AV fistula left upper extrem ity Neuro: CN 2-12 intact, no focal deficits Psych: oriented x 3, normal affect Labs: Recent Results (from the past 48 hour(s)) Basic Metabolic Panel (NA, K, CL, CO2, GLUCOSE, BUN, CREATININE, CA) Collection Time: 10/29/18 8:20 PM Result Value Ref Range NA 130 (L) 135 - 145 mmol/L K 4.3 3.5 - 5.0 mmol/L CL 89 (L) 98 - 108 mmol/L CO2 TOTAL 24 23 - 31 mmol/L AGAP 17 (H) 2 - 16 BUN 40 (H) 7 - 23 mg/dL GLUCOSE 82 70 - 110 mg/dL CREATININE 8.31 (H) 0.60 - 1.25 mg/dL CALCIUM 9.2 8.6 - 10.6 mg/dL eGFR Calculation (Non-) 6.9 mL/min/1.73m2 eGFR Calculation () 8.4 mL/min/1.73m2 Troponin I Collection Time: 10/29/18 8:20 PM Result Value Ref Range TROPONIN I 0.539 (H) <=0.034 ng/mL Prothrombin Time (PT) / INR Collection Time: 10/29/18 8:20 PM Result Value Ref Range PROTIME PATIENT 12.5 10.1 - 12.6 Seconds INR 1.1 aPTT Collection Time: 10/29/18 8:20 PM Result Value Ref Range APTT Patient 30 26 - 36 Seconds CBC WITH DIFFERENTIAL Collection Time: 10/29/18 8:20 PM Result Value Ref Range WBC 8.02 4.20 - 10.70 10*3/L RBC 3.33 (L) 4.26 - 5.52 10*6/L HGB 10.7 (L) 12.2 - 16.4 g/dL HCT 32.3 (L) 38.4 - 49.3 % MCV 97.0 (H) 81.7 - 95.6 fL MCH 32.1 26.1 - 32.7 pg MCHC 33.1 31.2 - 35.0 g/dL RDW-SD 58.4 (H) 38.5 - 51.6 fL RDW-CV 16.3 (H) 12.1 - 15.4 % PLT 59 (L) 150 - 328 10*3/L MPV 10.5 9.8 - 13.0 fL IPF % 5.8 1.2 - 10.7 % NRBC/100 WBC 0.0 0.0 - 10.0 /100 WBCs NRBC x10^3 <0.01 10*3/L GRAN MAT (NEUT) % 76.4 % IMM GRAN % 0.90 % LYMPH % 6.4 % MONO % 15.8 % EOS % 0.1 % BASO % 0.4 % GRAN MAT x10^3(ANC) 6.13 1.99 - 6.95 10*3/uL IMM GRAN x10^3 0.07 (H) 0.00 - 0.06 10*3/uL LYMPH x10^3 0.51 (L) 1.09 - 3.23 10*3/uL MONO x10^3 1.27 (H) 0.36 - 1.02 10*3/uL EOS x10^3 <0.03 (L) 0.06 - 0.53 10*3/uL BASO x10^3 0.03 0.01 - 0.09 10*3/uL Blood Culture Collection Time: 10/29/18 8:20 PM Result Value Ref Range Blood Culture-Aerobic Culture In Progress No growth Blood Culture-Anaerobic Culture In Progress No growth Blood Culture Collection Time: 10/29/18 8:20 PM Result Value Ref Range Blood Culture-Aerobic Culture In Progress No growth Blood Culture-Anaerobic Culture In Progress No growth Glycosylated Hemoglobin (A1C) Collection Time: 10/29/18 8:20 PM Result Value Ref Range HGB A1C 4.9 4.0 - 6.0 % NGSP AC VBG + LACTIC ACID Collection Time: 10/29/18 8:29 PM Result Value Ref Range PH 7.47 (H) 7.32 - 7.42 PCO2 BALAJI 37 (L) 41 - 51 mmHg PO2 BALAJI 37 25 - 40 mmHg HCO3 BALAJI 26 24 - 28 mEq/L AC VBE(BEAKER) 2.7 mEq/L LACTIC ACID 1.50 0.50 - 2.20 mmol/L BASIC METABOLIC PANEL (NA, K, CL, CO2, GLUCOSE, BUN, CREATININE, CA) Collection Time: 10/30/18 1:20 AM Result Value Ref Range NA 132 (L) 135 - 145 mmol/L K 4.0 3.5 - 5.0 mmol/L CL 94 (L) 98 - 108 mmol/L CO2 TOTAL 23 23 - 31 mmol/L AGAP 15 2 - 16 BUN 42 (H) 7 - 23 mg/dL GLUCOSE 112 (H) 70 - 110 mg/dL CREATININE 8.70 (H) 0.60 - 1.25 mg/dL CALCIUM 9.1 8.6 - 10.6 mg/dL eGFR Calculation (Non-) 6.6 mL/min/1.73m2 eGFR Calculation () 8.0 mL/min/1.73m2 HEPATIC FUNCTION PANEL (90022) (ALB,T.PRO,BILI T,BU/BC,ALT,AST,ALK PHOS) Collection Time: 10/30/18 1:20 AM Result Value Ref Range TOTAL BILI 0.9 0.1 - 1.1 mg/dL BILI UNCON 0.4 0.1 - 1.1 mg/dL BILI CONJ 0.0 0.0 - 0.3 mg/dL T PROTEIN 7.2 6.3 - 8.2 g/dL ALBUMIN 3.6 3.5 - 5.0 g/dL ALK PHOS 70 34 - 122 U/L ALT(SGPT) 17 9 - 51 U/L AST(SGOT) 29 13 - 40 U/L Phosphorus Serum Collection Time: 10/30/18 1:20 AM Result Value Ref Range PHOSPHORUS 7.6 (H) 2.5 - 5.0 mg/dL Glycosylated Hemoglobin (A1C) Collection Time: 10/30/18 1:20 AM Result Value Ref Range HGB A1C 4.9 4.0 - 6.0 % NGSP CBC WITH DIFFERENTIAL Collection Time: 10/30/18 1:20 AM Result Value Ref Range WBC 8.00 4.20 - 10.70 10*3/L RBC 3.13 (L) 4.26 - 5.52 10*6/L HGB 10.2 (L) 12.2 - 16.4 g/dL HCT 30.4 (L) 38.4 - 49.3 % MCV 97.1 (H) 81.7 - 95.6 fL MCH 32.6 26.1 - 32.7 pg MCHC 33.6 31.2 - 35.0 g/dL RDW-SD 59.3 (H) 38.5 - 51.6 fL RDW-CV 16.7 (H) 12.1 - 15.4 % PLT 56 (L) 150 - 328 10*3/L MPV 11.8 9.8 - 13.0 fL IPF % 6.1 1.2 - 10.7 % NRBC/100 WBC 0.0 0.0 - 10.0 /100 WBCs NRBC x10^3 <0.01 10*3/L GRAN MAT (NEUT) % 74.6 % IMM GRAN % 2.30 % LYMPH % 8.4 % MONO % 13.9 % EOS % 0.4 % BASO % 0.4 % GRAN MAT x10^3(ANC) 5.98 1.99 - 6.95 10*3/uL IMM GRAN x10^3 0.18 (H) 0.00 - 0.06 10*3/uL LYMPH x10^3 0.67 (L) 1.09 - 3.23 10*3/uL MONO x10^3 1.11 (H) 0.36 - 1.02 10*3/uL EOS x10^3 0.03 (L) 0.06 - 0.53 10*3/uL BASO x10^3 0.03 0.01 - 0.09 10*3/uL SCHISTOCYTES 1+ (A) BANDS Increased (A) TOXIC CHANGES Present (A) PLT ESTIMATE Decreased (A) Normal Magnesium Serum Collection Time: 10/30/18 1:20 AM Result Value Ref Range MAGNESIUM 2.2 1.7 - 2.4 mg/dL Lipid Panel (Total Cholesterol, Triglycerides, HDL) - Fasting Collection Time: 10/30/18 1:20 AM Result Value Ref Range CHOL 108 (L) 120 - 200 mg/dL HDL 35 (L) >40 mg/dL HDLC RATIO 3.1 <=5.0 TRIG 159 30 - 170 mg/dL LDL CHOL 41 <=160 mg/dL VLDL 32 5 - 60 mg/dL Prothrombin Time / INR Collection Time: 10/30/18 1:21 AM Result Value Ref Range PROTIME PATIENT 12.2 10.1 - 12.6 Seconds INR 1.1 aPTT Collection Time: 10/30/18 1:21 AM Result Value Ref Range APTT Patient 31 26 - 36 Seconds Lactic Acid Whole Blood Collection Time: 10/30/18 4:46 AM Result Value Ref Range LACTIC ACID 0.73 0.50 - 2.20 mmol/L Current Facility-Administered Medications: acetaminophen (TYLENOL) tablet 650 mg, 650 mg, Oral, Q6HPRN, Consuelo Werner MD aspirin tablet 325 mg, 325 mg, Oral, DAILY, Cornel Kincaid PA-C, 325 mg at 10/30/18 0826 bisacodyl (DULCOLAX) tablet 10 mg, 10 mg, Oral, DAILY, Rebekah Werner MD dextrose 50 % in water (D50W) injection 25 mL, 25 mL, Slow IV Push, PRN, Rebekah castro MD docusate (COLACE) capsule 100 mg, 100 mg, Oral, DAILY, Rebekah Werner MD FENTanyl PF (SUBLIMAZE (PF)) injection 25 mcg, 25 mcg, Slow IV Push, Q4HPRN , Cornel Kincaid PA-C, 25 mcg at 10/30/18 0743 glucagon (GLUCAGEN DIAGNOSTIC KIT) injection 1 mg, 1 mg, Intramuscular, PRN , Rebekah Werner MD heparin injection 5,000 Units, 5,000 Units, Subcutaneous, Q12H, Deanna Werner MD, Stopped at 10/30/18 0800 ondansetron (ZOFRAN (PF)) injection 4 mg, 4 mg, Slow IV Push, Q6HPRN, Cornel Kincaid PA-C piperacillin-tazobactam (ZOSYN) 2.25 g/50 mL RTU, 2.25 g, IV Piggyback, Q12 H ABX, Cronel Kincaid PA-C, 2.25 g at 10/30/18 0205 sennosides-docusate sodium (SENOKOT S) 8.6-50 mg per tablet 1 tablet, 1 tab let, Oral, DAILY, Rebekah Werner MD Sliding Scale Insulin-Regular + Fsbg Testing, , Subcutaneous, AC+HS, Cornel Kincaid PA-C [START ON 10/31/2018] vancomycin (VANCOCIN) 500 mg in NaCl 0.9% (NS) 100 mL piggyback, 500 mg, IV Piggyback, DAILY, Cornel Kincaid PA-C Assessment: Rogerio Benoit III is a 48 year old male admitted with: Sepsis likely secondary to line sepsis Tachycardia and pyrexia Port-A-Cath with drainage New fistula right upper extremity End-stage renal disease on hemodialysis Saturday, Saturday, and Saturday Diabetes mellitus type 2 Hypertension Status post renal transplant with rejection Bilateral knee pain from osteoarthritis Plan: Continue with IV antibiotic therapy Consult infectious disease to evaluate Consult nephrology for hemodialysis Culture from drainage in Port-A-Cath Monitor sepsis Following blood sugar and blood pressure closely Adjusting medications as needed We'll add [place] for pain Prognosis guarded Further recommendations will be based on this patient's conical course Tej Rivera MD 10/30/2018 9:02 AM documented in this encounter Plan of Treatment Date/Time Name Type Priority Associated Diagnoses 10/30/2018 7:30 PM CDT Blood Culture LAB Routine 10/31/2018 4:38 PM CDT IR REMOVAL TUNNELED IMAGING Routine Infection of hemodialysis CENTRAL VENOUS CATHETER catheter, initial WITHOUT PORT/PUMP encounter Sepsis due to methicillin susceptible Staphylococcus aureus 10/31/2018 4:19 PM CDT IMPLANT/HARDWARE/ORTHO LAB Routine Infection of hemodialysis INFECTION catheter, initial CULTURE(AEROBIC/ANAEROBIC encounter ) 11/03/2018 1:29 PM CDT BLOOD CULTURE SCREEN LAB Routine Order Schedule Name Type Priority Associated Diagnoses STAT for 1 Occurrences starting 10/30/2018 Lactic Acid Whole Blood LAB Routine GUILLERMINA for 1 Occurrences starting 10/30/2018 until 10/30/2018 Urinalysis LAB GUILLERMINA ONCE for 1 Occurrences starting 10/31/2018 until 10/31/2018 PROTHROMBIN TIME / INR LAB Routine ONCE for 1 Occurrences starting 10/31/2018 until 10/31/2018 IR REMOVAL TUNNELED IMAGING Routine Infection of hemodialysis CENTRAL VENOUS CATHETER catheter, initial WITHOUT PORT/PUMP encounter Sepsis due to methicillin susceptible Staphylococcus aureus ONCE for 1 Occurrences starting 11/03/2018 until 11/03/2018 BLOOD CULTURE SCREEN LAB Routine ONCE for 1 Occurrences starting 11/03/2018 until 11/03/2018 BLOOD CULTURE SCREEN LAB Routine Health Maintenance Due Date Last Done Comments EYE EXAM 1980 FOOT EXAM 1988 DTaP,Tdap,and Td Vaccines 1989 (1 - Tdap) PNEUMOCOCCAL 0-64 YEARS 05/06/2014 03/11/2014 COMBINED SERIES (1 of 1 - PPSV23) INFLUENZA VACCINE (#1) 2018 HgA1C 05/02/2019 10/30/2018, 10/29/2018 LDL-C 11/01/2019 10/31/2018, 10/30/2018 CREATININE (SERUM) 11/03/2019 11/02/2018, 10/31/2018, 10/30/2018, Additional history exists documented as of this encounter Implants Device Identifier Shelf Expiration Date Model / Serial / Lot Implanted Type Area Manufactur er Catheter Catheter documented as of this encounter Procedures Comments Procedure Name Priority Date/Time Associated Diagnosis BASIC METABOLIC PANEL Routine 11/02/2018 (NA, K, CL, CO2, GLUCOSE, 11:53 PM CDT BUN, CREATININE, CA) VANCOMYCIN RANDOM LEVEL Routine 10/31/2018 11:22 AM CDT CBC WITH DIFFERENTIAL Routine 10/31/2018 1:23 AM CDT CBC WITH DIFF Routine 10/31/2018 1:23 AM CDT LIPID PANEL (55662)(TOTAL Routine 10/31/2018 CHOLESTEROL, 1:23 AM CDT TRIGLYCERIDES, HDL) BASIC METABOLIC PANEL Routine 10/31/2018 (NA, K, CL, CO2, GLUCOSE, 1:23 AM CDT BUN, CREATININE, CA) TROPONIN I Routine 10/31/2018 1:23 AM CDT MAGNESIUM Routine 10/31/2018 1:23 AM CDT BLOOD CULTURE WORKUP Routine 10/30/2018 7:30 PM CDT WOUND CULTURE Routine 10/30/2018 5:21 PM CDT WOUND/ASPIRATE OR ABSCESS Routine 10/30/2018 CULTURE 5:21 PM CDT HEPATITIS B CORE ANTIBODY Routine 10/30/2018 IGM 5:09 PM CDT HEPATITIS B SURFACE Routine 10/30/2018 ANTIBODY 5:09 PM CDT ECHO ROUTINE W/DOPPLER Routine 10/30/2018 Fever in other diseases COLOR 9:28 AM CDT POCT GLUCOSE (AUTOMATED) Routine 10/30/2018 8:29 AM CDT LACTIC ACID WHOLE BLOOD STAT 10/30/2018 4:46 AM CDT ACTIVATED PARTIAL GUILLERMINA 10/30/2018 THRMPLAS PREETI 1:21 AM CDT PROTHROMBIN TIME / INR GUILLERMINA 10/30/2018 1:21 AM CDT CBC WITH DIFFERENTIAL GUILLERMINA 10/30/2018 1:20 AM CDT HEPATITIS B SURFACE Add-on 10/30/2018 ANTIGEN 1:20 AM CDT GLYCOSYLATED HEMOGLOBIN Routine 10/30/2018 (A1C) 1:20 AM CDT CBC WITH DIFF GUILLERMINA 10/30/2018 1:20 AM CDT LIPID PANEL (52195)(TOTAL GUILLERMINA 10/30/2018 CHOLESTEROL, 1:20 AM CDT TRIGLYCERIDES, HDL) BASIC METABOLIC PANEL GUILLERMINA 10/30/2018 (NA, K, CL, CO2, GLUCOSE, 1:20 AM CDT BUN, CREATININE, CA) HEPATIC FUNCTION PANEL GUILLERMINA 10/30/2018 (05962) (ALB,T.PRO,BILI 1:20 AM CDT T,BU/BC,ALT,AST,ALK PHOS) MAGNESIUM Routine 10/30/2018 1:20 AM CDT PHOSPHORUS Routine 10/30/2018 1:20 AM CDT XR CHEST 1 VW STAT 10/30/2018 End-stage renal disease 12:30 AM CDT on hemodialysis DISCLOSURE AND CONSENT, Routine 10/30/2018 MEDICAL AND SURGICAL 12:01 AM CDT PROCEDURES XR CHEST 1 VW STAT 10/29/2018 Precordial pain 8:49 PM CDT AC VBG + LACTIC ACID STAT 10/29/2018 Sepsis, due to 8:29 PM CDT unspecified organism GRAM POSITIVE BLOOD Routine 10/29/2018 Precordial pain PATHOGENS DNA 8:20 PM CDT Sepsis, due to PROBE-ANAEROBIC unspecified organism GRAM POSITIVE BLOOD Routine 10/29/2018 Sepsis, due to PATHOGENS DNA 8:20 PM CDT unspecified organism PROBE-AEROBIC CBC WITH DIFFERENTIAL STAT 10/29/2018 Precordial pain 8:20 PM CDT BLOOD CULTURE WORKUP STAT 10/29/2018 Sepsis, due to 8:20 PM CDT unspecified organism BLOOD CULTURE WORKUP STAT 10/29/2018 Precordial pain 8:20 PM CDT Sepsis, due to unspecified organism EXTRA TUBE LAV STAT 10/29/2018 8:20 PM CDT ACTIVATED PARTIAL STAT 10/29/2018 Precordial pain THRMPLAS PREETI 8:20 PM CDT PROTHROMBIN TIME / INR STAT 10/29/2018 Precordial pain 8:20 PM CDT GLYCOSYLATED HEMOGLOBIN Add-on 10/29/2018 (A1C) 8:20 PM CDT CBC WITH DIFF Routine 10/29/2018 Precordial pain 8:20 PM CDT BASIC METABOLIC PANEL STAT 10/29/2018 Precordial pain (NA, K, CL, CO2, GLUCOSE, 8:20 PM CDT BUN, CREATININE, CA) TROPONIN I STAT 10/29/2018 Precordial pain 8:20 PM CDT BLOOD CULTURE SCREEN STAT 10/29/2018 Precordial pain 8:20 PM CDT Sepsis, due to unspecified organism BLOOD CULTURE SCREEN STAT 10/29/2018 Sepsis, due to 8:20 PM CDT unspecified organism EKG-12 LEAD STAT 10/29/2018 7:41 PM CDT documented in this encounter Results * BASIC METABOLIC PANEL (NA, K, CL, CO2, GLUCOSE, BUN, CREATININE, CA) (11/02/2018 11:53 PM CDT) NA 130 (L) 135 - 145 mmol/L [facility] K 3.9 3.5 - 5.0 mmol/L [facility] CL 88 (L) 98 - 108 mmol/L [facility] CO2 TOTAL 27 23 - 31 mmol/L [facility] AGAP 15 2 - 16 [facility] BUN 60 (H) 7 - 23 mg/dL [facility] GLUCOSE 110 70 - 110 mg/dL [facility] CREATININE 10.37 (H) 0.60 - 1.25 mg/dL [facility] CALCIUM 9.5 8.6 - 10.6 mg/dL [facility] eGFR 5.4 mL/min/1.73m2 [facility] Calculation [facility] (Non[facility]) eGFR 6.5 mL/min/1.73m2 [facility] Calculation [facility] ([facility]) Specimen Blood - CENTRAL VENOUS LINE Narrative Performed At [facility] Glomerular Filtration Rate (GFR) and Staging of Kidney Disease* [facility] + + + + [facility] | GFR (mL/min/1.73 m2)| With Kidney Damage|Without [...] tests). Performing Organization Address City/State/Zipcode Phone Number [facility] CLIA: [id number], [address] [place] [address] [facility] * Vancomycin Random Level (10/31/2018 11:22 AM CDT) VANCO RANDOM 17.8 ug/mL [facility] Specimen Blood - ARTERIAL Performing Organization Address City/State/Zipcode Phone Number [facility] CLIA: [id number], [address] [place] [address] [facility] * CBC WITH DIFFERENTIAL (10/31/2018 1:23 AM CDT) WBC 7.83 4.20 - 10.70 [facility] 10*3/L [facility] RBC 2.69 (L) 4.26 - 5.52 10*6/L [facility] HGB 8.6 (L) 12.2 - 16.4 g/dL [facility] HCT 26.1 (L) 38.4 - 49.3 % [facility] MCV 97.0 (H) 81.7 - 95.6 fL [facility] MCH 32.0 26.1 - 32.7 pg [facility] MCHC 33.0 31.2 - 35.0 g/dL [facility] RDW-SD 59.4 (H) 38.5 - 51.6 fL [facility] RDW-CV 16.7 (H) 12.1 - 15.4 % [facility] PLT 52 (L) 150 - 328 10*3/L [facility] MPV 10.5 9.8 - 13.0 fL [facility] IPF % 5.6Comment: Platelet count 1.2 - 10.7 % [facility] measured by fluorescence [facility] method. [facility] NRBC/100 WBC 0.0 0.0 - 10.0 /100 WBCs [facility] NRBC x10^3 <0.01 10*3/L [facility] GRAN MAT (NEUT) 62.7 % [facility] % [facility] IMM GRAN % 14.20 % [facility] LYMPH % 9.6 % [facility] MONO % 12.1 % [facility] EOS % 1.1 % [facility] BASO % 0.3 % [facility] GRAN MAT 4.91 1.99 - 6.95 10*3/uL [facility] x10^3(ANC) [facility] IMM GRAN x10^3 1.11 (H) 0.00 - 0.06 10*3/uL [facility] LYMPH x10^3 0.75 (L) 1.09 - 3.23 10*3/uL [facility] MONO x10^3 0.95 0.36 - 1.02 10*3/uL [facility] EOS x10^3 0.09 0.06 - 0.53 10*3/uL [facility] BASO x10^3 <0.03 0.01 - 0.09 10*3/uL [facility] SCHISTOCYTES 1+ (A) [facility] BANDS Increased (A) [facility] TOXIC CHANGES Present (A) [facility] PLT ESTIMATE Decreased (A) Normal [facility] Specimen Blood - CENTRAL VENOUS LINE Performing Organization Address City/State/Zipcode Phone Number [facility] CLIA: [id number], [address] [place], [place] [address] [facility] * TROPONIN I (10/31/2018 1:23 AM CDT) TROPONIN I 0.596 (H) <=0.034 ng/mL [facility] Specimen Blood - CENTRAL VENOUS LINE Narrative Performed At Equal or Less than 0.034 ng/ml---Normal [facility] Note: Cardiac troponin begins to rise 3-4 hours after the onset of ischemia. [facility] Repeat in 4-6 hours if the sample was drawn within 3-4 hours of the onset of the CAMPUS symptom and found normal. Between 0.035 and 0.120 ng/mL--- Borderline. Questionable myocardial injury or necrosis Note: Serial measurement may be necessary to confirm or exclude the diagnosis of myocardial injury or necrosis; Clinical correlation (symptoms, EKGs, imaging studies, and others) required; Repeat in 4-6 hours if clinically indicated. Equal or Higher than 0.121 ng/mL---Abnormal. Myocardial Injury or Necrosis Likely Biotin has been reported to cause a negative bias, interpret results relative to patient's use of biotin. Performing Organization Address [facility] Phone Number [facility] CLIA: [id number], [address] [place] [address] [facility] * Lipid Panel (Total Cholesterol, Triglycerides, HDL) - Fasting (10/31/2018 1:23 AM CDT) CHOL 85 (L) 120 - 200 mg/dL [facility] HDL 24 (L) >40 mg/dL [facility] HDLC RATIO 3.5 <=5.0 [facility] TRIG 136 30 - 170 mg/dL [facility] LDL CHOL 34 <=160 mg/dL [facility] VLDL 27 5 - 60 mg/dL [facility] Specimen Blood - CENTRAL VENOUS LINE Performing Organization Address [facility] Phone Number [facility] CLIA: [id number], [address] [place] [address] [facility] * Magnesium Serum (10/31/2018 1:23 AM CDT) MAGNESIUM 2.4 1.7 - 2.4 mg/dL [facility] Specimen Blood - CENTRAL VENOUS LINE Performing Organization Address [facility] Phone Number [facility] CLIA: [id number], [address] [place] [address] [facility] * Basic Metabolic Panel (NA, K, CL, CO2, GLUCOSE, BUN, CREATININE, CA) (10/31/2018 1:23 AM CDT) NA 129 (L) 135 - 145 mmol/L [facility] K 4.0 3.5 - 5.0 mmol/L [facility] CL 92 (L) 98 - 108 mmol/L [facility] CO2 TOTAL 22 (L) 23 - 31 mmol/L [facility] AGAP 15 2 - 16 [facility] BUN 63 (H) 7 - 23 mg/dL [facility] GLUCOSE 89 70 - 110 mg/dL [facility] CREATININE 10.66 (H) 0.60 - 1.25 mg/dL [facility] CALCIUM 9.1 8.6 - 10.6 mg/dL [facility] eGFR 5.2 mL/min/1.73m2 [facility] Calculation [facility] (Non-[facility]) eGFR 6.3 mL/min/1.73m2 [facility] Calculation [facility] ([facility]) Specimen Blood - CENTRAL VENOUS LINE Narrative Performed At [facility] Glomerular Filtration Rate (GFR) and Staging of Kidney Disease* [facility] + + + + [facility] | GFR (mL/min/1.73 m2)| With Kidney Damage|Without [...] tests). Performing Organization Address City/State/Zipcode Phone Number [facility] CLIA: [id number], [address] [place] [address] [facility] * BLOOD CULTURE WORKUP (10/30/2018 7:30 PM CDT) Blood Culture STAPHYLOCOCCUS AUREUS [facility] Workup Comment: SERVICES [place] morphologically consistent with organism above For susceptibility results, refer to culture # - [id number] Gram stain Isolated from aerobic bottle [facility] Gram positive cocci [facility] Specimen Blood - LINE, VENOUS Performing Organization Address City/State/[facility] Servicescode Phone Number [facility] CLIA: [id number], [address] [place] [address] [facility] CLIA: [id number], [address] [place] [address] [facility] * WOUND CULTURE (10/30/2018 5:21 PM CDT) Wound Culture STAPHYLOCOCCUS AUREUS [facility] Gram stain No Organisms seen [facility] Gram stain No PMNs or Mononuclear cells [facility] observed SERVICES Specimen Swab - CHEST Antibiotic Method Susceptibility Organism Clindamycin SUSCEPTIBILITY TESTING <=0.25: Susceptible Staphylococcus aureus Erythromycin SUSCEPTIBILITY TESTING <=0.25: Susceptible Staphylococcus aureus Oxacillin SUSCEPTIBILITY TESTING 0.5: Susceptible Staphylococcus aureus Penicillin SUSCEPTIBILITY TESTING >=0.5: Resistant Staphylococcus aureus Rifampin SUSCEPTIBILITY TESTING <=0.5: Susceptible Staphylococcus aureus Tetracycline SUSCEPTIBILITY TESTING <=1: Susceptible Staphylococcus aureus Trimethoprim/Sulfamethoxazole SUSCEPTIBILITY TESTING <=10: Susceptible Staphylococcus aureus Performing Organization Address City/State/Zipcode Phone Number [facility] CLIA: [id number], [address] [place], [place] [address] [facility] * Hepatitis B Core Antibody (HBcAb) IGM (10/30/2018 5:09 PM CDT) HBCM NEGATIVE [facility] HBCM 0.03 [facility] Semi-Quantitati SERVICES ve Specimen Blood - CENTRAL VENOUS LINE Narrative Performed At [facility] has been reported to cause a negative bias, interpret results relative to [facility] patient's use of biotin. SERVICES Performing Organization Address City/State/Zipcode Phone Number [facility] CLIA: [id number], [address] [place] [address] [facility] * Hepatitis B Surface Antibody (HBsAb) (10/30/2018 5:09 PM CDT) HBsAB Positive [facility] HBsAb 165.00 mIU/mL [facility] SERVICES ve Specimen Blood - CENTRAL VENOUS LINE Narrative Performed At Interpretation:Hepatitis B Surface Antibody [facility] Negative - Patient is considered to be not immune to infection with HBV. Positive - Anti-HBs detected at greater than or equal to 12 mIU/mL.Patient is considered to be immune to infection with HBV. Performing Organization Address City/State/Zipcode Phone Number [facility] CLIA: [id number], [address] [place] [address] [facility] * POCT GLUCOSE (AUTOMATED) (10/30/2018 8:29 AM CDT) Pathologist [facility] POCT GLU 80 70 - 110 mg/dL [facility] Specimen Blood Performing Organization Address City/[facility]/Zipcode Phone Number [facility] CLIA: [id number], [address] [place], [place] [id number] * Lactic Acid Whole Blood (10/30/2018 4:46 AM CDT) [facility] LACTIC ACID 0.73 0.50 - 2.20 mmol/L [facility] Specimen Blood - LINE, VENOUS Performing Organization Address City/[facility] Servicescode Phone Number [facility] CLIA: [id number], [address] [place] [address] [facility] * aPTT (10/30/2018 1:21 AM CDT) Pathologist [facility] APTT Patient 31 26 - 36 Seconds [facility] Specimen Blood - LINE, VENOUS Performing Organization Address City/[facility]/Zipcode Phone Number [facility] CLIA: [id number], [address] [place] [address] [facility] * Prothrombin Time / INR (10/30/2018 1:21 AM CDT) PROTIME PATIENT 12.2 10.1 - 12.6 Seconds [facility] INR 1.1Comment: Normal INR <1.1; [facility] Warfarin Therapeutic range 2.0 [facility] to 3.0 or 2.5 to 3.5, [facility] depending upon the indications. Specimen Blood - LINE, VENOUS Performing Organization Address [facility] Services[facility] Phone Number [facility] CLIA: [id number], [address] [place] [address] [facility] * Hepatitis B Surface Antigen (HBsAg) (10/30/2018 1:20 AM CDT) Pathologist [facility] HBsAg HEPATITIS B SURFACE ANTIGEN Negative [facility] NEGATIVE [facility] HBsAg 0.04 [facility] Semi-Quantitati [facility] Specimen Blood - LINE, VENOUS Performing Organization Address [facility] Phone Number [facility] CLIA: [id number], [address] [place] [address] [facility] * CBC WITH DIFFERENTIAL (10/30/2018 1:20 AM CDT) Pathologist [facility] WBC 8.00 4.20 - 10.70 [facility] 10*3/L [facility] RBC 3.13 (L) 4.26 - 5.52 10*6/L [facility] HGB 10.2 (L) 12.2 - 16.4 g/dL [facility] HCT 30.4 (L) 38.4 - 49.3 % [facility] MCV 97.1 (H) 81.7 - 95.6 fL [facility] MCH 32.6 26.1 - 32.7 pg [facility] MCHC 33.6 31.2 - 35.0 g/dL [facility] RDW-SD 59.3 (H) 38.5 - 51.6 fL [facility] RDW-CV 16.7 (H) 12.1 - 15.4 % [facility] PLT 56 (L) 150 - 328 10*3/L [facility] MPV 11.8 9.8 - 13.0 fL [facility] IPF % 6.1Comment: Platelet count 1.2 - 10.7 % [facility] measured by fluorescence [facility]. [facility] NRBC/100 WBC 0.0 0.0 - 10.0 /100 WBCs [facility] NRBC x10^3 <0.01 10*3/L [facility] GRAN MAT (NEUT) 74.6 % [facility] % [facility] IMM GRAN % 2.30 % [facility] LYMPH % 8.4 % [facility] MONO % 13.9 % [facility] EOS % 0.4 % [facility] BASO % 0.4 % [facility] GRAN MAT 5.98 1.99 - 6.95 10*3/uL [facility] x10^3(ANC) [facility] IMM GRAN x10^3 0.18 (H) 0.00 - 0.06 10*3/uL [facility] LYMPH x10^3 0.67 (L) 1.09 - 3.23 10*3/uL [facility] x10^3 1.11 (H) 0.36 - 1.02 10*3/uL [facility] EOS x10^3 0.03 (L) 0.06 - 0.53 10*3/uL [facility] BASO x10^3 0.03 0.01 - 0.09 10*3/uL [facility] SCHISTOCYTES 1+ (A) [facility] BANDS Increased (A) [facility] TOXIC CHANGES Present (A) [facility] PLT ESTIMATE Decreased (A) Normal [facility] Specimen Blood - LINE, VENOUS Performing Organization Address City/State/Zipcode Phone Number [facility] CLIA: [id number], [address] [place] [address] [facility] * Glycosylated Hemoglobin (A1C) (10/30/2018 1:20 AM CDT) HGB A1C 4.9 4.0 - 6.0 % NGSP [facility] Specimen Blood - LINE, VENOUS Performing Organization Address [facility] Services[facility] Phone Number [facility] CLIA: [id number], [address] [place] [address] [facility] * Phosphorus Serum (10/30/2018 1:20 AM CDT) PHOSPHORUS 7.6 (H) 2.5 - 5.0 mg/dL [facility] Specimen Blood - LINE, VENOUS Performing Organization Address [facility] Services[facility] Phone Number [facility] CLIA: [id number], [address] [place] [address] [facility] * HEPATIC FUNCTION PANEL ([id number]) (ALB,T.PRO,BILI T,BU/BC,ALT,AST,ALK PHOS) (10/30/2018 1:20 AM CDT) TOTAL BILI 0.9 0.1 - 1.1 mg/dL [facility] BILI UNCON 0.4 0.1 - 1.1 mg/dL [facility] BILI CONJ 0.0 0.0 - 0.3 mg/dL [facility] T PROTEIN 7.2 6.3 - 8.2 g/dL [facility] ALBUMIN 3.6 3.5 - 5.0 g/dL [facility] ALK PHOS 70 34 - 122 U/L [facility] ALT(SGPT) 17 9 - 51 U/L [facility] AST(SGOT) 29 13 - 40 U/L [facility] Specimen Blood - LINE, VENOUS Performing Organization Address [facility] Phone Number [facility] CLIA: [id number], [address] [place] [address] [facility] * BASIC METABOLIC PANEL (NA, K, CL, CO2, GLUCOSE, BUN, CREATININE, CA) (10/30/2018 1:20 AM CDT) NA 132 (L) 135 - 145 mmol/L [facility] K 4.0 3.5 - 5.0 mmol/L [facility] CL 94 (L) 98 - 108 mmol/L [facility] CO2 TOTAL 23 23 - 31 mmol/L [facility] AGAP 15 2 - 16 [facility] BUN 42 (H) 7 - 23 mg/dL [facility] GLUCOSE 112 (H) 70 - 110 mg/dL [facility] CREATININE 8.70 (H) 0.60 - 1.25 mg/dL [facility] CALCIUM 9.1 8.6 - 10.6 mg/dL [facility] eGFR 6.6 mL/min/1.73m2 [facility] Calculation [facility] (Non-[facility]) eGFR 8.0 mL/min/1.73m2 [facility] Calculation [facility] ([facility]) Specimen Blood - LINE, VENOUS Narrative Performed At [facility] Glomerular Filtration Rate (GFR) and Staging of Kidney Disease* [facility] + + + + [facility] | GFR (mL/min/1.73 m2)| With Kidney Damage|Without [...] tests). Performing Organization Address City/State/Zipcode Phone Number [facility] CLIA: [id number], [address] [place] [address] [facility] * Lipid Panel (Total Cholesterol, Triglycerides, HDL) - Fasting (10/30/2018 1:20 AM CDT) CHOL 108 (L) 120 - 200 mg/dL [facility] HDL 35 (L) >40 mg/dL [facility] HDLC RATIO 3.1 <=5.0 [facility] TRIG 159 30 - 170 mg/dL [facility] LDL CHOL 41 <=160 mg/dL [facility] VLDL 32 5 - 60 mg/dL [facility] Specimen Blood - LINE, VENOUS Performing Organization Address City/[facility]/Zipcode Phone Number [facility] CLIA: [id number], [address] [place] [address] [facility] * Magnesium Serum (10/30/2018 1:20 AM CDT) MAGNESIUM 2.2 1.7 - 2.4 mg/dL [facility] Specimen Blood - LINE, VENOUS Performing Organization Address City/State/Zipcode Phone Number [facility] CLIA: [id number], [address] [place] [address] [facility] * XR CHEST 1 VW (10/30/2018 12:30 AM CDT) Specimen Impressions Performed At 1. Interval placement of a right IJ approach central venous catheter which PACS/VR/DOSE terminates overlying the proximal SVC. No pneumothorax. 2. No active pulmonary process. RL: [id number] AFC: [id number] Narrative Performed At ORDERING PHYSICIAN: REBEKAH WERNER PACS/VR/DOSE CLINICAL HISTORY: Trevor cath placement TECHNIQUE: Single supine view of the chest performed. COMPARISON: Single view chest radiograph performed 10/29/2018 FINDINGS: The previously noted dual lumen dialysis catheter via a right IJ approach is stable in position. There is a new right IJ approach central venous catheter which terminates in the proximal SVC. The lungs are expanded and clear. The cardiomediastinal silhouette is unchanged. No evidence of pleural effusion or pneumothoraxis identified. Procedure Note [facility], Radiant Results Inft User - 10/30/2018 12:39 AM CDT ORDERING PHYSICIAN: REBEKAH WERNER CLINICAL HISTORY: Trevor cath placement TECHNIQUE: Single supine view of the chest performed. COMPARISON: Single view chest radiograph performed 10/29/2018 FINDINGS: The previously noted dual lumen dialysis catheter via a right IJ approach is stable in position. There is a new right IJ approach central venous catheter which terminates in the proximal SVC. The lungs are expanded and clear. The cardiomediastinal silhouette is unchanged. No evidence of pleural effusion or pneumothorax is identified. IMPRESSION 1. Interval placement of a right IJ approach central venous catheter which terminates overlying the proximal SVC. No pneumothorax. 2. No active pulmonary process. RL: [id number] AFC: [id number] Performing Organization Address [facility] Phone Number PACS/VR/DOSE * Chest 1 View (10/29/2018 8:49 PM CDT) Specimen Impressions Performed At Impression: PACS/VR/DOSE No acute cardiopulmonary disease RL: [id number] End of report Narrative Performed At Single view of the chest PACS/VR/DOSE Indication: Chest pain Comparison: None Ordering clinician: CARLO WORKMAN Discussion: There is mild cardiomegaly without decompensation. There are no focal consolidations, pleural effusions or pneumothoraces. The airway is midline. The mediastinal contour is normal. There is a right tunneled dialysis catheter in place, the tip terminates at the atriocaval junction. Procedure Note [facility], Radiant Results Inft User - 10/29/2018 10:35 PM CDT Single view of the chest Indication: Chest pain Comparison: None Ordering clinician: CARLO WORKMAN Discussion: There is mild cardiomegaly without decompensation. There are no focal consolidations, pleural effusions or pneumothoraces. The airway is midline. The mediastinal contour is normal. There is a right tunneled dialysis catheter in place, the tip terminates at the atriocaval junction. IMPRESSION Impression: No acute cardiopulmonary disease RL: [id number] End of report Performing Organization Address [facility] [place] Phone Number PACS/VR/DOSE * AC VBG + LACTIC ACID (10/29/2018 8:29 PM CDT) PH 7.47 (H) 7.32 - 7.42 [facility] PCO2 BALAJI 37 (L) 41 - 51 mmHg [facility] PO2 BALAJI 37 25 - 40 mmHg [facility] HCO3 BALAJI 26 24 - 28 mEq/L [facility] AC VBE(BEAKER) 2.7 mEq/L [facility] LACTIC ACID 1.50 0.50 - 2.20 mmol/L [facility] Specimen Blood - VENOUS Performing Organization Address City/State/Zipcode Phone Number [facility] CLIA: [id number], [address] [place] [address] [facility] * GRAM POSITIVE BLOOD PATHOGENS DNA PROBE-ANAEROBIC (10/29/2018 8:20 PM CDT) Staphylococcus Positive (A) Negative [facility] aureus SERVICES mecA Negative Negative [facility] Specimen Blood - VENOUS Narrative Performed At MSSA detected by DNA probe.See blood culture result for additional [facility] susceptibility SERVICES Information. Preferred therapies for MSSAbacteremia are nafcillin or cefazolin. Infectious Diseases consultation recommended. Please contact the Antimicrobial Stewardship Program with questions. ASP Pager:[phone] Testing included eleven identification and three resistance marker targets. See blood culture result for additional information. Testing included eleven identification and three resistance marker targets. Performing Organization Address City/State/Zipcode Phone Number [facility] CLIA: [id number], [address] [place], [place] [address] [facility] * GRAM POSITIVE BLOOD PATHOGENS DNA PROBE-AEROBIC (10/29/2018 8:20 PM CDT) Staphylococcus Positive (A) Negative [facility] aureus SERVICES mecA Negative Negative [facility] Specimen Blood - VENOUS Narrative Performed At MSSA detected by DNA probe.See blood culture result for additional [facility] susceptibility SERVICES Information. Preferred therapies for MSSAbacteremia are nafcillin or cefazolin. Infectious Diseases consultation recommended. Please contact the Antimicrobial Stewardship Program with questions. ASP Pager:[phone] Testing included eleven identification and three resistance marker targets. See blood culture result for additional information. Testing included eleven identification and three resistance marker targets. Performing Organization Address City/State/Zipcode Phone Number [facility] CLIA: [id number], [address] [place] [id number] [facility] * BLOOD CULTURE WORKUP (10/29/2018 8:20 PM CDT) Blood Culture STAPHYLOCOCCUS AUREUS [facility] Workup Comment: SERVICES [place] morphologically consistent with organism above For susceptibility results, refer to culture # - [id number] Gram stain Isolated from aerobic bottle [facility] Gram positive cocci [facility] Specimen Blood - VENOUS Performing Organization Address City/State/Zipcode Phone Number [facility] CLIA: [id number], [address] [place] [id number] [facility] LAB[facility]ATORY CLIA: [id number], [address] [place] [address] [facility] * BLOOD CULTURE WORKUP (10/29/2018 8:20 PM CDT) Blood Culture STAPHYLOCOCCUS AUREUSComment: [facility] Workup Organism identified by DNA SERVICES probe Gram stain Isolated from aerobic bottle [facility] Gram positive cocci [facility] Gram stain Isolated from anaerobic bottle [facility] Gram positive cocciComment: SERVICES This is an appended report. These results have been appended to a previously preliminary verified report. Specimen Blood - VENOUS Antibiotic Method Susceptibility Organism Clindamycin SUSCEPTIBILITY TESTING <=0.25: Susceptible Staphylococcus aureus Erythromycin SUSCEPTIBILITY TESTING <=0.25: Susceptible Staphylococcus aureus Oxacillin SUSCEPTIBILITY TESTING 0.5: Susceptible Staphylococcus aureus Penicillin SUSCEPTIBILITY TESTING >=0.5: Resistant Staphylococcus aureus Rifampin SUSCEPTIBILITY TESTING <=0.5: Susceptible Staphylococcus aureus Tetracycline SUSCEPTIBILITY TESTING <=1: Susceptible Staphylococcus aureus Trimethoprim/Sulfamethoxazole SUSCEPTIBILITY TESTING <=10: Susceptible Staphylococcus aureus Performing Organization Address City/State/Zipcode Phone Number [facility] CLIA: [id number], [address] [place] [address] [facility] LABORATORY CLIA: [id number], [address] [place], [place] [address] [facility] * Glycosylated Hemoglobin (A1C) (10/29/2018 8:20 PM CDT) [facility] HGB A1C 4.9 4.0 - 6.0 % NGSP [facility] Specimen Blood - VENOUS Performing Organization Address City/[facility]/Zipcode Phone Number [facility] CLIA: [id number], [address] [place] [address] [facility] * EXTRA TUBE LAV (10/29/2018 8:20 PM CDT) Specimen Blood Performing Organization Address City/[facility] Phone Number [facility] CLIA: [id number], [address] [place] [address] [facility] * Blood Culture (10/29/2018 8:20 PM CDT) [facility] Blood Culture positive, No growth [facility] Culture-Aerobic identification to follow [facility] (AA)Comment: Previous [facility] preliminary verified result was Culture In Progress on 10/30/2018 at 0601 CDT Blood Culture positive, No growth [facility] Culture-Anaerob identification to follow [facility] ic (AA)Comment: Previous [facility] preliminary verified result was Culture In Progress on 10/30/2018 at 1703 CDT Specimen Blood - VENOUS Performing Organization Address City/State/Zipcode Phone Number [facility] CLIA: [id number], [address] [place] [address] [facility] LAB[facility]ATORY CLIA: [id number], [address] [place] [address] [facility] * Blood Culture (10/29/2018 8:20 PM CDT) Blood Culture positive, No growth [facility] Culture-Aerobic identification to follow [facility] (AA)Comment: Previous [facility] preliminary verified result was Culture In Progress on 10/30/2018 at 0601 CDT Blood No organisms isolatedComment: No growth [facility] Culture-Anaerob Previous preliminary verified [facility] ic result was Culture In Progress [facility] on 10/30/2018 at 1832 CDT Specimen Blood - VENOUS Performing Organization Address City/State/Zipcode Phone Number [facility] CLIA: [id number], [address] [place] [address] [facility] * CBC WITH DIFFERENTIAL (10/29/2018 8:20 PM CDT) [facility] WBC 8.02 4.20 - 10.70 [facility] 10*3/L [facility] RBC 3.33 (L) 4.26 - 5.52 10*6/L [facility] HGB 10.7 (L) 12.2 - 16.4 g/dL [facility] HCT 32.3 (L) 38.4 - 49.3 % [facility] MCV 97.0 (H) 81.7 - 95.6 fL [facility] MCH 32.1 26.1 - 32.7 pg [facility] MCHC 33.1 31.2 - 35.0 g/dL [facility] RDW-SD 58.4 (H) 38.5 - 51.6 fL [facility] RDW-CV 16.3 (H) 12.1 - 15.4 % [facility] PLT 59 (L) 150 - 328 10*3/L [facility] MPV 10.5 9.8 - 13.0 fL [facility] IPF % 5.8Comment: Platelet count 1.2 - 10.7 % [facility] measured by fluorescence [facility] method. [facility] NRBC/100 WBC 0.0 0.0 - 10.0 /100 WBCs [facility] NRBC x10^3 <0.01 10*3/L [facility] GRAN MAT (NEUT) 76.4 % [facility] % [facility] IMM GRAN % 0.90 % [facility] LYMPH % 6.4 % [facility] MONO % 15.8 % [facility] EOS % 0.1 % [facility] BASO % 0.4 % [facility] GRAN MAT 6.13 1.99 - 6.95 10*3/uL [facility] x10^3(ANC) [facility] IMM GRAN x10^3 0.07 (H) 0.00 - 0.06 10*3/uL [facility] LYMPH x10^3 0.51 (L) 1.09 - 3.23 10*3/uL [facility] MONO x10^3 1.27 (H) 0.36 - 1.02 10*3/uL [facility] EOS x10^3 <0.03 (L) 0.06 - 0.53 10*3/uL [facility] BASO x10^3 0.03 0.01 - 0.09 10*3/uL [facility] Specimen Blood - VENOUS Performing Organization Address City/State/Zipcode Phone Number [facility] CLIA: [id number], [address] [place], [place] [id number] [facility] * aPTT (10/29/2018 8:20 PM CDT) APTT Patient 30 26 - 36 Seconds [facility] Specimen Blood - VENOUS Performing Organization Address City/[facility]/Zipcode Phone Number [facility] CLIA: [id number], [address] [place], [place] [id number] [facility] * Prothrombin Time (PT) / INR (10/29/2018 8:20 PM CDT) PROTIME PATIENT 12.5 10.1 - 12.6 Seconds [facility] INR 1.1Comment: Normal INR <1.1; [facility] Warfarin Therapeutic range 2.0 [facility] to 3.0 or 2.5 to 3.5, [facility] depending upon the indications. Specimen Blood - VENOUS Performing Organization Address [facility]/Zipcode Phone Number [facility] CLIA: [id number], [address] [place] [address] [facility] * Troponin I (10/29/2018 8:20 PM CDT) TROPONIN I 0.539 (H) <=0.034 ng/mL [facility] Specimen Blood - VENOUS Narrative Performed At Equal or Less than 0.034 ng/ml---Normal [facility] Note: Cardiac troponin begins to rise 3-4 hours after the onset of ischemia. [facility] Repeat in 4-6 hours if the sample was drawn within 3-4 hours of the onset of the BLAKELY symptom and found normal. Between 0.035 and 0.120 ng/mL--- Borderline. Questionable myocardial injury or necrosis Note: Serial measurement may be necessary to confirm or exclude the diagnosis of myocardial injury or necrosis; Clinical correlation (symptoms, EKGs, imaging studies, and others) required; Repeat in 4-6 hours if clinically indicated. Equal or Higher than 0.121 ng/mL---Abnormal. Myocardial Injury or Necrosis Likely Biotin has been reported to cause a negative bias, interpret results relative to patient's use of biotin. Performing Organization Address City/[facility]/Zipcode Phone Number [facility] CLIA: [id number], [address] [place] [address] [facility] * Basic Metabolic Panel (NA, K, CL, CO2, GLUCOSE, BUN, CREATININE, CA) (10/29/2018 8:20 PM CDT) NA 130 (L) 135 - 145 mmol/L [facility] K 4.3 3.5 - 5.0 mmol/L [facility] CL 89 (L) 98 - 108 mmol/L [facility] CO2 TOTAL 24 23 - 31 mmol/L [facility] AGAP 17 (H) 2 - 16 [facility] BUN 40 (H) 7 - 23 mg/dL [facility] GLUCOSE 82 70 - 110 mg/dL [facility] CREATININE 8.31 (H) 0.60 - 1.25 mg/dL [facility] CALCIUM 9.2 8.6 - 10.6 mg/dL [facility] eGFR 6.9 mL/min/1.73m2 [facility] eGFR 8.4 mL/min/1.73m2 [facility] Specimen Blood - VENOUS Narrative Performed At [facility] Glomerular Filtration Rate (GFR) and Staging of Kidney Disease* [facility] + + + + [facility] | GFR (mL/min/1.73 m2)| With Kidney Damage|Without [...] tests). Performing Organization Address City/State/Zipcode Phone Number [facility] CLIA: [id number], [address] [place] [address] [facility] documented in this encounter Visit Diagnoses Diagnosis Sepsis due to methicillin susceptible Staphylococcus aureus - Primary Methicillin susceptible staphylococcus aureus septicemia Precordial pain Sepsis, due to unspecified organism Non-STEMI (non-ST elevated myocardial infarction) Acute myocardial infarction, subendocardial infarction, episode of care unspecified Hyponatremia Hyposmolality and/or hyponatremia Dehydration End-stage renal disease on hemodialysis End stage renal disease Fever in other diseases Infection of hemodialysis catheter, initial encounter Elevated troponin Other abnormal blood chemistry E44.1 Mild protein-calorie malnutrition Malnutrition of mild degree Kidney transplant rejection Complications of transplanted kidney S/p nephrectomy Acquired absence of kidney Anemia of chronic disease Anemia of other chronic disease AV fistula thrombosis Arteriovenous fistula, acquired documented in this encounter Administered Medications Action Date Dose Rate Site Medication Order MAR Action 10/30/2018 5:30 PM CDT 650 mg acetaminophen (TYLENOL) tablet 650 mg Given 650 mg, Oral, Q6HPRN, Starting Evelyn 10/30/18 at 0031, Until Discontinued, Routine, Pain (scale 1-3) 11/03/2018 9:43 AM CDT 325 mg aspirin tablet 325 mg Given 325 mg, Oral, DAILY, First dose on Evelyn 10/30/18 at 0900, Until Discontinued, Routine 325 mg Given 11/02/2018 7:51 AM CDT 325 mg Given 11/01/2018 8:23 AM CDT 11/02/2018 7:51 AM CDT 10 mg bisacodyl (DULCOLAX) tablet 10 mg Given 10 mg, Oral, DAILY, First dose on Evelyn 10/30/18 at 0900, Until Discontinued, Routine 11/02/2018 4:04 PM CDT 1,000 mg ceFAZolin (ANCEF) 1,000 mg in NaCl 0.9% Given (NS) 50 mL MINI-BAG 1,000 mg, IV Piggyback, Q24H, First dose on Sat10/31/18 at 1645, Until Discontinued, 50 mL, Reason for Anti-Infective: Documented Infection, Documented Infection Site: Blood, Duration of Therapy: 14 days 1,000 mg Given 11/01/2018 4:14 PM CDT 1,000 mg Given 10/31/2018 3:47 PM CDT 11/01/2018 10:15 PM CDT 0.1 mg cloNIDine (CATAPRES) tablet 0.1 mg Given 0.1 mg, Oral, BID, First dose on Sat10/30/18 at 2000, Until Discontinued, Routine 0.1 mg Given 10/30/2018 7:48 PM CDT dextrose 50 % in water (D50W) injection 25 mL 25 mL, Slow IV Push, PRN, Starting Evelyn 10/30/18 at 0031, Until Discontinued, GUILLERMINA, Blood Glucose < or=70 mg/dL and patient is unable to swallow or has mental status changes. diphenhydrAMINE (BENADRYL) injection 50 mg 50 mg, Slow IV Push, QDAILYPRN, Starting [facility] 10/30/18 at 1500, Until Discontinued, Routine, Itching, Rash, Hives docusate (COLACE) capsule 100 mg 100 mg, Oral, DAILY, First dose on Evelyn 10/30/18 at 0900, Until Discontinued, Routine 11/02/2018 4:04 PM CDT 30 mg Abdomen-SC enoxaparin (LOVENOX) injection 30 mg Given 30 mg, Subcutaneous, Q24H, First dose on [facility] 10/30/18 at 1500, Until Discontinued, Routine 30 mg Abdomen-SC Given 11/01/2018 4:14 PM CDT 30 mg Abdomen-SC Given 10/31/2018 5:03 PM CDT glucagon (GLUCAGEN DIAGNOSTIC KIT) injection 1 mg 1 mg, Intramuscular, PRN, Starting [facility] 10/30/18 at 0031, Until Discontinued, GUILLERMINA, Blood Glucose < or=70 mg/dL and patient is unable to swallow or has mental changes. 11/02/2018 11:56 PM CDT 1 tablet HYDROcodone-acetaminophen (NORCO 5) Given 5-325 mg tablet 1 tablet 1 tablet, Oral, Q6HPRN, Starting [facility] 10/30/18 at 1125, Until Discontinued, Routine, pain 4-10 1 tablet Given 11/02/2018 7:51 AM CDT 1 tablet Given 11/01/2018 10:15 PM CDT 11/02/2018 7:51 AM CDT 200 mg labetalol (NORMODYNE) tablet 200 mg Given 200 mg, Oral, Q12H, First dose on [facility] 10/30/18 at 2000, Until Discontinued, Routine 200 mg Given 11/01/2018 10:15 PM CDT 200 mg Given 11/01/2018 8:23 AM CDT sennosides-docusate sodium (SENOKOT S) 8.6-50 mg per tablet 1 tablet 1 tablet, Oral, DAILY, First dose on [facility] 10/30/18 at 0900, Until Discontinued, Routine 11/02/2018 4:04 PM CDT 2,400 mg sevelamer (RENVELA) tablet 2,400 mg Given 2,400 mg, Oral, TID MEALS, First dose on [facility] 10/30/18 at 1200, Until Discontinued, Routine 2,400 mg Given 11/02/2018 11:57 AM CDT 2,400 mg Given 11/02/2018 7:51 AM CDT Action Date Dose Rate Site Medication Order MAR Action 10/29/2018 8:33 PM CDT 1,000 mg acetaminophen (TYLENOL) tablet 1,000 mg Given 1,000 mg, Oral, ONCE, 1 dose, Sat10/29/18 at 2015, GUILLERMINA 10/29/2018 8:40 PM CDT 1,000 mg Left Arm cefTRIAXone (ROCEPHIN) 1,000 mg in NaCl Given 0.9% (NS) 50 mL MINI-BAG 1,000 mg, IV Piggyback, ONCE, 1 dose, Sat10/29/18 at 2000, 50 mL, Reason for Anti-Infective: Empiric Therapy for Suspected Infection, Empiric Therapy Site: Respiratory, Duration of therapy: 7 days 10/31/2018 7:48 PM CDT 3,000 Units Abdomen-SC epoetin tomás (PROCRIT) injection 3,000 Given Units 3,000 Units, Subcutaneous, DIALYSIS ONCE - PT ROOM, 1 dose, Sat10/31/18 at 2030, Routine, nutrition faculty member approving Restricted medication: MEHRAN STEELE 10/30/2018 7:48 PM CDT 25 mcg FENTanyl PF (SUBLIMAZE (PF)) injection Given 25 mcg 25 mcg, Slow IV Push, Q4HPRN, 3 doses, Starting Sat10/30/18 at 0234, Until Sat10/30/18 at 1948, Routine, Pain (scale 7-10) 25 mcg Given 10/30/2018 7:43 AM CDT 25 mcg Given 10/30/2018 3:22 AM CDT 10/29/2018 8:46 PM CDT 50 mcg FENTanyl PF (SUBLIMAZE (PF)) injection Given 50 mcg 50 mcg, Slow IV Push, ONCE, 1 dose, Sat10/29/18 at 2115, STAT 10/31/2018 4:25 PM CDT 8 mL Neck lidocaine 1% (PF) (XYLOCAINE) injection Given PRN, Starting Sat10/31/18 at 1625, Until Sat10/31/18 at 1625, Routine 10/29/2018 8:38 PM CDT 1,000 mL 999 mL/hr Left Arm NaCl 0.9% (NS) bolus infusion 1,770 mL New Bag at 999 mL/hr, 1,770 mL (30 mL/kg 59 kg), IV Infusion, ONCE, 1 dose, Sat10/29/18 at 2000, STAT 10/31/2018 1:25 AM CDT 2.25 g 100 mL/hr piperacillin-tazobactam (ZOSYN) 2.25 Given g/50 mL RTU 2.25 g, IV Piggyback, Q12H ABX, 14 doses, First dose on Sat10/30/18 at 0145, Last dose on Sat11/05/18 at 1345, 50 mL, Reason for Anti-Infective: Empiric Therapy for Suspected Infection, Empiric Therapy Site: Intravenous Line, Duration of therapy: 7 days 2.25 g 100 mL/hr Given 10/30/2018 1:39 PM CDT 2.25 g 100 mL/hr Given 10/30/2018 2:05 AM CDT 10/29/2018 9:20 PM CDT 1,000 mg vancomycin 1 g in NS 200 mL RTU IV Given Piggyback 1,000 mg 1,000 mg, IV Piggyback, ONCE, 1 dose, Sat10/29/18 at 2130, Reason for Anti-Infective: Empiric Therapy for Suspected Infection, Empiric Therapy Site: Vascular, Duration of therapy: 7 days documented in this encounter Insurance Type Payer Benefit Subscriber ID Effective Phone Address Plan / Dates Group Medicaid [employer] [place] xxxxxxxxx 2018-P PLAN - MANAGED MEDICAID STAR PLUS resent documented as of this encounter
== END 2018-11-16 08:45 | disposition left against medical advice (07) ==
LOC: FSED 07:53
DX: R21 Rash and other nonspecific skin eruption (principal)
CPT/HCPCS: 99282

== ENCOUNTER → 2019-05-22 | Outpatient (CLI) | payer OTHER ==
[~2019-05-22] MED LIST changes: +REGADENOSON 0.4 MG/5 ML SYR IV ONE
--- NOTE | 2019-05-22 17:54 | Myoview Stress Test ---
DATE OF STUDY: 05/22/2019 10:00:00 Stress Test - Treadmill ONLY Nuclear gated myocardial perfusion scan performed as per protocol at Nuclear Medicine Lab at [facility]. The stress test is supervised by Dr. William Hopson. Lexiscan injected 0.4 mg intravenously. Myoview injected 11 mCi for resting protocol and 33 mCi for stress protocol. I interpreted only the nuclear part of the stress test. Inferoapical scar noted. No ischemia. Left ventricular ejection fraction is about 25% to 30%. Thank you Dr. William Hopson for this nuclear stress test interpretation consultation. Frank Roper MD PVB/MODL /[id number]
== END ==
LOC: NM 09:40
PROVIDERS: ATTEND Internal Medicine Cardiovascular Disease
DX: R07.9 Chest pain, unspecified (principal); R06.02 Shortness of breath; R94.31 Abnormal electrocardiogram [ECG] [EKG]
CPT/HCPCS: 78452; 93017; A9502

== ENCOUNTER 2020-03-31 08:01 | Emergency (ER) | payer MEDICARE, OTHER ==
[~2020-03-31] VITALS: Ht 165.1 cm; Wt 61.7 kg
[~2020-03-31 08:01] MED LIST changes: -REGADENOSON 0.4 MG/5 ML SYR IV ONE
[2020-03-31] MEDS ORDERED: KETOROLAC TROMETHAMINE 30 MG/ML VIAL IV STA (08:29)
[2020-03-31] MEDS ORDERED: ASPIRIN EC81 MG PO (09:02)
[2020-03-31] MEDS ORDERED: PHENERGAN SUPP25 MG PO (09:02)
[2020-03-31] MEDS ORDERED: NIFEDIPINE ER30 M1 PO (09:02)
[2020-03-31] MEDS ORDERED: PROMETHAZINE HC25 M1 PO (10:21)
[2020-03-31] MEDS ORDERED: IOPAMIDOL 370 MG/ML 200 ML INFUS..BTL INJ ONE (10:27)
[2020-03-31] MEDS ORDERED: SODIUM CHLORIDE 0.9% 50ML 50 ML ONE (10:27)
[2020-03-31] MEDS ORDERED: MOTRIN200 MG PO (11:21)
[2020-03-31 11:42] VITALS: BP 175/93
== END 2020-03-31 11:39 | disposition home or self-care (01) ==
LOC: FSED 08:30
DX: R07.89 Other chest pain (principal); I12.0 Hypertensive chronic kidney disease with stage 5 chronic kidney disease or end stage renal disease; N18.6 End stage renal disease; Z99.2 Dependence on renal dialysis; I25.10 Atherosclerotic heart disease of native coronary artery without angina pectoris; K21.9 Gastro-esophageal reflux disease without esophagitis
CPT/HCPCS: 71046; 71260; 80053; 82553; 83880; 84484; 85025; 85379; 93005; 96374; 99284; J1885; Q9967

== ENCOUNTER 2022-03-21 10:57 | Inpatient (IN) | payer MEDICARE, OTHER ==
[~2022-03-21] VITALS: Ht 165.1 cm; Wt 61.7 kg
[~2022-03-21 10:57] MED LIST changes: +ASPIRIN EC81 MG PO; +MOTRIN200 MG PO; +PHENERGAN SUPP25 MG PO
[2022-03-21] MEDS ORDERED: ONDANSETRON HCL INJ 2MG/ML 2ML 2 MG/ML VIAL IV STA (11:22)
[2022-03-21] MEDS ORDERED: ONDANSETRON HCL INJ 2MG/ML 2ML 2 MG/ML VIAL ONE (11:30)
[2022-03-21] MEDS ORDERED: FAMOTIDINE 20 MG/2 ML VIAL IV STA (11:39)
[2022-03-21] MEDS ORDERED: PROMETHAZINE 12.5MG/ NACL 0.9% 12.5 MG/50 ML BAG IV ONE ×2 (11:45→13:45)
[2022-03-21] MEDS ORDERED: SODIUM CHLORIDE 0.9% 1000ML 1,000 ML IV SCH (11:45)
[2022-03-21] MEDS ORDERED: FENTANYL CITRATE/PF 100MCG/2 ML INJ IV ONE ×2 (11:45→12:00)
[2022-03-21] MEDS ORDERED: PROMETHAZINE HCL (IM) 25 MG/ML VIAL IM ONE ×2 (11:56→14:10)
[2022-03-21] MEDS ORDERED: FENTANYL CITRATE/PF 100MCG/2 ML INJ ONE (11:59)
[2022-03-21] MEDS ORDERED: SODIUM CHLORIDE 0.9% 1000ML 1,000 ML ONE (11:59)
[2022-03-21] MEDS ORDERED: FAMOTIDINE 20 MG/2 ML VIAL IV ONE (12:00)
[2022-03-21] MEDS ORDERED: IOPAMIDOL 370 MG/ML 100 ML INFUS..BTL INJ ONE (12:14)
[2022-03-21] MEDS ORDERED: FENTANYL CITRATE/PF 100MCG/2 ML INJ IV PRN (14:00)
[2022-03-21] MEDS ORDERED: PROMETHAZINE HCL (IM) 25 MG/ML VIAL IM PRN (14:00)
[2022-03-21] MEDS ORDERED: ASPIRIN 81 MG CHEW TAB PO ONE (14:00)
[2022-03-21] MEDS: SODIUM CHLORIDE 0.9% 1000ML 1,000 ML IV SCH (14:00)
[2022-03-21] MEDS ORDERED: CEFEPIME HCL 1 GM VIAL ONE (14:10)
[2022-03-21] MEDS ORDERED: METRONIDAZOLE 500MG/NS 100ML 100 ML IV ONE (14:10)
[2022-03-21 16:06] VITALS: BP 146/88
[2022-03-21 16:40] VITALS: BP 146/88
[2022-03-21 19:06] LABS: CREATINE KINASE MB 2.1 ng/mL (0-5.0)
[2022-03-21] MEDS ORDERED: PROMETHAZINE HCL 25 MG TAB PO PRN (19:30)
[2022-03-21] MEDS ORDERED: BUSPIRONE HCL 5 MG TAB PO PRN (19:30)
[2022-03-21 20:00] VITALS: BP 132/83
[2022-03-21 21:00] VITALS: BP 132/83
[2022-03-21] MEDS: SEVELAMER CARBONATE 800 MG TAB PO SCH (21:00)
[2022-03-21] MEDS: CLONIDINE HCL 0.2 MG TAB PO SCH (21:01)
[2022-03-21] MEDS: MINOXIDIL 2.5 MG TAB PO SCH (21:01)
[2022-03-21] MEDS: METRONIDAZOLE 500MG/NS 100ML 100 ML IV SCH ×3 (21:58→22:00)
[2022-03-22] VITALS (7 sets, daily range): BP systolic 92–147; BP diastolic 35–76
[2022-03-22 06:13] LABS: ALBUMIN 3.8 g/dL (3.5-5.0); ANION GAP 26.2 mmol/L (8-16); CALCIUM 9.2 mg/dL (8.4-10.2); CREATININE, SERUM 13.45 mg/dL (0.72-1.25); POTASSIUM 5.2 mmol/L (3.5-5.1)
[2022-03-22 06:16] LABS: BASOPHILS % 0.7 % (0.0-1.0); EOSINOPHILS # (AUTO) 0.1 (0.0-0.4); EOSINOPHILS % 1.1 % (0.0-6.0); HEMOGLOBIN 11.1 g/dL (14.0-18.0); LYMPHOCYTES # (AUTO) 1.1 (1.0-3.2); MEAN CORPUSCULAR HEMOGLOBIN 29.9 pg (28-32); MEAN CORPUSCULAR HGB CONC 30.8 g/dL (31-35); MONOCYTES # (AUTO) 0.7 (0.2-0.8); MONOCYTES % 10.7 % (4.4-11.3); NEUTROPHILS # (AUTO) 4.2 (2.1-6.9); PLATELET COUNT 139 x10e3/uL (140-360); RED BLOOD COUNT 3.71 x10e6/uL (4.3-5.7); RED CELL DISTRIBUTION WIDTH 16.1 % (11.7-14.4)
[2022-03-22] MEDS: METRONIDAZOLE 500MG/NS 100ML 100 ML IV SCH ×3 (06:19→22:09)
[2022-03-22] MEDS: SODIUM CHLORIDE 0.9% 1000ML 1,000 ML IV SCH ×2 (06:20→16:40)
[2022-03-22 06:49] LABS: CREATINE KINASE MB 1.8 ng/mL (0-5.0)
[2022-03-22 07:13] LABS: BILIRUBIN,DIRECT 0.3 mg/dL (0.0-0.5)
[2022-03-22] MEDS: CLONIDINE HCL 0.2 MG TAB PO SCH ×3 (09:00→21:00)
[2022-03-22] MEDS: NIFEDIPINE CR 30 MG TAB PO SCH (09:00)
[2022-03-22] MEDS: SEVELAMER CARBONATE 800 MG TAB PO SCH ×4 (09:00→21:54)
[2022-03-22] MEDS: LABETALOL HCL 200 MG TAB PO SCH ×2 (09:29→16:56)
[2022-03-22] MEDS: DILTIAZEM HCL ER 120 MG CAP PO SCH (09:30)
[2022-03-22] MEDS: MINOXIDIL 2.5 MG TAB PO SCH ×4 (09:30→21:55)
[2022-03-22] MEDS: PANTOPRAZOLE SOD 40 MG TABEC PO SCH ×2 (09:30→16:57)
[2022-03-22 14:48] LABS: CREATINE KINASE MB 2.3 ng/mL (0-5.0)
[2022-03-23 00:16] VITALS: BP 104/46
[2022-03-23 04:00] VITALS: BP 125/51
[2022-03-23] MEDS: METRONIDAZOLE 500MG/NS 100ML 100 ML IV SCH ×2 (05:24→15:09)
[2022-03-23] MEDS: SODIUM CHLORIDE 0.9% 1000ML 1,000 ML IV SCH (06:24)
[2022-03-23 07:57] VITALS: BP 115/74
[2022-03-23 08:07] VITALS: BP 115/74
[2022-03-23] MEDS: NIFEDIPINE CR 30 MG TAB PO SCH ×2 (08:27→09:34)
[2022-03-23] MEDS: SEVELAMER CARBONATE 800 MG TAB PO SCH ×2 (08:27→15:09)
[2022-03-23] MEDS: PANTOPRAZOLE SOD 40 MG TABEC PO SCH ×2 (08:29→17:18)
[2022-03-23] MEDS: MINOXIDIL 2.5 MG TAB PO SCH ×2 (08:29→15:00)
[2022-03-23] MEDS: DILTIAZEM HCL ER 120 MG CAP PO SCH (08:30)
[2022-03-23] MEDS: CLONIDINE HCL 0.2 MG TAB PO SCH ×2 (08:31→15:00)
[2022-03-23] MEDS: LABETALOL HCL 200 MG TAB PO SCH ×2 (08:31→17:00)
[2022-03-23 12:03] VITALS: BP 128/65
[2022-03-23 16:06] VITALS: BP 139/68
== END 2022-03-23 18:51 | disposition home or self-care (01) | DRG 391 ==
LOC: FSED 11:03 → INTOOBSV 14:03 → ERHOLD 14:03 → MED/SURG3 15:13 → OBSVTOIN 03-23 13:21
PROVIDERS: ADMIT Family Medicine; ATTEND Family Medicine
PROC: 5A1D70Z Performance of Urinary Filtration, Intermittent, Less than 6 Hours Per Day (ICD-10-PCS; principal; 2022-03-22)
DX: K52.9 Noninfective gastroenteritis and colitis, unspecified (principal); N18.6 End stage renal disease; I12.0 Hypertensive chronic kidney disease with stage 5 chronic kidney disease or end stage renal disease; Z94.0 Kidney transplant status; Z99.2 Dependence on renal dialysis; Z20.822 Contact with and (suspected) exposure to COVID-19; I25.10 Atherosclerotic heart disease of native coronary artery without angina pectoris; K21.9 Gastro-esophageal reflux disease without esophagitis; D64.9 Anemia, unspecified; E83.41 Hypermagnesemia; N28.89 Other specified disorders of kidney and ureter; D69.6 Thrombocytopenia, unspecified; K42.9 Umbilical hernia without obstruction or gangrene; F41.9 Anxiety disorder, unspecified; Z88.5 Allergy status to narcotic agent; Z88.8 Allergy status to other drugs, medicaments and biological substances
CPT/HCPCS: 36415; 74177; 80048; 80053; 80076; 82150; 82248; 82550; 82553; 83690; 83735; 84484; 85025; 93005; 99252; 99284; G0378; J0692; J2405; J2550; J3010; J7030; Q9967

== ENCOUNTER 2022-06-27 07:24 | Inpatient (IN) | payer MEDICARE, OTHER ==
[~2022-06-27] VITALS: Ht 165.1 cm; Wt 58.5 kg
[2022-06-27] MEDS ORDERED: SODIUM CHLORIDE 0.9% 500ML 500 ML ONE (07:32)
[2022-06-27 08:04] LABS: BASOPHILS # (AUTO) 0.1 (0.0-0.1); BASOPHILS % 2.1 % (0.0-1.0); EOSINOPHILS # (AUTO) 0.2 (0.0-0.4); EOSINOPHILS % 4.5 % (0.0-6.0); HEMATOCRIT 36.2 % (38.2-49.6); LYMPHOCYTES # (AUTO) 0.9 (1.0-3.2); MEAN CORPUSCULAR HEMOGLOBIN 30.2 pg (28-32); MEAN CORPUSCULAR HGB CONC 33.1 g/dL (31-35); MONOCYTES # (AUTO) 0.4 (0.2-0.8); MONOCYTES % 11.7 % (4.4-11.3); NEUTROPHILS # (AUTO) 2.2 (2.1-6.9); NEUTROPHILS % 57.7 % (38.7-80.0); PLATELET COUNT 87 x10e3/uL (140-360); RED BLOOD COUNT 3.98 x10e6/uL (4.3-5.7); RED CELL DISTRIBUTION WIDTH 14.6 % (11.7-14.4)
[2022-06-27 08:20] LABS: INR 0.95; PROTHROMBIN TIME 13.2 seconds (11.9-14.5)
[2022-06-27 08:21] LABS: PARTIAL THROMBOPLASTIN TIME 40.8 seconds (23.8-35.5)
[2022-06-27 08:36] LABS: ALBUMIN 4.5 g/dL (3.5-5.0); ALBUMIN/GLOBULIN RATIO 1.2 (0.8-2.0); ANION GAP 21.4 mmol/L (8-16); CALCIUM 9.6 mg/dL (8.4-10.2); CREATININE, SERUM 9.72 mg/dL (0.72-1.25); POTASSIUM 4.4 mmol/L (3.5-5.1)
[2022-06-27] MEDS ORDERED: DEXTROSE 5% 250ML 250 ML IV ONE (08:45)
[2022-06-27] MEDS ORDERED: SODIUM CHLORIDE 0.9% 100 ML ONE (10:30)
[2022-06-27] MEDS: SODIUM CHLORIDE 0.9% 250ML IRRIG IR SCH ×2 (10:30→14:30)
[2022-06-27] MEDS ORDERED: DIPHENHYDRAMINE HCL INJ 50 MG/ML VIAL IM PRN (10:30)
[2022-06-27] MEDS ORDERED: NICARDIPINE HCL SOLN 0 ML ONE (11:58)
[2022-06-27] MEDS ORDERED: HYDROMORPHONE 2MG/ML 2 MG/ML ML ONE (13:02)
[2022-06-27] MEDS ORDERED: FENTANYL CITRATE/PF 100MCG/2 ML INJ ONE ×3 (13:36→14:14)
[2022-06-27] MEDS ORDERED: MIDAZOLAM HCL 2 MG/2 ML VIAL ONE (13:45)
[2022-06-27 14:01] LABS: BASOPHILS # (AUTO) 0.1 (0.0-0.1); EOSINOPHILS # (AUTO) 0.2 (0.0-0.4); EOSINOPHILS % 2.3 % (0.0-6.0); HEMOGLOBIN 11.4 g/dL (14.0-18.0); LYMPHOCYTES # (AUTO) 1.4 (1.0-3.2); LYMPHOCYTES % 18.8 % (18.0-39.1); MEAN CORPUSCULAR HEMOGLOBIN 30.2 pg (28-32); MEAN CORPUSCULAR HGB CONC 32.6 g/dL (31-35); MEAN CORPUSCULAR VOLUME 92.8 fL (81-99); MONOCYTES # (AUTO) 0.7 (0.2-0.8); NEUTROPHILS # (AUTO) 5.3 (2.1-6.9); NEUTROPHILS % 68.5 % (38.7-80.0); PLATELET COUNT 84 x10e3/uL (140-360); RED BLOOD COUNT 3.77 x10e6/uL (4.3-5.7); RED CELL DISTRIBUTION WIDTH 14.9 % (11.7-14.4)
[2022-06-27 14:26] LABS: ANION GAP 22.9 mmol/L (8-16); CALCIUM 8.7 mg/dL (8.4-10.2); CREATININE, SERUM 9.64 mg/dL (0.72-1.25); POTASSIUM 4.9 mmol/L (3.5-5.1)
[2022-06-27 14:56] VITALS: BP 196/107
[2022-06-27 15:02] VITALS: BP 196/107
[2022-06-27 15:04] VITALS: BP 196/107
[2022-06-27] MEDS ORDERED: ROCURONIUM BROMIDE 10 MG/ML 5ML VIAL IV ONE (15:26)
[2022-06-27] MEDS ORDERED: ONDANSETRON HCL INJ 2MG/ML 2ML 2 MG/ML VIAL IV ONE (15:26)
[2022-06-27] MEDS ORDERED: PROPOFOL IV EMULSION 10 MG/ML 20 ML VIAL IV ONE (15:26)
[2022-06-27] MEDS ORDERED: POVIDONE IODINE 0.05% 0.05 % ML PO ONE (15:26)
[2022-06-27] MEDS ORDERED: LABETALOL HCL 5 MG/ML 20ML VIAL IV ONE (15:26)
[2022-06-27] MEDS ORDERED: DEXAMETHASONE SOD PHOS INJ 4 MG/ML SDV IV ONE (15:26)
[2022-06-27] MEDS ORDERED: LIDOCAINE HCL 2% LOCAL INJ 5 ML SDV VIAL INJ ONE (15:26)
[2022-06-27] MEDS ORDERED: DESFLURANE 240 ML BTL INH ONE (15:26)
[2022-06-27 16:31] VITALS: BP 196/107
[2022-06-27] MEDS: SODIUM CHLORIDE 0.9% 1000ML 1,000 ML IV SCH (16:31)
[2022-06-27] MEDS ORDERED: ACETAMINOPHEN 1000 MG/100 ML IV PRN (18:00)
[2022-06-27] MEDS ORDERED: PROMETHAZINE HCL 25 MG TAB PO PRN (18:00)
[2022-06-27] MEDS: ONDANSETRON HCL INJ 2MG/ML 2ML 2 MG/ML VIAL IV PRN ×2 (18:04→21:28)
[2022-06-27] MEDS: HYDROMORPHONE 1MG/1ML INJ IV PRN ×2 (18:08→21:29)
[2022-06-27 20:00] VITALS: BP 143/58
[2022-06-27] MEDS: SEVELAMER CARBONATE 800 MG TAB PO SCH (21:00)
[2022-06-27] MEDS: CLONIDINE HCL 0.2 MG TAB PO SCH (21:00)
[2022-06-27] MEDS: MINOXIDIL 2.5 MG TAB PO SCH ×2 (21:19→21:34)
[2022-06-28] VITALS (9 sets, daily range): BP systolic 94–143; BP diastolic 52–81
[2022-06-28] MEDS: HYDROMORPHONE 1MG/1ML INJ IV PRN ×4 (02:07→20:39)
[2022-06-28] MEDS: SODIUM CHLORIDE 0.9% 1000ML 1,000 ML IV SCH (06:09)
[2022-06-28 06:48] LABS: BASOPHILS % 0.1 % (0.0-1.0); HEMATOCRIT 24.3 % (38.2-49.6); LYMPHOCYTES # (AUTO) 0.8 (1.0-3.2); LYMPHOCYTES % 9.7 % (18.0-39.1); MEAN CORPUSCULAR HEMOGLOBIN 30.2 pg (28-32); MEAN CORPUSCULAR HGB CONC 32.1 g/dL (31-35); MEAN CORPUSCULAR VOLUME 94.2 fL (81-99); MONOCYTES # (AUTO) 0.9 (0.2-0.8); MONOCYTES % 11.1 % (4.4-11.3); NEUTROPHILS # (AUTO) 6.4 (2.1-6.9); NEUTROPHILS % 78.7 % (38.7-80.0); PLATELET COUNT 78 x10e3/uL (140-360); RED BLOOD COUNT 2.58 x10e6/uL (4.3-5.7); RED CELL DISTRIBUTION WIDTH 14.7 % (11.7-14.4)
[2022-06-28 06:54] LABS: HEMOGLOBIN 7.8 g/dL (14.0-18.0)
[2022-06-28 07:02] LABS: ANION GAP 20.6 mmol/L (8-16); CREATININE, SERUM 9.13 mg/dL (0.72-1.25); POTASSIUM 4.6 mmol/L (3.5-5.1)
[2022-06-28 07:06] LABS: CALCIUM 6.9 mg/dL (8.4-10.2)
[2022-06-28] MEDS: SEVELAMER CARBONATE 800 MG TAB PO SCH ×3 (08:56→20:36)
[2022-06-28] MEDS: PANTOPRAZOLE SOD 40 MG TABEC PO SCH ×2 (08:56→17:43)
[2022-06-28] MEDS: ASPIRIN 81 MG ENTERIC COATED PO SCH (08:56)
[2022-06-28] MEDS: MINOXIDIL 2.5 MG TAB PO SCH ×2 (08:56→20:37)
[2022-06-28] MEDS: CLONIDINE HCL 0.2 MG TAB PO SCH ×3 (09:00→20:57)
[2022-06-28] MEDS: DILTIAZEM HCL ER 120 MG CAP PO SCH (09:00)
[2022-06-28] MEDS: ONDANSETRON HCL INJ 2MG/ML 2ML 2 MG/ML VIAL IV PRN ×2 (12:58→20:39)
[2022-06-28] MEDS: EPOETIN ALFA-EPBX 10,000 UNIT/ML VIAL SC SCH (17:43)
[2022-06-28] MEDS: CALCIUM CARBONATE 500 MG CHEWABLE TABS PO SCH (20:38)
[2022-06-29] VITALS (7 sets, daily range): BP systolic 112–169; BP diastolic 49–97
[2022-06-29] MEDS: HYDROMORPHONE 1MG/1ML INJ IV PRN ×3 (02:07→18:36)
[2022-06-29] MEDS: SODIUM CHLORIDE 0.9% 1000ML 1,000 ML IV SCH ×2 (02:30→10:43)
[2022-06-29 05:33] LABS: BASOPHILS % 0.7 % (0.0-1.0); EOSINOPHILS # (AUTO) 0.1 (0.0-0.4); EOSINOPHILS % 1.2 % (0.0-6.0); HEMOGLOBIN 6.1 g/dL (14.0-18.0); LYMPHOCYTES # (AUTO) 0.7 (1.0-3.2); LYMPHOCYTES % 10.9 % (18.0-39.1); MEAN CORPUSCULAR HGB CONC 31.4 g/dL (31-35); MEAN CORPUSCULAR VOLUME 95.6 fL (81-99); MONOCYTES # (AUTO) 0.7 (0.2-0.8); MONOCYTES % 12.4 % (4.4-11.3); NEUTROPHILS # (AUTO) 4.5 (2.1-6.9); NEUTROPHILS % 74.3 % (38.7-80.0); PLATELET COUNT 78 x10e3/uL (140-360); RED BLOOD COUNT 2.03 x10e6/uL (4.3-5.7); RED CELL DISTRIBUTION WIDTH 15.2 % (11.7-14.4)
[2022-06-29 05:38] LABS: HEMATOCRIT 19.4 % (38.2-49.6)
[2022-06-29 05:49] LABS: ANION GAP 22.9 mmol/L (8-16); CALCIUM 9.3 mg/dL (8.4-10.2); CREATININE, SERUM 11.1 mg/dL (0.72-1.25); POTASSIUM 4.9 mmol/L (3.5-5.1)
[2022-06-29] MEDS ORDERED: SODIUM CHLORIDE 0.9% 250ML 250 ML IV ONE (07:00)
[2022-06-29] MEDS: PANTOPRAZOLE SOD 40 MG TABEC PO SCH ×2 (07:30→17:50)
[2022-06-29] MEDS: ASPIRIN 81 MG ENTERIC COATED PO SCH (09:00)
[2022-06-29] MEDS: SEVELAMER CARBONATE 800 MG TAB PO SCH ×3 (09:00→21:00)
[2022-06-29] MEDS: MINOXIDIL 2.5 MG TAB PO SCH ×3 (09:00→21:00)
[2022-06-29] MEDS: CLONIDINE HCL 0.2 MG TAB PO SCH ×3 (09:00→21:00)
[2022-06-29] MEDS: DILTIAZEM HCL ER 120 MG CAP PO SCH (09:00)
[2022-06-29] MEDS: CALCIUM CARBONATE 500 MG CHEWABLE TABS PO SCH ×3 (09:00→21:07)
[2022-06-29] MEDS: ONDANSETRON HCL INJ 2MG/ML 2ML 2 MG/ML VIAL IV PRN ×2 (10:38→18:36)
[2022-06-29] MEDS ORDERED: SODIUM CHLORIDE 0.9% 250ML 250 ML ONE (12:43)
[2022-06-30] VITALS (7 sets, daily range): BP systolic 124–190; BP diastolic 63–96
[2022-06-30 06:46] LABS: BASOPHILS % 0.5 % (0.0-1.0); EOSINOPHILS # (AUTO) 0.1 (0.0-0.4); EOSINOPHILS % 0.9 % (0.0-6.0); HEMATOCRIT 24.7 % (38.2-49.6); HEMOGLOBIN 8.4 g/dL (14.0-18.0); LYMPHOCYTES # (AUTO) 0.8 (1.0-3.2); LYMPHOCYTES % 11.6 % (18.0-39.1); MEAN CORPUSCULAR HEMOGLOBIN 30.4 pg (28-32); MEAN CORPUSCULAR VOLUME 89.5 fL (81-99); MONOCYTES # (AUTO) 0.7 (0.2-0.8); MONOCYTES % 11.2 % (4.4-11.3); NEUTROPHILS # (AUTO) 4.9 (2.1-6.9); NEUTROPHILS % 75.3 % (38.7-80.0); PLATELET COUNT 95 x10e3/uL (140-360); RED BLOOD COUNT 2.76 x10e6/uL (4.3-5.7); RED CELL DISTRIBUTION WIDTH 14.9 % (11.7-14.4)
[2022-06-30 07:06] LABS: ANION GAP 20.6 mmol/L (8-16); CALCIUM 9.6 mg/dL (8.4-10.2); CREATININE, SERUM 9.74 mg/dL (0.72-1.25); POTASSIUM 4.6 mmol/L (3.5-5.1)
[2022-06-30] MEDS: PANTOPRAZOLE SOD 40 MG TABEC PO SCH ×2 (07:30→16:50)
[2022-06-30] MEDS: MINOXIDIL 2.5 MG TAB PO SCH ×3 (09:00→20:59)
[2022-06-30] MEDS: CLONIDINE HCL 0.2 MG TAB PO SCH ×3 (09:00→20:59)
[2022-06-30] MEDS: DILTIAZEM HCL ER 120 MG CAP PO SCH (09:00)
[2022-06-30] MEDS: SEVELAMER CARBONATE 800 MG TAB PO SCH ×3 (09:00→20:58)
[2022-06-30] MEDS: CALCIUM CARBONATE 500 MG CHEWABLE TABS PO SCH ×3 (09:00→20:59)
[2022-06-30] MEDS: ASPIRIN 81 MG ENTERIC COATED PO SCH (09:00)
[2022-06-30] MEDS: EPOETIN ALFA-EPBX 10,000 UNIT/ML VIAL SC SCH (16:54)
[2022-06-30] MEDS: SODIUM CHLORIDE 0.9% 1000ML 1,000 ML IV SCH (18:30)
[2022-07-01] VITALS: BP 126/81
[2022-07-01 04:00] VITALS: BP 141/67
[2022-07-01 04:54] LABS: BASOPHILS % 0.6 % (0.0-1.0); EOSINOPHILS # (AUTO) 0.2 (0.0-0.4); HEMATOCRIT 25.8 % (38.2-49.6); HEMOGLOBIN 8.6 g/dL (14.0-18.0); LYMPHOCYTES # (AUTO) 0.8 (1.0-3.2); LYMPHOCYTES % 15.3 % (18.0-39.1); MEAN CORPUSCULAR HEMOGLOBIN 30.2 pg (28-32); MEAN CORPUSCULAR HGB CONC 33.3 g/dL (31-35); MEAN CORPUSCULAR VOLUME 90.5 fL (81-99); MONOCYTES # (AUTO) 0.7 (0.2-0.8); MONOCYTES % 13.1 % (4.4-11.3); NEUTROPHILS # (AUTO) 3.4 (2.1-6.9); NEUTROPHILS % 67.4 % (38.7-80.0); PLATELET COUNT 90 x10e3/uL (140-360); RED BLOOD COUNT 2.85 x10e6/uL (4.3-5.7); RED CELL DISTRIBUTION WIDTH 14.7 % (11.7-14.4)
[2022-07-01 05:25] LABS: ANION GAP 17.2 mmol/L (8-16); CALCIUM 9.7 mg/dL (8.4-10.2); CREATININE, SERUM 7.62 mg/dL (0.72-1.25); POTASSIUM 4.2 mmol/L (3.5-5.1)
[2022-07-01] MEDS: CLONIDINE HCL 0.2 MG TAB PO SCH ×3 (09:00→20:43)
[2022-07-01] MEDS: SEVELAMER CARBONATE 800 MG TAB PO SCH ×3 (09:00→20:44)
[2022-07-01] MEDS: ASPIRIN 81 MG ENTERIC COATED PO SCH (09:00)
[2022-07-01] MEDS: MINOXIDIL 2.5 MG TAB PO SCH ×3 (09:00→20:43)
[2022-07-01] MEDS: CALCIUM CARBONATE 500 MG CHEWABLE TABS PO SCH ×3 (09:00→20:40)
[2022-07-01 09:15] VITALS: BP 178/69
[2022-07-01] MEDS: PANTOPRAZOLE SOD 40 MG TABEC PO SCH ×2 (09:18→16:00)
[2022-07-01] MEDS: DILTIAZEM HCL ER 120 MG CAP PO SCH (09:24)
[2022-07-01 09:30] VITALS: BP 178/69
[2022-07-01 16:53] VITALS: BP 151/81
[2022-07-01] MEDS ORDERED: NIFEDIPINE CR 30 MG TAB PO SCH (17:00)
[2022-07-01 20:00] VITALS: BP 133/73
[2022-07-01] MEDS: NIFEDIPINE CR 30 MG TAB PO SCH (20:42)
[2022-07-02] VITALS: BP 122/85
[2022-07-02 04:00] VITALS: BP 135/87
[2022-07-02 06:01] LABS: BASOPHILS % 0.5 % (0.0-1.0); EOSINOPHILS # (AUTO) 0.2 (0.0-0.4); EOSINOPHILS % 4.1 % (0.0-6.0); HEMATOCRIT 24.4 % (38.2-49.6); HEMOGLOBIN 8.2 g/dL (14.0-18.0); LYMPHOCYTES # (AUTO) 0.6 (1.0-3.2); LYMPHOCYTES % 10.4 % (18.0-39.1); MEAN CORPUSCULAR HEMOGLOBIN 30.8 pg (28-32); MEAN CORPUSCULAR HGB CONC 33.6 g/dL (31-35); MEAN CORPUSCULAR VOLUME 91.7 fL (81-99); MONOCYTES # (AUTO) 0.7 (0.2-0.8); MONOCYTES % 12.3 % (4.4-11.3); NEUTROPHILS % 72.2 % (38.7-80.0); PLATELET COUNT 108 x10e3/uL (140-360); RED BLOOD COUNT 2.66 x10e6/uL (4.3-5.7); RED CELL DISTRIBUTION WIDTH 14.7 % (11.7-14.4)
[2022-07-02 06:37] LABS: ANION GAP 18.3 mmol/L (8-16); CALCIUM 9.6 mg/dL (8.4-10.2); CREATININE, SERUM 10.41 mg/dL (0.72-1.25); POTASSIUM 4.3 mmol/L (3.5-5.1)
[2022-07-02] MEDS: SEVELAMER CARBONATE 800 MG TAB PO SCH (08:38)
[2022-07-02] MEDS: PANTOPRAZOLE SOD 40 MG TABEC PO SCH (08:38)
[2022-07-02] MEDS: ASPIRIN 81 MG ENTERIC COATED PO SCH (08:39)
[2022-07-02] MEDS: MINOXIDIL 2.5 MG TAB PO SCH (08:39)
[2022-07-02] MEDS: CLONIDINE HCL 0.2 MG TAB PO SCH (08:39)
[2022-07-02] MEDS: CALCIUM CARBONATE 500 MG CHEWABLE TABS PO SCH (08:39)
[2022-07-02] MEDS: NIFEDIPINE CR 30 MG TAB PO SCH (08:40)
[2022-07-02 08:46] VITALS: BP 154/93
[2022-07-02 12:44] VITALS: BP 122/68
[2022-07-02] MEDS ORDERED: ONDANSETRON HCL 4 MG ORAL DISINTEGRATING TAB PO PRN (15:30)
== END 2022-07-02 15:27 | disposition home or self-care (01) | DRG 656 ==
LOC: OR 07:24 → PACU V 10:20 → MED/SURG 14:24
PROVIDERS: ADMIT Family Medicine; ATTEND Family Medicine
PROC: 0TT10ZZ Resection of Left Kidney, Open Approach (ICD-10-PCS; principal; 2022-06-27 10:30)
PROC: 5A1D70Z Performance of Urinary Filtration, Intermittent, Less than 6 Hours Per Day (ICD-10-PCS; 2022-06-28)
DX: C64.2 Malignant neoplasm of left kidney, except renal pelvis (principal); N18.6 End stage renal disease; I12.0 Hypertensive chronic kidney disease with stage 5 chronic kidney disease or end stage renal disease; K21.00 Gastro-esophageal reflux disease with esophagitis, without bleeding; E78.5 Hyperlipidemia, unspecified; E83.51 Hypocalcemia; D63.1 Anemia in chronic kidney disease; E83.39 Other disorders of phosphorus metabolism; Z90.5 Acquired absence of kidney; Z99.2 Dependence on renal dialysis; Z79.82 Long term (current) use of aspirin
CPT/HCPCS: 0223U; 36415; 71045; 80048; 80053; 82948; 83735; 85025; 85610; 85730; 86706; 86850; 86900; 86920; 87086; 87340; 88304; 88307; 88342; 90962; 93005; 94799; 96361; J0690; J1100; J1170; J2001; J2250; J2405; J7030; J7040; J7050; J7070; P9016

== ENCOUNTER → 2024-03-23 | Outpatient (REF) | payer OTHER ==
[~2024-03-23] MED LIST changes: +GABAPENTIN100 MG
== END ==
LOC: US 11:40
PROVIDERS: ATTEND Urology
DX: D41.02 Neoplasm of uncertain behavior of left kidney (principal); N18.9 Chronic kidney disease, unspecified; Z90.5 Acquired absence of kidney
CPT/HCPCS: 76770; 76857